=== PATIENT | male | born 1955 | race Caucasian/White ===

== ENCOUNTER 2020-03-11 13:14 | Emergency (ER) | payer MEDICARE, SELFPAY ==
[2020-03-11 13:28] VITALS: BP 114/82; BP 117/84; PULSE 80; PULSE 84; RESP 16; TEMP 37.3; O2SAT 96; O2SAT 98; BMI 27.6
--- NOTE | 2020-03-11 15:32 | XR_ITS ---
EXAMINATION: XR CHEST CLINICAL INFORMATION: Cough COMPARISON: Chest radiographs 05/18/2015, 01/13/2014 TECHNIQUE: Portable upright AP view of the chest was obtained. FINDINGS: The lungs are clear. There is no airspace consolidation or definite groundglass opacity. The costophrenic sulci are well-defined. The heart is normal in size. The vascularity is normal. The hilar and mediastinal contours are normal. There are degenerative changes thoracic spine and bilateral acromioclavicular joints. XR/XR chest 1V IMPRESSION: Unremarkable examination.
--- NOTE | 2020-03-11 15:33 | ED_ITS ---
HPI - General Adult General Chief complaint: General Medical Stated complaint: FLu like Time Seen by Provider: 03/11/20 15:08 Source: patient Mode of arrival: ambulatory History of Present Illness HPI narrative: 64-year-old male with no significant past medical history presenting to ED complaining of fever, generalized malaise, fatigue, dry cough and headache x 3 days. Denies headache at present. Requesting COVID-19 testing. Denies CP/SOB, abdominal pain, nausea/vomiting, LE edema, recent travel, sick contacts Onset (ago): day(s) Related Data Allergies Allergy/AdvReac Type Severity Reaction Status Date / Time penicillin V Allergy Unknown Verified 12/18/19 00:00 Penicillins [PENICILLINS] Allergy Unknown RASH Unverified 12/31/19 15:49 Review of Systems Review of Systems: Constitutional: No Weight loss, + Fever, No Chills ENT/Mouth: No Ear Pain, No Nasal Congestion, No Sinus Pain, No Hoarseness, No sore throat, No Rhinorrhea, No Swallowing Difficulty Cardiovascular: No Chest Pain, No SOB Respiratory: + Cough, No Sputum, No Wheezing Gastrointestinal: No Nausea, No Vomiting, No Diarrhea, No Constipation, No Abdominal pain Musculoskeletal: No joint pain, +Myalgias Skin: No Skin Lesions, No rash Yes all other systems are reviewed and are negative PMFSH Past Medical History Attestation statement: The following information was validated with the patient. Social History Social History Smoked in Last 30 Days: No Use of substances other than those prescribed or required for medical reasons: No Advance Directives: No Advance Directives Information Provided: No Physical Exam Vital Signs: Vital Signs: Last Vital Signs Temp 98.8 F 03/11/20 15:44 Pulse 66 03/11/20 15:44 Resp 16 03/11/20 15:44 BP 113/78 03/11/20 15:44 Pulse Ox 96 03/11/20 15:44 Body Mass Index 27.6 Const: General: cooperative and healthy appearing Orientation/consciousness: patient oriented x3 Limitations: no limitations HENMT: Head: Yes normal to inspection Ears: hearing grossly normal bilaterally General nose exam: Normal external nose present Face and sin us: Yes normal facial exam Eyes: General: appearance normal, both eyes and all related structures EOM: EOMs intact bilaterally Neck: Neck: Yes normal visual inspection Resp: Effort & Inspection: normal respiratory effort Auscultation: clear to auscultation bilaterally, no crackles and no wheezes Cardio: Rate: regular rate Heart sounds: S1 normal heart sound present and S2 normal heart sound present GI: Inspection: Yes normal to inspection Palpation (GI): Soft to palpation, nontender, no guarding and not rigid Skin: Rashes: no rashes Wounds: no wounds Neuro: General: patient oriented x3 Gait exam (Neuro): Normal gait present Extrem: Other: No LE edema General: Yes normal to inspection Course Course Course Narrative: -CXR unremarkable Medical Decision Making [facility] Narrative Medical decision making narrative: 64-year-old male with no significant past me dical history presenting to ED complaining of fever, generalized malaise, fatigue, dry cough and headache x 3 days. On exam low-grade temp 99.2?, NAD/well-appearing, lungs CTA. Concern for COVID-19/viral syndrome. Rule out pneumonia. Plan: CXR, COVID-19, anticipated DC home Discharge Plan Discharge Clinical Impression: Upper respiratory infection Patient Disposition: Home, Self-Care Instructions: Viral Syndrome (ED) Additional Instructions: Your chest x-ray was unremarkable today in the ED. You were tested for COVID- 19, the results should be back in about 3 days, we will call you positive were negative. In the meantime you to self isolate. If you develop fevers unresolved medications at, chest pain, or shortness of breath return to the ED Herzog radiograf?a de t?rax no fue notable hoy en el servicio de urgencias. Le hicieron la prueba de COVID-19, los resultados deber?an estar disponibles en aproximadamente 3 d?as, lo llamaremos positivo y negativo. Mientras tanto, debes aislarte. Si presenta fiebre, medicamentos no resueltos, dolor en el pecho o dificultad para respirar, regrese al servicio de urgencias. Based on your symptoms and history we have sent a COVID-19. Although your RESULT IS PENDING at this time. RESULTS should return within 72 hours. At this time you will be contacted with either NEGATIVE OR POSITIVE results. -Please wait until we contact you for your results. At this time you will be okay for discharge. Please plan for self quarantine for up to 14 days. Do not expose yourself to others. You may not go to work. If testing does come back negative you may return to activities as long as you are no longer having any symptoms for at least 3 days. Please continue to follow cold instructions and wash your hands frequently. You may take Tylenol as directed on the bottle for pain or fever. Patient seen in the emergency department on 10/09/2019 and should be excused from work until negative test results AND until 72 hours without any symptoms AND at least 10 days have passed since symptoms first appeared or since last exposure to COVID-19 positive patient CDC Guidelines for home isolation: - Stay away from others - WEAR A MASK if you are sick AND STAY HOME - Cover your mouth and nose with a tissue when you cough or sneeze. Dispose of tissues in a lined trash can and wash your hands immediately with soap and water for at least 20 seconds. If soap and water are not available, clean hands with alcohol-based hand dietitian assistant that contains at least 60% alcohol. - Clean your hands often with soap and water for at least 20 seconds - Avoid touching your eyes, nose and mouth with unwashed hands - Do not share dishes, drinking glasses, cups, eating utensils, towels, or bedding with other people in your home. After using these items, wash them thoroughly with soap and water or put in the flight physician. - Clean high-touch surfaces in your isolation area ( sick room and bathroom) every day; let a caregiver clean and disinfect high-touch surfaces in other areas of the home. Clean the area or item with soap and water or another detergent if it is dirty. Then, use a household disinfectant. - Limit contact with pets and animals: If you must care for a pet, wash your hands before and after interacting with them) Referrals: Debbie Ardon NP [Primary Care Provider] - 2 days Print Language: Macedonian
[2020-03-11 15:44] VITALS: BP 113/78; PULSE 66; RESP 16; TEMP 37.1; O2SAT 96
== END 2020-03-11 17:38 | disposition home or self-care (01) ==
PROVIDERS: Physician Assistant; Emergency Provider Emergency Medicine Emergency Medical Services; PCP Emergency Medicine
DX: J06.9 Acute upper respiratory infection, unspecified (principal); R50.9 Fever, unspecified; R05 Cough; M79.10 Myalgia, unspecified site; Z20.828 Contact with and (suspected) exposure to other viral communicable diseases
CPT/HCPCS: 71045; 99283; 99284; U0003

== ENCOUNTER 2020-03-19 10:49 | Emergency (ER) | payer MEDICARE, SELFPAY ==
[2020-03-19 11:24] VITALS: BP 115/89; BP 122/82; PULSE 100; PULSE 84; RESP 18; TEMP 37.3; O2SAT 94; BMI 30.4
--- NOTE | 2020-03-19 12:27 | XR_ITS ---
EXAMINATION: XR CHEST CLINICAL INFORMATION: Cough, and fever. COMPARISON: Chest done on 03/11/2020. TECHNIQUE: Frontal view of the chest was obtained. FINDINGS: Subtle retrocardiac focal airspace disease is noted may represent atelectasis, infiltrate versus mass. This is new since prior study. The remainder of the lung rodriguez are clear. The heart size is within normal limit. There is no pleural effusion or pneumothorax present. The visualized upper abdomen is unremarkable. XR/XR chest 1V IMPRESSION: Subtle retrocardiac airspace disease, may represent infiltrate, atelectasis versus mass, new since 03/11/2020. Follow-up radiograph to document resolution is recommended.
--- NOTE | 2020-03-19 12:33 | ED.GENADULT ---
HPI - General Adult General Chief complaint: General Medical Stated complaint: INCREASED WEAKNESS, + COVID Time Seen by Provider: 03/19/20 12:01 Source: patient Mode of arrival: ambulatory Limitations: no limitations History of Present Illness HPI narrative: 64-year-old male with no significant past medical history here with fever and cough x 1.5 weeks. Patient tells me on 03/11 he was tested for COVID and was positive. Since then he has continued to have fevers and cough. He feels generally weak with a decreased appetite and little p.o. intake. He denies chest pain, shortness of breath. Denies vomiting, diarrhea or abdominal pain. He has not measured his temperature but tells me he has had subjective fevers. Onset (ago): week(s) Radiation: non-radiation Relieving factors: none Exacerbating factors: none Associated symptoms: cough and fever/chills Treatments prior to arrival: none Related Data Previous Rx's Medication Instructions Recorded azithromycin 250 mg PO DAILY 4 Days #4 tab 03/19/20 cefdinir 300 mg PO BID #14 cap 03/19/20 Allergies Allergy/AdvReac Type Severity Reaction Status Date / Time penicillin V Allergy Intermediate Rash Verified 03/19/20 11:31 Penicillins [PENICILLINS] Allergy Intermediate RASH Verified 03/19/20 11:31 Review of Systems Review of Systems: Yes all other systems are reviewed and are negative Constitutional: Constitutional: Reports no additional constitutional complaints, Denies body ache(s), Reports chills, Reports fatigue, Reports fever(s), Denies headache(s) and Reports weakness Eyes: Eyes: Reports no additional eye complaints and Denies change in vision ENT: Reports system reviewed and no additional complaints, except as documented, Denies dizziness, Denies headache(s), Denies nasal congestion, Denies nasal discharge and Denies neck pain Cardiovascular: Cardiovascular: Reports no additional cardiovascular complaints, Denies chest pain, Denies leg edema and Denies dyspnea Respiratory: Respiratory: Reports no additional respiratory complaints, Reports cough and Denies dyspnea Gastrointestinal: Gastrointestinal: Reports no additional gastrointestinal complaints, Denies abdominal pain, Denies diarrhea, Denies nausea and Denies vomiting Genitourinary: Genitourinary: Denies urinary incontinence Musculoskeletal: Musculoskeletal: Reports no additional musculoskeletal complaints, Denies back pain, Denies arthralgias, Denies joint swelling, Denies neck pain, Denies numbness and Denies tingling Integumentary/Breasts: Skin/Breast: Reports system reviewed and no additional complaints, except as docu and Denies rash Neurologic: Reports system reviewed and no additional complaints, except as documented, Denies Abnormal speech present, Denies dizziness, Denies headache(s), Denies numbness, Denies tingling and Reports weakness Endocrine: Endocrine: Reports fatigue PMF Past Medical History Attestation statement: The following information was validated with the patient. Source: old records reviewed and nursing notes reviewed Medical History HTN (hypertension) Sinusitis Social History Social History Alcohol intake: never Smoked in Last 30 Days: No Use of substances other than those prescribed or required for medical reasons: No Advance Directives: No Advance Directives Information Provided: No Physical Exam Vital Signs: Vital Signs: Last Vital Signs Temp 100.4 F 03/19/20 14:00 Pulse 96 03/19/20 15:22 Resp 18 03/19/20 15:22 BP 118/80 03/19/20 13:36 Pulse Ox 95 03/19/20 15:22 Body Mass Index 30.4 Const: General: cooperative, healthy appearing, comfortable and no acute distress Orientation/consciousness: patient oriented x3 Limitations: no limitations HENMT: Head: Yes normal to inspection Ears: hearing grossly normal bilaterally General nose exam: Normal external nose present Face and sinus: Yes normal facial exam Mouth: Normal oral and palatal mucosa present Throat: Yes posterior oropharynx normal Eyes: General: appearance normal, both eyes and all related structures Pupils: Equal, round and reactive pupils present Neck: Neck: Yes normal visual inspection Chest: Chest palpation & inspection: normal inspection of the chest Resp: Other: Fine crackles in the bases. Clear upper airway sounds. Effort & Inspection: normal respiratory effort Auscultation: clear to auscultation bilaterally Cardio: Rate: regular rate Rhythm: regular rhythm Peripheral pulses: Peripheral pulses 2+ throughout GI: Inspection: Yes normal to inspection Palpation (GI): Soft to palpation and nontender Auscultation: normal bowel sounds Back/Spine/Pelvis: Thoracic/Lumbar Spine: thoracic and lumbar spine normal to inspection Skin: General skin exam: no rashes or lesions noted Neuro: General: patient oriented x3, no focal motor deficits and normal sensation to monofilament Cranial nerves: Yes Equal, round and reactive pupils present Cognition (Neuro): normal cognition Speech: No Abnormal speech present Gait exam (Neuro): Normal gait present Motor exam (neuro): 5/5 motor strength present throughout Extrem: General: Yes normal to inspection Course Course Course Narrative: 64-year-old male with known COVID positive here with continued symptoms of cough, subjective fevers, weakness and fatigue. Patient also complains of decreased p.o. intake. On arrival he is well appearing with stable vital signs. He does have some fine crackles in the bases but has stable saturations on room air. Will plan to check chest x-ray, labs. 1330-chest x-ray concerning for underlying pneumonia. CT chest ordered. At this time infection is suspected. Antibiotics ordered. 1530-CT of the chest concerning for bilateral ground-glass opacities consistent with COVID-19 pneumonia. Labs consistent with the COVID-19 infection. Patient ambulated in the emergency department with oxygen saturation greater than 98%. He received antibiotics while he was here in the emergency department. He will be discharged home with antibiotics. He is tolerating p.o. and appears well. Discussed the findings with him. Reviewed worrisome signs and symptoms and when to return to the emergency department. Comfortable with discharge home. Medical Decision Making MDM Narrative Medical decision making narrative: COVID-19 infection, pneumonia Medical Records Medical records reviewed: Yes I reviewed the patient's medical records. Lab Data Lab results reviewed: Yes I reviewed the patient's lab results. Result diagrams: 03/19/20 13:32 03/19/20 13:28 Labs: Lab Results 03/19/20 03/19/20 03/19/20 Range/Units 13:28 13:28 13:28 WBC (4.8-10.8) X10*3/uL RBC (4.60-5.80) X10*6/uL Hgb (14.0-18.0) g/dl Hct (42-52) % MCV (80-98) fL MCH (27.0-33.0) pg MCHC (31.0-36.0) g/dl RDW (11.0-16.0) % Plt Count (160-400) X10*3/uL MPV (9.4-12.4) fL Immature Gran % (Auto) (0.0-0.4) % Neut % (Auto) (45-73) % Lymph % (Auto) (20-40) % [place] % (Auto) (2-11) % Eos % (Auto) (0-4) % Baso % (Auto) (0-2) % Lymph # (Auto) (1.2-4.9) X10*3/uL [place] # (Auto) (0.1-1.2) X10*3/uL Eos # (Auto) (0.0-0.4) X10*3/uL Baso # (Auto) (0.0-0.2) X10*3/uL Abs Immat Gran (auto) (0.00-0.03) X10*3/uL Absolute Neuts (auto) (2.0-8.3) X10*3/uL Absolute Nucleated RBC (0.0-0.012) X10*3/uL Nucleated RBC % (auto) (0.0-0.2) /100WBC Hold Blue Top SEE NOTE Sodium 138 (135-145) mmol/L Potassium 4.2 (3.3-5.1) mmol/l Chloride 104 (96-108) mmol/L Carbon Dioxide 23 (22-29) mmol/L Anion Gap 15 (12-20) BUN 12 (9-16) mg/dL Creatinine 0.86 (0.5-1.4) mg/dL Estim Creat Clear Calc 89.5 Estimated GFR > 60 Random Glucose 88 (60-115) mg/dL Lactic Acid 1.0 (0.5-2.0) mmol/L Calcium 8.5 (8.4-10.2) mg/dL Magnesium 2.0 (1.6-2.6) mg/dL Ferritin 1296 H (20-250) ng/mL Total Bilirubin 0.8 (0.0-1.0) mg/dL Direct Bilirubin 0.3 (0.0-0.5) mg/dL AST 95 H (5-37) U/L ALT 90 H (0-40) U/L Alkaline Phosphatase 83 (39-117) U/L Lactate Dehydrogenase 333 H (118-273) U/L Total Protein 7.2 (6.5-8.0) g/dL Albumin 4.1 (3.5-5.0) g/dL Procalcitonin ng/mL 03/19/20 03/19/20 Range/Units 13:28 13:32 WBC 8.4 (4.8-10.8) X10*3/uL RBC 4.17 L (4.60-5.80) X10*6/uL Hgb 12.8 L (14.0-18.0) g/dl Hct 38.4 L (42-52) % MCV 92.1 (80-98) fL MCH 30.7 (27.0-33.0) pg MCHC 33.3 (31.0-36.0) g/dl RDW 11.9 (11.0-16.0) % Plt Count 202 (160-400) X10*3/uL MPV 10.4 (9.4-12.4) fL Immature Gran % (Auto) 0.4 (0.0-0.4) % Neut % (Auto) 72.3 (45-73) % Lymph % (Auto) 20.4 (20-40) % [place] % (Auto) 6.7 (2-11) % Eos % (Auto) 0.1 (0-4) % Baso % (Auto) 0.1 (0-2) % Lymph # (Auto) 1.7 (1.2-4.9) X10*3/uL [place] # (Auto) 0.6 (0.1-1.2) X10*3/uL Eos # (Auto) 0.0 (0.0-0.4) X10*3/uL Baso # (Auto) 0.0 (0.0-0.2) X10*3/uL Abs Immat Gran (auto) 0.03 (0.00-0.03) X10*3/uL Absolute Neuts (auto) 6.1 (2.0-8.3) X10*3/uL Absolute Nucleated RBC 0.000 (0.0-0.012) X10*3/uL Nucleated RBC % (auto) 0.0 (0.0-0.2) /100WBC Hold Blue Top Sodium (135-145) mmol/L Potassium (3.3-5.1) mmol/l Chloride (96-108) mmol/L Carbon Dioxide (22-29) mmol/L Anion Gap (12-20) BUN (9-16) mg/dL Creatinine (0.5-1.4) mg/dL Estim Creat Clear Calc Estimated GFR Random Glucose (60-115) mg/dL Lactic Acid (0.5-2.0) mmol/L Calcium (8.4-10.2) mg/dL Magnesium (1.6-2.6) mg/dL Ferritin (20-250) ng/mL Total Bilirubin (0.0-1.0) mg/dL Direct Bilirubin (0.0-0.5) mg/dL AST (5-37) U/L ALT (0-40) U/L Alkaline Phosphatase (39-117) U/L Lactate Dehydrogenase (118-273) U/L Total Protein (6.5-8.0) g/dL Albumin (3.5-5.0) g/dL Procalcitonin 0.08 ng/mL Imaging Data Chest x-ray: Attestation: I personally reviewed and interpreted this imaging study as follows: Radiologist's impression: [address] [address] XRay Report Signed Patient: Chago De La Rosa#: [id number] : 3Acct:[id number] Age/Sex: 64 / MADM Date: 03/19/20 Loc: .ED Attending Dr: Ordering Physician: SIA JORDAN NP Date of Service: 03/19/20 Procedure(s): XR chest 1V Accession Number(s): [id number] cc: SIA JORDAN NP~ EXAMINATION: XR CHEST CLINICAL INFORMATION: Cough, and fever. COMPARISON: Chest done on 03/11/2020. TECHNIQUE: Frontal view of the chest was obtained. FINDINGS: Subtle retrocardiac focal airspace disease is noted may represent atelectasis, infiltrate versus mass. This is new since prior study. The remainder of the lung rodriguez are clear. The heart size is within normal limit. There is no pleural effusion or pneumothorax present. The visualized upper abdomen is unremarkable. XR/XR chest 1V IMPRESSION: Subtle retrocardiac airspace disease, may represent infiltrate, atelectasis versus mass, new since 03/11/2020. Follow-up radiograph to document resolution is recommended. CT scan - chest: Attestation: I personally reviewed and interpreted this imaging study as follows: Radiologist's impression: EXAMINATION: CT CHEST WITHOUT CONTRAST CLINICAL INFORMATION: Shortness of breath and chest pain with pneumonia COMPARISON: Chest radiograph earlier today TECHNIQUE: Multidetector volumetric CT imaging of the chest was done. Axial MIP volume rendering provided. Sagittal and coronal reformatted images were obtained. This CT examination was performed using dose optimization techniques as appropriate, variously including the following: *Automated exposure control *Adjustment of mA and/or kV according to patient size (this includes techniques or standardized protocols for targeted exams where dose is matched to indication/reason for exam; i.e. extremities or head) *Use of iterative reconstruction technique DLP: 267 mGy-cm FINDINGS: LUNGS: Multifocal groundglass predominantly peripheral infiltrates are present involving all lobes. Findings suggestive of Covid 19. No consolidations with air bronchograms are seen. No solid lung masses are seen. MEDIASTINUM: Heart size normal. No mediastinal or hilar lymphadenopathy. Coronary artery calcifications are present as is some calcification in aortic leaflets. PLEURA: There is no pleural effusion. No pleural mass or thickening. AXILLA: No lymphadenopathy. UPPER ABDOMEN: Unremarkable. OSSEOUS STRUCTURES: Unremarkable. Mild degenerative changes are present. CT/CT chest wo con IMPRESSION: Multiple areas of peripheral groundglass infiltrate throughout the lungs suggestive of COVID19 infection. ECG Data Attestation: I personally reviewed and interpreted this ECG as follows: Interpretation: Normal sinus rhythm with a rate of 75, normal NV, normal QRS, normal QTC, depressions in V4 V3 and V5 which is unchanged from previous in 2014 Discharge Plan Discharge Clinical Impression: COVID-19 Pneumonia Qualifiers: Pneumonia type: due to unspecified organism Laterality: bilateral Lung location: unspecified part of lung Qualified Code(s): J18.9 - Pneumonia, unspecified organism Patient Disposition: Home, Self-Care Instructions: Viral Pneumonia (ED), COVID-19 (Coronavirus Disease 2019) (ED) Additional Instructions: Start your antibiotics tomorrow Return for severe shortness of breath Prescriptions: New azithromycin 250 mg tablet 250 mg PO DAILY 4 Days Qty: 4 RF: 0 cefdinir 300 mg capsule 300 mg PO BID Qty: 14 RF: 0 Referrals: Debbie Ardon NP [Primary Care Provider] - 2 days Interventions: ED Discharge Assessment Last Done: 03/19/20 16:07 Discharge Date/Time: 03/19/20 16:08 Print Language: Romanian
--- NOTE | 2020-03-19 13:31 | CT_ITS ---
EXAMINATION: CT CHEST WITHOUT CONTRAST CLINICAL INFORMATION: Shortness of breath and chest pain with pneumonia COMPARISON: Chest radiograph earlier today TECHNIQUE: Multidetector volumetric CT imaging of the chest was done. Axial MIP volume rendering provided. Sagittal and coronal reformatted images were obtained. This CT examination was performed using dose optimization techniques as appropriate, variously including the following: *Automated exposure control *Adjustment of mA and/or kV according to patient size (this includes techniques or standardized protocols for targeted exams where dose is matched to indication/reason for exam; i.e. extremities or head) *Use of iterative reconstruction technique DLP: 267 mGy-cm FINDINGS: LUNGS: Multifocal groundglass predominantly peripheral infiltrates are present involving all lobes. Findings suggestive of Covid 19. No consolidations with air bronchograms are seen. No solid lung masses are seen. MEDIASTINUM: Heart size normal. No mediastinal or hilar lymphadenopathy. Coronary artery calcifications are present as is some calcification in aortic leaflets. PLEURA: There is no pleural effusion. No pleural mass or thickening. AXILLA: No lymphadenopathy. UPPER ABDOMEN: Unremarkable. OSSEOUS STRUCTURES: Unremarkable. Mild degenerative changes are present. CT/CT chest wo con IMPRESSION: Multiple areas of peripheral groundglass infiltrate throughout the lungs suggestive of COVID19 infection.
[2020-03-19] MEDS: 0.9 % Sodium Chloride 1,000 ML 999 ML IV (13:32)
--- NOTE | 2020-03-19 13:33 | PC.NURSE ---
labs drawn, pt medicated per order, will continue to monitor.
[2020-03-19 13:36] VITALS: BP 118/80; PULSE 74; RESP 18; TEMP 37.7; O2SAT 95
--- NOTE | 2020-03-19 13:46 | ECG_ITS ---
Test Reason : [id number] Blood Pressure : / mmHG Vent. Rate : 075 BPM Atrial Rate : 075 BPM P-R Int : 176 ms QRS Dur : 086 ms QT Int : 362 ms P-R-T Axes : 012 000 -24 degrees QTc Int : 404 ms Normal sinus rhythm T wave abnormality, consider inferior ischemia Abnormal ECG When compared with ECG of 13-JAN-2014 17:30, T wave inversion now evident in Inferior leads Referred By: Vicenta Stein Electronically Signed By:MICHAEL RAMIREZ MD
[2020-03-19 13:57] LABS: Basophils Percent Auto 0.1 % (0-2); Eosinophils Percent Auto 0.1 % (0-4); Hematocrit 38.4 % (42-52); Hemoglobin 12.8 g/dl (14.0-18.0); Imm Gran Abs Auto 0.03 X10*3/uL (0.00-0.03); Imm Gran Pct Auto 0.4 % (0.0-0.4); Lymphocytes Absolute Auto 1.7 X10*3/uL (1.2-4.9); Lymphocytes Percent Auto 20.4 % (20-40); MANUAL DIFF FLAG NO; Mean Corpuscular HGB Conc 33.3 g/dl (31.0-36.0); Mean Corpuscular Hemoglobin 30.7 pg (27.0-33.0); Mean Corpuscular Volume 92.1 fL (80-98); Mean Platelet Volume 10.4 fL (9.4-12.4); Monocytes Absolute Auto 0.6 X10*3/uL (0.1-1.2); Monocytes Percent Auto 6.7 % (2-11); Neutrophils Absolute Auto 6.1 X10*3/uL (2.0-8.3); Neutrophils Percent Auto 72.3 % (45-73); Platelet Count 202 X10*3/uL (160-400); Red Blood Count 4.17 X10*6/uL (4.60-5.80); Red Cell Distribution Width 11.9 % (11.0-16.0); White Blood Count 8.4 X10*3/uL (4.8-10.8)
[2020-03-19 14:00] VITALS: RESP 16; TEMP 38
[2020-03-19 14:16] LABS: Alanine Aminotransferase 90 U/L (0-40); Albumin Level 4.1 g/dL (3.5-5.0); Alkaline Phosphatase 83 U/L (39-117); Anion Gap 15 (12-20); Aspartate Amino Transferase 95 U/L (5-37); Bilirubin Direct 0.3 mg/dL (0.0-0.5); Bilirubin Total 0.8 mg/dL (0.0-1.0); Blood Urea Nitrogen 12 mg/dL (9-16); Calcium 8.5 mg/dL (8.4-10.2); Carbon Dioxide 23 mmol/L (22-29); Chloride 104 mmol/L (96-108); Creatinine Clr Calc Pharmacy 89.5; Estimated Glomerular Filt Rate > 60; Glucose Random 88 mg/dL (60-115); Lactate Dehydrogenase 333 U/L (118-273); Potassium 4.2 mmol/l (3.3-5.1); Sodium 138 mmol/L (135-145); Total Protein 7.2 g/dL (6.5-8.0)
[2020-03-19] MEDS: cefTRIAXone sodium 1 GM in 0.9 % Sodium Chloride 50 ML IV (14:27)
[2020-03-19 14:37] LABS: Procalcitonin 0.08 ng/mL
[2020-03-19] MEDS: Azithromycin 500 MG TABLET PO (14:52)
--- NOTE | 2020-03-19 14:52 | PC.NURSE ---
patient medicated per order
[2020-03-19 15:22] VITALS: PULSE 96; RESP 18; O2SAT 95
[2020-03-19] MEDS: Acetaminophen 325 MG TABLET 975 MG PO (15:23)
--- NOTE | 2020-03-19 15:24 | PC.NURSE ---
patient ambulated per provider request pt o2 sat remained at 95% on room air while ambulating/steady gait, pt states he feels better, pt medicated per order.
[2020-03-19 15:49] LABS: Ferritin 1296 ng/mL (20-250)
== END 2020-03-19 16:08 | disposition home or self-care (01) ==
PROVIDERS: Nurse Practitioner Family; Emergency Provider Emergency Medicine Emergency Medical Services; PCP Emergency Medicine
DX: U07.1 COVID-19 (principal); J12.89 Other viral pneumonia; I10 Essential (primary) hypertension
CPT/HCPCS: 36415; 71045; 71250; 80048; 80076; 82728; 83605; 83615; 83735; 84145; 85025; 87040; 93005; 96361; 96365; 99284; J0696

== ENCOUNTER 2020-03-23 10:55 | Inpatient (IN) | payer MEDICARE, SELFPAY ==
--- NOTE | 2020-03-23 11:03 | ED_ITS ---
HPI - URI/Sore Throat General Chief Complaint: General Medical Stated Complaint: COVID+,TAKING TOO LONG TO FEEL BETTER Time Seen by Provider: 03/23/20 11:00 Source: patient and EMS Mode of arrival: EMS History of Present Illness HPI Narrative: 64-year-old male with past medical history COVID-19 positive on 03/11 presenting to ED complaining of continued decreased p.o. intake, generalized fatigue, and dry cough. Patient was seen in the ED on 03/19 for similar symptoms, had labs, CXR/chest CT showing viral pneumonia, was sent home on Zithromax and Ceftin, reports compliance with medications. Reports symptoms consistent/the same as prior ED visit, not worse or better, but was instructed to return to ED by family member. Denies fever, chills, CP/SOB, abdominal pain, recent travel, LE edema MD elicited complaint: cough Related Data Home Medications Medication Instructions Recorded Confirmed aspirin 1 tab PO DAILY 03/23/20 docusate sodium [DOK] 1 cap PO BID 03/23/20 fluocinonide 1 applic TOPICAL DAILY 03/23/20 lisinopril 1 tab PO DAILY 03/23/20 loratadine 1 tab PO DAILY 03/23/20 metronidazole 1 applic TOPICAL BID 03/23/20 omeprazole 1 cap PO DAILY 03/23/20 tamsulosin 1 cap PO DAILY 03/23/20 Previous Rx's Medication Instructions Recorded azithromycin 250 mg PO DAILY 4 Days #4 tab 03/19/20 cefdinir 300 mg PO BID #14 cap 03/19/20 Allergies Allergy/AdvReac Type Severity Reaction Status Date / Time penicillin V Allergy Intermediate Rash Verified 03/19/20 11:31 Penicillins [PENICILLINS] Allergy Intermediate RASH Verified 03/19/20 11:31 Review of Systems Review of Systems: Constitutional: No Weight loss, No Fever, + Chills, +fatigue ENT/Mouth: No Ear Pain, No Nasal Congestion, No Sinus Pain, No sore throat, No Rhinorrhea Cardiovascular: No Chest Pain, No SOB Respiratory: + Cough, No Sputum, No Wheezing Gastrointestinal: No Nausea, No Vomiting, No Diarrhea, No Constipation, No Abdominal pain Musculoskeletal: No joint pain, + Myalgias, No Joint Swelling Skin: No Skin Lesions, No rash Neuro: +generalized weakness Yes all other systems are reviewed and are negative PMFSH Past Medical History Attestation statement: The following information was validated with the patient. Medical History HTN (hypertension) Sinusitis Social History Social History Alcohol intake: never Smoked in Last 30 Days: No Use of substances other than those prescribed or required for medical reasons: No Advance Directives: No Advance Directives Information Provided: No Physical Exam Vital Signs: Vital Signs: Last Vital Signs Temp 100.4 F 03/23/20 11:09 Pulse 69 03/23/20 11:09 Resp 20 03/23/20 11:09 BP 132/86 03/23/20 11:09 Pulse Ox 88 L 03/23/20 11:40 Body Mass Index 29.3 Const: General: cooperative and healthy appearing Orientation/consciou sness: patient oriented x3 Limitations: no limitations HENMT: Head: Yes normal to inspection Ears: hearing grossly normal bilaterally General nose exam: Normal external nose present Face and sinus: Yes normal facial exam Eyes: General: appearance normal, both eyes and all related structures EOM: EOMs intact bilaterally Neck: Neck: Yes normal visual inspection Resp: Effort & Inspection: normal respiratory effort, no grunting, not labored, no respiratory distress and no use of accessory muscles Auscultation: no crackles, no wheezes and diminished lung sounds (Bibasilar) Cardio: Rate: regular rate Heart sounds: S1 normal heart sound present and S2 normal heart sound present GI: Inspection: Yes normal to inspection Palpation (GI): Soft to palpation, nontender, no guarding and not rigid Skin: Rashes: no rashes Wounds: no wounds Neuro: General: patient oriented x3 Gait exam (Neuro): Normal gait present Extrem: Other: no LE edema or calf ttp General: Yes normal to inspection Course Course Course Narrative: -1200--upon ambulation with pulse ox patient dropped to 88% on RA > repeat labs, CXR ordered > plan for admission for COVID- 1--CXR with ill-defined patchy opacities seen in the mid and lower lobes, which were distinctly visualized on previous CT on 03/19 > patient already appropriately treated with Ceftin and azithromycin, consistent with viral pneu monia, low concern for sepsis as viral etiology MDM - URI/Sore Throat MDM Narrative Medical decision making narrative: 64-year-old male with past medical history COVID-19 positive on 03/11 presenting to ED complaining of continued decreased p.o. intake, generalized fatigue, and dry cough. On exam low-grade temp a 100.4?, satting 94% on RA, in no respiratory distress, diminished breath sounds bibasilar, no accessory muscle use, nontoxic appearing. Likely continued COVID- 19 symptoms. Low concern for PE/ACS or bacterial infection. Plan: P.o. prednisone, Tylenol, ambulate with pulse ox in the ED, anticipate DC home with strict return precautions Differential Diagnosis Differential diagnosis: Likely viral infection Lab Data Result diagrams: 03/23/20 12:38 03/23/20 12:38 Labs: Lab Results 03/23/20 Range/Units 12:38 Hold Blue Top SEE NOTE Discharge Plan Discharge Clinical Impression: COVID-19 Patient Disposition: Admitted As Inpatient Print Language: Polish
[2020-03-23 11:09] VITALS: BP 132/86; PULSE 69; RESP 20; TEMP 38; O2SAT 94; BMI 29.3
[2020-03-23] MEDS: Acetaminophen 325 MG TABLET 650 MG PO (11:37)
[2020-03-23] MEDS: predniSONE 20 MG TABLET 40 MG PO (11:37)
[2020-03-23 11:40] VITALS: O2SAT 88
--- NOTE | 2020-03-23 11:52 | XR_ITS ---
EXAMINATION: XR CHEST CLINICAL INFORMATION: Covid 19. SOB. COMPARISON: Chest x-ray and CT chest 03/19/2020 TECHNIQUE: Frontal view of the chest was obtained. FINDINGS: There is a scattered patchy density seen throughout the mid and lower lobes suggestive of infiltrates. These were present on the previous CT chest and chest x-ray 03/19/2020 heart size and pulmonary vascularity is normal. No gross bony abnormality seen. XR/XR chest 1V IMPRESSION: Ill-defined patchy opacities seen in the mid and lower lobes. These are distinctly visualized on previous CT chest 03/19/2020.
[2020-03-23 12:52] LABS: Basophils Percent Auto 0.1 % (0-2); MANUAL DIFF FLAG SCAN; Monocytes Percent Auto 7.7 % (2-11); PLT CLUMP 1; SCAN SMEAR FLAG 1
[2020-03-23] MEDS: Magnesium Sulfate/H2O 2 GM/50 ML PIGGYBACK IV (12:53)
[2020-03-23 12:54] LABS: Eosinophils Absolute Auto 0.1 X10*3/uL (0.0-0.4); Eosinophils Percent Auto 0.7 % (0-4); Hematocrit 33.6 % (42-52); Hemoglobin 11.1 g/dl (14.0-18.0); Imm Gran Abs Auto 0.04 X10*3/uL (0.00-0.03); Imm Gran Pct Auto 0.5 % (0.0-0.4); Lymphocytes Absolute Auto 1.2 X10*3/uL (1.2-4.9); Lymphocytes Percent Auto 13.8 % (20-40); Mean Corpuscular Hemoglobin 30.1 pg (27.0-33.0); Mean Corpuscular Volume 91.1 fL (80-98); Mean Platelet Volume 9.2 fL (9.4-12.4); Monocytes Absolute Auto 0.7 X10*3/uL (0.1-1.2); Neutrophils Absolute Auto 6.6 X10*3/uL (2.0-8.3); Neutrophils Percent Auto 77.2 % (45-73); Red Blood Count 3.69 X10*6/uL (4.60-5.80); Red Cell Distribution Width 11.7 % (11.0-16.0); White Blood Count 8.6 X10*3/uL (4.8-10.8)
[2020-03-23] MEDS: Albuterol Sulfate 90 MCG 8 GM INHALER 4 PUFF INHALE (12:54)
[2020-03-23 13:09] LABS: D Dimer 1978 NG/ML
[2020-03-23 13:12] LABS: SLIDE REVIEW VERIFIED
[2020-03-23 13:20] LABS: C Reactive Protein 12.29 mg/dL (< or = 0.50); Lactate Dehydrogenase 262 U/L (118-273)
[2020-03-23 13:21] LABS: Anion Gap 15 (12-20); Blood Urea Nitrogen 11 mg/dL (9-16); Calcium 8.3 mg/dL (8.4-10.2); Carbon Dioxide 24 mmol/L (22-29); Chloride 106 mmol/L (96-108); Creatinine Clr Calc Pharmacy 92.7; Estimated Glomerular Filt Rate > 60; Glucose Random 101 mg/dL (60-115); Sodium 141 mmol/L (135-145)
[2020-03-23 13:23] LABS: Alanine Aminotransferase 40 U/L (0-40); Albumin Level 3.7 g/dL (3.5-5.0); Alkaline Phosphatase 63 U/L (39-117); Aspartate Amino Transferase 32 U/L (5-37); Bilirubin Direct 0.4 mg/dL (0.0-0.5); Bilirubin Total 0.8 mg/dL (0.0-1.0); Total Protein 6.8 g/dL (6.5-8.0)
[2020-03-23 13:29] LABS: B Type Natriuretic Peptide 76 pg/mL (<100)
[2020-03-23 13:40] LABS: Procalcitonin 0.03 ng/mL
[2020-03-23 13:44] LABS: Ferritin 463 ng/mL (20-250)
[2020-03-23 14:34] VITALS: BP 126/83; PULSE 63; RESP 18; TEMP 37; O2SAT 93
--- NOTE | 2020-03-23 15:08 | PM.IMHP ---
History of Present Illness Date of Service: 03/23/20 Chief Complaint: dyspnea, fatigue, cough 64yo male with risk factor of hypertension and age who developed tactile fever, frontal headache, dyspnea, cough, and fatigue on 03/09/20. He presented to the [facility] ED 03/11/20 and ended up testing positive for COVID-19. He returned to the ED 03/19/20 with persistent cough and dyspnea. CT of the chest then showed bilateral ground-glass opacities consistent with COVID-19 infection. He was not hypoxic, and was discharged home on antibiotics [azithromycin and cefuroxime], but not steroids. He has no history of lung disease. He returned to the ED today feeling no better. Resting SaO2 was 93% and dropped to 88% with minimal ambulation, so the hospitalist team was called to admit the patient. He currently denies headache or fever. He denies chest pain. He denies any GI symptoms. No sick contacts. Review of Systems Review of Systems: Yes all other systems are reviewed and are negative FOR[facility] Medical History Benign neoplasm of cerebellum GERD (gastroesophageal reflux disease) HTN (hypertension) Rosacea Sinusitis Functional capacity: independent ambulation Pertinent family history: no cardiovascular disease Surgical History (Updated 03/23/20 @ 15:14 by Carmela Roach MD) History of brain surgery Social History (Updated 03/23/20 @ 15:14 by Carmela Roach MD) Alcohol intake: never Smoked in Last 30 Days: No Use of substances other than those prescribed or required for medical reasons: No Advance Directives: No Advance Directives Information Provided: No Current occupational status: retired Current occupation: worked in [employer] factory in [place] Current occupational exposures/hazards: No Meds Allergies Allergy/AdvReac Type Severity Reaction Status Date / Time penicillin V Allergy Intermediate Rash Verified 03/19/20 11:31 Penicillins [PENICILLINS] Allergy Intermediate RASH Verified 03/19/20 11:31 Home Medications Medication Instructions Recorded Confirmed Type aspirin 81 mg PO DAILY 03/23/20 03/23/20 History docusate sodium [DOK] 100 mg PO BID 03/23/20 03/23/20 History fluocinonide 1 applic TOPICAL DAILY 03/23/20 03/23/20 History lisinopril 20 mg PO DAILY 03/23/20 03/23/20 History loratadine 10 mg PO DAILY 03/23/20 03/23/20 History metronidazole 1 applic TOPICAL BID 03/23/20 03/23/20 History omeprazole 20 mg PO DAILY 03/23/20 03/23/20 History tamsulosin 0.4 mg PO DAILY 03/23/20 03/23/20 History Physical Exam Vital Signs and Narrative: Vital Signs: Last Vital Signs Temp 98.6 F 03/23/20 14:34 Pulse 63 03/23/20 14:34 Resp 18 03/23/20 14:34 BP 126/83 03/23/20 14:34 Pulse Ox 93 03/23/20 14:34 Body Mass Index 29.3 Gen: in no acute distress HEENT: sclera anicteric, moist mucus membranes Neck: supple Lungs: no respiratory distress, auscultation deferred due to COVID-19 Heart: normal peripheral pulses Abd: soft, non-tender, non-distended Ext: no cyanosis, clubbing, or edema Skin: warm/well-perfused Neuro: alert and oriented x3, no focal findings Psych: appropriate affect Results Labs CBC and Chem 7: 03/23/20 12:38 03/23/20 12:38 Labs: Laboratory Results - last 24 hr 03/23/20 03/23/20 03/23/20 12:38 12:38 12:38 MCV 91.1 MCH 30.1 MCHC 33.0 RDW 11.7 Plt Count TNP MPV 9.2 L Immature Gran % (Auto) 0.5 H Neut % (Auto) 77.2 H Lymph % (Auto) 13.8 L [place] % (Auto) 7.7 Eos % (Auto) 0.7 Baso % (Auto) 0.1 Lymph # (Auto) 1.2 [place] # (Auto) 0.7 Eos # (Auto) 0.1 Baso # (Auto) 0.0 Abs Immat Gran (auto) 0.04 H Absolute Neuts (auto) 6.6 Absolute Nucleated RBC 0.000 Nucleated RBC % (auto) 0.0 Smear Tech's Comments VERIFIED D-Dimer Hold Blue Top SEE NOTE Anion Gap 15 Estim Creat Clear Calc 92.7 Estimated GFR > 60 Random Glucose 101 Calcium 8.3 L Ferritin Total Bilirubin Direct Bilirubin AST ALT Alkaline Phosphatase Lactate Dehydrogenase C-Reactive Protein B-Natriuretic Peptide Total Protein Albumin Procalcitonin 03/23/20 03/23/20 03/23/20 12:38 12:38 12:38 MCV MCH MCHC RDW Plt Count MPV Immature Gran % (Auto) Neut % (Auto) Lymph % (Auto) [place] % (Auto) Eos % (Auto) Baso % (Auto) Lymph # (Auto) [place] # (Auto) Eos # (Auto) Baso # (Auto) Abs Immat Gran (auto) Absolute Neuts (auto) Absolute Nucleated RBC Nucleated RBC % (auto) Smear Tech's Comments D-Dimer Hold Blue Top Anion Gap Estim Creat Clear Calc Estimated GFR Random Glucose Calcium Ferritin 463 H Total Bilirubin 0.8 Direct Bilirubin 0.4 AST 32 D ALT 40 Alkaline Phosphatase 63 D Lactate Dehydrogenase 262 C-Reactive Protein 12.29 H B-Natriuretic Peptide Total Protein 6.8 Albumin 3.7 Procalcitonin 0.03 03/23/20 03/23/20 12:39 12:39 MCV MCH MCHC RDW Plt Count MPV Immature Gran % (Auto) Neut % (Auto) Lymph % (Auto) [place] % (Auto) Eos % (Auto) Baso % (Auto) Lymph # (Auto) [place] # (Auto) Eos # (Auto) Baso # (Auto) Abs Immat Gran (auto) Absolute Neuts (auto) Absolute Nucleated RBC Nucleated RBC % (auto) Smear Tech's Comments D-Dimer 1978 Hold Blue Top Anion Gap Estim Creat Clear Calc Estimated GFR Random Glucose Calcium Ferritin Total Bilirubin Direct Bilirubin AST ALT Alkaline Phosphatase Lactate Dehydrogenase C-Reactive Protein B-Natriuretic Peptide 76 Total Protein Albumin Procalcitonin Imaging Radiologist's Impressions: Impressions Chest X-Ray 03/23/20 11:52 IMPRESSION: Ill-defined patchy opacities seen in the mid and lower lobes. These are distinctly visualized on previous CT chest 03/19/2020. CT chest 03/19/20: Multiple areas of peripheral groundglass infiltrate throughout the lungs suggestive of COVID19 infection. Assessment and Plan (1) COVID-19: Status: Acute 64 year-old man with hypertension presenting on day #15 of COVID-19 pneumonia with ambulatory hypoxia. # COVID-19 pneumonia - in the autoimmune/vasculitis phase. start dexamethasone 6 mg/d x10d. trend inflammatory markers and if D-dimer worsens t/c VTE workup but for now will leave on prophylactic rather than therapeutic dose of LMWH. # acute hypoxic respiratory failure - suppl O2 to maintain SaO2 of 94% at rest # HTN - continue lisinopril # GERD - continue PPI # code - FULL CODE # VTE ppx - LMWH
[2020-03-23 16:34] VITALS: BP 131/86; PULSE 66; RESP 15; TEMP 37.2; O2SAT 93
[2020-03-23 19:21] VITALS: BP 135/83; PULSE 62; RESP 18; TEMP 37.3; O2SAT 95
[2020-03-23 20:00] VITALS: BP 139/93; PULSE 71; RESP 18; TEMP 36.9; O2SAT 95
[2020-03-23] MEDS: 0.9 % Sodium Chloride Flush 3 ML SYRINGE IVFLUSH (20:13)
[2020-03-23] MEDS: Enoxaparin Sodium 40 MG/0.4 ML SYRINGE SUBCUT (20:14)
[2020-03-24] VITALS (7 sets, daily range): BP systolic 111–135; BP diastolic 78–88; PULSE 61–98; RESP 16–19; TEMP 36.4–37.2; O2SAT 92–95
[2020-03-24 07:05] LABS: MANUAL DIFF FLAG NO
[2020-03-24 07:17] LABS: Basophils Percent Auto 0.1 % (0-2); Eosinophils Percent Auto 0.5 % (0-4); Hemoglobin 10.9 g/dl (14.0-18.0); Imm Gran Abs Auto 0.03 X10*3/uL (0.00-0.03); Imm Gran Pct Auto 0.4 % (0.0-0.4); Lymphocytes Absolute Auto 1.8 X10*3/uL (1.2-4.9); Lymphocytes Percent Auto 22.8 % (20-40); Mean Corpuscular Hemoglobin 30.3 pg (27.0-33.0); Mean Corpuscular Volume 91.7 fL (80-98); Mean Platelet Volume 9.4 fL (9.4-12.4); Monocytes Absolute Auto 0.9 X10*3/uL (0.1-1.2); Neutrophils Percent Auto 65.2 % (45-73); Red Cell Distribution Width 11.6 % (11.0-16.0); White Blood Count 7.7 X10*3/uL (4.8-10.8)
[2020-03-24] MEDS: Tamsulosin HCL 0.4 MG CAPSULE PO (07:32)
[2020-03-24] MEDS: Omeprazole 20 MG CAPSULE.DR PO (07:32)
[2020-03-24] MEDS: Aspirin Enteric Coated 81 MG TABLET.DR PO (07:32)
[2020-03-24] MEDS: Loratadine 10 MG TABLET PO (07:32)
[2020-03-24] MEDS: 0.9 % Sodium Chloride Flush 3 ML SYRINGE IVFLUSH ×3 (07:32→21:12)
[2020-03-24] MEDS: lisinopriL 20 MG TABLET PO (07:38)
[2020-03-24 07:44] LABS: Anion Gap 13 (12-20); Blood Urea Nitrogen 15 mg/dL (9-16); Calcium 8.3 mg/dL (8.4-10.2); Carbon Dioxide 25 mmol/L (22-29); Chloride 107 mmol/L (96-108); Creatinine Clr Calc Pharmacy 90.4; Estimated Glomerular Filt Rate > 60; Glucose Random 109 mg/dL (60-115); Potassium 4.2 mmol/l (3.3-5.1); Sodium 141 mmol/L (135-145)
--- NOTE | 2020-03-24 09:37 | MHC.CM.PN ---
IMM 03/24/20 MALE 64 DX COVID+. He lives w and family. He is independent all functional mobility. HCP completed and placed on chart. PCP confirmed @ [facility]. DP home w services family transport.
--- NOTE | 2020-03-24 14:32 | P.PNIM_ITS ---
Subjective Subjective Date of Service: 03/24/20 Interval History: still c/o fatigue/dyspnea/cough no chest pain no fever Physical Exam Vital Signs: Vital Signs: Last Vital Signs Temp 98.9 F 03/24/20 11:51 Pulse 78 03/24/20 11:51 Resp 18 03/24/20 11:51 BP 128/85 03/24/20 11:51 Pulse Ox 94 03/24/20 11:51 Body Mass Index 29.3 Gen: in no acute distress HEENT: sclera anicteric, moist mucus membranes Neck: supple Lungs: no respiratory distress, auscultation deferred due to COVID-19 Heart: normal peripheral pulses Abd: soft, non-tender, non-distended Ext: no cyanosis, clubbing, or edema Skin: warm/well-perfused Neuro: alert and oriented x3, no focal findings Psych: appropriate affect Objective Data Current Medications Generic Name Dose Route Start Last Admin Trade Name Freq PRN Reason Stop Dose Admin Acetaminophen 650 mg 03/23/20 14:45 Acetaminophen 325 Mg Tablet PO Q6H PRN fever/pain Aspirin 81 mg 03/24/20 09:00 03/24/20 07:32 Aspirin Enteric Coated 81 Mg Tablet. PO 81 mg DAILY SUSIE Administration Dexamethasone Sodium Phosphate 6 mg 03/24/20 11:15 03/24/20 11:22 Dexamethasone Sod Phosphate/Pf 10 Mg/Ml Vial IVPUSH 04/02/20 09:01 6 mg DAILY SUSIE Administration Docusate Sodium 100 mg 03/23/20 21:00 03/24/20 11:22 Docusate Sodium 100 Mg Capsule PO Not Given BID SUSIE Enoxaparin Sodium 40 mg 03/23/20 18:00 03/23/20 20:14 Enoxaparin Sodium 40 Mg/0.4 Ml Syringe SUBCUT 40 mg Q24H SUSIE Administration Lisinopril 20 mg 03/24/20 09:00 03/24/20 07:38 Lisinopril 20 Mg Tablet PO 20 mg DAILY SUSIE Administration Protocol Loratadine 10 mg 03/24/20 09:00 03/24/20 07:32 Loratadine 10 Mg Tablet PO 10 mg DAILY SUSIE Administration Omeprazole 20 mg 03/24/20 09:00 03/24/20 07:32 Omeprazole 20 Mg Capsule. PO 20 mg DAILY SUSIE Administration Ondansetron HCl 4 mg 03/23/20 14:45 Ondansetron Hcl 4 Mg/2 Ml Vial IVPUSH Q8H PRN Nausea and Vomiting Pharmacy Consult 1 each 03/23/20 11:56 Consult Rx Perform Med Rec MISCELLANE ONCE PRN Consult order Sodium Chloride 3 ml 03/23/20 16:00 03/24/20 07:32 0.9 % Sodium Chloride Flush 3 Ml Syringe IVFLUSH 3 ml QSHIFT SUSIE Administration Tamsulosin HCl 0.4 mg 03/24/20 09:00 03/24/20 07:32 Tamsulosin Hcl 0.4 Mg Capsule PO 0.4 mg DAILY SUSIE Administration Labs CBC & Chem 7: 03/24/20 06:49 03/24/20 06:50 Labs: Laboratory Results - last 24 hr 03/24/20 03/24/20 06:49 06:50 WBC 7.7 RBC 3.60 L Hgb 10.9 L Hct 33.0 L MCV 91.7 MCH 30.3 MCHC 33.0 RDW 11.6 Plt Count TNP MPV 9.4 Immature Gran % (Auto) 0.4 Neut % (Auto) 65.2 Lymph % (Auto) 22.8 [place] % (Auto) 11.0 Eos % (Auto) 0.5 Baso % (Auto) 0.1 Lymph # (Auto) 1.8 [place] # (Auto) 0.9 Eos # (Auto) 0.0 Baso # (Auto) 0.0 Abs Immat Gran (auto) 0.03 Absolute Neuts (auto) 5.0 Absolute Nucleated RBC 0.000 Nucleated RBC % (auto) 0.0 Sodium 141 Potassium 4.2 Chloride 107 Carbon Dioxide 25 Anion Gap 13 BUN 15 Creatinine 0.81 Estim Creat Clear Calc 90.4 Estimated GFR > 60 Random Glucose 109 Calcium 8.3 L Assessment and Plan (1) COVID-19: Status: Acute Assessment and Plan: hospital d#2 89 year-old man with hypertension presenting on day #15 of COVID-19 pneumonia with ambulatory hypoxia. # COVID-19 pneumonia - dexamethasone d#05/25. if not hypoxic and inflammatory markers improve tomorrow will consider discharge home with VNA and pulse oximeter # acute hypoxic respiratory failure - at this point does not require O2 at rest or with ambulation # HTN - continue lisinopril # GERD - continue PPI
[2020-03-24] MEDS: Enoxaparin Sodium 40 MG/0.4 ML SYRINGE SUBCUT (17:48)
[2020-03-24] MEDS: Docusate Sodium 100 MG CAPSULE PO (21:12)
[2020-03-25] VITALS: BP 119/90; PULSE 73; RESP 18; TEMP 37.1; O2SAT 92
[2020-03-25 04:00] VITALS: BP 125/82; PULSE 72; RESP 18; TEMP 36.8; O2SAT 92
[2020-03-25 07:04] LABS: Basophils Percent Auto 0.1 % (0-2); Eosinophils Percent Auto 0.1 % (0-4); Hematocrit 33.4 % (42-52); Hemoglobin 11.1 g/dl (14.0-18.0); Imm Gran Abs Auto 0.04 X10*3/uL (0.00-0.03); Imm Gran Pct Auto 0.4 % (0.0-0.4); Lymphocytes Absolute Auto 1.7 X10*3/uL (1.2-4.9); Lymphocytes Percent Auto 16.6 % (20-40); MANUAL DIFF FLAG NO; Mean Corpuscular HGB Conc 33.2 g/dl (31.0-36.0); Mean Corpuscular Hemoglobin 30.4 pg (27.0-33.0); Mean Corpuscular Volume 91.5 fL (80-98); Mean Platelet Volume 10.2 fL (9.4-12.4); Monocytes Absolute Auto 0.8 X10*3/uL (0.1-1.2); Monocytes Percent Auto 7.3 % (2-11); Neutrophils Absolute Auto 7.9 X10*3/uL (2.0-8.3); Neutrophils Percent Auto 75.5 % (45-73); Platelet Count 209 X10*3/uL (160-400); Red Blood Count 3.65 X10*6/uL (4.60-5.80); Red Cell Distribution Width 11.7 % (11.0-16.0); White Blood Count 10.4 X10*3/uL (4.8-10.8)
[2020-03-25 07:13] LABS: D Dimer 627 NG/ML
[2020-03-25 07:35] LABS: Alanine Aminotransferase 107 U/L (0-40); Albumin Level 3.8 g/dL (3.5-5.0); Alkaline Phosphatase 65 U/L (39-117); Anion Gap 16 (12-20); Aspartate Amino Transferase 115 U/L (5-37); Bilirubin Total 0.7 mg/dL (0.0-1.0); Blood Urea Nitrogen 16 mg/dL (9-16); C Reactive Protein 4.94 mg/dL (< or = 0.50); Calcium 8.4 mg/dL (8.4-10.2); Carbon Dioxide 23 mmol/L (22-29); Chloride 108 mmol/L (96-108); Creatinine Clr Calc Pharmacy 88.2; Estimated Glomerular Filt Rate > 60; Glucose Random 97 mg/dL (60-115); Lactate Dehydrogenase 393 U/L (118-273); Potassium 4.5 mmol/l (3.3-5.1); Sodium 142 mmol/L (135-145); Total Protein 7.1 g/dL (6.5-8.0)
[2020-03-25 07:53] LABS: Ferritin 541 ng/mL (20-250)
[2020-03-25 08:00] VITALS: BP 152/98; PULSE 66; RESP 20; TEMP 36.8; O2SAT 95
[2020-03-25 09:10] LABS: Procalcitonin 0.02 ng/mL
[2020-03-25 10:40] VITALS: BP 113/73; PULSE 88
[2020-03-25] MEDS: lisinopriL 20 MG TABLET PO (10:40)
[2020-03-25] MEDS: Omeprazole 20 MG CAPSULE.DR PO (10:40)
[2020-03-25] MEDS: Aspirin Enteric Coated 81 MG TABLET.DR PO (10:40)
[2020-03-25] MEDS: Tamsulosin HCL 0.4 MG CAPSULE PO (10:40)
[2020-03-25] MEDS: Loratadine 10 MG TABLET PO (10:40)
[2020-03-25] MEDS: 0.9 % Sodium Chloride Flush 3 ML SYRINGE IVFLUSH (10:41)
[2020-03-25] MEDS: Docusate Sodium 100 MG CAPSULE PO (10:41)
[2020-03-25 11:19] VITALS: BP 121/78; PULSE 77; RESP 20; TEMP 36.8; O2SAT 94
--- NOTE | 2020-03-25 12:08 | W.MHC.F2F ---
Service Date Service Date: 03/25/20 Encounter Date of encounter: 03/25/20 Reasons for Services Signs and symptoms assessed: dyspnea, fatigue Reason for nursing home: medication management, medication treatment and teach disease management Reason for physical therapy: home safety and mobility, therapeutic exercises, gait/transfer training, assess need for DME, ADL training and energy conservation MD Overseeing Care: Debbie Ardon Homebound: Leaving the home is medically contraindicated at this time without the asist of a device and/or another person due th the listed conditions above and below. Reason homebound: shortness of breath with minimal effort and weakness related to hospital stay Homebound supporting statement: Mr De La Rosa was admitted to [facility] 03/23-03/25/20 for ambulatory hypoxia related to COVID-19 pneumonia. He does not require home O2. He has passed the 10-day isolation window since onset of symptoms, which was 03/09/20. Please assess respiratory status, check SaO2, and provide home PT. Certification: Based on the above findings, I certify that this patient is confined to the home and needs intermittent nursing home care, physical therapy and/or speech therapy, or continues to need occupational therapy. The patient is under my care, and I have initiated the establishment of the plan of care. The patient will be followed by a physician who will periodically review the plan of care.
--- NOTE | 2020-03-25 12:24 | P.DS_ITS ---
DS: Providers Provider Date of admission: 03/23/20 14:45 Primary care physician: LIZZ Haddad, [facility] DS: Diagnosis Discharge Diagnosis (1) COVID-19: Status: Acute (2) Acute respiratory failure with hypoxia: Status: Acute (3) Transaminasemia: Status: Acute DS: Medications Discharge Medications Home Medications: Home Medications Medication Instructions Recorded Confirmed aspirin 81 mg PO DAILY 03/23/20 03/23/20 docusate sodium [DOK] 100 mg PO BID 03/23/20 03/23/20 fluocinonide 1 applic TOPICAL DAILY 03/23/20 03/23/20 lisinopril 20 mg PO DAILY 03/23/20 03/23/20 loratadine 10 mg PO DAILY 03/23/20 03/23/20 metronidazole 1 applic TOPICAL BID 03/23/20 03/23/20 omeprazole 20 mg PO DAILY 03/23/20 03/23/20 tamsulosin 0.4 mg PO DAILY 03/23/20 03/23/20 Previous Rx's Medication Instructions Recorded dexamethasone 6 mg PO DAILY #8 tab 03/25/20 miscellaneous medical supply 1 ea MISCELLANEOUS DAILY #1 ea 03/25/20 DS: Summary Hospital Course Hospital Course: from my admission history and physical, 03/23/20: 64yo male with risk factor of hypertension and age who developed tactile fever, frontal headache, dyspnea, cough, and fatigue on 03/09/20. He presented to the [facility] ED 03/11/20 and ended up testing positive for COVID-19. He returned to the ED 03/19/20 with persistent cough and dyspnea. CT of the chest then showed bilateral ground-glass opacities consistent with COVID-19 infection. He was not hypoxic, and was discharged home on antibiotics [azithromycin and cefuroxime], but not steroids. He has no history of lung disease. He returned to the ED today feeling no better. Resting SaO2 was 93% and dropped to 88% with minimal ambulation, so the hospitalist team was called to admit the patient. He currently denies headache or fever. He denies chest pain. He denies any GI symptoms. No sick contacts. The patient was admitted to the [facility] under isolation precautions and started on dexamethasone treatment. He actually did not require oxygen at rest and by hospital day #2, did not have ambulatory desaturation and thus did not require home oxygen upon discharge. Inflammatory marker trend improved, except for increased transaminasemia; repeat LFTs in 1 week were ordered. He was discharged home with VNA services/PT through [facility]. He was prescribed 8 more days of dexametahsone as well as a pulse oximeter. He should follow-up with his primary care clinic in 1 week. Time Spent with Patient Time attestation: Total time spent providing and/or coordinating discharge services: 35 Physical Exam Vital Signs: Vital Signs: Last Vital Signs Temp 98.2 F 03/25/20 11:19 Pulse 77 03/25/20 11:19 Resp 20 03/25/20 11:19 BP 121/78 03/25/20 11:19 Pulse Ox 94 03/25/20 11:19 Body Mass Index 29.3 Gen: in no acute distress HEENT: sclera anicteric, moist mucus membranes Neck: supple Lungs: no respiratory distress, auscultation deferred due to COVID-19 Heart: normal peripheral pulses Abd: soft, non-tender, non-distended Ext: no cyanosis, clubbing, or edema Skin: warm/well-perfused Neuro: alert and oriented x3, no focal findings Psych: appropriate affect DS: Data Data Completed and Pending Labs on day of discharge: Laboratory Tests 03/23/20 03/23/20 03/23/20 12:38 12:38 12:38 WBC 8.6 RBC 3.69 L Hgb 11.1 L Hct 33.6 L MCV 91.1 MCH 30.1 MCHC 33.0 RDW 11.7 Plt Count TNP MPV 9.2 L Immature Gran % (Auto) 0.5 H Neut % (Auto) 77.2 H Lymph % (Auto) 13.8 L [place] % (Auto) 7.7 Eos % (Auto) 0.7 Baso % (Auto) 0.1 Lymph # (Auto) 1.2 [place] # (Auto) 0.7 Eos # (Auto) 0.1 Baso # (Auto) 0.0 Abs Immat Gran (auto) 0.04 H Absolute Neuts (auto) 6.6 Absolute Nucleated RBC 0.000 Nucleated RBC % (auto) 0.0 Smear Tech's Comments VERIFIED D-Dimer Hold Blue Top SEE NOTE Sodium 141 Potassium 4.0 Chloride 106 Carbon Dioxide 24 Anion Gap 15 BUN 11 Creatinine 0.79 Estim Creat Clear Calc 92.7 Estimated GFR > 60 Random Glucose 101 Calcium 8.3 L Ferritin Total Bilirubin Direct Bilirubin AST ALT Alkaline Phosphatase Lactate Dehydrogenase C-Reactive Protein B-Natriuretic Peptide Total Protein Albumin Procalcitonin 03/23/20 03/23/20 03/23/20 12:38 12:38 12:38 WBC RBC Hgb Hct MCV MCH MCHC RDW Plt Count MPV Immature Gran % (Auto) Neut % (Auto) Lymph % (Auto) [place] % (Auto) Eos % (Auto) Baso % (Auto) Lymph # (Auto) [place] # (Auto) Eos # (Auto) Baso # (Auto) Abs Immat Gran (auto) Absolute Neuts (auto) Absolute Nucleated RBC Nucleated RBC % (auto) Smear Tech's Comments D-Dimer Hold Blue Top Sodium Potassium Chloride Carbon Dioxide Anion Gap BUN Creatinine Estim Creat Clear Calc Estimated GFR Random Glucose Calcium Ferritin 463 H Total Bilirubin 0.8 Direct Bilirubin 0.4 AST 32 D ALT 40 Alkaline Phosphatase 63 D Lactate Dehydrogenase 262 C-Reactive Protein 12.29 H B-Natriuretic Peptide Total Protein 6.8 Albumin 3.7 Procalcitonin 0.03 03/23/20 03/23/20 03/24/20 12:39 12:39 06:49 WBC 7.7 RBC 3.60 L Hgb 10.9 L Hct 33.0 L MCV 91.7 MCH 30.3 MCHC 33.0 RDW 11.6 Plt Count TNP MPV 9.4 Immature Gran % (Auto) 0.4 Neut % (Auto) 65.2 Lymph % (Auto) 22.8 [place] % (Auto) 11.0 Eos % (Auto) 0.5 Baso % (Auto) 0.1 Lymph # (Auto) 1.8 [place] # (Auto) 0.9 Eos # (Auto) 0.0 Baso # (Auto) 0.0 Abs Immat Gran (auto) 0.03 Absolute Neuts (auto) 5.0 Absolute Nucleated RBC 0.000 Nucleated RBC % (auto) 0.0 Smear Tech's Comments D-Dimer 1978 Hold Blue Top Sodium Potassium Chloride Carbon Dioxide Anion Gap BUN Creatinine Estim Creat Clear Calc Estimated GFR Random Glucose Calcium Ferritin Total Bilirubin Direct Bilirubin AST ALT Alkaline Phosphatase Lactate Dehydrogenase C-Reactive Protein B-Natriuretic Peptide 76 Total Protein Albumin Procalcitonin 03/24/20 03/25/20 03/25/20 06:50 06:29 06:29 WBC 10.4 RBC 3.65 L Hgb 11.1 L Hct 33.4 L MCV 91.5 MCH 30.4 MCHC 33.2 RDW 11.7 Plt Count 209 MPV 10.2 Immature Gran % (Auto) 0.4 Neut % (Auto) 75.5 H Lymph % (Auto) 16.6 L [place] % (Auto) 7.3 Eos % (Auto) 0.1 Baso % (Auto) 0.1 Lymph # (Auto) 1.7 [place] # (Auto) 0.8 Eos # (Auto) 0.0 Baso # (Auto) 0.0 Abs Immat Gran (auto) 0.04 H Absolute Neuts (auto) 7.9 Absolute Nucleated RBC 0.000 Nucleated RBC % (auto) 0.0 Smear Tech's Comments D-Dimer 627 Hold Blue Top Sodium 141 Potassium 4.2 Chloride 107 Carbon Dioxide 25 Anion Gap 13 BUN 15 Creatinine 0.81 Estim Creat Clear Calc 90.4 Estimated GFR > 60 Random Glucose 109 Calcium 8.3 L Ferritin Total Bilirubin Direct Bilirubin AST ALT Alkaline Phosphatase Lactate Dehydrogenase C-Reactive Protein B-Natriuretic Peptide Total Protein Albumin Procalcitonin 03/25/20 03/25/20 06:29 06:29 WBC RBC Hgb Hct MCV MCH MCHC RDW Plt Count MPV Immature Gran % (Auto) Neut % (Auto) Lymph % (Auto) [place] % (Auto) Eos % (Auto) Baso % (Auto) Lymph # (Auto) [place] # (Auto) Eos # (Auto) Baso # (Auto) Abs Immat Gran (auto) Absolute Neuts (auto) Absolute Nucleated RBC Nucleated RBC % (auto) Smear Tech's Comments D-Dimer Hold Blue Top Sodium 142 Potassium 4.5 Chloride 108 Carbon Dioxide 23 Anion Gap 16 BUN 16 Creatinine 0.83 Estim Creat Clear Calc 88.2 Estimated GFR > 60 Random Glucose 97 Calcium 8.4 Ferritin 541 H Total Bilirubin 0.7 Direct Bilirubin AST 115 H ALT 107 H Alkaline Phosphatase 65 Lactate Dehydrogenase 393 H C-Reactive Protein 4.94 H B-Natriuretic Peptide Total Protein 7.1 Albumin 3.8 Procalcitonin 0.02 ITS Impressions Chest X-Ray 03/23/20 11:52 IMPRESSION: Ill-defined patchy opacities seen in the mid and lower lobes. These are distinctly visualized on previous CT chest 03/19/2020. Discharge Plan Discharge Anticipated Discharge Date/Time: 03/25/20 12:16 Patient Disposition: Home Health Service Referrals: Debbie Ardon, LIDA [Nurse Practitioner] - (within 1 week please, televisit oK ) Physician,Unknown [Primary Care Provider] - 2 days (call) Discharge Medications: New dexamethasone 6 mg tablet 6 mg PO DAILY Qty: 8 RF: 0 miscellaneous medical supply Misc 1 ea miscellaneous DAILY Qty: 1 RF: 0 Continued lisinopril 20 mg tablet 20 mg PO DAILY RF: 0 aspirin 81 mg tablet,delayed release (DR/EC) 81 mg PO DAILY RF: 0 tamsulosin 0.4 mg capsule 0.4 mg PO DAILY RF: 0 metronidazole 0.75 % cream 1 applic topical BID RF: 0 docusate sodium [DOK] 100 mg capsule 100 mg PO BID RF: 0 omeprazole 20 mg capsule,delayed release(DR/EC) 20 mg PO DAILY RF: 0 fluocinonide 0.05 % solution 1 applic topical DAILY RF: 0 loratadine 10 mg tablet 10 mg PO DAILY RF: 0 Discharge Orders: Discharge Order (Routine); Ordered 03/25/20 Ordered By: Carmela Roach Diet: low salt diet Activity on Discharge: As tolerated Patient Instructions: COVID-19 (Coronavirus Disease 2019) (ED) Print Language: Albanian Other Ambulatory Orders: Liver Panel (Routine) Timeframe: 1 Week Facility: [facility] - Location: Laboratory Ordered By: Carmela Roach Visit Report Forms: Patient Portal Discharge page Care Plan Goals: relief of shortness of breath, resolution of COVID-19 Health Concerns: COVID-19 pneumonia with hypoxia, elevated liver enzymes Plan of Treatment: no home oxygen needed, but check oxygen saturation daily and as needed for any shortness of breath; return to ED if it is less than 92% take dexamethasone 6 mg daily for 8 more days try awake proning follow up with your primary care provider in 1 week you are released from isolation, but anyone who was in close contact with you should quarantine for 14 days after the last contact lab draw in 1 week: liver function profile
--- NOTE | 2020-03-25 12:42 | MHC.CM.PN ---
Patient will be discharging home today no services. Family will provide transport.
--- NOTE | 2020-03-25 13:38 | PC.NURSE ---
pt awake, oriented and states he feels better. He is ready for discharge per MD order. Pt states understanding of instructions and is ambulatory to wheelchair for exit with steady gait. Pt states he will return if SX worsen.
== END 2020-03-25 13:57 | disposition home health service (06) | DRG 177 ==
LOC: HO.ED 12:03 → HO.IMC 17:46
PROVIDERS: Physician Assistant; Admitting Provider Family Medicine; Emergency Provider Emergency Medicine; Visit Provider Family Medicine
DX: U07.1 COVID-19 (principal); J12.89 Other viral pneumonia; J96.01 Acute respiratory failure with hypoxia; K21.9 Gastro-esophageal reflux disease without esophagitis; I10 Essential (primary) hypertension; R74.01 Elevation of levels of liver transaminase levels; Z88.0 Allergy status to penicillin; Z79.82 Long term (current) use of aspirin; Z79.899 Other long term (current) drug therapy
CPT/HCPCS: 36415; 71045; 80048; 80053; 80076; 82728; 83615; 83880; 84145; 85025; 85379; 86140; 96365; 96366; 99285; J1100; J1650; J3475

== ENCOUNTER → 2020-07-21 09:56 | Outpatient (BNVA) | payer MEDICARE, SELFPAY | PROVIDERS: Visit Provider Urology | DX: Z13.89 Encounter for screening for other disorder (principal) | CPT/HCPCS: Q3014 ==

== ENCOUNTER → 2020-09-01 12:58 | Outpatient (BNVA) | payer MEDICARE, SELFPAY | PROVIDERS: PCP Family Medicine; Visit Provider Urology | DX: N40.1 Benign prostatic hyperplasia with lower urinary tract symptoms (principal); N13.8 Other obstructive and reflux uropathy; R35.1 Nocturia | CPT/HCPCS: 52000; 99212 ==

== ENCOUNTER 2020-09-09 08:43 | Emergency (ER) | payer MEDICARE, SELFPAY ==
--- NOTE | ~2020-09-09 | XR_ITS ---
EXAMINATION: XR CHEST CLINICAL INFORMATION: Chest pain COMPARISON: Previous chest x-ray most recent March 2020 TECHNIQUE: Frontal view of the chest was obtained. FINDINGS: The cardiac and mediastinal contours are stable. The right lung is clear. There are increased markings seen in the left mid lung probably representing resolving infiltrate seen March 2020. The lungs are otherwise clear. There is no pleural effusion or pneumothorax. There are degenerative changes of the spine. XR/XR chest 1V IMPRESSION: Increased markings in the left midlung probably related to clearing infiltrate seen March 2020. Otherwise unremarkable exam.
[2020-09-09 08:47] VITALS: BP 125/88; PULSE 78; RESP 16; TEMP 37.1; O2SAT 96; BMI 31.0
--- NOTE | 2020-09-09 08:51 | ECG_ITS ---
Test Reason : CHEST PAIN Blood Pressure : / mmHG Vent. Rate : 077 BPM Atrial Rate : 077 BPM P-R Int : 158 ms QRS Dur : 090 ms QT Int : 364 ms P-R-T Axes : 030 003 024 degrees QTc Int : 411 ms Normal sinus rhythm Normal ECG When compared with ECG of 19-MAR-2020 14:27, T wave inversion no longer evident in Inferior leads Referred By: Heike Smith Electronically Signed By:KASHMIR PLUMMER
--- NOTE | 2020-09-09 09:21 | ED.CHESTPAIN ---
HPI - Chest Pain General Chief Complaint: Chest Pain Stated Complaint: CHEST PAIN Time Seen by Provider: 09/09/20 08:50 Source: patient Mode of arrival: ambulatory Limitations: language barrier History of Present Illness HPI narrative: 65 y/o male with history of BPH, hx COVID-19 in Feb 2020 requiring admission to the hospital who presents to the ER with non-radiating right sided chest pain for the last 3 days. He states it 1st started last and woke him out of sleep. It self resolved. It recurred again 3 days ago and has been happening daily since. He states it is worse with deep breaths and palpation. He is intermittently SOB. No nausea, vomiting, abdominal pain, diaphoresis. He had some pain similar to this in May however it was milder. MD complaint: chest pain Onset (ago): week(s) (1) Timing of current episode: episodic Prior episodes: Yes Onset: during rest Pain location: right chest Pain radiation: none Severity: moderate Quality: sharp Relieving factors: nothing Exacerbating factors: inspiration, palpation and movement Associated symptoms: dyspnea Treatment prior to arrival: none Related Data Home Medications Medication Instructions Recorded Confirmed aspirin 81 mg PO DAILY 03/23/20 07/21/20 docusate sodium [DOK] 100 mg PO BID 03/23/20 07/21/20 fluocinonide 1 applic TOPICAL DAILY 03/23/20 07/21/20 lisinopril 20 mg PO DAILY 03/23/20 07/21/20 loratadine 10 mg PO DAILY 03/23/20 07/21/20 metronidazole 1 applic TOPICAL BID 03/23/20 07/21/20 omeprazole 20 mg PO DAILY 03/23/20 07/21/20 fluocinonide 0.05 % topical TOPICAL 09/01/20 ointment triamcinolone acetonide 0.1 % TOPICAL 09/01/20 topical ointment Previous Rx's Medication Instructions Recorded miscellaneous medical supply 1 ea MISCELLANEOUS DAILY #1 ea 03/25/20 tamsulosin 0.4 mg capsule 0.8 mg PO BEDTIME 90 Days #180 cap 07/21/20 naproxen 500 mg PO BID PRN #20 tab 09/09/20 Allergies Allergy/AdvReac Type Severity Reaction Status Date / Time penicillin V Allergy Intermediate Rash Verified 09/01/20 12:39 Penicillins [PENICILLINS] Allergy Intermediate RASH Verified 09/01/20 12:39 Review of Systems Review of Systems: Constitutional: No Fever, No Chills ENT/Mouth: No sore throat, No Rhinorrhea, No Swallowing Difficulty Eyes: No Eye Pain, No Swelling, No Redness Cardiovascular: + Chest Pain, + SOB, No Orthopnea, No Edema Respiratory: No Cough, No Sputum, No Wheezing, No dyspnea Gastrointestinal: No Nausea, No Vomiting, No Diarrhea, No abdominal Pain Genitourinary: No Dysuria, No Urinary Frequency, No Hematuria Musculoskeletal: No joint pain, No Myalgias Skin: No Skin Lesions, No rash Neuro: No Weakness, No Numbness, No Dizziness, No Headache Psych: No Anxiety/Panic, No Depression Heme/Lymph: No Bruising, No Lymphadenopathy Endocrine: No Polyuria, No Polydipsia [facility] Past Medical History Medical History Benign neoplasm of cerebellum Benign prostatic hyperplasia with lower urinary tract symptoms GERD (gastroesophageal reflux disease) HTN (hypertension) Other obstructive and reflux uropathy Rosacea Sinusitis Surgical History History of brain surgery History of surgery Social History Social History Household Members: Spouse and Children Housing: House Alcohol intake: never Second Hand Smoke Exposure: No Advance Directives: Yes Advance Directives Information Provided: Yes Advance Directives on File: No service: Yes (not in [facility]) Current occupational status: retired 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[place] Current occupational exposures/hazards: No Physical Exam Vital Signs: Vital Signs: Last Vital Signs Temp 98.6 F 09/09/20 09:55 Pulse 65 09/09/20 09:55 Resp 18 09/09/20 09:55 BP 125/88 09/09/20 09:55 Pulse Ox 95 09/09/20 09:55 Body Mass Index 31.0 Appearance: Alert. Oriented X3. No acute distress. Eyes: Pupils equal, round and reactive to light. ENT: Pharynx normal. Neck: Normal inspection. Neck supple. CVS: Normal heart rate and rhythm. Pulses normal. Right sided chest wall tenderness superiorly. Respiratory: No respiratory distress. Breath sounds normal. Abdomen: Soft and nontender. +BS x4 Skin: Skin warm and dry. Normal skin color. Normal skin turgor. No rashes. Extremities: No lower extremity edema. Negative Lizzy's sign. Neuro: Oriented X 3. No motor deficit. No sensory deficit. Course Course Course Narrative: 65 y/o male presenting with intermittent non-radiating right sided chest pain x1 week. Worse with palpation and deep inspiration. Hx COVID. EKG is normal. Will get CXR and lab workup including troponin and DDIMER to r/o ACS and PE. Patient appers well, no distress. Reassuring given it is somewhat reproducible. Reevaluation(s) Reevaluation #1: EKG, CXR, troponin, DDIMER are all unremarkable. Patient's chest pain is most likely muscular. Will start trial of NSAID and have him follow up with his PCP. Results and and plan were discussed with the patient with staff sonographer. Stable for discharge home. MDM - Chest Pain Medical Records Data Attestation: I reviewed the patient's medical records. Lab Data Attestation: I reviewed the patient's lab results. Result diagrams: 09/09/20 09:34 09/09/20 09:34 Labs: Lab Results 09/09/20 09/09/20 09/09/20 Range/Units 09:34 09:34 09:34 WBC 8.2 (4.8-10.8) X10*3/uL RBC 4.17 L (4.60-5.80) X10*6/uL Hgb 12.7 L (14.0-18.0) g/dl Hct 38.2 L (42-52) % MCV 91.6 (80-98) fL MCH 30.5 (27.0-33.0) pg MCHC 33.2 (31.0-36.0) g/dl RDW 12.1 (11.0-16.0) % Plt Count 206 (160-400) X10*3/uL MPV 9.8 (9.4-12.4) fL Immature Gran % (Auto) 0.4 (0.0-0.4) % Neut % (Auto) 73.0 (45-73) % Lymph % (Auto) 19.2 L (20-40) % [place] % (Auto) 6.6 (2-11) % Eos % (Auto) 0.7 (0-4) % Baso % (Auto) 0.1 (0-2) % Lymph # (Auto) 1.6 (1.2-4.9) X10*3/uL [place] # (Auto) 0.5 (0.1-1.2) X10*3/uL Eos # (Auto) 0.1 (0.0-0.4) X10*3/uL Baso # (Auto) 0.0 (0.0-0.2) X10*3/uL Abs Immat Gran (auto) 0.03 (0.00-0.03) X10*3/uL Absolute Neuts (auto) 6.0 (2.0-8.3) X10*3/uL Absolute Nucleated RBC 0.000 (0.0-0.012) X10*3/uL Nucleated RBC % (auto) 0.0 (0.0-0.2) /100WBC D-Dimer NG/ML Hold Blue Top Sodium 139 (135-145) mmol/L Potassium 4.3 (3.3-5.1) mmol/L Chloride 106 (96-108) mmol/L Carbon Dioxide 25 (22-29) mmol/L Anion Gap 12 (12-20) BUN 14 (9-16) mg/dL Creatinine 0.87 (0.5-1.4) mg/dL Estim Creat Clear Calc 88.1 Estimated GFR > 60 Random Glucose 101 (60-115) mg/dL Calcium 9.2 D (8.4-10.2) mg/dL Magnesium (1.6-2.6) mg/dL Total Bilirubin (0.0-1.0) mg/dL Direct Bilirubin (0.0-0.5) mg/dL AST (5-37) U/L ALT (0-40) U/L Alkaline Phosphatase (39-117) U/L Troponin I High Sens (<3.5-35.0) ng/L B-Natriuretic Peptide 14 (<100) pg/mL Total Protein (6.5-8.0) g/dL Albumin (3.5-5.0) g/dL Lipase (8-78) U/L 0509/09/20 09/09/20 Range/Units 09:34 09:34 09:34 WBC (4.8-10.8) X10*3/uL RBC (4.60-5.80) X10*6/uL Hgb (14.0-18.0) g/dl Hct (42-52) % MCV (80-98) fL MCH (27.0-33.0) pg MCHC (31.0-36.0) g/dl RDW (11.0-16.0) % Plt Count (160-400) X10*3/uL MPV (9.4-12.4) fL Immature Gran % (Auto) (0.0-0.4) % Neut % (Auto) (45-73) % Lymph % (Auto) (20-40) % [place] % (Auto) (2-11) % Eos % (Auto) (0-4) % Baso % (Auto) (0-2) % Lymph # (Auto) (1.2-4.9) X10*3/uL [place] # (Auto) (0.1-1.2) X10*3/uL Eos # (Auto) (0.0-0.4) X10*3/uL Baso # (Auto) (0.0-0.2) X10*3/uL Abs Immat Gran (auto) (0.00-0.03) X10*3/uL Absolute Neuts (auto) (2.0-8.3) X10*3/uL Absolute Nucleated RBC (0.0-0.012) X10*3/uL Nucleated RBC % (auto) (0.0-0.2) /100WBC D-Dimer < 200 NG/ML Hold Blue Top SEE NOTE Sodium (135-145) mmol/L Potassium (3.3-5.1) mmol/L Chloride (96-108) mmol/L Carbon Dioxide (22-29) mmol/L Anion Gap (12-20) BUN (9-16) mg/dL Creatinine (0.5-1.4) mg/dL Estim Creat Clear Calc Estimated GFR Random Glucose (60-115) mg/dL Calcium (8.4-10.2) mg/dL Magnesium 1.9 (1.6-2.6) mg/dL Total Bilirubin 0.6 (0.0-1.0) mg/dL Direct Bilirubin 0.2 (0.0-0.5) mg/dL AST 18 D (5-37) U/L ALT 17 (0-40) U/L Alkaline Phosphatase 59 (39-117) U/L Troponin I High Sens < 3.5 (<3.5-35.0) ng/L B-Natriuretic Peptide (<100) pg/mL Total Protein 7.0 (6.5-8.0) g/dL Albumin 4.4 (3.5-5.0) g/dL Lipase 25 (8-78) U/L ECG Data ECG #1: Attestation: I personally reviewed and interpreted this ECG as follows: ECG interpretation date: 09/09/20 ECG interpretation time: 09:00 Interpretation: normal sinus rhythm, HR 77 bpm, normal OH interval, no ST segment elevations or depressions. Discharge Plan Discharge Clinical Impression: Atypical chest pain Patient Disposition: Home, Self-Care Instructions: Chest Wall Pain (ED) Additional Instructions: Your EKG was normal. Your chest x-ray as normal. You blood work was normal. It is most likely that you chest pain is due to irritation and/or inflammation of the chest wall muscles. Recommend trial of anti-inflammatory medication that was sent to your pharmacy. Follow up with your doctor next week. If you have worsening pain or if your pain changes or if you develop shortness of breath, come back to the ER for further evaluation. Dominique electrocardiograma fue normal. Dominique radiograf?a de t?rax normalmente. Tu an?lisis de vanessa fue normal. Lo m?s probable es que dominique dolor de pecho se deba a irritaci?n y / o inflamaci?n de los m?sculos de la pared tor?cica. Recomendar prueba de medicaci?n antiinflamatoria que se envi? a dominique farmacia. Joey un seguimiento con dominique m?dico la pr?xima semana. Si tiene un dolor que empeora o si dominique dolor cambia o si presenta dificultad para respirar, regrese a la ana de emergencias para jenny evaluaci?n adicional. Prescriptions: New naproxen 500 mg tablet 500 mg PO BID PRN (Reason: pain) Qty: 20 RF: 0 No Action lisinopril 20 mg tablet 20 mg PO DAILY RF: 0 aspirin 81 mg tablet,delayed release (DR/EC) 81 mg PO DAILY RF: 0 metronidazole 0.75 % cream 1 applic topical BID RF: 0 docusate sodium [DOK] 100 mg capsule 100 mg PO BID RF: 0 omeprazole 20 mg capsule,delayed release(DR/EC) 20 mg PO DAILY RF: 0 fluocinonide 0.05 % solution 1 applic topical DAILY RF: 0 loratadine 10 mg tablet 10 mg PO DAILY RF: 0 miscellaneous medical supply Misc 1 ea miscellaneous DAILY Qty: 1 RF: 0 tamsulosin 0.4 mg capsule 0.8 mg PO BEDTIME 90 Days Qty: 180 RF: 1 Print Language: Danish
[2020-09-09 09:45] LABS: MANUAL DIFF FLAG NO
[2020-09-09 09:46] LABS: Basophils Percent Auto 0.1 % (0-2); Eosinophils Absolute Auto 0.1 X10*3/uL (0.0-0.4); Eosinophils Percent Auto 0.7 % (0-4); Hematocrit 38.2 % (42-52); Hemoglobin 12.7 g/dl (14.0-18.0); Imm Gran Abs Auto 0.03 X10*3/uL (0.00-0.03); Imm Gran Pct Auto 0.4 % (0.0-0.4); Lymphocytes Absolute Auto 1.6 X10*3/uL (1.2-4.9); Lymphocytes Percent Auto 19.2 % (20-40); Mean Corpuscular HGB Conc 33.2 g/dl (31.0-36.0); Mean Corpuscular Hemoglobin 30.5 pg (27.0-33.0); Mean Corpuscular Volume 91.6 fL (80-98); Mean Platelet Volume 9.8 fL (9.4-12.4); Monocytes Absolute Auto 0.5 X10*3/uL (0.1-1.2); Monocytes Percent Auto 6.6 % (2-11); Platelet Count 206 X10*3/uL (160-400); Red Blood Count 4.17 X10*6/uL (4.60-5.80); Red Cell Distribution Width 12.1 % (11.0-16.0); White Blood Count 8.2 X10*3/uL (4.8-10.8)
[2020-09-09 09:55] VITALS: BP 125/88; PULSE 65; RESP 18; TEMP 37; O2SAT 95
[2020-09-09 10:05] LABS: Anion Gap 12 (12-20); Blood Urea Nitrogen 14 mg/dL (9-16); Calcium 9.2 mg/dL (8.4-10.2); Carbon Dioxide 25 mmol/L (22-29); Chloride 106 mmol/L (96-108); Creatinine Clr Calc Pharmacy 88.1; Estimated Glomerular Filt Rate > 60; Glucose Random 101 mg/dL (60-115); Potassium 4.3 mmol/L (3.3-5.1); Sodium 139 mmol/L (135-145)
[2020-09-09 10:07] LABS: Alanine Aminotransferase 17 U/L (0-40); Albumin Level 4.4 g/dL (3.5-5.0); Alkaline Phosphatase 59 U/L (39-117); Aspartate Amino Transferase 18 U/L (5-37); Bilirubin Direct 0.2 mg/dL (0.0-0.5); Bilirubin Total 0.6 mg/dL (0.0-1.0); Lipase 25 U/L (8-78); Magnesium 1.9 mg/dL (1.6-2.6)
[2020-09-09 10:13] LABS: B Type Natriuretic Peptide 14 pg/mL (<100); Troponin-I High Sensitivity < 3.5 ng/L (<3.5-35.0)
[2020-09-09 10:20] LABS: D Dimer < 200 NG/ML
== END 2020-09-09 11:28 | disposition home or self-care (01) ==
PROVIDERS: Physician Assistant; Emergency Provider Emergency Medicine; PCP Family Medicine
DX: R07.89 Other chest pain (principal); I10 Essential (primary) hypertension; K21.9 Gastro-esophageal reflux disease without esophagitis; Z86.16 Personal history of COVID-19; Z79.82 Long term (current) use of aspirin; Z79.899 Other long term (current) drug therapy
CPT/HCPCS: 36415; 71045; 80048; 80076; 83690; 83735; 83880; 84484; 85025; 85379; 93005; 99283; 99284

== ENCOUNTER 2020-09-19 08:11 | Day surgery (SDC) | payer MEDICARE, SELFPAY ==
[2020-09-13 15:20] VITALS: BMI 27.6
--- NOTE | 2020-09-16 12:44 | P.CONAN_ITS ---
Documented by User: Sylvia Lissette 09/16/20 12:49 HPI - Anesthesia Eval Consult details Narrative: 65yo M for Laser Ablation Prostate w/Green Light Pt in [facility] ED 09/09/20 with atypical CP. Cardiac etiology r/o. Treated for musculoskeletal/chostochondritis. [facility] Active Problems Active Problems: All Active Problems (Updated 09/13/20 @ 15:27 by Britni Vega) COVID-19 (Acute) Viral pneumonia (Acute) Acute respiratory failure with hypoxia (Acute) Transaminasemia (Acute) BPH w urinary obs/LUTS (Acute) Nocturia (Acute) Benign neoplasm of cerebellum (Acute) Past Medical History Medical History Benign neoplasm of cerebellum Benign prostatic hyperplasia with lower urinary tract symptoms GERD (gastroesophageal reflux disease) Gout HTN (hypertension) Other obstructive and reflux uropathy Rosacea Sinusitis Surgical History Surgical History History of brain surgery History of surgery Hx of colonoscopy Social History Social History Household Members: Spouse and Children Housing: House Alcohol intake: never Patient Tobacco Use Status: Never used Tobacco Second Hand Smoke Exposure: No Are you DNR?: No Advance Directives: No Advance Directives Information Provided: No Advance Directives on File: No service: Yes (not in [facility]) Current occupational status: retired 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[place] Current occupational exposures/hazards: No Meds Allergies Allergy/AdvReac Type Severity Reaction Status Date / Time Penicillins [PENICILLINS] Allergy Intermediate RASH Verified 09/13/20 15:28 Home Medications Medication Instructions Recorded Confirmed Last Taken Type aspirin 81 mg PO DAILY 03/23/20 09/19/20 09/12/20 History docusate sodium [DOK] 100 mg PO BID 03/23/20 09/19/20 09/19/20 History fluocinonide 1 applic TOPICAL DAILY 03/23/20 07/21/20 Unknown History lisinopril 20 mg PO DAILY 03/23/20 09/19/20 09/19/20 History loratadine 10 mg PO DAILY 03/23/20 09/13/20 Unknown History metronidazole 1 applic TOPICAL BID 03/23/20 07/21/20 Unknown History omeprazole 20 mg PO DAILY 03/23/20 09/19/20 09/19/20 History fluocinonide 0.05 % topical TOPICAL 09/01/20 Unknown History ointment triamcinolone acetonide 0.1 % TOPICAL 09/01/20 Unknown History topical ointment Exam Exam Date and Time: September 16, 2020 1244 Height,Weight and Vital Signs: Height 5 ft 8 in Weight 82.554 kg Pertinent Lab Results Pertinent Lab Results: Laboratory Tests 09/09/20 09/09/20 09:34 09:34 WBC 8.2 Hgb 12.7 L Hct 38.2 L Plt Count 206 Sodium 139 Potassium 4.3 Chloride 106 Carbon Dioxide 25 BUN 14 Creatinine 0.87 Narrative Narrative: EKG 08/2020 Vent. Rate : 077 BPM Atrial Rate : 077 BPM P-R Int : 158 ms QRS Dur : 090 ms QT Int : 364 ms P-R-T Axes : 030 003 024 degrees QTc Int : 411 ms Normal sinus rhythm Normal ECG When compared with ECG of 19-MAR-2020 14:27, T wave inversion no longer evident in Inferior leads Assessment and Plan Assessment Anesthesia Assessment: Chart Reviewed Documented by User: Raegan Santana 09/19/20 14:16 [facility] Past Medical History Medical History Benign neoplasm of cerebellum Benign prostatic hyperplasia with lower urinary tract symptoms GERD (gastroesophageal reflux disease) Gout HTN (hypertension) Other obstructive and reflux uropathy Rosacea Sinusitis Surgical History Surgical History History of brain surgery History of surgery Hx of colonoscopy Social History Social History Household Members: Spouse and Children Housing: House Alcohol intake: never Patient Tobacco Use Status: Never used Tobacco Second Hand Smoke Exposure: No Are you DNR?: No Advance Directives: No Advance Directives Information Provided: No Advance Directives on File: No service: Yes (not in [facility]) Current occupational status: retired 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[place] Current occupational exposures/hazards: No Meds Allergies Allergy/AdvReac Type Severity Reaction Status Date / Time Penicillins [PENICILLINS] Allergy Intermediate RASH Verified 09/13/20 15:28 Home Medications Medication Instructions Recorded Confirmed Last Taken Type aspirin 81 mg PO DAILY 03/23/20 09/19/20 09/12/20 History docusate sodium [DOK] 100 mg PO BID 03/23/20 09/19/20 09/19/20 History fluocinonide 1 applic TOPICAL DAILY 03/23/20 07/21/20 Unknown History lisinopril 20 mg PO DAILY 03/23/20 09/19/20 09/19/20 History loratadine 10 mg PO DAILY 03/23/20 09/13/20 Unknown History metronidazole 1 applic TOPICAL BID 03/23/20 07/21/20 Unknown History omeprazole 20 mg PO DAILY 03/23/20 09/19/20 09/19/20 History fluocinonide 0.05 % topical TOPICAL 09/01/20 Unknown History ointment triamcinolone acetonide 0.1 % TOPICAL 09/01/20 Unknown History topical ointment Exam Airway Mallampati Class: II TM Dist: >3cm Neck ROM: Full Loose/Missing/Broken Teeth: No Heart: RRR Lungs: CTA Assessment and Plan Assessment Anesthesia Assessment: Anesthesia Plan Discussed and Chart Reviewed Final Anesthetic Review NPO: Yes ASA Class: II Final Preanesthetic Review: Meds/Allgs Chart Reviewed, Consent Obtained/Reviewed and Anes Risks/Benef Reviewed Patient Risk: Low Procedure Risk: Low Anesthetic Plan Anesthetic Plan: MAC: Disposition: Standard PACU
[2020-09-19] VITALS (7 sets, daily range): BP systolic 103–124; BP diastolic 54–81; PULSE 57–69; RESP 16; TEMP 36.1–36.3; O2SAT 95–98
[2020-09-19] MEDS: levoFLOXacin 500 MG TABLET PO (10:18)
[2020-09-19] MEDS: Lactated Ringers 1,000 ML 100 ML IVCONT (10:24)
--- NOTE | 2020-09-19 13:30 | MHC.SHP ---
Pre-Procedural Eval Section A The patient is an INPATIENT: No Changes since office visit: No Cold of Flu in the past 2 weeks, No New Medical Problems, No Changes in Medication and No Patient answered all questions The History & Physical has been completed within 30 days and I have reviewed it.: Yes Section B Chief Complaint: BPH Allergies: Allergies Allergy/AdvReac Type Severity Reaction Status Date / Time Penicillins [PENICILLINS] Allergy Intermediate RASH Verified 09/13/20 15:28 Plan Diagnosis/Plan: Unchanged (Green light laser prostate) I have reviewed the history and physical and performed a pertinent physical examination on my patient. No changes have occurred unless specified.
--- NOTE | 2020-09-19 14:35 | W.PM.OPN ---
Operative Note Operative Note Date of Service: 09/19/20 Narrative: PreOperative Diagnosis: Bladder outlet obstruction Post Operative Diagnosis: Bladder outlet obstruction Procedure: GreenLight laser enucleation of the prostate Surgeon: Dr Tylor Pegeuro Anesthesia: General Indications for procedure: History of bladder outlet obstruction. Treated with alpha-anastasiia and other medications. Still with symptoms. On cystoscopy in office has tight bladder neck. Recommendation for prostate procedure with laser enucleation of prostate. It has been discussed. Focus was placed on development of retrograde ejaculation which is a normal part of this procedure. Procedure: After informed consent was verified the patient was brought to the operating room and placed in a supine position. Anesthesia was administered per protocol. Patient was placed in modified dorsal lithotomy position and prepped and draped in a sterile fashion. Safety pause time-out was confirmed. Antibiotics have been given. Twenty-four Croatian laser cystoscope was inserted per urethra. No abnormalities found the anterior posterior urethra. The bladder was filled on both ureteric orifices were seen in normal position away from our area of interest. significant trabeculation within the bladder. Primarily at tight bladder neck with minimal lateral lobes. Using a GreenLight laser settings of 80 w incisions were made at the 5 and 7 o'clock position. They were taken down and then laterally on each side. They were brought from the bladder neck down to the level of the veru. These defined the lateral aspects of the median lobe area. The median lobe was ablated and enucleated tissue removed. Once the median lobe area had been cleaned attention was directed to the lateral lobes. We started with the patient's left lateral lobe. Firstly the 05:00 o'clock groove was further developed. This was moved in the lateral position to undermine the tissue on the lateral side. This was repeated on the right side to deepen the lateral groove. Decision was made at this point to complete the procedure 50 kilojoules of energy with 8;03 lasering time. When this was completed debris and pieces of prostate removed from the bladder. Both ureteric orifices were reviewed again in shown to be patent in away from any areas of energy damage. The apical area was reviewed in any stray ooze was controlled. A 22 Croatian 30 cc balloon Peng catheter was placed over stylet into the bladder. Clear efflux was obtained. 30 cc was placed in the balloon and gentle traction was placed. A snap was used to hold tension once the patient will be moved and transported. Once transportation its finish this novel be removed. A belladonna and opiate suppository was placed for postprocedure pain management. He tolerated procedure well was extubated in the operating and transferred in a stable condition to the recovery area. Pathology: Prostate tissue Drains: Peng catheter
[2020-09-19] MEDS: traMADoL HCL 50 MG TABLET PO (15:12)
== END 2020-09-19 16:36 | disposition home or self-care (01) ==
PROVIDERS: PCP Family Medicine; Visit Provider Urology
PROC: 0V507ZZ Destruction of Prostate, Via Natural or Artificial Opening (ICD-10-PCS; CPT 52648; principal; 2020-09-19 10:10)
DX: N40.1 Benign prostatic hyperplasia with lower urinary tract symptoms (principal); N13.8 Other obstructive and reflux uropathy; I10 Essential (primary) hypertension; Z86.011 Personal history of benign neoplasm of the brain; Z79.82 Long term (current) use of aspirin; Z79.899 Other long term (current) drug therapy; Z88.0 Allergy status to penicillin
CPT/HCPCS: 52648; 88305; J1100; J2405; J3010

== ENCOUNTER → 2020-09-22 13:09 | Outpatient (BNVA) | payer MEDICARE, SELFPAY | PROVIDERS: PCP Family Medicine; Visit Provider Urology | DX: N40.1 Benign prostatic hyperplasia with lower urinary tract symptoms (principal); N13.8 Other obstructive and reflux uropathy; R35.1 Nocturia | CPT/HCPCS: 51700; 51798; 99212 ==

== ENCOUNTER → 2020-10-21 15:16 | Outpatient (BNVA) | payer MEDICARE, SELFPAY | PROVIDERS: PCP Family Medicine; Visit Provider Urology | DX: N40.1 Benign prostatic hyperplasia with lower urinary tract symptoms (principal); N13.8 Other obstructive and reflux uropathy | CPT/HCPCS: 51798; 99212 ==

== ENCOUNTER → 2021-01-06 13:07 | Outpatient (BNVA) | payer MEDICARE, SELFPAY | PROVIDERS: Visit Provider Urology | DX: N40.1 Benign prostatic hyperplasia with lower urinary tract symptoms (principal); N13.8 Other obstructive and reflux uropathy | CPT/HCPCS: 51798; 81002; 99212 ==

== ENCOUNTER 2021-04-24 12:40 | Emergency (ER) | payer MEDICARE, SELFPAY ==
--- NOTE | ~2021-04-24 | XR_ITS ---
EXAMINATION: XR CHEST CLINICAL INFORMATION: Chest/abdominal pain COMPARISON: None TECHNIQUE: 2 views of the chest were obtained. FINDINGS: The lungs are well-expanded and clear of acute pneumonic process. The heart size and pulmonary vascularity is normal. There is mild spondylosis of dorsal spine. No lytic process. XR/XR chest 2V IMPRESSION: Unremarkable chest exam.
[2021-04-24 13:59] VITALS: BP 123/96; PULSE 91; RESP 19; O2SAT 99; BMI 29.8
[2021-04-24 14:42] LABS: MANUAL DIFF FLAG NO
[2021-04-24 14:44] LABS: Basophils Percent Auto 0.4 % (0-2); Eosinophils Absolute Auto 0.1 X10*3/uL (0.0-0.4); Eosinophils Percent Auto 0.9 % (0-4); Hematocrit 38.9 % (42.0-52.0); Hemoglobin 13.1 g/dl (14.0-18.0); Imm Gran Abs Auto 0.04 X10*3/uL (0.00-0.03); Imm Gran Pct Auto 0.4 % (0.0-0.4); Lymphocytes Absolute Auto 3.1 X10*3/uL (1.2-4.9); Lymphocytes Percent Auto 29.4 % (20-40); Mean Corpuscular HGB Conc 33.7 g/dl (31.0-36.0); Mean Corpuscular Hemoglobin 31.2 pg (27.0-33.0); Mean Corpuscular Volume 92.6 fL (80.0-98.0); Mean Platelet Volume 9.3 fL (9.4-12.4); Monocytes Absolute Auto 0.6 X10*3/uL (0.1-1.2); Monocytes Percent Auto 5.7 % (2-11); Neutrophils Absolute Auto 6.7 x10*3/uL (2.0-8.3); Neutrophils Percent Auto 63.2 % (45-73); Platelet Count 268 X10*3/uL (160-400); Red Cell Distribution Width 11.5 % (11.0-16.0); White Blood Count 10.6 X10*3/uL (4.8-10.8)
[2021-04-24 14:58] LABS: Anion Gap 12 (12-20); Blood Urea Nitrogen 22 mg/dL (9-16); Calcium 9.9 mg/dL (8.4-10.2); Carbon Dioxide 25 mmol/L (22-29); Chloride 102 mmol/L (96-108); Creatinine Clr Calc Pharmacy 72.5; Estimated Glomerular Filt Rate > 60; Glucose Random 99 mg/dL (60-115); Sodium 134 mmol/L (135-145)
[2021-04-24 15:04] LABS: COVID-19 Test Negative (Negative); IDNOW Serial# 9DD0AD1C
[2021-04-24 20:02] VITALS: BP 117/74; PULSE 93; RESP 20; TEMP 36.7; O2SAT 94
--- NOTE | 2021-04-25 03:05 | ED.GIBLEED ---
HPI - GI Bleed General Chief complaint: GI Bleed Stated complaint: Abd pain/chest pain Time Seen by Provider: 04/24/21 13:31 Source: patient and deaf interpreter Mode of arrival: ambulatory History of Present Illness HPI Narrative: 66-year-old male with history of hemorrhoids as well as hemorrhoidal bleeding presents with 1 and half weeks of intermittent bleeding noted when he has a bowel movement and states that it has been on the toilet paper as well as his underwear. He denies any associated headaches and states that he suffers from dizziness at baseline and otherwise denies shortness of breath or unsteadiness. He does report that he experiences some abdominal discomfort when having a bowel movement but denies any nausea or vomiting. In addition, he reports bilateral anterior chest wall pain that is not associated with deep breathing or movement and he states that this is very transient and intermittent in nature and is described as being sharp. Patient reports colonoscopy within the past 3 years and denies any abnormalities noted at that time. Related Data Home Medications Medication Instructions Recorded Confirmed aspirin 81 mg tablet,delayed 81 mg PO DAILY 03/23/20 09/19/20 release docusate sodium 100 mg capsule 100 mg PO BID 03/23/20 09/19/20 (DOK) fluocinonide 0.05 % topical 1 applic TOPICAL DAILY 03/23/20 07/21/20 solution lisinopril 20 mg tablet 20 mg PO DAILY 03/23/20 09/19/20 loratadine 10 mg tablet 10 mg PO DAILY 03/23/20 09/13/20 metronidazole 0.75 % topical cream 1 applic TOPICAL BID 03/23/20 07/21/20 omeprazole 20 mg capsule,delayed 20 mg PO DAILY 03/23/20 09/19/20 release fluocinonide 0.05 % topical TOPICAL 09/01/20 ointment triamcinolone acetonide 0.1 % TOPICAL 09/01/20 topical ointment betamethasone valerate 0.1 % 1 appl TOPICAL BID 09/22/20 topical ointment cholecalciferol (vitamin D3) 50 50 mcg PO DAILY 09/22/20 mcg (2,000 unit) capsule rosuvastatin 20 mg tablet 20 mg PO BEDTIME 09/22/20 terbinafine HCl 250 mg tablet 250 mg PO DAILY 09/22/20 trazodone 50 mg tablet 50 mg PO BEDTIME 09/22/20 Previous Rx's Medication Instructions Recorded miscellaneous medical supply 1 ea MISCELLANEOUS DAILY #1 ea 03/25/20 tamsulosin 0.4 mg capsule 0.8 mg PO BEDTIME 90 Days #180 cap 07/21/20 naproxen 500 mg tablet 500 mg PO BID PRN #20 tab 09/09/20 tramadol 50 mg tablet 50 mg PO Q6H PRN #14 tab 09/19/20 trimethoprim 100 mg tablet 100 mg PO Q12H 10 Days #20 tab 09/19/20 Allergies Allergy/AdvReac Type Severity Reaction Status Date / Time Penicillins [PENICILLINS] Allergy Intermediate RASH Verified 10/21/20 15:44 Review of Systems Review of Systems: Pertinent positives and negatives as stated in HPI 10 point review of systems is otherwise negative. [facility] Past Medical History Source: nursing notes reviewed Medical History Benign neoplasm of cerebellum Benign prostatic hyperplasia with lower urinary tract symptoms GERD (gastroesophageal reflux disease) Gout HTN (hypertension) Other obstructive and reflux uropathy Rosacea Sinusitis Surgical History History of brain surgery History of surgery Hx of colonoscopy Social History Social History Household Members: Spouse and Children Housing: House Alcohol intake: never Patient Tobacco Use Status: Never used Tobacco Second Hand Smoke Exposure: No Advance Directives: No Advance Directives Information Provided: Yes service: Yes (not in [facility]) Current occupational status: retired 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 GENERAL: Well developed, well nourished, in no acute distress. HEAD: Normocephalic/atraumatic EYES: PERRLA, EOMI without pallor OROPHARYNX: no oral lesions noted, posterior pharynx clear, moist mucosa NECK: Supple, no adenopathy LUNGS: Normal breath sounds. No adventitious sounds or accessory muscle use. SpO2<94> CARDIOVASCULAR: Regular rate and rhythm without noted murmurs, no JVD or lower extremity edema. ABDOMEN: Soft, non-tender, non-distended with bowel sounds. SARI: No noted external hemorrhoids, rectal vault with minimal brown stool no gross blood, good rectal tone MUSCULOSKELETAL: No tenderness, deformities, or effusions noted on gross inspection. EXTREMITIES: No cyanosis, clubbing or edema. SKIN: Inspection of the skin reveals no rashes, pallor NEUROLOGIC: Alert and oriented x 4. Strength and sensation to light touch were grossly intact x 4. Course Course Course Narrative: 66-year-old male with history and clinical presentation suggestive of likely internal hemorrhoids with hard stools (patient is noted to be on stool softeners) and on review of Hematology there is no evidence of acute anemia when compared to prior. Patient does have a history of GERD and is currently on omeprazole. Benign abdominal exam will obtain occult stool sample. On review of all investigations there are no acute findings and will obtain a troponin and EKG given patient's age and otherwise he is hemodynamically stable. Review of all lab work demonstrates that patient has positive guaiac but negative troponin. ELOPED MDM - GI Bleed Lab Data Result diagrams: 04/24/21 14:38 04/24/21 14:38 Labs: Lab Results 04/24/21 04/24/21 04/24/21 Range/Units 14:38 14:38 14:38 WBC 10.6 (4.8-10.8) X10*3/uL RBC 4.20 L (4.60-5.80) X10*6/uL Hgb 13.1 L (14.0-18.0) g/dl Hct 38.9 L (42.0-52.0) % MCV 92.6 (80.0-98.0) fL MCH 31.2 (27.0-33.0) pg MCHC 33.7 (31.0-36.0) g/dl RDW 11.5 (11.0-16.0) % Plt Count 268 (160-400) X10*3/uL MPV 9.3 L (9.4-12.4) fL Immature Gran % (Auto) 0.4 (0.0-0.4) % Neut % (Auto) 63.2 (45-73) % Lymph % (Auto) 29.4 (20-40) % Chester % (Auto) 5.7 (2-11) % Eos % (Auto) 0.9 (0-4) % Baso % (Auto) 0.4 (0-2) % Lymph # (Auto) 3.1 (1.2-4.9) X10*3/uL Chester # (Auto) 0.6 (0.1-1.2) X10*3/uL Eos # (Auto) 0.1 (0.0-0.4) X10*3/uL Baso # (Auto) 0.0 (0.0-0.2) X10*3/uL Abs Immat Gran (auto) 0.04 H (0.00-0.03) X10*3/uL Absolute Neuts (auto) 6.7 (2.0-8.3) x10*3/uL Absolute Nucleated RBC 0.000 (0.0-0.012) X10*3/uL Nucleated RBC % (auto) 0.0 (0.0-0.2) /100WBC Sodium 134 L (135-145) mmol/L Potassium 5.0 (3.3-5.1) mmol/L Chloride 102 (96-108) mmol/L Carbon Dioxide 25 (22-29) mmol/L Anion Gap 12 (12-20) BUN 22 H (9-16) mg/dL Creatinine 0.99 (0.5-1.4) mg/dL Estim Creat Clear Calc 72.5 Estimated GFR > 60 Random Glucose 99 (60-115) mg/dL Calcium 9.9 D (8.4-10.2) mg/dL Total Bilirubin 0.5 (0.0-1.0) mg/dL Direct Bilirubin 0.2 (0.0-0.5) mg/dL AST 29 D (5-37) U/L ALT 41 H (0-40) U/L Alkaline Phosphatase 59 (39-117) U/L Troponin I High Sens (<3.5-35.0) ng/L Total Protein 7.8 (6.5-8.0) g/dL Albumin 4.8 (3.5-5.0) g/dL Lipase 51 (8-78) U/L Stool Occult Blood (NEGATIVE) COVID-19 (MEG) Negative (Negative) COVID-19 Clin Com See Note 04/25/21 04/25/21 Range/Units 03:09 03:09 WBC (4.8-10.8) X10*3/uL RBC (4.60-5.80) X10*6/uL Hgb (14.0-18.0) g/dl Hct (42.0-52.0) % MCV (80.0-98.0) fL MCH (27.0-33.0) pg MCHC (31.0-36.0) g/dl RDW (11.0-16.0) % Plt Count (160-400) X10*3/uL MPV (9.4-12.4) fL Immature Gran % (Auto) (0.0-0.4) % Neut % (Auto) (45-73) % Lymph % (Auto) (20-40) % Chester % (Auto) (2-11) % Eos % (Auto) (0-4) % Baso % (Auto) (0-2) % Lymph # (Auto) (1.2-4.9) X10*3/uL Chester # (Auto) (0.1-1.2) X10*3/uL Eos # (Auto) (0.0-0.4) X10*3/uL Baso # (Auto) (0.0-0.2) X10*3/uL Abs Immat Gran (auto) (0.00-0.03) X10*3/uL Absolute Neuts (auto) (2.0-8.3) x10*3/uL Absolute Nucleated RBC (0.0-0.012) X10*3/uL Nucleated RBC % (auto) (0.0-0.2) /100WBC Sodium (135-145) mmol/L Potassium (3.3-5.1) mmol/L Chloride (96-108) mmol/L Carbon Dioxide (22-29) mmol/L Anion Gap (12-20) BUN (9-16) mg/dL Creatinine (0.5-1.4) mg/dL Estim Creat Clear Calc Estimated GFR Random Glucose (60-115) mg/dL Calcium (8.4-10.2) mg/dL Total Bilirubin (0.0-1.0) mg/dL Direct Bilirubin (0.0-0.5) mg/dL AST (5-37) U/L ALT (0-40) U/L Alkaline Phosphatase (39-117) U/L Troponin I High Sens < 3.5 (<3.5-35.0) ng/L Total Protein (6.5-8.0) g/dL Albumin (3.5-5.0) g/dL Lipase (8-78) U/L Stool Occult Blood POSITIVE (NEGATIVE) COVID-19 (MEG) (Negative) COVID-19 Clin Com Discharge Plan Discharge Clinical Impression: Rectal bleed, Atypical chest pain Patient Disposition: Home, Self-Care Instructions: Rectal Bleeding (ED), Chest Wall Pain (ED) Additional Instructions: 1. Reanudar todos los medicamentos caseros seg?n lo prescrito. 2. Recomiende usar la preparaci?n H de venta karo para las hemorroides. 3. Debe llamar al consultorio de dominique m?dico de atenci?n primaria por la ma?balta para programar jenny daily para jenny reevaluaci?n y un manejo ambulatorio adicional. Tambi?n debe discutir la posibilidad de jenny derivaci?n a Gastroenterolog?a si est? indicado. Regrese a la ana de emergencias si los s?ntomas empeoran. Prescriptions: No Action trimethoprim 100 mg tablet 100 mg PO Q12H 10 Days Qty: 20 RF: 0 tramadol 50 mg tablet 50 mg PO Q6H PRN (Reason: pain (scale score 4-6)) Qty: 14 RF: 0 naproxen 500 mg tablet 500 mg PO BID PRN (Reason: pain) Qty: 20 RF: 0 lisinopril 20 mg tablet 20 mg PO DAILY RF: 0 aspirin 81 mg tablet,delayed release (DR/EC) 81 mg PO DAILY RF: 0 metronidazole 0.75 % cream 1 applic topical BID RF: 0 docusate sodium [DOK] 100 mg capsule 100 mg PO BID RF: 0 omeprazole 20 mg capsule,delayed release(DR/EC) 20 mg PO DAILY RF: 0 fluocinonide 0.05 % solution 1 applic topical DAILY RF: 0 loratadine 10 mg tablet 10 mg PO DAILY RF: 0 miscellaneous medical supply Misc 1 ea miscellaneous DAILY Qty: 1 RF: 0 tamsulosin 0.4 mg capsule 0.8 mg PO BEDTIME 90 Days Qty: 180 RF: 1 rosuvastatin 20 mg tablet 20 mg PO BEDTIME RF: 0 terbinafine HCl 250 mg tablet 250 mg PO DAILY RF: 0 cholecalciferol (vitamin D3) 50 mcg (2,000 unit) capsule 50 mcg PO DAILY RF: 0 trazodone 50 mg tablet 50 mg PO BEDTIME RF: 0 betamethasone valerate 0.1 % ointment 1 appl topical BID RF: 0 fluocinonide 0.05 % ointment topical RF: 0 triamcinolone acetonide 0.1 % ointment topical RF: 0 Referrals: [facility] [Primary Care Provider] - 2 days Kyler Zambrano [Physician] - 2 days (Rectal bleed, suspect hemorrhoidal) Interventions: ED Discharge Assessment Last Done: 04/25/21 03:48 Discharge Date/Time: 04/25/21 03:49 Print Language: Kinyarwanda
[2021-04-25 03:12] LABS: OBS Int Ctl Valid YES; OBS1 POSITIVE (NEGATIVE)
--- NOTE | 2021-04-25 03:29 | PC.NURSE ---
Went into room to do EKG, pt not in room. Checked bathrooms, pt not found.
[2021-04-25 03:31] LABS: Alanine Aminotransferase 41 U/L (0-40); Albumin Level 4.8 g/dL (3.5-5.0); Alkaline Phosphatase 59 U/L (39-117); Aspartate Amino Transferase 29 U/L (5-37); Bilirubin Direct 0.2 mg/dL (0.0-0.5); Bilirubin Total 0.5 mg/dL (0.0-1.0); Lipase 51 U/L (8-78); Total Protein 7.8 g/dL (6.5-8.0)
[2021-04-25 03:36] LABS: Troponin-I High Sensitivity < 3.5 ng/L (<3.5-35.0)
== END 2021-04-25 03:49 | disposition home or self-care (01) ==
PROVIDERS: Emergency Provider Student in an Organized Health Care Education/Training Program
DX: K62.5 Hemorrhage of anus and rectum (principal); R07.9 Chest pain, unspecified; Z20.822 Contact with and (suspected) exposure to COVID-19; Z79.899 Other long term (current) drug therapy
CPT/HCPCS: 36415; 71046; 80048; 80076; 82272; 83690; 84484; 85025; 87635; 99284

== ENCOUNTER 2021-06-30 14:20 | Outpatient (REF) | payer MEDICARE, SELFPAY ==
[2021-06-30 16:20] LABS: Prostate Specific Antigen 1.89 ng/mL (<0.05-4.0)
== END 2021-06-30 14:21 | disposition home or self-care (01) ==
LOC: HO.LAB 14:20
PROVIDERS: Absent Provider Nurse Practitioner; PCP Nurse Practitioner; Visit Provider Urology
DX: N40.1 Benign prostatic hyperplasia with lower urinary tract symptoms (principal); N13.8 Other obstructive and reflux uropathy; Z12.5 Encounter for screening for malignant neoplasm of prostate
CPT/HCPCS: 36415; 84153

== ENCOUNTER → 2021-07-07 14:51 | Outpatient (BNVA) | payer MEDICARE, SELFPAY | PROVIDERS: PCP Nurse Practitioner; Visit Provider Urology | DX: N40.1 Benign prostatic hyperplasia with lower urinary tract symptoms (principal); N13.8 Other obstructive and reflux uropathy; R35.1 Nocturia | CPT/HCPCS: Q3014 ==

== ENCOUNTER → 2021-07-13 12:33 | Outpatient (BNVA) | payer OTHER, SELFPAY | PROVIDERS: PCP Nurse Practitioner; Referring Provider Nurse Practitioner; Visit Provider Nurse Practitioner Family | DX: Z12.11 Encounter for screening for malignant neoplasm of colon (principal); K62.5 Hemorrhage of anus and rectum; K64.9 Unspecified hemorrhoids; K59.04 Chronic idiopathic constipation | CPT/HCPCS: 99202 ==

== ENCOUNTER 2021-10-23 10:00 | Day surgery (SDC) | payer OTHER, SELFPAY ==
--- NOTE | 2021-10-20 10:36 | P.CONAN_ITS ---
Documented by User: Sylvia Mclaughlin NP 10/20/21 10:37 HPI - Anesthesia Eval Consult details Narrative: 66yo M for Colonoscopy [facility] Active Problems Active Problems: All Active Problems (Updated 07/13/21 @ 13:13 by MARIELENA Ross) COVID-19 (Acute) Viral pneumonia (Acute) Acute respiratory failure with hypoxia (Acute) Transaminasemia (Acute) BPH w urinary obs/LUTS (Acute) Nocturia (Acute) Benign neoplasm of cerebellum (Acute) Past Medical History Medical History Benign neoplasm of cerebellum Benign prostatic hyperplasia with lower urinary tract symptoms GERD (gastroesophageal reflux disease) Gout HTN (hypertension) Other obstructive and reflux uropathy Rosacea Sinusitis Tubular adenoma Surgical History Surgical History History of brain surgery History of esophagogastroduodenoscopy (EGD) History of surgery Social History Social History Household Members: Spouse and Children Housing: House Alcohol intake: never Patient Tobacco Use Status: Never used Tobacco Second Hand Smoke Exposure: No Use of substances other than those prescribed or required for medical reasons: No Are you DNR?: No Advance Directives: No Advance Directives Information Provided: Yes service: Yes ([facility]) Current occupational status: retired Current occupation: worked in [id number] in [place] Current occupational exposures/hazards: No Meds Allergies Allergy/AdvReac Type Severity Reaction Status Date / Time Penicillins [PENICILLINS] Allergy Intermediate RASH Verified 07/13/21 12:51 Home Medications Medication Instructions Recorded Confirmed Last Taken Type aspirin 81 mg tablet,delayed 81 mg PO DAILY 03/23/20 07/13/21 09/12/20 History release fluocinonide 0.05 % topical 1 applic topical DAILY 03/23/20 07/13/21 Unknown History solution lisinopril 20 mg tablet 20 mg PO DAILY 03/23/20 07/13/21 09/19/20 History loratadine 10 mg tablet 10 mg PO DAILY 03/23/20 07/13/21 Unknown History metronidazole 0.75 % topical cream 1 applic topical BID 03/23/20 07/13/21 Unknown History omeprazole 20 mg capsule,delayed 20 mg PO DAILY 03/23/20 07/13/21 09/19/20 History release fluocinonide 0.05 % topical topical 09/01/20 07/13/21 Unknown History ointment triamcinolone acetonide 0.1 % topical 09/01/20 07/13/21 Unknown History topical ointment betamethasone valerate 0.1 % 1 appl topical BID 09/22/20 07/13/21 Unknown History topical ointment cholecalciferol (vitamin D3) 50 50 mcg PO DAILY 09/22/20 07/13/21 Unknown History mcg (2,000 unit) capsule rosuvastatin 20 mg tablet 20 mg PO BEDTIME 09/22/20 07/13/21 Unknown History terbinafine HCl 250 mg tablet 250 mg PO DAILY 09/22/20 07/13/21 Unknown History trazodone 50 mg tablet 50 mg PO BEDTIME 09/22/20 07/13/21 Unknown History betamethasone dipropionate 0.05 % topical 07/07/21 07/13/21 Unknown History lotion betamethasone valerate 0.1 % appl topical BID 07/07/21 07/13/21 Unknown History topical cream doxepin 10 mg capsule 10 mg PO BEDTIME 07/07/21 07/13/21 Unknown History doxycycline hyclate 100 mg tablet 100 mg PO BID 07/07/21 07/13/21 Unknown History melatonin 5 mg disintegrating 5 mg PO QPM 07/07/21 07/13/21 Unknown History tablet carbamide peroxide 6.5 % ear drops 0 drp otic (ears) 07/13/21 07/13/21 Unknown History (Ear Drops (carbamide peroxide)) Exam Exam Date and Time: October 20, 2021 1036 Pertinent Lab Results Pertinent Lab Results: Laboratory Tests 04/24/21 04/24/21 14:38 14:38 WBC 10.6 Hgb 13.1 L Hct 38.9 L Plt Count 268 Sodium 134 L Potassium 5.0 Chloride 102 Carbon Dioxide 25 BUN 22 H Creatinine 0.99 Assessment and Plan Assessment Anesthesia Assessment: Chart Reviewed Documented by User: Tammy Fry MD 10/23/21 11:22 [facility] Past Medical History Medical History Benign neoplasm of cerebellum Benign prostatic hyperplasia with lower urinary tract symptoms GERD (gastroesophageal reflux disease) Gout HTN (hypertension) Other obstructive and reflux uropathy Rosacea Sinusitis Tubular adenoma Family History Family history of problems with anesthesia: No Surgical History Surgical History History of brain surgery History of esophagogastroduodenoscopy (EGD) History of surgery History of Problems with Anesthesia: No Social History Social History Household Members: Spouse and Children Housing: House Alcohol intake: never Patient Tobacco Use Status: Never used Tobacco Second Hand Smoke Exposure: No Use of substances other than those prescribed or required for medical reasons: No Are you DNR?: No Advance Directives: No Advance Directives Information Provided: Yes service: Yes (not [facility]) Current occupational status: retired Current occupation: worked in [id number] in [place] Current occupational exposures/hazards: No Meds Allergies Allergy/AdvReac Type Severity Reaction Status Date / Time Penicillins [PENICILLINS] Allergy Intermediate RASH Verified 07/13/21 12:51 Home Medications Medication Instructions Recorded Confirmed Last Taken Type aspirin 81 mg tablet,delayed 81 mg PO DAILY 03/23/20 07/13/21 09/12/20 History release fluocinonide 0.05 % topical 1 applic topical DAILY 03/23/20 07/13/21 Unknown History solution lisinopril 20 mg tablet 20 mg PO DAILY 03/23/20 07/13/21 09/19/20 History loratadine 10 mg tablet 10 mg PO DAILY 03/23/20 07/13/21 Unknown History metronidazole 0.75 % topical cream 1 applic topical BID 03/23/20 07/13/21 Unknown History omeprazole 20 mg capsule,delayed 20 mg PO DAILY 03/23/20 07/13/21 09/19/20 History release fluocinonide 0.05 % topical topical 09/01/20 07/13/21 Unknown History ointment triamcinolone acetonide 0.1 % topical 09/01/20 07/13/21 Unknown History topical ointment betamethasone valerate 0.1 % 1 appl topical BID 09/22/20 07/13/21 Unknown Hi story topical ointment cholecalciferol (vitamin D3) 50 50 mcg PO DAILY 09/22/20 07/13/21 Unknown History mcg (2,000 unit) capsule rosuvastatin 20 mg tablet 20 mg PO BEDTIME 09/22/20 07/13/21 Unknown History terbinafine HCl 250 mg tablet 250 mg PO DAILY 09/22/20 07/13/21 Unknown History trazodone 50 mg tablet 50 mg PO BEDTIME 09/22/20 07/13/21 Unknown History betamethasone dipropionate 0.05 % topical 07/07/21 07/13/21 Unknown History lotion betamethasone valerate 0.1 % appl topical BID 07/07/21 07/13/21 Unknown History topical cream doxepin 10 mg capsule 10 mg PO BEDTIME 07/07/21 07/13/21 Unknown History doxycycline hyclate 100 mg tablet 100 mg PO BID 07/07/21 07/13/21 Unknown History melatonin 5 mg disintegrating 5 mg PO QPM 07/07/21 07/13/21 Unknown History tablet carbamide peroxide 6.5 % ear drops 0 drp otic (ears) 07/13/21 07/13/21 Unknown History (Ear Drops (carbamide peroxide)) Exam Airway Mallampati Class: II TM Dist: >3cm Neck ROM: Full Partial: Upper Heart: rrr Lungs: cta Assessment and Plan Assessment Anesthesia Assessment: Anesthesia Plan Discussed and Chart Reviewed Final Anesthetic Review Family History of Problems with Anesthesia: No History of Problems with Anesthesia: No NPO: Yes ASA Class: III Final Preanesthetic Review: No Changes in Pt Med Stat, Meds/Allgs Chart Reviewed and Consent Obtained/Reviewed Patient Risk: Intermediate Procedure Risk: Intermediate Anesthetic Plan Anesthetic Plan: MAC: Disposition: Standard PACU
[2021-10-23 10:45] VITALS: BP 121/77; PULSE 71; RESP 18; TEMP 36.7; O2SAT 95
[2021-10-23] MEDS: Lactated Ringers 1,000 ML 100 ML IVCONT (10:57)
--- NOTE | 2021-10-23 11:04 | MHC.SHP ---
Pre-Procedural Eval Section A Date of Service: 10/23/21 The patient is an INPATIENT: No The History & Physical has been completed within 30 days and I have reviewed it.: No Section B Chief Complaint: screening Details of Present Illness: Colon cancer screen, rectal bleeding, constipation Relevant Family History (Specify if Yes): No Relevant Social History: None Present Medications: see Short Stay Collaborative assessment Medical History: Significant History (Benign neoplasm of cerebellum Benign prostatic hyperplasia with lower urinary tract symptoms GERD (gastroesophageal reflux disease) Gout HTN (hypertension) Other obstructive and reflux uropathy Rosacea Sinusitis Tubular adenoma) History of Previous Operations: Relevant previous surgery/procedure and date(s) (History of brain surgery History of esophagogastroduodenoscopy (EGD) History of surgery) Allergies: Allergies Allergy/AdvReac Type Severity Reaction Status Date / Time Penicillins [PENICILLINS] Allergy Intermediate RASH Verified 07/13/21 12:51 Review of Systems Sugical H&P ROS: Negative: Constitution, Cardiovascular and Respiratory and Yes, Specify: Gastrointestinal (constipation, rectal bleeding) Exam Surgical H&P Exam: Normal: Heart, Normal: Lungs, Normal: Extremities and Normal: Abdomen Plan Diagnosis/Plan: Unchanged I have reviewed the history and physical and performed a pertinent physical examination on my patient. No changes have occurred unless specified.
--- NOTE | 2021-10-23 11:17 | PM.OP ---
Brief Operative Note Date of Service: 10/23/21 Pre-op diagnosis: Colon cancer screen, history of colon polyps, rectal bleeding, constipation Post-op diagnosis: other (Colon polyps, diverticulosis, hemorrhoids) Procedure: COLONOSCOPY TILL CECUM WITH BIOPSIES Consent: Indications for the procedure and potential complications of bleeding, perforation, reaction to medications and missed diagnosis were discussed with the patient and informed consent was obtained. Instrument: Olympus PCF H 190 L variable stiffness pediatric colonoscope Monitoring: Vital signs and clinical assessment, intermittent blood pressure monitoring, continuous EKG monitoring, Pulse oximetry and Carbon Dioxide monitoring were done throughout the procedure. Colon withdrawl time was 23 minutes. Procedure: The patient was placed in the left lateral decubitis position and pre-procedure medications were administered. After a digital rectal examination of the ano-rectum, the video colonoscope was inserted into the rectum and advanced through the colon to the cecum. The colonoscope was slowly withdrawn in a retrograde panoramic fashion and the colon mucosa was carefully examined including a retroflexed view of the rectum. Findings and interventions are described below. Procedure Difficulty: Colon was long and there was recurrent loop formation. Patient was placed in the supine position and LLQ pressure was applied to intubate the cecum Findings: Terminal Ileum: Not evaluated Cecum: Normal Ascending Colon: A 3-4 mm sessile polyp in the distal AC removed with a cold bx. Transverse Colon: Normal Descending Colon: Moderate diverticulosis Sigmoid Colon: A 2-3 mm polyp removed with a cold bx. Moderate diverticulosis Rectum: Normal Ano-rectum: Large non-bleeding internal hemorrhoids Colon preparation: Good after some irrigation Impression and Post Procedure Diagnosis: Colonoscopy Findings: Two small polyps removed Moderate diverticulosis seen in the left colon Large hemorrhoids on retroflexed exam - likely source of rectal bleeding. Plan: Await pathology results Patient has an appointment on 11/06/21 in the [facility] with Dayanara Rocha FNP-BC . Repeat Colonoscopy interval based on path results - in 5 years if polyps are adenomatous and 10 years if polyps are hyperplastic. Above findings were reviewed with the patient and colon polyps and Hemorrhoids handouts were given in the discharge area Surgeon: Eunice Hanson MD Anesthesia: MAC (Dr Flaherty) Was an Braille Duplicating Machine Operator used for this Procedure?: Yes Braille Duplicating Machine Operator: Jenny Jin Estimated blood loss (mL): 0 Pathology: other (A. ascending colon polyp B. sigmoid polyp) Condition: stable Disposition: PACU
[2021-10-23 12:14] VITALS: BP 108/77; PULSE 73; RESP 16; TEMP 36.1; O2SAT 94
[2021-10-23 12:30] VITALS: BP 98/65; PULSE 74; RESP 16; O2SAT 98
[2021-10-23 12:45] VITALS: BP 115/77; PULSE 66; RESP 16; TEMP 36.1; O2SAT 98
--- NOTE | 2021-10-23 17:21 | W.PM.OPN ---
Operative Note Operative Note Date of Service: 10/23/21 Narrative: Pre-op diagnosis: Colon cancer screen, history of colon polyps, rectal bleeding, constipation Post-op diagnosis:?other (Colon polyps, diverticulosis, hemorrhoids) Procedure: COLONOSCOPY TILL CECUM WITH BIOPSIES Consent: Indications for the procedure and potential complications of bleeding, perforation, reaction to medications and missed diagnosis were discussed with the patient and informed consent was obtained. Instrument: Olympus PCF H 190 L variable stiffness pediatric colonoscope Monitoring: Vital signs and clinical assessment, intermittent blood pressure monitoring, continuous EKG monitoring, Pulse oximetry and Carbon Dioxide monitoring were done throughout the procedure. Colon withdrawl time was 23 minutes. Procedure: The patient was placed in the left lateral decubitis position and pre-procedure medications were administered. After a digital rectal examination of the ano-rectum, the video colonoscope was inserted into the rectum and advanced through the colon to the cecum. The colonoscope was slowly withdrawn in a retrograde panoramic fashion and the colon mucosa was carefully examined including a retroflexed view of the rectum. Findings and interventions are described below. Procedure Difficulty:? Colon was long and there was recurrent loop formation.? Patient was placed in the supine position and LLQ pressure was applied to intubate the cecum Findings: Terminal Ileum: Not evaluated Cecum:? Normal Ascending Colon:? A 3-4 mm sessile polyp in the distal AC removed with a cold bx. Transverse Colon:? Normal Descending Colon:? Moderate diverticulosis Sigmoid Colon:? A 2-3 mm polyp removed with a cold bx. Moderate diverticulosis Rectum:? Normal Ano-rectum:? Large non-bleeding internal hemorrhoids Colon preparation:? Good after some irrigation Impression and Post Procedure Diagnosis: Colonoscopy Findings: Two small polyps removed Moderate diverticulosis seen in the left colon Large hemorrhoids on retroflexed exam - likely source of rectal bleeding. Plan: Await pathology results Patient has an appointment on 11/06/21 in the GI Clinic with Dayanara Rocha FNP-FARZANA . Repeat Colonoscopy interval based on path results - in 5 years if polyps are adenomatous and 10 years if polyps are hyperplastic. Above findings were reviewed with the patient and colon polyps and Hemorrhoids handouts were given in the discharge area Surgeon: Eunice Hanson MD Anesthesia:?MAC (Dr Flaherty) Was an It Business Process Architect used for this Procedure?:?Yes It Business Process Architect:?Jenny Jin Estimated blood loss (mL):?0 Pathology:?other (A. ascending colon polyp? B. sigmoid polyp) Condition:?stable Disposition:?PACU
== END 2021-10-23 13:12 | disposition home or self-care (01) ==
PROVIDERS: PCP Nurse Practitioner; Visit Provider Internal Medicine Gastroenterology
PROC: 0DJD8ZZ Inspection of Lower Intestinal Tract, Via Natural or Artificial Opening Endoscopic (ICD-10-PCS; CPT 45378; principal; 2021-10-23 11:50)
DX: Z12.11 Encounter for screening for malignant neoplasm of colon (principal); Z86.010 Personal history of colon polyps; D12.2 Benign neoplasm of ascending colon; D12.5 Benign neoplasm of sigmoid colon; K57.30 Diverticulosis of large intestine without perforation or abscess without bleeding; K64.8 Other hemorrhoids; K59.00 Constipation, unspecified; K21.9 Gastro-esophageal reflux disease without esophagitis; M10.9 Gout, unspecified; I10 Essential (primary) hypertension; Z86.011 Personal history of benign neoplasm of the brain; Z79.82 Long term (current) use of aspirin; Z79.899 Other long term (current) drug therapy; Z88.0 Allergy status to penicillin
CPT/HCPCS: 45380; 88305

== ENCOUNTER 2022-06-25 11:31 | Outpatient (REF) | payer OTHER, SELFPAY ==
--- NOTE | ~2022-06-25 | XR_ITS ---
EXAMINATION: XR CHEST CLINICAL INFORMATION: Positive PPD T-spot COMPARISON: Chest radiographs 04/24/2021, 09/09/2020 TECHNIQUE: 2 views of the chest were obtained. FINDINGS: The lungs are clear. No airspace consolidation or groundglass opacity. No cavitary lesion. No effusion. The costophrenic sulci are well-defined. The heart is within normal size. Vascularity is normal. The hilar and mediastinal contours are unremarkable. No acute bony abnormality. XR/XR chest 2V IMPRESSION: Unremarkable examination.
== END 2022-06-25 11:32 | disposition home or self-care (01) ==
LOC: HO.XRAY 11:31
PROVIDERS: PCP Nurse Practitioner Primary Care; Visit Provider Nurse Practitioner Primary Care
DX: R76.11 Nonspecific reaction to tuberculin skin test without active tuberculosis (principal)
CPT/HCPCS: 71046

== ENCOUNTER 2022-07-05 11:32 | Outpatient (REF) | payer OTHER, SELFPAY ==
--- NOTE | ~2022-07-05 | XR_ITS ---
EXAMINATION: XR LUMBOSACRAL SPINE CLINICAL INFORMATION: Right low back pain. COMPARISON: None available. TECHNIQUE: Three views of the lumbosacral spine. XR/XR lumbar spine 2-3V FINDINGS/IMPRESSION: Small to moderate disc space narrowing is seen at L1-L2, L2-L3, and L4-L5. Mild to moderate facet degenerative changes seen at L4-S1. The study is otherwise essentially unremarkable. No spondylolysis or spondylolisthesis is seen. Vertebral body heights and alignment appear maintained. No lytic or sclerotic bony lesion is seen. The paraspinal soft tissues appear unremarkable.
[2022-07-05 13:19] LABS: Prostate Specific Antigen 0.88 ng/mL (<0.05-4.0)
== END 2022-07-05 11:33 | disposition home or self-care (01) ==
LOC: HO.LAB 11:32
PROVIDERS: Absent Provider Family Medicine; PCP Urology; Visit Provider Urology
DX: N40.1 Benign prostatic hyperplasia with lower urinary tract symptoms (principal); N13.8 Other obstructive and reflux uropathy; M54.50 Low back pain, unspecified; Z12.5 Encounter for screening for malignant neoplasm of prostate
CPT/HCPCS: 36415; 72100; 84153

== ENCOUNTER → 2022-07-06 10:55 | Outpatient (BNVA) | payer OTHER, SELFPAY | PROVIDERS: PCP Nurse Practitioner Primary Care; Visit Provider Urology | DX: N40.1 Benign prostatic hyperplasia with lower urinary tract symptoms (principal); N13.8 Other obstructive and reflux uropathy; N39.3 Stress incontinence (female) (male) | CPT/HCPCS: 99212 ==

== ENCOUNTER → 2022-08-15 12:47 | Outpatient (BNVA) | payer OTHER, SELFPAY | PROVIDERS: PCP Nurse Practitioner Primary Care; Visit Provider Urology | DX: N40.1 Benign prostatic hyperplasia with lower urinary tract symptoms (principal); N13.8 Other obstructive and reflux uropathy; N39.3 Stress incontinence (female) (male) | CPT/HCPCS: 52000; 99212 ==

== ENCOUNTER 2023-03-06 09:55 | Outpatient (AMB) | payer OTHER, SELFPAY ==
--- NOTE | 2023-03-06 09:58 | MHC.OFFVIS ---
Intake Intake Visit Reasons: 6m follow up Intake Note: Patient presents for 6 month follow up stress incontinence Urology Medications: none Blood Thinner: aspirin PVR: 21ml's Assembler Hydraulic Backhoe Required: Yes Assembler Hydraulic Backhoe Name: [id number] Accompanied by: Self / Same As Patient Allergies Penicillins [PENICILLINS] Allergy (Intermediate, Verified 03/06/23 10:22) RASH Medication List - Last Reconciled 03/06/23 by LIZZ Borjas- aspirin 81 mg PO DAILY betamethasone dipropionate 0.05% topical betamethasone valerate 0.1% 1 appl topical BID betamethasone valerate 0.1% appl topical BID bisacodyl 10 mg (2 x 5 mg) PO DAILY carbamide peroxide 6.5% (Ear Drops (carbamide peroxide)) 0 drps otic (ears) cholecalciferol (vitamin D3) 50 mcg PO DAILY docusate sodium 100 mg PO BEDTIME doxepin 10 mg PO BEDTIME fluocinonide 0.05% 1 applic topical DAILY fluocinonide 0.05% topical lisinopril 20 mg PO DAILY loratadine 10 mg PO DAILY melatonin 5 mg PO QPM melatonin 5 mg PO BEDTIME metronidazole 0.75% 1 applic topical BID miscellaneous medical supply 1 ea miscellaneous DAILY omeprazole 20 mg PO DAILY polyethylene glycol 3350 (Miralax) 17 grams PO DAILY 1 day rosuvastatin 20 mg PO BEDTIME sennosides (Natural Senna Laxative) 8.6 mg PO BEDTIME terbinafine HCl 250 mg PO DAILY trazodone 50 mg PO BEDTIME triamcinolone acetonide 0.1% topical HPI HPI Comments History of Present Illness Details Mateo is a pleasant 67 year old Monegasque speaking male patient of Dr. Lester. He has a past medical history of gout, rosacea, GERD, benign neoplasm of the cerebellum, sinusitis, and hypertension.He is being followed up on today for his lower urinary tract symptoms. In discussion with the patient today he reports to be doing and feeling well. He discusses having had an episode of incontinence last Saturday. He discusses incontinent episode happened with a sense of urinary urgency and describes this as a solitary event. He otherwise denies urinary urgency, urinary frequency, nocturia, hematuria, dysuria, foul smelling urine, changes to urinary stream, flank pain, fever, and or chills. He is happy with her current voiding parameters. In office urinalysis results reviewed with the patient today. PVR 21mls. He otherwise offers no issues or concerns at this time. Previous history includes: Lower urinary tract symptoms Effective stream No nocturia Prostate procedures - September 2020 [facility] laser prostate Prior family history prostate cancer PSA - 12/02 1.0, 07/04 1.9, 07/05 0.9 Cystoscopy - 2019 - bilobar hypertrophy with obstruction lateral lobe PFSH Medical History Tubular adenoma Gout Other obstructive and reflux uropathy Benign prostatic hyperplasia with lower urinary tract symptoms Rosacea GERD (gastroesophageal reflux disease) Benign neoplasm of cerebellum Sinusitis HTN (hypertension) Surgical History Hx of colonoscopy History of esophagogastroduodenoscopy (EGD) History of surgery History of brain surgery Household Members: Spouse and Children Housing: House Alcohol intake: never Patient Tobacco Use Status: Never used Tobacco Second Hand Smoke Exposure: No service: Yes (not in [facility]) Current occupational status: retired 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[place] Current occupational exposures/hazards: No Review of Systems Const Reports as per HPI Eyes Reports no additional complaints ENT Reports no additional complaints Card Reports as per HPI Resp Reports no additional complaints GI Reports as per HPI Reports as per HPI Musc Reports no additional complaints Skin/Breast Reports as per HPI Neuro Reports as per HPI Psych Reports no additional complaints Endo Reports no additional complaints Saeed/Lymph Reports no additional complaints Aller/Immun Reports no additional complaints Physical Exam Const General: cooperative, healthy appearing, comfortable, no acute distress, well developed, alert and awake Orientation/consciousness: patient oriented x3 HEENT Head: Yes normal to inspection, Yes normocephalic and Yes atraumatic Ears: hearing grossly normal bilaterally Eyes General: appearance normal, both eyes and all related structures Neck Neck: Yes normal visual inspection and Yes trachea midline Chest Chest palpation & inspection: normal inspection of the chest Resp Effort & Inspection: normal respiratory effort and able to speak in complete sentences Cardio Rate: regular rate GI Inspection: Yes normal to inspection General: Yes no CVA tenderness Back/Spine/Pelvis Back: no CVA tenderness Skin General skin exam: no rashes or lesions noted Neuro General: patient oriented x3 Extrem General: Yes normal to inspection Psych Appearance: grossly normal and well kempt Mental Status: mental status grossly normal Speech and movement: Normal speech and movement present and Clear speech present Affect: normal affect Attitude: cooperative Thought process: Normal thought process present Thought content: Normal thought content present Insight: Fair insight present (Psych) Judgement: Fair judgement present (Psych) Office Procedures Post Void Residual Post Residual Void Post Void Residual (PVR): 95783-[place] Void Residual by ultrasound Results AMB Urinalysis, Automated UA Leukoctes 0 Amaya/uL Last Edit by [employer] on 03/06/23 10:17 UA Nitrite Negative Last Edit by [employer] on 03/06/23 10:17 UA Urobilinogen 0.2 mg/dL Last Edit by [employer] on 03/06/23 10:17 UA Protein 0 mg/dL Last Edit by [employer] on 03/06/23 10:17 UA pH 6.0 Last Edit by [employer] on 03/06/23 10:17 UA Blood 0 Alexy/uL Last Edit by [employer] on 03/06/23 10:17 UA Specific [place] 1.020 Last Edit by [employer] on 03/06/23 10:17 UA Ketone Negative Last Edit by [employer] on 03/06/23 10:17 UA Bilirubin 0 mg/dL Last Edit by [employer] on 03/06/23 10:17 UA Glucose 0 mg/dL Last Edit by [employer] on 03/06/23 10:17 Results Reviewed Results Reviewed: Laboratory Last Values Urine pH (Auto) 6.0 03/06/23 10:15 Specific [place] (Auto) 1.020 03/06/23 10:15 Urine Protein (Auto) 0 mg/dL 03/06/23 10:15 Glucose (UA)(Auto) 0 mg/dL 03/06/23 10:15 Urine Ketones (Auto) Negative 03/06/23 10:15 Urine Blood (Auto) 0 Alexy/uL 03/06/23 10:15 Urine Nitrite (Auto) Negative 03/06/23 10:15 Urine Bilirubin (Auto) 0 mg/dL 03/06/23 10:15 Urine Urobilinogen (Auto) 0.2 mg/dL 03/06/23 10:15 Leukocyte Esterase (Auto) 0 Amaya/uL 03/06/23 10:15 Assessment & Plan Assessment & Plan (1) Male stress incontinence: Code(s): N39.3 - Stress incontinence (female) (male) (2) BPH w urinary obs/LUTS: Comment: August 2020 [facility] laser prostatectomy Code(s): N40.1 - Benign prostatic hyperplasia with lower urinary tract symptoms; N13.8 - Other obstructive and reflux uropathy Plan In office urinalysis results reviewed with the patient today; as noted above. PVR 21 mL. Discussed and stressed at length the importance of timed/scheduled voiding to decreased episodes of stress incontinence. Discussed bladder triggers/irritants. Patient otherwise denies any bothersome urinary issues or concerns at this time. Patient reports be happy with current voiding parameters. Will obtain PSA in 6 months. Follow-up in 6 months with lab to be completed prior; or sooner with any issues, concerns, and or questions. Orders: Orders AMB Urinalysis Automated 03/06/23 Z13.9 - Encounter for screening, unspecified AMB Post Void Residual by ultrasound 03/06/23 N39.3 - Stress incontinence (female) (male) Prostate Specific Antigen 6 Months N13.8 - Other obstructive and reflux uropathy, N40.1 - Benign prostatic hyperplasia with lower urinary tract symptoms Patient Instructions: The patient had an opportunity to ask questions regarding the treatment plan. All questions were answered. Physical exam, labs, and imaging were discussed and reviewed in detail. As well as risks, benefits, and discussion of treatment choices. No major barriers to understanding were identified. The patient expressed understanding and agreement with the above treatment plan. The patient was made aware they should contact our office by phone for worsening of their current condition, the appearance of new symptoms, or with any questions or concerns. Compliance is encouraged with any medications and follow up testing that is ordered. It is a privilege to be allowed the opportunity to participate in? your urological care.? Again, if you have any questions or concerns If you have any questions or concerns please do not hesitate to contact me. The office is [phone]. This note is constructed using voice recognition software. While every effort has been made to ensure accuracy finished yarn examiner errors may have been included. Yours sincerely, LIZZ Borjas-BC Coding Level of Care Code Est Pt Level 4 (37082) Diagnoses Male stress incontinence N39.3 BPH w urinary obs/LUTS N40.1; N13.8 CPT Codes Post Residual Void - PVR CPT Code: 21953-Vngp Void Residual by ultrasound ([id number]) Time Spent (min) 35
== END 2023-03-06 10:47 | disposition home or self-care (01) ==
LOC: HO.HUSH 09:55
PROVIDERS: PCP Nurse Practitioner Primary Care; Visit Provider Nurse Practitioner Family
DX: N39.3 Stress incontinence (female) (male) (principal); N40.1 Benign prostatic hyperplasia with lower urinary tract symptoms; N13.8 Other obstructive and reflux uropathy
CPT/HCPCS: 99214

== ENCOUNTER → 2023-03-06 09:55 | Outpatient (BNVA) | payer OTHER, SELFPAY | PROVIDERS: PCP Nurse Practitioner Primary Care; Visit Provider Nurse Practitioner Family | DX: N40.1 Benign prostatic hyperplasia with lower urinary tract symptoms (principal); N13.8 Other obstructive and reflux uropathy; N39.3 Stress incontinence (female) (male) | CPT/HCPCS: 51798; 81003; 99212 ==

== ENCOUNTER 2023-08-23 10:42 | Outpatient (REF) | payer OTHER, SELFPAY ==
--- NOTE | ~2023-08-23 | XR_ITS ---
EXAMINATION: XR CHEST CLINICAL INFORMATION: Productive cough. COMPARISON: Chest radiograph 06/25/2022. TECHNIQUE: 2 views of the chest were obtained. FINDINGS: Increased bronchovascular markings compared to most recent prior. No dense consolidation, pleural effusion or pneumothorax. Normal appearance of the cardiomediastinal silhouette. Thoracic spondylosis. No acute osseous findings. XR/XR chest 2V IMPRESSION: Increased bronchovascular markings which are nonspecific and could be associated with asthma, bronchitis, reactive airways disease or atypical infections.
== END 2023-08-23 10:43 | disposition home or self-care (01) ==
LOC: HO.HHCX 10:42
PROVIDERS: Visit Provider Emergency Medicine
DX: R05.1 Acute cough (principal)
CPT/HCPCS: 71046

== ENCOUNTER 2023-09-03 15:02 | Outpatient (REF) | payer OTHER, SELFPAY ==
[2023-09-03 16:21] LABS: Prostate Specific Antigen 1.43 ng/mL (<0.05-4.0)
== END 2023-09-03 15:03 | disposition home or self-care (01) ==
LOC: HO.LAB 15:02
PROVIDERS: PCP Nurse Practitioner Primary Care; Visit Provider Nurse Practitioner Family
DX: N40.1 Benign prostatic hyperplasia with lower urinary tract symptoms (principal); N13.8 Other obstructive and reflux uropathy; Z12.5 Encounter for screening for malignant neoplasm of prostate
CPT/HCPCS: 36415; 84153

== ENCOUNTER 2023-10-04 08:22 | Outpatient (REF) | payer OTHER, SELFPAY ==
[2023-10-04 11:25] LABS: MANUAL DIFF FLAG NO
[2023-10-04 11:33] LABS: Basophils Absolute Auto 0.1 X10*3/uL (0.0-0.2); Basophils Percent Auto 0.5 % (0-2); Eosinophils Absolute Auto 0.2 X10*3/uL (0.0-0.4); Eosinophils Percent Auto 1.6 % (0-4); Hematocrit 39.5 % (42.0-52.0); Hemoglobin 13.1 g/dl (14.0-18.0); Imm Gran Abs Auto 0.03 X10*3/uL (0.00-0.03); Imm Gran Pct Auto 0.3 % (0.0-0.4); Lymphocytes Absolute Auto 1.6 X10*3/uL (1.2-4.9); Lymphocytes Percent Auto 15.6 % (20-40); Mean Corpuscular HGB Conc 33.2 g/dl (31.0-36.0); Mean Corpuscular Hemoglobin 31.3 pg (27.0-33.0); Mean Corpuscular Volume 94.5 fL (80.0-98.0); Mean Platelet Volume 10.3 fL (9.4-12.4); Monocytes Absolute Auto 0.7 X10*3/uL (0.1-1.2); Monocytes Percent Auto 7.2 % (2-11); Neutrophils Absolute Auto 7.5 x10*3/uL (2.0-8.3); Neutrophils Percent Auto 74.8 % (45-73); Platelet Count 203 X10*3/uL (160-400); Red Blood Count 4.18 X10*6/uL (4.60-5.80); Red Cell Distribution Width 12.1 % (11.0-16.0)
[2023-10-04 12:17] LABS: Alanine Aminotransferase 22 U/L (0-40); Albumin Level 4.4 g/dL (3.5-5.0); Alkaline Phosphatase 60 U/L (39-117); Anion Gap 12 (12-20); Aspartate Amino Transferase 24 U/L (5-37); Bilirubin Total 0.8 mg/dL (0.0-1.0); Blood Urea Nitrogen 17 mg/dL (9-16); Calcium 9.4 mg/dL (8.4-10.2); Carbon Dioxide 28 mmol/L (22-29); Chloride 108 mmol/L (96-108); Cholesterol 93 mg/dL (<200); Estimated Glomerular Filt Rate > 60; Glucose Random 100 mg/dL (60-115); HDL Cholesterol 30 mg/dL (>40); LDL Cholesterol Calculated 42 mg/dL (<100); Potassium 4.5 mmol/L (3.3-5.1); Sodium 143 mmol/L (135-145); TSH reflex Free T4 7.47 uIU/mL (0.32-4.0); Total Protein 7.4 g/dL (6.5-8.0); Triglycerides 107 mg/dL (<150)
[2023-10-04 12:29] LABS: Creatinine Urine 253.47 mg/dL; Microalbum/Creatinine Ratio Ur 8.2 ug/mg cr (<30)
== END 2023-10-04 08:23 | disposition home or self-care (01) ==
LOC: HO.HHCL 08:22
PROVIDERS: Visit Provider Nurse Practitioner Primary Care
DX: I10 Essential (primary) hypertension (principal); L29.9 Pruritus, unspecified; E78.5 Hyperlipidemia, unspecified
CPT/HCPCS: 36415; 80053; 80061; 82043; 82570; 84439; 84443; 85025

== ENCOUNTER 2023-11-05 12:33 | Outpatient (AMB) | payer OTHER, SELFPAY ==
--- NOTE | 2023-11-05 12:59 | MHC.OFFVIS ---
Intake Visit Reasons: 6m/PSA/PVR(set) Intake Note: Patient presents for follow up visit on: BPH, Incontinence, and PSA lab results PSA: 1.43 Urology Medications: none Blood Thinner: aspirin PVR: 0ml's Chief Commercial Officer Required: Yes Chief Commercial Officer Name: Wandy [id number] Accompanied by: Self / Same As Patient Allergies Penicillins [PENICILLINS] Allergy (Intermediate, Verified 11/05/23 16:35) RASH Medication List - Last Reconciled 11/05/23 by LIZZ Borjas- aspirin 81 mg PO DAILY betamethasone dipropionate 0.05% topical betamethasone valerate 0.1% 1 appl topical BID betamethasone valerate 0.1% appl topical BID bisacodyl 10 mg (2 x 5 mg) PO DAILY carbamide peroxide 6.5% (Ear Drops (carbamide peroxide)) 0 drps otic (ears) cholecalciferol (vitamin D3) 50 mcg PO DAILY docusate sodium 100 mg PO BEDTIME doxepin 10 mg PO BEDTIME fluocinonide 0.05% 1 applic topical DAILY fluocinonide 0.05% topical levothyroxine 50 mcg PO DAILY lisinopril 20 mg PO DAILY loratadine 10 mg PO DAILY melatonin 5 mg PO QPM melatonin 5 mg PO BEDTIME metronidazole 0.75% 1 applic topical BID miscellaneous medical supply 1 ea miscellaneous DAILY omeprazole 20 mg PO DAILY polyethylene glycol 3350 (Miralax) 17 grams PO DAILY 1 day rosuvastatin 20 mg PO BEDTIME sennosides (Natural Senna Laxative) 8.6 mg PO BEDTIME terbinafine HCl 250 mg PO DAILY trazodone 50 mg PO BEDTIME triamcinolone acetonide 0.1% topical HPI Comments Details: Mateo is a pleasant 68 year old Indian speaking male patient of Dr. Lester. He has a past medical history of gout, rosacea, GERD, benign neoplasm of the cerebellum, sinusitis, and hypertension. He is being followed up on today for his lower urinary tract symptoms. In discussion with the patient today he reports to be doing and feeling well. He reports since his last office visit here approximately 7 months ago he has had no bothersome urinary issues or concerns. He reports previously had been experiencing episodes of incontinence however this has since subsided. He denies urinary urgency, urinary frequency, incontinence, nocturia, hematuria, dysuria, foul smelling urine, changes to urinary stream, flank pain, fever, and or chills. Recent PSA results reviewed with the patient today as noted and trended below. He is happy with her current voiding parameters. In office urinalysis results reviewed with the patient today. PVR 0mls. He discusses his current divorce as well as his who has had a stroke in the past. He otherwise offers no issues or concerns at this time. Previous history includes: Lower urinary tract symptoms Effective stream No nocturia Prostate procedures - September 2020 [facility] laser prostate Prior family history prostate cancer PSA - 12/02 1.0, 07/04 1.9, 07/05 0.9, 09/05 1.4 Cystoscopy - 2019 - bilobar hypertrophy with obstruction lateral lobe PFSH Medical History Tubular adenoma Gout Other obstructive and reflux uropathy Benign prostatic hyperplasia with lower urinary tract symptoms Rosacea GERD (gastroesophageal reflux disease) Benign neoplasm of cerebellum Sinusitis HTN (hypertension) Surgical History Hx of colonoscopy History of esophagogastroduodenoscopy (EGD) History of surgery History of brain surgery Social History Household Members: Spouse and Children Housing: House Alcohol intake: never Patient Tobacco Use Status: Never used Tobacco Second Hand Smoke Exposure: No service: Yes (not in [facility]) Current occupational status: retired 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[place] Current occupational exposures/hazards: No Review of Systems Const Reports as per HPI Eyes Reports no additional complaints ENT Reports no additional complaints Card Reports as per HPI Resp Reports no additional complaints GI Reports as per HPI Reports as per HPI Musc Reports no additional complaints Skin/Breast Reports as per HPI Neuro Reports as per HPI Psych Reports no additional complaints Endo Reports no additional complaints Saeed/Lymph Reports no additional complaints Aller/Immun Reports no additional complaints Physical Exam Const General: cooperative, healthy appearing, comfortable, no acute distress, well developed, alert and awake Orientation/consciousness: patient oriented x3 HEENT Head: Yes normal to inspection, Yes normocephalic and Yes atraumatic Ears: hearing grossly normal bilaterally Eyes General: appearance normal, both eyes and all related structures Neck Neck: Yes normal visual inspection and Yes trachea midline Chest Chest palpation & inspection: normal inspection of the chest Resp Effort & Inspection: normal respiratory effort and able to speak in complete sentences Cardio Rate: regular rate GI Inspection: Yes normal to inspection General: Yes no CVA tenderness Back/Spine/Pelvis Back: no CVA tenderness Skin General skin exam: no rashes or lesions noted Neuro General: patient oriented x3 Extrem General: Yes normal to inspection Psych Appearance: grossly normal and well kempt Mental Status: mental status grossly normal Speech and movement: Normal speech and movement present and Clear speech present Affect: normal affect Attitude: cooperative Thought process: Normal thought process present Thought content: Normal thought content present Insight: Fair insight present (Psych) Judgement: Fair judgement present (Psych) Office Procedures Post Void Residual Post Residual Void Post Void Residual (PVR): 0 24050-[place] Void Residual by ultrasound Results AMB Urinalysis, Automated UA Leukoctes 0 Amaya/uL Last Edit by [employer] on 11/05/23 13:34 UA Nitrite Negative Last Edit by [employer] on 11/05/23 13:34 UA Urobilinogen 0.2 mg/dL Last Edit by [employer] on 11/05/23 13:34 UA Protein 15 mg/dL Last Edit by [employer] on 11/05/23 13:34 UA pH 5.5 Last Edit by [employer] on 11/05/23 13:34 UA Blood 0 Alexy/uL Last Edit by [employer] on 11/05/23 13:34 UA Specific [place] 1.020 Last Edit by [employer] on 11/05/23 13:34 UA Ketone Negative Last Edit by [employer] on 11/05/23 13:34 UA Bilirubin 0 mg/dL Last Edit by [employer] on 11/05/23 13:34 UA Glucose 0 mg/dL Last Edit by [employer] on 11/05/23 13:34 Results Reviewed Results Reviewed: Laboratory Last Values Urine pH (Auto) 5.5 11/05/23 13:22 Specific [place] (Auto) 1.020 11/05/23 13:22 Urine Protein (Auto) 15 mg/dL 11/05/23 13:22 Glucose (UA)(Auto) 0 mg/dL 11/05/23 13:22 Urine Ketones (Auto) Negative 11/05/23 13:22 Urine Blood (Auto) 0 Alexy/uL 11/05/23 13:22 Urine Nitrite (Auto) Negative 11/05/23 13:22 Urine Bilirubin (Auto) 0 mg/dL 11/05/23 13:22 Urine Urobilinogen (Auto) 0.2 mg/dL 11/05/23 13:22 Leukocyte Esterase (Auto) 0 Amaya/uL 11/05/23 13:22 Assessment & Plan Assessment & Plan (1) BPH w urinary obs/LUTS: Comment: August 2020 [facility] laser prostatectomy Code(s): N40.1 - Benign prostatic hyperplasia with lower urinary tract symptoms; N13.8 - Other obstructive and reflux uropathy Category: Medical (2) Male stress incontinence: Code(s): N39.3 - Stress incontinence (female) (male) Category: Medical Plan In office urinalysis results reviewed with the patient today; as noted above. Recent PSA results reviewed with the patient today; as noted above. PVR 0 mL. Patient currently denies any bothersome urinary issues or concerns. He reports be happy with current voiding parameters. Will obtain PSA in 1 year. Follow-up in 1 year with PSA to be completed prior; or sooner with any issues, concerns, and or questions. Orders: Orders AMB Urinalysis Automated Today Z13.9 - Encounter for screening, unspecified AMB Post Void Residual by ultrasound Today N39.3 - Stress incontinence (female) (male) Patient Instructions: The patient had an opportunity to ask questions regarding the treatment plan. All questions were answered. Physical exam, labs, and imaging were discussed and reviewed in detail. As well as risks, benefits, and discussion of treatment choices. No major barriers to understanding were identified. The patient expressed understanding and agreement with the above treatment plan. The patient was made aware they should contact our office by phone for worsening of their current condition, the appearance of new symptoms, or with any questions or concerns. Compliance is encouraged with any medications and follow up testing that is ordered. It is a privilege to be allowed the opportunity to participate in? your urological care.? Again, if you have any questions or concerns If you have any questions or concerns please do not hesitate to contact me. The office is [phone]. This note is constructed using voice recognition software. While every effort has been made to ensure accuracy cryogenics repairer errors may have been included. Yours sincerely, LIZZ Borjas-FARZANA Coding Level of Care Code Est Pt Level 3 (09241) Diagnoses BPH w urinary obs/LUTS N40.1; N13.8 Male stress incontinence N39.3 CPT Codes Post Residual Void - PVR CPT Code: 01976-Eofh Void Residual by ultrasound ([id number])
== END 2023-11-05 13:24 | disposition home or self-care (01) ==
PROVIDERS: PCP Nurse Practitioner Primary Care; Visit Provider Nurse Practitioner Family
DX: N40.1 Benign prostatic hyperplasia with lower urinary tract symptoms (principal); N13.8 Other obstructive and reflux uropathy; N39.3 Stress incontinence (female) (male); Z13.9 Encounter for screening, unspecified
CPT/HCPCS: 99213

== ENCOUNTER → 2023-11-05 12:33 | Outpatient (BNVA) | payer OTHER, SELFPAY | PROVIDERS: PCP Nurse Practitioner Primary Care; Visit Provider Nurse Practitioner Family | DX: N40.1 Benign prostatic hyperplasia with lower urinary tract symptoms (principal); N13.8 Other obstructive and reflux uropathy; N39.3 Stress incontinence (female) (male) | CPT/HCPCS: 51798; 81003; 99212 ==

== ENCOUNTER 2023-12-13 11:07 | Outpatient (REF) | payer OTHER, SELFPAY ==
[2023-12-13 14:47] LABS: TSH reflex Free T4 3.97 uIU/mL (0.32-4.0)
== END 2023-12-13 11:08 | disposition home or self-care (01) ==
LOC: HO.HHCL 11:07
PROVIDERS: Visit Provider Nurse Practitioner Primary Care
DX: E03.9 Hypothyroidism, unspecified (principal)
CPT/HCPCS: 36415; 84443

== ENCOUNTER 2023-12-30 15:23 | Emergency (ER) | payer OTHER, SELFPAY ==
--- NOTE | ~2023-12-30 | XR_ITS ---
EXAMINATION: XR CHEST CLINICAL INFORMATION: Posterior chest wall pain COMPARISON: Chest x-ray August 23, 2023 TECHNIQUE: 2 views of the chest were obtained. FINDINGS: Cardiac silhouette is normal in size. The lungs are well aerated. There is no lobar consolidation. No pleural effusion or pneumothorax. Mild diffuse degenerative changes of the spine. XR/XR chest 2V IMPRESSION: No acute pulmonary pathology. Electronically signed by: James Hay MD 12/30/2023 05:37 PM EDT
[2023-12-30 15:33] VITALS: BP 142/82; PULSE 55; O2SAT 97
[2023-12-30 15:47] VITALS: BP 160/82; PULSE 51; RESP 20; TEMP 37; O2SAT 99; BMI 29.9
--- NOTE | 2023-12-30 16:01 | ED.GENADULT ---
HPI - General Adult General Stated complaint: BACK PAIN PER EMS Related Data Home Medications ?Medication ?Instructions ?Recorded ?Confirmed aspirin 81 mg tablet,delayed 81 mg PO DAILY 03/23/20 03/06/23 release fluocinonide 0.05 % topical 1 applic topical DAILY 03/23/20 03/06/23 solution lisinopril 20 mg tablet 20 mg PO DAILY 03/23/20 03/06/23 loratadine 10 mg tablet 10 mg PO DAILY 03/23/20 03/06/23 metronidazole 0.75 % topical cream 1 applic topical BID 03/23/20 03/06/23 omeprazole 20 mg capsule,delayed 20 mg PO DAILY 03/23/20 03/06/23 release fluocinonide 0.05 % topical topical 09/01/20 03/06/23 ointment triamcinolone acetonide 0.1 % topical 09/01/20 03/06/23 topical ointment betamethasone valerate 0.1 % 1 appl topical BID 09/22/20 03/06/23 topical ointment cholecalciferol (vitamin D3) 50 50 mcg PO DAILY 09/22/20 03/06/23 mcg (2,000 unit) capsule rosuvastatin 20 mg tablet 20 mg PO BEDTIME 09/22/20 03/06/23 terbinafine HCl 250 mg tablet 250 mg PO DAILY 09/22/20 03/06/23 trazodone 50 mg tablet 50 mg PO BEDTIME 09/22/20 03/06/23 betamethasone dipropionate 0.05 % topical 07/07/21 03/06/23 lotion betamethasone valerate 0.1 % appl topical BID 07/07/21 03/06/23 topical cream doxepin 10 mg capsule 10 mg PO BEDTIME 07/07/21 03/06/23 melatonin 5 mg disintegrating 5 mg PO QPM 07/07/21 03/06/23 tablet carbamide peroxide 6.5 % ear drops 0 drp otic (ears) 07/13/21 03/06/23 (Ear Drops (carbamide peroxide)) melatonin 5 mg tablet 5 mg PO BEDTIME 07/06/22 03/06/23 levothyroxine 50 mcg tablet 50 mcg PO DAILY 11/05/23 Previous Rx's ?Medication ?Instructions ?Recorded miscellaneous medical supply 1 ea miscellaneous DAILY #1 ea 03/25/20 sennosides 8.6 mg tablet (Natural 8.6 mg PO BEDTIME constipation #30 07/13/21 Senna Laxative) tabs bisacodyl 5 mg tablet,delayed 10 mg (2 x 5 mg) PO DAILY #2 tabs 09/18/21 release polyethylene glycol 3350 17 17 g PO DAILY Colon prep 1 day 10/20/21 gram/dose oral powder (Miralax) #238 grams docusate sodium 100 mg capsule 100 mg PO BEDTIME #30 caps 12/13/21 Allergies Allergy/AdvReac Type Severity Reaction Status Date / Time Penicillins [PENICILLINS] Allergy Intermediate RASH Verified 12/30/23 16:07 [facility] Past Medical History Medical History Tubular adenoma Gout Other obstructive and reflux uropathy Benign prostatic hyperplasia with lower urinary tract symptoms Rosacea GERD (gastroesophageal reflux disease) Benign neoplasm of cerebellum Sinusitis HTN (hypertension) Surgical History Hx of colonoscopy History of esophagogastroduodenoscopy (EGD) History of surgery History of brain surgery Social History Social History Household Members: Spouse and Children Housing: House Alcohol intake: never Patient Tobacco Use Status: Never used Tobacco Second Hand Smoke Exposure: No service: Yes (not in [facility]) Current occupational status: retired 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 Full HPI, ROS, assessment and treatment plan per primary provider in the Main ED. 68 yo male hx of HTN, GERD, BPH, gout, BIBA for eval of right upper back pain x 1 hour which began while in bed. admits to stabbing pain. denies injury/trauma. reports increased life stressors with his housing situation and 's health. took tylenol [employer] without relief. reports feeling like his blood pressure dropped because he suddenly had chills and sweats . + ttp of right posterior chest wall/ upper back without noted deformity. lungs clear. Plan: labs, ekg cxr Discharge Plan Discharge Prescriptions: No Action bisacodyl 5 mg tablet,delayed release (DR/EC) 10 mg PO DAILY Qty: 2 0RF polyethylene glycol 3350 [Miralax] 17 gram/dose powder 17 g PO DAILY 1 Days Qty: 238 0RF Rx Instructions: Mix Miralax with 64 oz(8 cups) of Crystal light. Take 2 tablets of Dulcolax qt 12 pm. Wait to have your 1st bowel movement, then begin drinking Miralax. Drink a glass of Miralax every 10-15 minutes until you are finished. You will drink at least another 4 cups of clear liquid of your choice over the next 2 hours. Please drink as many clear liquids as possible You may have clear liquids up to four hours before your procedure docusate sodium 100 mg capsule 100 mg PO BEDTIME Qty: 30 2RF lisinopril 20 mg tablet 20 mg PO DAILY aspirin 81 mg tablet,delayed release (DR/EC) 81 mg PO DAILY metronidazole 0.75 % cream 1 applic topical BID omeprazole 20 mg capsule,delayed release(DR/EC) 20 mg PO DAILY Rx Instructions: before a meal fluocinonide 0.05 % solution 1 applic topical DAILY loratadine 10 mg tablet 10 mg PO DAILY miscellaneous medical supply Misc 1 ea miscellaneous DAILY Qty: 1 0RF Rx Instructions: Pulse oximeter. Check SaO2 daily and prn dyspnea. Call MD or go to ED if <92% rosuvastatin 20 mg tablet 20 mg PO BEDTIME terbinafine HCl 250 mg tablet 250 mg PO DAILY cholecalciferol (vitamin D3) 50 mcg (2,000 unit) capsule 50 mcg PO DAILY trazodone 50 mg tablet 50 mg PO BEDTIME betamethasone valerate 0.1 % ointment 1 appl topical BID fluocinonide 0.05 % ointment topical triamcinolone acetonide 0.1 % ointment topical melatonin 5 mg tablet 5 mg PO BEDTIME betamethasone dipropionate 0.05 % lotion topical doxepin 10 mg capsule 10 mg PO BEDTIME melatonin 5 mg tablet,disintegrating 5 mg PO QPM betamethasone valerate 0.1 % cream topical BID Ear Drops (carbamide peroxide) 6.5 % drops 0 drp otic (ears) sennosides [Natural Senna Laxative] 8.6 mg tablet 8.6 mg PO BEDTIME Qty: 30 3RF levothyroxine 50 mcg tablet 50 mcg PO DAILY Print Language: Monegasque
--- NOTE | 2023-12-30 16:08 | ECG_ITS ---
Test Reason : BACK PAIN Blood Pressure : / mmHG Vent. Rate : 048 BPM Atrial Rate : 048 BPM P-R Int : 176 ms QRS Dur : 102 ms QT Int : 440 ms P-R-T Axes : 037 001 001 degrees QTc Int : 393 ms Sinus bradycardia Minimal voltage criteria for LVH, may be normal variant ( R in aVL ) Borderline ECG When compared with ECG of 09-SEP-2020 08:51, Vent. rate has decreased BY 29 BPM Referred By: Ritu Frank Electronically Signed By:GOLDIE HOUGH
[2023-12-30 16:35] LABS: MANUAL DIFF FLAG NO
[2023-12-30 16:39] LABS: Basophils Percent Auto 0.3 % (0-2); Eosinophils Percent Auto 0.3 % (0-4); Hematocrit 41.2 % (42.0-52.0); Hemoglobin 13.9 g/dl (14.0-18.0); Imm Gran Abs Auto 0.06 X10*3/uL (0.00-0.03); Imm Gran Pct Auto 0.4 % (0.0-0.4); Lymphocytes Absolute Auto 2.5 X10*3/uL (1.2-4.9); Lymphocytes Percent Auto 17.6 % (20-40); Mean Corpuscular HGB Conc 33.7 g/dl (31.0-36.0); Mean Corpuscular Hemoglobin 30.5 pg (27.0-33.0); Mean Corpuscular Volume 90.5 fL (80.0-98.0); Mean Platelet Volume 9.3 fL (9.4-12.4); Monocytes Absolute Auto 0.7 X10*3/uL (0.1-1.2); Monocytes Percent Auto 4.7 % (2-11); Neutrophils Absolute Auto 10.9 x10*3/uL (2.0-8.3); Neutrophils Percent Auto 76.7 % (45-73); Platelet Count 264 X10*3/uL (160-400); Red Blood Count 4.55 X10*6/uL (4.60-5.80); Red Cell Distribution Width 11.9 % (11.0-16.0); White Blood Count 14.2 X10*3/uL (4.8-10.8)
--- NOTE | 2023-12-30 16:50 | PC.NURSE ---
Changed PHILIPP to 3 d.t ekg/ lab work
[2023-12-30 16:51] LABS: Alanine Aminotransferase 22 U/L (0-40); Albumin Level 4.9 g/dL (3.5-5.0); Alkaline Phosphatase 67 U/L (39-117); Anion Gap 15 (12-20); Aspartate Amino Transferase 33 U/L (5-37); Bilirubin Total 0.7 mg/dL (0.0-1.0); Blood Urea Nitrogen 17 mg/dL (9-16); Carbon Dioxide 26 mmol/L (22-29); Chloride 108 mmol/L (96-108); Creatinine Clr Calc Pharmacy 58.6; Estimated Glomerular Filt Rate > 60; Glucose Random 138 mg/dL (60-115); Lipase 35 U/L (8-78); Magnesium 2.1 mg/dL (1.6-2.6); Potassium 3.9 mmol/L (3.3-5.1); Sodium 145 mmol/L (135-145); Total Protein 8.2 g/dL (6.5-8.0)
[2023-12-30 17:04] LABS: Troponin-I High Sensitivity < 2.7 ng/L (<3.5-35.0)
--- NOTE | 2023-12-30 17:42 | ED.GENADULT ---
HPI - General Adult General Chief complaint: Back Pain/Injury Stated complaint: BACK PAIN PER EMS Time Seen by Provider: 12/30/23 17:00 Source: patient Mode of arrival: ambulatory Limitations: no limitations History of Present Illness ED Provider: Kan Trevino PA-C HPI narrative: 68 yold male with past medical history of trend insomnia, nocturia, viral pneumonia, COVID, benign neoplasm of cerebellar, presents to the ED for thoracic back pain that began this morning while in bed. Patient states pain on movement. Patient then states episode of nausea, vomiting, and chills. Related Data Home Medications ?Medication ?Instructions ?Recorded ?Confirmed aspirin 81 mg tablet,delayed 81 mg PO DAILY 03/23/20 03/06/23 release fluocinonide 0.05 % topical 1 applic topical DAILY 03/23/20 03/06/23 solution lisinopril 20 mg tablet 20 mg PO DAILY 03/23/20 03/06/23 loratadine 10 mg tablet 10 mg PO DAILY 03/23/20 03/06/23 metronidazole 0.75 % topical cream 1 applic topical BID 03/23/20 03/06/23 omeprazole 20 mg capsule,delayed 20 mg PO DAILY 03/23/20 03/06/23 release fluocinonide 0.05 % topical topical 09/01/20 03/06/23 ointment triamcinolone acetonide 0.1 % topical 09/01/20 03/06/23 topical ointment betamethasone valerate 0.1 % 1 appl topical BID 09/22/20 03/06/23 topical ointment cholecalciferol (vitamin D3) 50 50 mcg PO DAILY 09/22/20 03/06/23 mcg (2,000 unit) capsule rosuvastatin 20 mg tablet 20 mg PO BEDTIME 09/22/20 03/06/23 terbinafine HCl 250 mg tablet 250 mg PO DAILY 09/22/20 03/06/23 trazodone 50 mg tablet 50 mg PO BEDTIME 09/22/20 03/06/23 betamethasone dipropionate 0.05 % topical 07/07/21 03/06/23 lotion betamethasone valerate 0.1 % appl topical BID 07/07/21 03/06/23 topical cream doxepin 10 mg capsule 10 mg PO BEDTIME 03/25/22 11/22/23 melatonin 5 mg disintegrating 5 mg PO QPM 07/07/21 03/06/23 tablet carbamide peroxide 6.5 % ear drops 0 drp otic (ears) 07/13/21 03/06/23 (Ear Drops (carbamide peroxide)) melatonin 5 mg tablet 5 mg PO BEDTIME 07/06/22 03/06/23 levothyroxine 50 mcg tablet 50 mcg PO DAILY 11/05/23 Previous Rx's ?Medication ?Instructions ?Recorded miscellaneous medical supply 1 ea miscellaneous DAILY #1 ea 03/25/20 sennosides 8.6 mg tablet (Natural 8.6 mg PO BEDTIME constipation #30 07/13/21 Senna Laxative) tabs bisacodyl 5 mg tablet,delayed 10 mg (2 x 5 mg) PO DAILY #2 tabs 09/18/21 release polyethylene glycol 3350 17 17 g PO DAILY Colon prep 1 day 10/20/21 gram/dose oral powder (Miralax) #238 grams docusate sodium 100 mg capsule 100 mg PO BEDTIME #30 caps 12/13/21 acetaminophen 325 mg capsule 650 mg (2 x 325 mg) PO Q6H PRN 12/30/23 pain 7 days #28 caps lidocaine 4 % topical patch 1 patch topical DAILY PRN pain #15 12/30/23 ea Allergies Allergy/AdvReac Type Severity Reaction Status Date / Time Penicillins [PENICILLINS] Allergy Intermediate RASH Verified 12/30/23 16:07 Review of Systems Review of Systems: Throracic Back pain Yes all other systems are reviewed and are negative [facility] Past Medical History Medical History Tubular adenoma Gout Other obstructive and reflux uropathy Benign prostatic hyperplasia with lower urinary tract symptoms Rosacea GERD (gastroesophageal reflux disease) Benign neoplasm of cerebellum Sinusitis HTN (hypertension) Surgical History Hx of colonoscopy History of esophagogastroduodenoscopy (EGD) History of surgery History of brain surgery Social History Social History Household Members: Spouse and Children Housing: House Alcohol intake: never Patient Tobacco Use Status: Never used Tobacco Smoked in Last 30 Days: No Second Hand Smoke Exposure: No Use of substances other than those prescribed or required for medical reasons: No Advance Directives: No Advance Directives Information Provided: No Do you have a plan to hurt others: No Plan service: Yes (not in [facility]) Current occupational status: retired 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 [place] Current occupational exposures/hazards: No Physical Exam ED Vital Signs: Vital Signs - 24 hr 12/30/23 15:47 12/30/23 18:00 12/30/23 19:49 Temperature 98.6 F 97.7 F 98.5 F Pulse Rate 51 56 61 Respiratory Rate 20 14 19 Blood Pressure 160/82 H 165/89 H 158/81 H Pulse Oximetry 99 99 97 Oxygen Delivery Method Room Air Room Air Room Air 12/30/23 22:00 12/31/23 00:26 Temperature 98.3 F 98.3 F Pulse Rate 71 71 Respiratory Rate 19 19 Blood Pressure 144/84 H 144/84 H Pulse Oximetry 97 97 Oxygen Delivery Method Room Air Room Air BMI result Body Mass Index 29.9 Const General: cooperative, healthy appearing, comfortable, no acute distress, well developed, alert, awake and Physically active Orientation/consciousness: patient oriented x3 HENMT Head: Yes normal to inspection, Yes No palpable skull fracture present, Yes normocephalic, Yes atraumatic and No abrasion Eyes General: appearance normal, both eyes and all related structures Neck Neck: Yes normal visual inspection, Yes full ROM, Yes no lymphadenopathy, Yes no meningeal signs, Yes trachea midline, Yes supple, No anterior neck swelling and No tender Chest Chest palpation & inspection: normal inspection of the chest and normal palpation of entire chest wall Resp Effort & Inspection: normal respiratory effort and able to speak in complete sentences Auscultation: clear to auscultation bilaterally Cardio Jugular venous distension: no JVD Heart sounds: S1 normal heart sound present and S2 normal heart sound present GI Inspection: Yes normal to inspection and No abdominal wall ecchymosis Palpation (GI): Soft to palpation, not firm, nontender, no guarding and not rigid General: Yes no CVA tenderness Back/Spine/Pelvis Back: no CVA tenderness and back tenderness (Thoracic) Skin General skin exam: no rashes or lesions noted, elasticity normal and turgor normal Neuro General: patient oriented x3, gait normal, tone normal, moves all extremities, Normal light touch and pain sensation, no meningeal signs, no focal motor deficits, CN's II-XI intact bilaterally and normal sensation to monofilament Extrem General: Yes normal to inspection, Yes full ROM and Yes capillary refill normal Psych Appearance: grossly normal, well kempt and not disheveled Medications Administered Discontinued Medications Generic Name Dose Route Start Last Admin Trade Name Irais PRN Reason Stop Dose Admin Ketorolac Tromethamine 30 mg 12/30/23 17:43 12/30/23 17:57 Ketorolac Tromethamine 30 Mg/Ml Vial IVPUSH 12/30/23 17:44 30 mg ONCE ONE Administration Medical Decision Making Medical Decision Making [facility] Narrative: 68-year-old male presents to ED sudden back pain with nausea vomiting and chills. Patient admits to social stressors. Patient states pain on range of motion. Patient denies any pleurisy, coughing, radiating chest pain to the back, fever, or chills. Patient denies any trauma. Patient denies any urinary/bowel incontinence, pain in lower extremities weakness in lower extremities or IV drug use. [place] [id number]. Chest x-ray normal shows diffuse arthritis. First troponin negative. Unlikely cauda equinus or epidural abscess but will add ESR CRP due to white blood cell count 11: 08pm: ESR CRP negative. Patient's 2nd troponin negative. Patient feels well. Patient would like to be discharged. Patient denied any distress. Patient does not want any pain medication. Not suspecting aortic dissection. Not suspecting epidural abscess or cauda equinus. Not suspecting pneumonia. Not suspecting PE. Not suspect a myocardial infarction. Differential Diagnosis Differential Diagnoses: The differential diagnosis associated with the presentation includes (Thoracic radiculopathy, [place],) Admission/Observation Consideration of admission/observation: Escalation of care including admission/observation considered Lab Data [facility] Lab Attestation statement: I reviewed the patient's lab results. 12/30/23 16:29 12/30/23 16:28 Labs: Lab Results 12/30/23 12/30/23 12/30/23 Range/Units 16:28 16:29 17:57 WBC 14.2 H (4.8-10.8) X10*3/uL RBC 4.55 L (4.60-5.80) X10*6/uL Hgb 13.9 L (14.0-18.0) g/dl Hct 41.2 L (42.0-52.0) % MCV 90.5 (80.0-98.0) fL MCH 30.5 (27.0-33.0) pg MCHC 33.7 (31.0-36.0) g/dl RDW 11.9 (11.0-16.0) % Plt Count 264 D (160-400) X10*3/uL MPV 9.3 L (9.4-12.4) fL Immature Gran % (Auto) 0.4 (0.0-0.4) % Neut % (Auto) 76.7 H (45-73) % Lymph % (Auto) 17.6 L (20-40) % Canadian % (Auto) 4.7 (2-11) % Eos % (Auto) 0.3 (0-4) % Baso % (Auto) 0.3 (0-2) % Lymph # (Auto) 2.5 (1.2-4.9) X10*3/uL Canadian # (Auto) 0.7 (0.1-1.2) X10*3/uL Eos # (Auto) 0.0 (0.0-0.4) X10*3/uL Baso # (Auto) 0.0 (0.0-0.2) X10*3/uL Abs Immat Gran (auto) 0.06 H (0.00-0.03) X10*3/uL Absolute Neuts (auto) 10.9 H (2.0-8.3) x10*3/uL Absolute Nucleated RBC 0.000 (0.0-0.012) X10*3/uL Nucleated RBC % (auto) 0.0 (0.0-0.2) /100WBC ESR 8 (0-15) MM/HR Sodium 145 (135-145) mmol/L Potassium 3.9 (3.3-5.1) mmol/L Chloride 108 (96-108) mmol/L Carbon Dioxide 26 (22-29) mmol/L Anion Gap 15 (12-20) BUN 17 H (9-16) mg/dL Creatinine 1.19 (0.5-1.4) mg/dL Estim Creat Clear Calc 58.6 Estimated GFR > 60 Random Glucose 138 H (60-115) mg/dL Calcium 10.0 D (8.4-10.2) mg/dL Magnesium 2.1 (1.6-2.6) mg/dL Total Bilirubin 0.7 (0.0-1.0) mg/dL AST 33 (5-37) U/L ALT 22 (0-40) U/L Alkaline Phosphatase 67 (39-117) U/L Troponin I High Sens < 2.7 (<3.5-35.0) ng/L C-Reactive Protein 0.31 (< or = 0.50) mg/dL Total Protein 8.2 H (6.5-8.0) g/dL Albumin 4.9 (3.5-5.0) g/dL Lipase 35 (8-78) U/L Influenza Type A (PCR) NEGATIVE (Negative) Influenza Type B (PCR) NEGATIVE (Negative) RSV RNA Qual (PCR) NEGATIVE (Negative) SARS-CoV-2 RNA (RT-PCR) NEGATIVE (Negative) 12/30/23 Range/Units 20:12 WBC (4.8-10.8) X10*3/uL RBC (4.60-5.80) X10*6/uL Hgb (14.0-18.0) g/dl Hct (42.0-52.0) % MCV (80.0-98.0) fL MCH (27.0-33.0) pg MCHC (31.0-36.0) g/dl RDW (11.0-16.0) % Plt Count (160-400) X10*3/uL MPV (9.4-12.4) fL Immature Gran % (Auto) (0.0-0.4) % Neut % (Auto) (45-73) % Lymph % (Auto) (20-40) % Canadian % (Auto) (2-11) % Eos % (Auto) (0-4) % Baso % (Auto) (0-2) % Lymph # (Auto) (1.2-4.9) X10*3/uL Canadian # (Auto) (0.1-1.2) X10*3/uL Eos # (Auto) (0.0-0.4) X10*3/uL Baso # (Auto) (0.0-0.2) X10*3/uL Abs Immat Gran (auto) (0.00-0.03) X10*3/uL Absolute Neuts (auto) (2.0-8.3) x10*3/uL Absolute Nucleated RBC (0.0-0.012) X10*3/uL Nucleated RBC % (auto) (0.0-0.2) /100WBC ESR (0-15) MM/HR Sodium (135-145) mmol/L Potassium (3.3-5.1) mmol/L Chloride (96-108) mmol/L Carbon Dioxide (22-29) mmol/L Anion Gap (12-20) BUN (9-16) mg/dL Creatinine (0.5-1.4) mg/dL Estim Creat Clear Calc Estimated GFR Random Glucose (60-115) mg/dL Calcium (8.4-10.2) mg/dL Magnesium (1.6-2.6) mg/dL Total Bilirubin (0.0-1.0) mg/dL AST (5-37) U/L ALT (0-40) U/L Alkaline Phosphatase (39-117) U/L Troponin I High Sens < 2.7 (<3.5-35.0) ng/L C-Reactive Protein (< or = 0.50) mg/dL Total Protein (6.5-8.0) g/dL Albumin (3.5-5.0) g/dL Lipase (8-78) U/L Influenza Type A (PCR) (Negative) Influenza Type B (PCR) (Negative) RSV RNA Qual (PCR) (Negative) SARS-CoV-2 RNA (RT-PCR) (Negative) Independent Interpretation I performed an independent interpretation of an: EKG (Sinus bradycardia), Plain X-Ray and CT Scan Radiology Impression Discussion of test interpretation with radiology: I have reviewed the radiologist's reading. Independent Historian Clinical information obtained from an independent historian. History obtained from or confirmed by: Other (Patient) External Record Review External record reviewed: Other (Prior visits) Discharge Plan Discharge Clinical Impression: Radiculopathy, thoracic region Patient Disposition: Home, Self-Care Instructions: Back Pain (ED) Additional Instructions: Your blood work EKG came back negative for heart attack. Chest x-ray negative for pneumonia. 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 This could be the cause of your back pain. Recommend follow-up with your primary care provider. Return to ED immediately for any chest pain, shortness of breath, severe back pain, fever, chills, urinary/bowel incontinence, lower extremity weakness, or any other concerning symptoms. You can take [id number] Tylenol for pain. You will not be discharged with any NSAIDs due to your aspirin daily intake Prescriptions: New acetaminophen 325 mg capsule 650 mg PO Q6H PRN (Reason: pain) 7 Days Qty: 28 0RF lidocaine 4 % adhesive patch,medicated 1 patch topical DAILY PRN (Reason: pain) Qty: 15 0RF No Action bisacodyl 5 mg tablet,delayed release (DR/EC) 10 mg PO DAILY Qty: 2 0RF polyethylene glycol 3350 [Miralax] 17 gram/dose powder 17 g PO DAILY 1 Days Qty: 238 0RF Rx Instructions: Mix Miralax with 64 oz(8 cups) of Crystal light. Take 2 tablets of Dulcolax qt 12 pm. Wait to have your 1st bowel movement, then begin drinking Miralax. Drink a glass of Miralax every 10-15 minutes until you are finished. You will drink at least another 4 cups of clear liquid of your choice over the next 2 hours. Please drink as many clear liquids as possible You may have clear liquids up to four hours before your procedure docusate sodium 100 mg capsule 100 mg PO BEDTIME Qty: 30 2RF lisinopril 20 mg tablet 20 mg PO DAILY aspirin 81 mg tablet,delayed release (DR/EC) 81 mg PO DAILY metronidazole 0.75 % cream 1 applic topical BID omeprazole 20 mg capsule,delayed release(DR/EC) 20 mg PO DAILY Rx Instructions: before a meal fluocinonide 0.05 % solution 1 applic topical DAILY loratadine 10 mg tablet 10 mg PO DAILY miscellaneous medical supply Misc 1 ea miscellaneous DAILY Qty: 1 0RF Rx Instructions: Pulse oximeter. Check SaO2 daily and prn dyspnea. Call MD or go to ED if <92% rosuvastatin 20 mg tablet 20 mg PO BEDTIME terbinafine HCl 250 mg tablet 250 mg PO DAILY cholecalciferol (vitamin D3) 50 mcg (2,000 unit) capsule 50 mcg PO DAILY trazodone 50 mg tablet 50 mg PO BEDTIME betamethasone valerate 0.1 % ointment 1 appl topical BID fluocinonide 0.05 % ointment topical triamcinolone acetonide 0.1 % ointment topical melatonin 5 mg tablet 5 mg PO BEDTIME betamethasone dipropionate 0.05 % lotion topical doxepin 10 mg capsule 10 mg PO BEDTIME melatonin 5 mg tablet,disintegrating 5 mg PO QPM betamethasone valerate 0.1 % cream topical BID Ear Drops (carbamide peroxide) 6.5 % drops 0 drp otic (ears) sennosides [Natural Senna Laxative] 8.6 mg tablet 8.6 mg PO BEDTIME Qty: 30 3RF levothyroxine 50 mcg tablet 50 mcg PO DAILY Stand Alone Forms: Work/School Release Interventions: ED Discharge Assessment Last Done: 12/31/23 00:26 Discharge Date/Time: 12/30/23 23:50 Print Language: Polish
[2023-12-30] MEDS: Ketorolac Tromethamine 30 MG/ML VIAL IVPUSH (17:57)
[2023-12-30 18:00] VITALS: BP 165/89; PULSE 56; RESP 14; TEMP 36.5; O2SAT 99
[2023-12-30 18:20] LABS: C Reactive Protein 0.31 mg/dL (< or = 0.50)
--- NOTE | 2023-12-30 18:25 | MHC.EDTECH ---
Vitals was done and PT rest comfortably in his bed and the call miranda within PT reach
[2023-12-30 18:41] LABS: Influenza A PCR NEGATIVE (Negative); Influenza B PCR NEGATIVE (Negative); Resp Syncy Virus RNA Qual PCR NEGATIVE (Negative); SARS COV2 PCR INHOUSE NEGATIVE (Negative)
[2023-12-30 19:23] LABS: Erythrocyte Sedimentation Rate 8 MM/HR (0-15)
[2023-12-30 19:49] VITALS: BP 158/81; PULSE 61; RESP 19; TEMP 36.9; O2SAT 97
--- NOTE | 2023-12-30 19:50 | MHC.EDTECH ---
This tech took over are of patient at 1900,hourly rounds and vitals completed,patient is resting quietly watching TV, call miranda in reach
--- NOTE | 2023-12-30 20:27 | MHC.EDTECH ---
Repeat lab drawn and sent to lab
[2023-12-30 20:46] LABS: Troponin-I High Sensitivity < 2.7 ng/L (<3.5-35.0)
[2023-12-30 22:00] VITALS: BP 144/84; PULSE 71; RESP 19; TEMP 36.8; O2SAT 97
--- NOTE | 2023-12-30 22:12 | MHC.EDTECH ---
Hourly rounds and vitals completed,patient is resting quietly,call miranda in reach
[2023-12-31 00:26] VITALS: BP 144/84; PULSE 71; RESP 19; TEMP 36.8; O2SAT 97
== END 2023-12-30 23:50 | disposition home or self-care (01) ==
PROVIDERS: Physician Assistant; Physician Assistant Medical; Emergency Provider Internal Medicine; PCP Nurse Practitioner Primary Care
DX: M54.14 Radiculopathy, thoracic region (principal); M54.50 Low back pain, unspecified; R00.1 Bradycardia, unspecified; Z03.818 Encounter for observation for suspected exposure to other biological agents ruled out; Z79.899 Other long term (current) drug therapy
CPT/HCPCS: 0241U; 36415; 71046; 80053; 83690; 83735; 84484; 85025; 85652; 86140; 93005; 96374; 99284; 99285; J1885

== ENCOUNTER 2024-01-10 17:03 | Outpatient (REF) | payer OTHER, SELFPAY ==
[2024-01-10 17:11] LABS: Appearance Urine Turbid; Color Urine Dark Yellow; Glucose Urine UA Negative (Negative); Leukocyte Esterase Urine Negative (Negative); Nitrite Urine Negative (Negative); PH 5.5 (5.0-9.0); Specific Gravity - Urine 1.025 (1.005-1.025); UMIC TRIGGER UACC YES; Urine Blood Negative (Negative); Urine Ketones Negative (Negative); Urine Protein 30 (1+) mg/dL (Neg-Trace)
[2024-01-10 17:39] LABS: Bacteria Urine None Seen (None Seen); Calcium Oxalate Crystals Urine Present; Hyaline Casts Urine 0-2 /LPF (0-2); RBC Urine 0-2 /HPF (0-2); Squamous Epithelial Cell Urine 0-2 /HPF (0-2); WBC Urine 0-5 /HPF (0-5)
== END 2024-01-10 17:04 | disposition home or self-care (01) ==
LOC: HO.HHCLNP 17:03
PROVIDERS: Visit Provider Nurse Practitioner Primary Care
DX: R31.0 Gross hematuria (principal)
CPT/HCPCS: 81001

== ENCOUNTER 2024-09-25 09:41 | Outpatient (REF) | payer OTHER, SELFPAY ==
--- OUTSIDE RECORDS SUMMARY | 2024-09-25 10:09 | XMS_ITS | Encounter Summary ---
Author Organization [employer] Address [address] [facility] 7t [place] [address] Care Team Providers Care Coach Cleaner Name Role Phone Keiry Sloan Primary Care Provider [phone] Reason for Visit * Reason Comments Med Refill Encounter Details Date Type Department Care Team (Late st Contact Info) Description 06/02/2024 Refill [facility] [address] [place] [address] Keiry Sloan ANP [address] [place] [address] Gastroesophageal reflux disease without esophagitis Social History Tobacco Use Types Packs/Day Years Used Date Smoking Tobacco: Never Passive Smoke Exposure: Past Smokeless Tobacco: Never Alcohol Use Standard Drinks/Week Comments Not Currently 0 (1 standard drink = 0.6 oz pur e alcohol) Depression Answer Date Recorded Patient Health Questionnaire-9 Score 0 12/13/2023 Patient Health Questionnaire-9 Score 0 12/13/2023 Last PHQ-9: Questionnaire Data Not on file 0 12/13/2023 Housing Stability Answer Date Recorded What is your housing situation today? I am not s ure 01/10/[address] you li ve. Do you have problems with any of the following? I am not sure;None of the above 01/10/2024 Food Insecurity Answer Date Recorded Within the past 12 months, y ou worried that your food would run out before you got money to buy more: Never True 01/10/2024 Within the past 12 months,th e food you bought just didn't last and you didn't have enough money to get more: Often true Transportation Answer Date Recorded In the past 12 months, has l ack of transportation kept you from medical appts, meetings, work or from getting things needed for daily living? No 01/10/2024 Utilities Answer Date Recorded In the past 12 months, has t he electric, gas, oil or water company threatened to shut off services in your home? No 01/29/2023 Depression Answer Date Recorded Patient Health Questionnaire-2 Score 0 12/13/2023 Internet Access Answer Date Recorded Internet Access Q1 No 01/10/2024 Internet Access Q2 Not on file 01/10/2024 Sex and Gender Information Value Date Recorded Sex Assigned at Male 02/12/2022 10:17 AM EDT Legal Sex Male 10:17 AM EDT Gender Identity Male 02/12/2022 10:17 AM EDT Sexual Orientation Straight 02/12/2022 10 :17 AM EDT documented as of this encounter Plan of Treatment Not on file documented as of this encounter Visit Diagnoses Diagnosis Gastroesophageal reflux disease without esophagitis Esophageal reflux documented in this encounter Additional Health Concerns Assessment Noted Time PHQ-9 Depression Total Score: 0 12/13/19 24 9:56 AM EDT documented as of this encounter Care Teams Coach Cleaner Relationship Specialty Start Date End Date Keiry Sloan ANP [address] [place] [phone] PCP - General Family Medicine 12/05/21 documented as of this encounter
[2024-09-25 11:52] LABS: Alanine Aminotransferase 31 U/L (0-40); Albumin Level 5.1 g/dL (3.5-5.0); Alkaline Phosphatase 62 U/L (39-117); Anion Gap 13 (12-20); Aspartate Amino Transferase 41 U/L (5-37); Bilirubin Total 0.5 mg/dL (0.0-1.0); Blood Urea Nitrogen 14 mg/dL (9-16); Calcium 9.8 mg/dL (8.4-10.2); Carbon Dioxide 29 mmol/L (22-29); Chloride 102 mmol/L (96-108); Cholesterol 138 mg/dL (<200); Estimated Glomerular Filt Rate > 60; Glucose Random 88 mg/dL (60-115); HDL Cholesterol 32 mg/dL (>40); LDL Cholesterol Calculated 62 mg/dL (<100); Potassium 4.2 mmol/L (3.3-5.1); Sodium 140 mmol/L (135-145); Triglycerides 224 mg/dL (<150)
[2024-09-25 11:58] LABS: Prostate Specific Antigen 1.16 ng/mL (<0.05-4.0)
[2024-09-25 12:00] LABS: TSH reflex Free T4 9.51 uIU/mL (0.32-4.0); Vitamin D 25-OH Total 48.8 ng/mL (>30)
[2024-09-25 12:33] LABS: Free T4 (Free Thyroxine) 0.78 ng/dL (0.71-1.85)
[2024-09-25 12:47] LABS: Creatinine Urine 98.47 mg/dL; Microalbum/Creatinine Ratio Ur 9.1 ug/mg cr (<30)
== END 2024-09-25 09:42 | disposition home or self-care (01) ==
LOC: HO.HHCL 09:41
PROVIDERS: Nurse Practitioner Family; Visit Provider Nurse Practitioner Primary Care
DX: I10 Essential (primary) hypertension (principal); E03.9 Hypothyroidism, unspecified; E78.1 Pure hyperglyceridemia; E55.9 Vitamin D deficiency, unspecified; Z12.5 Encounter for screening for malignant neoplasm of prostate
CPT/HCPCS: 36415; 80053; 80061; 82043; 82306; 82570; 84153; 84439; 84443

== ENCOUNTER 2024-11-04 10:23 | Outpatient (AMB) | payer OTHER, SELFPAY ==
--- NOTE | 2024-11-04 10:23 | MHC.OFFVIS ---
Intake Visit Reasons: 1y/PSA(set) Intake Note: Patient presents for follow up visit on: BPH, Incontinence, and PSA lab results PSA: 1.16 Urology Medications: none Blood Thinner: aspirin PVR: 61 mls Automotive Light Mechanic Required: Yes Automotive Light Mechanic Name: Valentino Gallo Accompanied by: Self / Same As Patient Allergies Penicillins (PENICILLINS) Allergy (Intermediate, Verified 11/04/24 10:38) RASH Medication List - Last Reconciled 11/04/24 by MARIELENA Borjas acetaminophen 650 mg (2 x 325 mg) PO Q6H PRN 7 days aspirin 81 mg PO DAILY betamethasone dipropionate 0.05% topical betamethasone valerate 0.1% 1 appl topical BID betamethasone valerate 0.1% appl topical BID bisacodyl 10 mg (2 x 5 mg) PO DAILY carbamide peroxide 6.5% (Ear Drops (carbamide peroxide)) 0 drps otic (ears) cholecalciferol (vitamin D3) 50 mcg PO DAILY docusate sodium 100 mg PO BEDTIME doxepin 10 mg PO BEDTIME fluocinonide 0.05% 1 applic topical DAILY fluocinonide 0.05% topical levothyroxine 50 mcg PO DAILY lidocaine 4% 1 patch topical DAILY PRN lisinopril 20 mg PO DAILY loratadine 10 mg PO DAILY melatonin 5 mg PO QPM melatonin 5 mg PO BEDTIME metronidazole 0.75% 1 applic topical BID miscellaneous medical supply 1 ea miscellaneous DAILY omeprazole 20 mg PO DAILY polyethylene glycol 3350 (Miralax) 17 grams PO DAILY 1 day rosuvastatin 20 mg PO BEDTIME sennosides (Natural Senna Laxative) 8.6 mg PO BEDTIME terbinafine HCl 250 mg PO DAILY trazodone 50 mg PO BEDTIME triamcinolone acetonide 0.1% topical HPI Comments Details: Mateo is a pleasant 69 year old Vietnamese speaking male patient of Dr. Lester. He has a past medical history of gout, rosacea, GERD, benign neoplasm of the cerebellum, sinusitis, and hypertension. He is being followed up on today for his lower urinary tract symptoms. In discussion with the patient today he reports to be doing and feeling well. He discusses feeling episodes of urge incontinence over the last 4-6 months. He does describe 1 episode of incontinence. He reports he previously had been experiencing incontinence a few years ago and felt symptoms subsided however feels they have returned. He denies nocturia, hematuria, dysuria, foul smelling urine, changes to urinary stream, flank pain, fever, and or chills. Recent PSA results reviewed with the patient today as noted and trended below. In office urinalysis results reviewed with the patient today. In office urinalysis results reviewed with the patient today. PVR 61mls. We did discussed potential causes of urge incontinence as well as further treatment options and risks and benefits of these treatment options. All questions were answered. He otherwise offers no issues or concerns at this time. Previous history includes: Lower urinary tract symptoms Effective stream No nocturia Prostate procedures - September 2020 GreenLight laser prostate Prior family history prostate cancer PSA - 12/02 1.0, 07/04 1.9, 07/05 0.9, 09/05 1.4, 10/07 1.2 Cystoscopy - 2019 - bilobar hypertrophy with obstruction lateral lobe PFS Medical History Tubular adenoma Gout Other obstructive and reflux uropathy Benign prostatic hyperplasia with lower urinary tract symptoms Rosacea GERD (gastroesophageal reflux disease) Benign neoplasm of cerebellum Sinusitis HTN (hypertension) Surgical History Hx of colonoscopy History of esophagogastroduodenoscopy (EGD) History of surgery History of brain surgery Social History Household Members: Spouse and Children Housing: House Alcohol intake: never Patient Tobacco Use Status: Never used Tobacco Second Hand Smoke Exposure: No service: Yes (not in [facility]) Current occupational status: retired 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[place] Current occupational exposures/hazards: No Review of Systems Const Reports as per HPI Eyes Reports no additional complaints ENT Reports no additional complaints Card Reports as per HPI Resp Reports no additional complaints GI Reports as per HPI Reports as per HPI Musc Reports no additional complaints Skin/Breast Reports as per HPI Neuro Reports as per HPI Psych Reports no additional complaints Endo Reports no additional complaints Saeed/Lymph Reports no additional complaints Aller/Immun Reports no additional complaints Physical Exam Const General: cooperative, healthy appearing, comfortable, no acute distress, well developed, alert and awake Orientation/consciousness: patient oriented x3 Limitations: language barrier HEENT Head: Yes normal to inspection, Yes normocephalic and Yes atraumatic Ears: hearing grossly normal bilaterally Eyes General: appearance normal, both eyes and all related structures Neck Neck: Yes normal visual inspection and Yes trachea midline Chest Chest palpation & inspection: normal inspection of the chest Resp Effort & Inspection: normal respiratory effort and able to speak in complete sentences Cardio Rate: regular rate GI Inspection: Yes normal to inspection General: Yes no CVA tenderness Back/Spine/Pelvis Back: no CVA tenderness Skin General skin exam: no rashes or lesions noted Neuro General: patient oriented x3 Extrem General: Yes normal to inspection Psych Appearance: grossly normal and well kempt Mental Status: mental status grossly normal Speech and movement: Normal speech and movement present and Clear speech present Affect: normal affect Attitude: cooperative Thought process: Normal thought process present Thought content: Normal thought content present Insight: Fair insight present (Psych) Judgement: Fair judgement present (Psych) Assessment & Plan Assessment & Plan (1) BPH w urinary obs/LUTS: Comment: August 2020 GreenLight laser prostatectomy Code(s): N40.1 - Benign prostatic hyperplasia with lower urinary tract symptoms; N13.8 - Other obstructive and reflux uropathy Category: Medical (2) Urinary incontinence, urge: Code(s): N39.41 - Urge incontinence Category: Medical Plan In office urinalysis results with the patient today; as noted above. PVR 61 mL. We discussed potential causes of urge incontinence as well as further treatment options and risks and benefits of these treatment options. We discussed the importance of timed/scheduled voiding. Recent PSA results reviewed with the patient today; as noted above. Start tolterodine as discussed and prescribed. We did discussed potential near future in office cystoscopy and or urodynamics for further assessment evaluation. We discussed pelvic floor exercises for men Will obtain retroperitoneal ultrasound for further assessment evaluation. Follow-up in 1-3 months with imaging and PVR; or sooner with any issues, concerns, and or questions. Orders: Orders US retroperitoneal comp Today N13.8 - Other obstructive and reflux uropathy, N39.3 - Stress incontinence (female) (male), N40.1 - Benign prostatic hyperplasia with lower urinary tract symptoms Medications: New tolterodine ER 2 mg PO DAILY 30 caps 3RF 30 days R39.15 - Urgency of urination Patient Instructions: The patient had an opportunity to ask questions regarding the treatment plan. All questions were answered. Physical exam, labs, and imaging were discussed and reviewed in detail. As well as risks, benefits, and discussion of treatment choices. No major barriers to understanding were identified. The patient expressed understanding and agreement with the above treatment plan. The patient was made aware they should contact our office by phone for worsening of their current condition, the appearance of new symptoms, or with any questions or concerns. Compliance is encouraged with any medications and follow up testing that is ordered. It is a privilege to be allowed the opportunity to participate in? your urological care.? Again, if you have any questions or concerns If you have any questions or concerns please do not hesitate to contact me. The office is [phone]. This note is constructed using voice recognition software. While every effort has been made to ensure accuracy transcription manager errors may have been included. Yours sincerely, MARIELENA Borjas Coding Level of Care Code Est Pt Level 4 (40586) Complex EM visit Add On G2211 Diagnoses BPH w urinary obs/LUTS N40.1; N13.8 Urinary incontinence, urge N39.41
--- OUTSIDE RECORDS SUMMARY | 2024-11-04 11:30 | XMS_ITS | Encounter Summary ---
Author Organization [employer] Address [address] [facility] 7t [place] [address] Care Team Providers Care Generator Switchboard Operator Name Role Phone Keiry Sloan Primary Care Provider [phone] Reason for Visit * Reason Comments Med Refill Encounter Details Date Type Department Care Team (Late st Contact Info) Description 06/02/2024 Refill [facility] [address] [place] [address] Keiry Sloan ANP [address] [place] [address] Gastroesophageal reflux disease without esophagitis Social History [...] as of this encounter Plan of Treatment Upcoming Encounters Date Type Department Care Team (Late st Contact Info) Description 11/27/2024 8:00 AM EDT Office Visit [facility] [address] [place], [place] [phone] Tremaine Prater [address] [place], [place] [phone] documented as of this encounter Visit Diagnoses Diagnosis Gastroesophageal reflux disease without esophagitis Esophageal reflux documented in this encounter Additional Health Concerns Assessment Noted Time PHQ-9 Depression Total Score: 0 12/13/19 24 9:56 AM EDT documented as of this encounter Care Teams Generator Switchboard Operator Relationship Specialty Start Date End Date Keiry Sloan ANP [address] [place] [address] PCP - General Family Medicine 12/05/21 documented as of this encounter
== END 2024-11-04 10:53 | disposition home or self-care (01) ==
LOC: HO.HUSH 10:24
PROVIDERS: PCP Nurse Practitioner Primary Care; Visit Provider Nurse Practitioner Family
DX: N40.1 Benign prostatic hyperplasia with lower urinary tract symptoms (principal); N13.8 Other obstructive and reflux uropathy; N39.41 Urge incontinence; Z13.9 Encounter for screening, unspecified
CPT/HCPCS: 99214; G2211

== ENCOUNTER → 2024-11-04 10:23 | Outpatient (BNVA) | payer OTHER, SELFPAY | PROVIDERS: PCP Nurse Practitioner Primary Care; Visit Provider Nurse Practitioner Family | DX: N40.1 Benign prostatic hyperplasia with lower urinary tract symptoms (principal); N13.8 Other obstructive and reflux uropathy; N39.3 Stress incontinence (female) (male); N39.41 Urge incontinence | CPT/HCPCS: 51798; 81003; 99212 ==

== ENCOUNTER → 2024-12-10 04:58 | Outpatient (BNV) | payer OTHER, SELFPAY | PROVIDERS: PCP Nurse Practitioner Primary Care; Visit Provider Radiology Diagnostic Radiology | DX: K80.50 Calculus of bile duct without cholangitis or cholecystitis without obstruction (principal); N28.1 Cyst of kidney, acquired; K80.00 Calculus of gallbladder with acute cholecystitis without obstruction; K59.00 Constipation, unspecified | CPT/HCPCS: 74018; 74181; 76705 ==

== ENCOUNTER 2024-12-10 05:00 | Inpatient (IN) | payer OTHER, SELFPAY ==
--- OUTSIDE RECORDS SUMMARY | 2024-12-07 09:20 | XMS_ITS | Encounter Summary ---
Author Organization [email or web address] Address [address] [facility] [address] [place] [address] Care Team Providers Care Tube Operator Name Role Phone Keiry Sloan Primary Care Provider [phone] Reason for Referral * Medications - Closed Specialty Diagnoses / Procedures Referred By Contac t Referred To Contact Diagnoses Acute bilateral low back pain without sciatica Maria Luisa Polk MD [address] [place] [address] Phone: tel: fax: Referral ID Status Reason Start Date Expiration Date Visits Re quested Visits Authorized [id number] Closed 1 1 Reason for Visit * Reason Comments Walk-In Back pain on/off, vo miting yellow fluid, and fever. Encounter Details Date Type Department Care Team (Latest Contact Info) Description 12/07/2024 9:20 AM EDT Office Visit [facility] [address] [place] [address] Maria Luisa Polk MD [address] [place], [place] [phone] Viral gastroenteritis (Primary Dx); Acute bilateral low back pain without sciatica Social History Tobacco Use Types Packs/Day Years Used Date Smoking Tobacco: Former Cigarettes Passive Smoke Exposure: Past Smokeless Tobacco: Never Tobacco Cessation:Counseling Given: Not Answered Alcohol Use Standard Drinks/Week Comments Not Currently 0 (1 standard drink = 0.6 oz pur e alcohol) Depression Answer Date Recorded Patient Health Questionnaire-9 Score 3 07/08/2024 Patient Health Questionnaire-9 Score 3 07/08/2024 Last PHQ-9: Questionnaire Data Not on file 0 07/08/2024 Housing Stability Answer Date Recorded What is your housing situation today? I have scott schneider 09/25/[address] you li ve. Do you have problems with any of the following? None of the above 09/25/2024 Food Insecurity Answer Date Recorded Within the past 12 months, y ou worried that your food would run out before you got money to buy more: Never True 09/25/2024 Within the past 12 months,th e food you bought just didn't last and you didn't have enough money to get more: Never True Transportation Answer Date Recorded In the past 12 months, has l ack of transportation kept you from medical appts, meetings, work or from getting things needed for daily living? No 01/10/2024 Utilities Answer Date Recorded In the past 12 months, has t he electric, gas, oil or water company threatened to shut off services in your home? No 09/25/2024 Depression Answer Date Recorded Patient Health Questionnaire-2 Score 3 07/08/2024 Internet Access Answer Date Recorded Internet Access Q1 Yes 09/25/2024 Internet Access Q2 Not on file 09/25/2024 Sex and Gender Information Value Date Recorded Sex Assigned at Male 02/12/2022 10:17 AM EDT Legal Sex Male 10:17 AM EDT Gender Identity Male 02/12/2022 10:17 AM EDT Sexual Orientation Straight 02/12/2022 10 :17 AM EDT documented as of this encounter Last Filed Vital Signs Vital Sign Reading Time Taken Comments Blood Pressure 116/85 12/07/2024 9:18 AM EDT Pulse 85 12/07/2024 9:18 AM EDT Temperature 36.6 C (97.8 F) 12/07/2024 9:18 AM EDT Respiratory Rate 20 12/07/2024 9:18 AM EDT Oxygen Saturation 95% 12/07/2024 9:18 AM EDT Inhaled Oxygen Concentration - - Weight 93.4 kg (206 lb) 12/07/2024 9:18 AM EDT Height 172.5 cm (5' 7.9 ) 12/07/2024 9:18 AM EDT Body Mass Index 31.41 12/07/2024 9:18 AM EDT documented in this encounter Progress Notes * Maria Luisa Polk MD - 12/07/2024 9:20 AM EDT Subjective Patient ID: Mateo De La Rosa is a 69 y.o. male who presents for Walk-In (Back pain on/off, vomiting yellow fluid, and fever.). Vomiting This is a new problem. The current episode started yesterday. The problem occurs less than 2 times per day. The problem has been resolved. The emesis has an appearance of stomach contents. Pertinent negatives include no abdominal pain, arthralgias, chest pain, chills, coughing, dizziness, fever, headaches, myalgias, sweats, URI or weight loss. Risk factors include suspect food intake. He has tried nothing for the symptoms. Back Pain This is a new problem. The current episode started yesterday. The problem occurs constantly. The problem is unchanged. The pain is present in the lumbar spine and thoracic spine. The quality of the pain is described as aching. The pain does not radiate. The pain is at a severity of 5/10. The pain is moderate. The pain is The same all the time. Pertinent negatives include no abdominal pain, chest pain, fever, headaches or weight loss. Review of Systems Constitutional: Negative for chills, fever and weight loss. Respiratory: Negative for cough. Cardiovascular: Negative for chest pain. Gastrointestinal: Positive for vomiting. Negative for abdominal pain. Musculoskeletal: Positive for back pain. Negative for arthralgias and myalgias. Neurological: Negative for dizziness and headaches. Objective Physical Exam Constitutional: Appearance: Normal appearance. Cardiovascular: Rate and Rhythm: Normal rate and regular rhythm. Pulmonary: Effort: Pulmonary effort is normal. Breath sounds: Normal breath sounds. Musculoskeletal: Thoracic back: Spasms present. Lumbar back: Spasms present. Neurological: General: No focal deficit present. Mental Status: He is alert. Psychiatric: Mood and Affect: Mood normal. Behavior: Behavior normal. Assessment/Plan Diagnoses and all orders for this visit: Viral gastroenteritis Comments: Advised [place] diet Started on Zofran as needed Advised daily Omeprazole Advised to avoid soda and Caffiene Orders: - POCT Rapid Covid-19 BinaxNOW - POCT Rapid Influenza A CARSON ID NOW - POCT Rapid Influenza B CARSON ID NOW Acute bilateral low back pain without sciatica Comments: Started On Flexeril and Ibuprofen Advised Warm compress and Stretching Orders: - cyclobenzaprine (Flexeril) 5 MG tablet; Take 1 tablet (5 mg) by mouth at bedtime for 10 days. Other orders - omeprazole OTC (PriLOSEC OTC) 20 MG EC tablet; Take 1 tablet (20 mg) by mouth before breakfast. Do not crush, chew, or split. - ibuprofen 600 MG tablet; Take 1 tablet (600 mg) by mouth 3 times daily. documented in this encounter Plan of Treatment Upcoming Encounters Date Type Department Care Team (Late st Contact Info) Description 12/29/2024 2:15 PM EDT Office Visit [facility] [address] [place], [place] [phone] Keiry Sloan ANP [address] [place], [place] [phone] documented as of this encounter Procedures Procedure Name Priority Date/Time Associated Diagnosis Comments POCT INFLUENZA B (ID NOW RAPID MOLECULAR) Routine 12/07/2024 11:29 AM EDT Viral gastroenteritis POCT INFLUENZA A (ID NOW RAPID MOLECULAR) Routine 12/07/2024 11:29 AM EDT Viral gastroenteritis POCT RAPID COVID ANTIGEN Routine 12/07/2024 11:29 AM EDT Viral gastroenteritis documented in this encounter Results * POCT Rapid Influenza B CARSON ID NOW (12/07/2024 11:29 AM EDT) Influenza B Negative Negative, Indeterminate [facility] QC Media Lot # [id number] [facility] Lot# Expiration Date , [facility] Swab 12/07/2024 11:2 9 AM EDT us Maria Luisa Polk MD POINT OF CARE TEST ENTER/EDIT OR DERABLES Final Result [facility] [address] [place] [address] [phone] * POCT Rapid Influenza A CARSON ID NOW (12/07/2024 11:29 AM EDT) Influenza A Negative Negative, Indeterminate [facility] QC Media Lot # [id number] [facility] Lot# Expiration Date [facility] Swab 12/07/2024 11:2 9 AM EDT Maria Luisa Polk MD POINT OF CARE TEST ENTER/EDIT OR DERABLES Final Result [facility] [address] [place] [address] [phone] * POCT Rapid Covid-19 BinaxNOW (12/07/2024 11:29 AM EDT) Rapid COVID Ag Negative QC Media Lot # [id number] Lot# Expiration Date Swab 12/07/2024 11:2 9 AM EDT Maria Luisa Polk MD POINT OF CARE TEST ENTER/EDIT OR DERABLES Final Result documented in this encounter Visit Diagnoses Diagnosis Viral gastroenteritis- Primary Intestinal infection due to other organism, NEC Acute bilateral low back pain without sciatica documented in this encounter Additional Health Concerns Assessment Noted Time PHQ-9 Depression Total Score: 3 07/09/19 25 9:30 AM EDT documented as of this encounter Care Teams Tube Operator Relationship Specialty Start Date End Date Keriy Sloan ANP [address] [place] [id number] PCP - General Family Medicine 12/05/21 documented as of this encounter
--- NOTE | ~2024-12-10 | US_ITS ---
EXAMINATION: US ABDOMEN LIMITED CLINICAL INFORMATION: Transaminitis with elevated lipase.. COMPARISON: None available. TECHNIQUE: Real-time imaging of the right upper quadrant abdominal viscera. FINDINGS: PANCREAS: Visualized portions are unremarkable. LIVER: The liver is mildly enlarged. The right hepatic lobe measures 17.1 cm in length. The liver contour is normal. Diffusely increased parenchymal echogenicity suggestive of steatosis. No suspicious focal hepatic lesion. There is no intrahepatic biliary duct dilatation seen. GALLBLADDER: Gallbladder is filled with gallstones. There is mild wall thickening up to 4 mm. No gross pericholecystic fluid collection present. There was a positive sonographic Garcia sign. COMMON BILE DUCT: Normal in caliber measuring 0.7 cm in diameter. RIGHT KIDNEY: No hydronephrosis. No renal calculi. The kidney measures 11.6 cm in maximum dimension. There is a mildly complex cyst lower pole cyst measuring 1.9 x 1.5 x 2.4 cm, with layering internal specular debris suggestive of proteinaceous or hemorrhagic fluid. No definite solid component or vascular flow on color Doppler imaging. Findings consistent with a Bosniak 2 type cyst. FREE FLUID: None. US/US abdomen limited IMPRESSION: 1. Gallbladder filled with gallstones, with mild gallbladder wall thickening and positive sonographic Garcia's sign. Findings are suspicious for acute cholecystitis. 2. Mild hepatomegaly with diffusely increased echogenicity suggestive of steatosis. No suspicious focal hepatic lesion. 3. No definite sonographic abnormality of the visualized pancreas. 4. Mildly complex lower pole right renal cyst as detailed, consistent with a proteinaceous or hemorrhagic cyst. Electronically signed by: Elijah Nicole MD 12/10/2024 09:04 AM EDT
--- NOTE | ~2024-12-10 | XR_ITS ---
CLINICAL HISTORY: constipation Exam: Supine abdominal radiograph. Comparison: None provided. Findings: Moderate stool throughout the colon. Air-filled loops of nondilated large and small bowel are seen throughout the abdomen and pelvis. No indirect evidence for free air on this supine exam. No concerning bony abnormalities. Impression: Moderate colonic stool without findings of obstruction. This document has been electronically signed by: Destin Atkins MD on 12/10/2024 06:35:13
--- NOTE | ~2024-12-10 | FL_ITS ---
EXAMINATION: FL GUIDANCE ONLY HISTORY: ERCP COMPARISON: Correlation is made with an MRCP dated 12/02/2024. TECHNIQUE: Fluoroscopy time: 4.2 minutes. Cumulative Dose: 100 mGy. DAP: 27.2 mGym2 Images: 6. FINDINGS: Multiple fluoroscopic spot films were obtained during ERCP. The common bile duct is not dilated. The initial images demonstrate suboptimal opacification of the common bile duct. No definite calculi are seen. Remaining images show a balloon sweep of the common bile duct with the final image demonstrating free flow of contrast into the duodenum. FL/FL guidance in OR IMPRESSION: Fluoroscopy during procedure. Please see procedure report for additional information. Electronically signed by: Kyler Tang MD 12/11/2024 01:10 PM EDT
--- NOTE | ~2024-12-10 | MR_ITS ---
EXAMINATION: MRCP HISTORY: Cholecystitis versus choledocholithiasis COMPARISON: Correlation is made with an abdominal ultrasound performed earlier in the day. TECHNIQUE: Axial gradient echo in and out of phase T1, axial T2 and fat suppressed T2, and coronal haste T2 with fat saturation images were obtained through the abdomen. 3D MRCP Reconstructed images and thick slab imaging of the biliary tree were obtained. FINDINGS: The examination is limited by patient motion. There is no significant loss of signal intensity within the liver on opposed phase imaging to suggest steatosis. There is no significant intrahepatic biliary ductal dilatation. Numerous calculi are noted in the gallbladder. Common bile duct is slightly prominent measuring up to 7 mm in diameter. Multiple filling defects are seen in the distal common bile duct consistent with calculi. There are likely at least 4 calculi present. The pancreas is normal in contour. The pancreatic duct is normal in caliber. The adrenals and left kidney are unremarkable. There is a 1.8 cm complex cystic structure at the lower pole of the right kidney which is both T1 and T2 hyperintense. No retroperitoneal lymphadenopathy or ascites is identified in the upper abdomen. The visualized bowel loops are unremarkable. MR/MR MRCP IMPRESSION: 1. Cholelithiasis. Prior ultrasound demonstrated a positive sonographic Garcia sign, compatible with acute cholecystitis. 2. Choledocholithiasis. 3. 1.8 cm complex cystic structure at the lower pole of the right kidney which is incompletely evaluated on this unenhanced examination. Renal protocol CT or MRI is recommended, which could be performed as an outpatient. Electronically signed by: Kyler Tang MD 12/10/2024 03:34 PM EDT
[2024-12-10 05:07] VITALS: BP 107/72; PULSE 88; RESP 16; TEMP 37; O2SAT 96; BMI 26.1
[2024-12-10 05:16] LABS: MANUAL DIFF FLAG NO
[2024-12-10 05:17] LABS: Hematocrit 37.3 % (42.0-52.0); Hemoglobin 12.7 g/dl (14.0-18.0); Imm Gran Abs Auto 0.02 X10*3/uL (0.00-0.03); Imm Gran Pct Auto 0.2 % (0.0-0.4); Lymphocytes Absolute Auto 2.6 X10*3/uL (1.2-4.9); Mean Corpuscular HGB Conc 34.0 g/dl (31.0-36.0); Mean Corpuscular Hemoglobin 31.0 pg (27.0-33.0); Mean Corpuscular Volume 91.0 fL (80.0-98.0); NRBC Abs Auto 0.000 X10*3/uL (0.0-0.012); NRBC Pct Auto 0.0 /100WBC (0.0-0.2); Platelet Count 307 X10*3/uL (160-400); Red Blood Count 4.10 X10*6/uL (4.60-5.80); White Blood Count 10.4 X10*3/uL (4.8-10.8)
--- OUTSIDE RECORDS SUMMARY | 2024-12-10 05:27 | XMS_ITS | Encounter Summary ---
Author Organization [employer] Address [address] [facility] 7t [place] [address] Care Team Providers Care Outreach Specialist Name Role Phone Keiry Sloan Primary Care Provider [phone] Encounter Details Date Type Department Care Team (Late st Contact Info) Description 11/08/2023 Orders Only [facility] [address] [place] [address] Keiry Sloan ANP [address] [place] [address] Social History Tobacco Use Types Packs/Day Years Used Date Smoking Tobacco: Never Passive Smoke Exposure: Past Smokeless Tobacco: Never Alcohol Use Standard Drinks/Week Comments Not Currently 0 (1 standard drink = 0.6 oz pur e alcohol) Depression Answer Date Recorded Patient Health Questionnaire-9 Score 6 05/17/2022 Housing Stability Answer Date Recorded What is your housing situation today? I have scott schneider 01/29/[address] you li ve. Do you have problems with any of the following? None of the above 01/29/2023 Food Insecurity Answer Date Recorded Within the past 12 months, y ou worried that your food would run out before you got money to buy more: Never True 01/29/2023 Within the past 12 months,th e food you bought just didn't last and you didn't have enough money to get more: Never True Transportation Answer Date Recorded In the past 12 months, has l ack of transportation kept you from medical appts, meetings, work or from getting things needed for daily living? No 01/29/2023 Utilities Answer Date Recorded In the past 12 months, has t he electric, gas, oil or water company threatened to shut off services in your home? No 01/29/2023 Depression Answer Date Recorded Patient Health Questionnaire-2 Score 6 05/17/2022 Sex and Gender Information Value Date Recorded Sex Assigned at Male 02/12/2022 10:17 AM EDT Legal Sex Male 10:17 AM EDT Gender Identity Male 02/12/2022 10:17 AM EDT Sexual Orientation Straight 02/12/2022 10 :17 AM EDT documented as of this encounter Plan of Treatment Upcoming Encounters Date Type Department Care Team (Late st Contact Info) Description 12/29/2024 2:15 PM EDT Office Visit [facility] [address] [place] [address] Keiry Sloan ANP [address] [place] [address] documented as of this encounter Visit Diagnoses Not on filedocumented in this encounter Additional Health Concerns Assessment Noted Time PHQ-9 Depression Total Score: 6 05/17/19 23 9:47 AM EST documented as of this encounter Care Teams Outreach Specialist Relationship Specialty Start Date End Date Keiry Sloan ANP [address] [place] [id number] PCP - General Family Medicine 12/05/21 documented as of this encounter
--- OUTSIDE RECORDS SUMMARY | 2024-12-10 05:27 | XMS_ITS | Encounter Summary ---
Author Organization [email or web address] [facility] Address [address] [facility] 7t h Floor [place] [id number] Care Team Providers Care Power System Engineer Name Role Phone Keiry Sloan Primary Care Provider [phone] Encounter Details Date Type Department Care Team (Latest Contact Info) Description 05/20/2018 Abstract [facility] CONVERSIONS Dental, Provider, DDS Social History Tobacco Use Types Packs/Day Years Used Date Smoking Tobacco: Never Assessed Sex and Gender Information Value Date Recorded [...] 2:15 PM EDT Office Visit [facility] MEDICINE [address] [place] [address] Keiry Sloan ANP [address] [place] [address] documented as of this encounter Visit Diagnoses Not on filedocumented in this encounter Care Teams Power System Engineer Relationship Specialty Start Date End Date Keiry Sloan ANP [address] [place] [address] PCP - General Family Medicine 12/05/21 documented as of this encounter
--- OUTSIDE RECORDS SUMMARY | 2024-12-10 05:27 | XMS_ITS | Encounter Summary ---
Author Organization [employer] [facility] Address [address] [facility] 7t h [address] [place] [id number] Care Team Providers Care Manager Multicultural Name Role Phone Keiry Sloan Primary Care Provider [phone] Encounter Details Date Type Department Care Team (Latest Contact Info) Description 11/24/2021 Abstract [facility] CONVERSIONS Dental, Provider, DDS Social History [...] Description 12/29/2024 2:15 PM EDT Office Visit [facility] MEDICINE [address] [place] [address] Keiry Sloan ANP [address] [place] [address] documented as of this encounter Visit Diagnoses Not on filedocumented in this encounter Care Teams Manager Multicultural Relationship Specialty Start Date End Date Keiry Sloan ANP [address] [place] [address] PCP - General Family Medicine 12/05/21 documented as of this encounter
--- OUTSIDE RECORDS SUMMARY | 2024-12-10 05:27 | XMS_ITS | Encounter Summary ---
Author Organization [employer] Address [address] [facility] 7t [place] [address] Care Team Providers Care Production Repairer Name Role Phone Keiry Sloan HUBER Primary Care Provider [phone] Reason for Visit * Reason Onset Date Comments rs no show appt 07/20/2024 Encounter Details Date Type Department Care Team ([facility] st Contact Info) Description 07/20/2024 Telephone [facility] [address] [place], [place] [phone] JosiSilvestre danielsio [address] [place] [address] rs no show appt Social History Tobacco Use Types Packs/Day Years [...] AM EDT documented as of this encounter Miscellaneous Notes * Telephone Encounter - Sonal Jin - 07/20/2024 10:11 AM EDT Patient called in looking to rs no show appt. Due to transportation not showing up. Informed patient that there is a waiting period prior to rescheduling a no show and patient will hear from office to reschedule. Patient understood DR documented in this encounter Plan of Treatment Upcoming Encounters Date Type Department Care Team (Late st Contact Info) Description 12/29/2024 2:15 PM EDT Office Visit [facility] MEDICINE [address] [place] [address] Keiry Sloan ANP [address] [place] [address] documented as of this encounter Visit Diagnoses Not on filedocumented in this encounter Additional Health Concerns Assessment Noted Time PHQ-9 Depression Total Score: 3 07/09/19 25 9:30 AM EDT documented as of this encounter Care Teams Production Repairer Relationship Specialty Start Date End Date Keiry Sloan ANP [address] [place] [phone] PCP - General Family Medicine 12/05/21 documented as of this encounter
--- OUTSIDE RECORDS SUMMARY | 2024-12-10 05:27 | XMS_ITS | Encounter Summary ---
Author Organization [employer] Address [address] [facility] 7t [place] [address] Care Team Providers Care Machine Group Leader Name Role Phone Keiry Sloan Primary Care Provider [phone] Reason for Visit * Reason Comments Med Refill Encounter Details Date Type Department Care Team (Late st Contact Info) Description 06/02/2024 Refill [facility] MEDICINE [address] [place] [address] Keiry Sloan ANP [address] [place] [address] Gastroesophageal reflux disease without esophagitis Social History [...] Description 12/29/2024 2:15 PM EDT Office Visit [facility] MEDICINE [address] [place] [address] Keiry Sloan ANP [address] [place] [address] documented as of this encounter Visit Diagnoses Diagnosis Gastroesophageal reflux disease without esophagitis Esophageal reflux documented in this encounter Additional Health Concerns Assessment Noted Time PHQ-9 Depression Total Score: 0 12/13/19 24 9:56 AM EDT documented as of this encounter Care Teams Machine Group Leader Relationship Specialty Start Date End Date Keiry Sloan ANP [address] [place] [phone] PCP - General Family Medicine 12/05/21 documented as of this encounter
--- OUTSIDE RECORDS SUMMARY | 2024-12-10 05:28 | XMS_ITS | Encounter Summary ---
Author Organization [employer] Address [address] [facility] 7t [place] [address] Care Team Providers Care Form Layer Name Role Phone Keiry Sloan HUBER Primary Care Provider [phone] Encounter Details Date Type Department Care Team (Late st Contact Info) Description 12/10/2024 Orders Only GENERIC EXTERNAL DATA DEPARTMENT Provider, Generic External Data Social History Tobacco Use Types Packs/Day Years [...] Description 12/29/2024 2:15 PM EDT Office Visit [facility] MEDICINE [address] [place] [address] Keiry Sloan, ANP [address] [place] [address] documented as of this encounter Procedures Procedure Name Priority Date/Time Associated Diagnosis Comments CBC WITH AUTO DIFFERENTIAL Routine 12/10/2024 5:11 AM EDT documented in this encounter Results * (ABNORMAL) CBC auto differential (12/10/2024 5:11 AM EDT) White Blood Count 10.4 4.8 - 10.8 X10*3/uL [facility] Red Blood Count 4.10(L) 4.60 - 5.80 X10*6/uL [facility] Hemoglobin 12.7(L) 14.0 - 18.0 g/dl [facility] Hematocrit 37.3(L) 42.0 - 52.0 % [facility] Mean Corpuscular Volume 91.0 80.0 - 98.0 fL [facility] Mean Corpuscular Hemoglobin 31.0 27.0 - 33.0 pg [facility] Mean Corpuscular HGB Conc 34.0 31.0 - 36.0 g/dl [facility] Red Cell Distribution Width 12.0 11.0 - 16.0 % [facility] Platelet Count 307 160 - 400 X10*3/uL [facility] Mean Platelet Volume 9.4 9.4 - 12.4 fL [facility] Neutrophils Percent Auto 65.5 45 - 73 % [facility] Imm Gran Pct Auto 0.2 0.0 - 0.4 % [facility] Lymphocytes Percent Auto 24.8 20 - 40 % [facility] Monocytes Percent Auto 8.1 2 - 11 % [facility] Eosinophils Percent Auto 1.0 0 - 4 % [facility] Basophils Percent Auto 0.4 0 - 2 % [facility] NRBC Pct Auto 0.0 0.0 - 0.2 /100WBC [facility] Neutrophils Absolute Auto 6.8 2.0 - 8.3 x10*3/uL [facility] Imm Gran Abs Auto 0.02 0.00 - 0.03 X10*3/uL [facility] Lymphocytes Absolute Auto 2.6 1.2 - 4.9 X10*3/uL [facility] Monocytes Absolute Auto 0.8 0.1 - 1.2 X10*3/uL [facility] Eosinophils Absolute Auto 0.1 0.0 - 0.4 X10*3/uL [facility] Basophils Absolute Auto 0.0 0.0 - 0.2 X10*3/uL [facility] NRBC Abs Auto 0.000 0.0 - 0.012 X10*3/uL [facility] 12/10/2024 5:11 AM EDT 12/10/2024 5:15 AM EDT us Generic External Data Provider LAB BLOOD ORDERAB LES Final Result Performing Organization Address City/State/[facility] Co de Phone Number [facility] [address] [place] [phone] documented in this encounter Visit Diagnoses Not on filedocumented in this encounter Additional Health Concerns Assessment Noted Time PHQ-9 Depression Total Score: 3 07/09/19 25 9:30 AM EDT documented as of this encounter Care Teams Form Layer Relationship Specialty Start Date End Date Keiry Sloan ANP [address] [place] [phone] PCP - General Family Medicine 12/05/21 documented as of this encounter
--- OUTSIDE RECORDS SUMMARY | 2024-12-10 05:28 | XMS_ITS | Encounter Summary ---
Author Organization [employer] Address [address] [facility] 7t [place] [address] Care Team Providers Care Correspondence Analyst Name Role Phone Keiry Sloan Primary Care Provider [phone] Reason for Visit * Reason Comments Med Refill Encounter Details Date Type Department Care Team (Late st Contact Info) Description 10/14/2024 Refill [facility] MEDICINE [address] [place] [address] Keiry Sloan ANP [address] [place] [address] Insomnia, unspecified type Social History Tobacco Use Types Packs/Day Years [...] Description 12/29/2024 2:15 PM EDT Office Visit [facility] MEDICINE [address] [place] [address] Keiry Sloan ANP [address] [place] [address] documented as of this encounter Visit Diagnoses Diagnosis Insomnia, unspecified type documented in this encounter Additional Health Concerns Assessment Noted Time PHQ-9 Depression Total Score: 3 07/09/19 25 9:30 AM EDT documented as of this encounter Care Teams Correspondence Analyst Relationship Specialty Start Date End Date Keiry Sloan ANP [address] [place] [phone] PCP - General Family Medicine 12/05/21 documented as of this encounter
--- OUTSIDE RECORDS SUMMARY | 2024-12-10 05:28 | XMS_ITS | Encounter Summary ---
Author Organization [employer] Address [address] [facility] 7t [place] [address] Care Team Providers Care Optical Instrument Repairer Name Role Phone Keiry Sloan Primary Care Provider [phone] Encounter Details Date Type Department Care Team (Latest Contact Info) Description 12/07/2024 Travel Social History Tobacco Use Types Packs/Day Years [...] Description 12/29/2024 2:15 PM EDT Office Visit [facility] MEDICINE [address] [place] [address] Keiry Sloan ANP [address] [place] [address] documented as of this encounter Visit Diagnoses Not on filedocumented in this encounter Additional Health Concerns Assessment Noted Time PHQ-9 Depression Total Score: 3 07/09/19 25 9:30 AM EDT documented as of this encounter Care Teams Optical Instrument Repairer Relationship Specialty Start Date End Date Keiry Sloan ANP [address] [place] [address] PCP - General Family Medicine 12/05/21 documented as of this encounter
--- OUTSIDE RECORDS SUMMARY | 2024-12-10 05:28 | XMS_ITS | Encounter Summary ---
Author Organization [employer] Address [address] [facility] 7t [place] [address] Care Team Providers Care Lining Cementer Name Role Phone Keiry Sloan Primary Care Provider [phone] Reason for Visit * Reason Comments Med Refill Encounter Details Date Type Department Care Team (Late st Contact Info) Description 09/03/[address] [facility] MEDICINE [address] [place], [place] [phone] Keiry Sloan ANP [address] [place] [address] Psychophysiological insomnia; Generalized pruritus Social History Tobacco Use Types Packs/Day Years [...] Description 12/29/2024 2:15 PM EDT Office Visit [facility] MEDICINE [address] [place] [address] Keiry Sloan ANP [address] [place] [address] documented as of this encounter Visit Diagnoses Diagnosis Psychophysiological insomnia Persistent disorder of initiating or maintaining sleep Generalized pruritus Unspecified pruritic disorder documented in this encounter Additional Health Concerns Assessment Noted Time PHQ-9 Depression Total Score: 3 07/09/19 25 9:30 AM EDT documented as of this encounter Care Teams Lining Cementer Relationship Specialty Start Date End Date Keiry Sloan ANP [address] [place] [phone] PCP - General Family Medicine 12/05/21 documented as of this encounter
--- OUTSIDE RECORDS SUMMARY | 2024-12-10 05:28 | XMS_ITS | Clinical Summary ---
Author Organization [employer] Address [address] [facility] [address] [place] [address] Care Team Providers Care Academic Assistant Name Role Phone Keiry Sloan HUBER Primary Care Provider [phone] Allergies Active Allergy Reactions Criticality Noted Date Comments Atorvastatin Angioedema 11/06/2017 Penicillins 10/09/2011 Other reaction(s): Itching Trazodone 09/26/2020 Medications * This document contains information received from the source organization and may not represent a complete record from that organization. [employer] (Pulse Oximeter For Finger) [facility] 03/25/20 20 Active Bisacodyl EC 5 MG EC tablet 07/14/19 22 Active tacrolimus (Protopic) 0.1 % ointment 07/05/19 23 Active sennosides (Senokot) 8.6 MG tablet Take 1 tablet by mouth at bedtime. Active psyllium (Metamucil Smooth Texture) 58.6 % powderIndications :Constipation, unspecified constipation type 1 tsp 3 times daily in full glass of liquid, increase as tolerated to 1 tsp 3x/d 660 g 11 08/29/19 23 Active acetaminophen (Tylenol) 500 MG tabletIndications :Acute pain of left knee Take 2 tablets (1,000 mg) by mouth every 6 (six) hours if needed for moderate pain or fever for up to 45 doses. 90 tablet 10/03/19 24 Active loratadine (Claritin) 10 MG tablet TAKE 1 TABLET BY MOUTH EVERY DAY IN THE MORNING 90 tablet 1 01/22/20 24 Active docusate sodium (Colace) 100 MG capsule TAKE 1 CAPSULE BY MOUTH EVERY TWELVE HOURS 180 capsule 1 03/16/20 24 Active Aspirin Low Dose 81 MG EC tabletIndications :Dyslipidemia TAKE 1 TABLET BY MOUTH EVERY DAY IN THE MORNING 90 tablet 1 04/13/20 24 Active omeprazole (PriLOSEC) [address] capsuleIndication s:Gastroesophagea l reflux disease without esophagitis TAKE 1 CAPSULE BY MOUTH EVERY DAY BEFORE MEALS 90 capsule 2 06/02/19 25 Active lisinopril 10 MG tabletIndications :Essential hypertension TAKE 1 TABLET BY MOUTH EVERY MORNING 90 tablet 1 09/09/19 25 Active rosuvastatin (Crestor) 40 MG tabletIndications :Dyslipidemia TAKE 1 TABLET BY MOUTH DAILY IN THE MORNING 90 tablet 1 09/23/19 25 Active betamethasone valerate (Valisone) 0.1 % creamIndications: Rash Apply topically if needed in the morning and at bedtime for rash. 45 g 1 09/26/19 25 Active levothyroxine (Synthroid) 50 MCG tabletIndications :Hypothyroidism, unspecified type Take 1 tablet (50 mcg) by mouth before breakfast. 90 tablet 3 09/26/19 25 026 Active omega-3 acid ethyl esters (Lovaza) 1 g capsuleIndication s:Hypertriglyceri demia,Elevated triglycerides with high cholesterol Take 1 capsule (1 g) by mouth 2 times daily. 180 capsule 3 10/01/19 25 026 Active mirtazapine (Remeron) 7.5 MG tablet Take 1 tablet (7.5 mg) by mouth at bedtime. 30 tablet 1 10/31/19 25 Active D3 Super Strength 50 MCG (2000 UT) capsule TAKE 1 CAPSULE BY MOUTH EVERY DAY IN THE MORNING 90 capsule 1 11/26/19 25 Active omeprazole OTC (PriLOSEC OTC) 20 MG EC tablet Take 1 tablet (20 mg) by mouth before breakfast. Do not crush, chew, or split. 30 tablet 11 12/08/19 25 026 Active cyclobenzaprine (Flexeril) 5 MG tabletIndications :Acute bilateral low back pain without sciatica Take 1 tablet (5 mg) by mouth at bedtime for 10 days. 10 tablet 12/08/19 25 025 Active ibuprofen 600 MG tablet Take 1 tablet (600 mg) by mouth 3 times daily. 90 tablet 12/08/19 25 025 Active D3 Super Strength 50 MCG (2000 UT) capsule TAKE 1 CAPSULE BY MOUTH EVERY DAY IN THE MORNING 90 capsule 1 04/13/20 24 025 Discontinued Active Problems Problem Noted Date Diagnosed Date Elevated triglycerides with high cholesterol Dental calculus 12/20/2023 Dental plaque 12/20/2023 Acute URI 08/26/2023 Assessment & Plan (08/26/2023 10:26 AM EDT): -No evidence of respiratory distress. Symptoms mild. -No evidence of dehydration. -Supportive care advised with OTC analgesics and cough drops. -Isolation recommendations discussed. -ER precautions discussed. -Seek medical attention for worsening symptoms. Adjustment disorder with mixed anxiety and depre ssed mood 08/30/2022 Assessment & Plan (08/30/2022 2:56 PM EDT): Assessment: Patient reports sadness and frustration in the context of family stressors. Patient will benefit from a follow up with [facility] in one month. Option of OP therapy will be brought up again. At this time Mateo De La Rosa meets criteria for Visit Diagnoses: Problem List Items Addressed This Visit Other Adjustment disorder with mixed anxiety and depressed mood Patient ready to address current needs Yes Strengths include advocating for self and obtaining services needed to address current situations PLAN: 1. Follow up with [facility]: Recommended for follow up 2. Patient goal is continue using resources in the community to aid in current matters 3. Behavioral Recommendations a. Patient will attend follow-up with [facility] in one month. b. Patient will contact [facility] sooner, if needed Low back pain without sciatica 07/05/2022 Overview (07/05/2022): Likely musculoskeletal. Non-focal, normal motor exam without neurological deficits. No back pain red-flags: bowel/bladder incontinence, IVDU, urinary retention, saddle anesthesia, and significant motor deficits. -Referral for PT and X-ray done 07/05/22. -Recommend ibuprofen. -Lifting precaution sand stretching reviewed. -ER precaution discussed. Assessment & Plan (07/05/2022 10:45 AM EDT): Likely musculoskeletal. Non-focal, normal motor exam without neurological deficits. No back pain red-flags: bowel/bladder incontinence, IVDU, urinary retention, saddle anesthesia, and significant motor deficits. -Referral for PT and X-ray done 07/05/22. -Recommend ibuprofen. -Lifting precaution sand stretching reviewed. -ER precaution discussed. 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 spot for programe positive 06/21/2022. Chest X-ray negative 06/21/2022. Assessment & Plan (07/05/2022 10:48 AM EDT): T. spot for programe positive 06/21/2022. Chest X-ray negative 06/21/2022. Rosacea 03/25/2012 Allergic rhinitis 09/03/2011 Constipation 09/03/2011 Resolved Problems Problem Noted Date Diagnosed Date Resolved Date Hypothyroidism 12/27/2023 07/01/2024 Overview (12/27/2023): cont levothyroxine 50mcg daily and update TSH Encounters Date Type Department Care Team Description 12/10/2024 Orders Only GENERIC EXTERNAL DATA DEPARTMENT Provider, Generic External Data 12/07/2024 9:20 AM EDT Office Visit [facility] [address] [place] [address] Maria Luisa Polk MD Viral gastroenteritis (Primary Dx); Acute bilateral low back pain without sciatica 12/07/2024 Travel 11/25/2024 Refill [facility] [address] [place] [address] Keiry Sloan ANP 10/30/2024 Telephone [facility] [address] [place] [address] Tremaine Prater rs no show appt 10/30/2024 Refill [facility] [place] [address] Keiry Sloan ANP 10/21/2024 Telephone [facility] [place] [address] Keiry Sloan ANP December10/14/2024 Refill [facility] [place] [address] Keiry Sloan ANP Insomnia, unspecified type 09/30/2024 Orders Only [facility] [place] [address] Keiry Sloan ANP Hypertriglyceridemia; Elevated triglycerides with high cholesterol 09/29/2024 Telephone [facility] [place] [address] Keiry Sloan ANP 09/28/2024 Telephone [facility] [place] [address] Keiry Sloan ANP 09/25/2024 9:15 AM EDT Office Visit [facility] [place] [address] Keiry Sloan ANP Psychophysiological insomnia (Primary Dx); Hypertriglyceridemia; Elevated triglycerides with high cholesterol; Essential hypertension; Vitamin D deficiency; Rash; Hypothyroidism, unspecified type 09/25/2024 Results Follow-Up [facility] [place] [place] [address] Keiry Sloan ANP Lipid Panel, Standard, Comprehensive Metabolic Panel, Albumin, Random Urine W/Creatinine, Additional followed-up results: 2 09/25/2024 Orders Only GENERIC EXTERNAL DATA DEPARTMENT Provider, Generic External Data 09/25/2024 Telephone [facility] [place] [address] Keiry Sloan ANP Appointment Request 09/25/2024 Travel 09/24/2024 Telephone [facility] [place] [address] Keiry Sloan ANP Chart Prep 09/22/2024 Travel 09/21/2024 Telephone [facility] [place] [address] Keiry Sloan ANP Prior Authorization 09/21/2024 Telephone [facility] [place] [address] Keiry Sloan ANP Medication Question 09/21/2024 Refill [facility] [address] [place] [address] Keiry Sloan ANP Psychophysiological insomnia; Dyslipidemia from Last 3 Months Immunizations Immunization Administration Dates Next Due Influenza injectable quadriv alent IIV4 with preservative 03/10/2018,12/31/2016 Influenza injectable quadriv alent preservative free 05/27/2023,05/17/2022,01/27/2019,2015 Influenza, High Dose Seasona l, Preservative Free 01/10/2024 Influenza, IIV3, injectable 01/02/2010 Influenza, Split (incl. caroline fied surface antigen) 05/20/2012 Influenza, seasonal, injecta ble, preservative free 01/14/2014 Moderna Covid-19 Vaccine 12+ 06/30/2020,06/02/19 21 Moderna Covid-19 Vaccine 6+ Bivalent 04/11/2022 Pneumococcal Conjugate PCV 13 10/07/2018 Pneumococcal Conjugate PCV 20 10/03/2023 RSV Adjuvant 12/23/2023 TD (adult), 2 Lf tetanus tox oid, preservative free, adsorbed 01/02/2010 Tdap 10/03/2023,09/03/2013 Zoster, Recombinant 12/15/2019,06/11/2019 Zoster, live 11/10/2016 Social History Tobacco Use Types Packs/Day Years [...] Orientation Straight 02/12/2022 10 :17 AM EDT Last Filed Vital Signs Vital Sign Reading [...] Mass Index 31.41 12/07/2024 9:18 AM EDT Plan of Treatment Upcoming Encounters Date Type Department Care Team (Late st Contact Info) Description 12/29/2024 2:15 PM EDT Office Visit [facility] [address] [place] [address] Keiry Sloan ANP [address] [place] [address] Health Maintenance Due Date Last Done Comments CT Colonography 1953 FIT DNA/Cologuard 1953 FIT 1955 FOBT 1955 Sigmoidoscopy 1955 COVID-19 Vaccine ( season) 2023 04/11/2022, 06/30/2020, 06/02/2020 Influenza Vaccine (#1) 2024 , 05/27/2023, 05/17/2022, Additional history exists Dental Oral Exam 01/02/2025 07/01/2024, 04/19/2023 Dental Prophylaxis 01/02/2025 07/01/2024, 0 12/20/2023, 04/19/2023, Additional history exists Dental X-Ray: Bitewings 07/02/2025 07/01/2024, 04/19 Depression Screening 07/08/2025 07/08/2024, 07/09/19 Alcohol/Substance Use Screening 09/25/2025 09/25/2024 SDOH Screening 09/25/2025 09/25/2024 Tobacco Screening 12/07/2025 12/07/2024 Colonoscopy 10/23/2026 10/23/2021 Colorectal Cancer Screening 10/23/2026 Dental X-Ray: Full Mouth 07/03/2027 07/01/2024 Lipid Panel 09/25/2029 09/25/2024, 09/14, 03/07/2022, Additional history exists DTaP/Tdap/Td Vaccines (3 - Td or Tdap) 10/02/2033 10/03/2023, 09/03/2013, 01/02/2010 Zoster Vaccines Completed 12/15/2019, 05/17, 11/10/2016 Hepatitis C Screening Completed 09/13/2021 Pneumococcal Vaccine: 50+ Years Completed 10/03/2023, 10/07/2018 RSV Patients and Patients Aged 60 years or older Completed 12/23/2023 HIB Vaccines Aged Out No longer eligi ble based on patient's age to complete this topic HPV Vaccines Aged Out No longer eligi ble based on patient's age to complete this topic Hepatitis A Vaccines Aged Out No long er eligible based on patient's age to complete this topic Hepatitis B Vaccines Aged Out No long er eligible based on patient's age to complete this topic IPV Vaccines Aged Out No longer eligi ble based on patient's age to complete this topic Meningococcal B Vaccine Aged Out No l onger eligible based on patient's age to complete this topic Meningococcal Vaccine Aged Out No alonso trevon eligible based on patient's age to complete this topic RSV under 20 months Aged Out No longe r eligible based on patient's age to complete this topic Rotavirus Vaccines Aged Out No longer eligible based on patient's age to complete this topic Procedures Procedure Name Priority Date/Time Associated Diagnosis Comments CBC WITH AUTO DIFFERENTIAL Routine 12/10/2024 5:11 AM EDT POCT INFLUENZA B (ID NOW RAPID MOLECULAR) Routine 12/07/2024 11:29 AM EDT Viral gastroenteritis POCT INFLUENZA A (ID NOW RAPID MOLECULAR) Routine 12/07/2024 11:29 AM EDT Viral gastroenteritis POCT RAPID COVID ANTIGEN Routine 12/07/2024 11:29 AM EDT Viral gastroenteritis T4, FREE Routine 09/25/2024 9:43 AM EDT PSA, TOTAL Routine 09/25/2024 9:43 AM EDT TSH W/REFLEX TO FT4 Routine 09/25/2024 9 :43 AM EDT Hypothyroidism, unspecified type VITAMIN D,25-OH,TOTAL,IA Routine 09/25/2024 9:43 AM EDT Vitamin D deficiency COMPREHENSIVE METABOLIC PANEL Routine 09/25/2024 9:43 AM EDT Essential hypertension LIPID PANEL, STANDARD Routine 09/25/2024 9:43 AM EDT Hypertriglyceridemia ALBUMIN, RANDOM URINE W/CREATININE Routine 09/25/2024 9:04 AM EDT Essential hypertension PROPHYLAXIS - ADULT Routine 07/01/2024 8 :00 AM EDT INTRAORAL - COMPLETE SERIES OF RADIOGRAPHIC IMAGES Routine 07/01/2024 8:00 AM EDT PERIODIC ORAL EVALUATION - ESTABLISHED PATIENT Routine 07/01/2024 8:00 AM EDT HM COLONOSCOPY Routine 10/23/2021 ZHANNA HISTORICAL HEPATITIS C AB W/REFL TO HCV RNA, QN, PCR Routine 09/13/2021 8:48 AM EDT from Last 3 Months or Most Recently Relevant to Health Maintenance Results * (ABNORMAL) CBC auto differential (12/10/2024 5:11 AM EDT) White Blood Count 10.4 4.8 - 10.8 X10*3/uL [facility] Red Blood Count 4.10(L) 4.60 - 5.80 X10*6/uL [facility] Hemoglobin 12.7(L) 14.0 - 18.0 g/dl [facility] Hematocrit 37.3(L) 42.0 - 52.0 % [facility] Mean Corpuscular Volume 91.0 80.0 - 98.0 fL [facility] Mean Corpuscular Hemoglobin 31.0 27.0 - 33.0 pg [facility] Mean Corpuscular HGB Conc 34.0 31.0 - 36.0 g/dl [facility] Red Cell Distribution Width 12.0 11.0 - 16.0 % [facility] Platelet Count 307 160 - 400 X10*3/uL [facility] Mean Platelet Volume 9.4 9.4 - 12.4 fL [facility] Neutrophils Percent Auto 65.5 45 - 73 % [facility] Imm Gran Pct Auto 0.2 0.0 - 0.4 % [facility] Lymphocytes Percent Auto 24.8 20 - 40 % [facility] Monocytes Percent Auto 8.1 2 - 11 % [facility] Eosinophils Percent Auto 1.0 0 - 4 % [facility] Basophils Percent Auto 0.4 0 - 2 % [facility] NRBC Pct Auto 0.0 0.0 - 0.2 /100WBC [facility] Neutrophils Absolute Auto 6.8 2.0 - 8.3 x10*3/uL [facility] Imm Gran Abs Auto 0.02 0.00 - 0.03 X10*3/uL [facility] Lymphocytes Absolute Auto 2.6 1.2 - 4.9 X10*3/uL [facility] Monocytes Absolute Auto 0.8 0.1 - 1.2 X10*3/uL [facility] Eosinophils Absolute Auto 0.1 0.0 - 0.4 X10*3/uL [facility] Basophils Absolute Auto 0.0 0.0 - 0.2 X10*3/uL [facility] NRBC Abs Auto 0.000 0.0 - 0.012 X10*3/uL [facility] 12/10/2024 5:11 AM EDT 12/10/2024 5:15 AM EDT us Generic External Data Provider LAB BLOOD ORDERAB LES Final Result Performing Organization Address [facility]/ZIP Co de Phone Number [facility] [address] [place] [phone] * POCT Rapid Influenza B CARSON ID NOW (12/07/2024 11:29 AM EDT) Influenza B Negative Negative, Indeterminate [facility] QC Media Lot # [id number] [facility] Lot# Expiration Date [facility] Swab 12/07/2024 11:2 9 AM EDT us Maria Luisa oPlk MD POINT OF CARE TEST ENTER/EDIT OR DERABLES Final Result Performing Organization Address [facility]/ZIP Co de Phone Number [facility] [address] [place] [phone] * POCT Rapid Influenza A CARSON ID NOW (12/07/2024 11:29 AM EDT) Influenza A Negative Negative, Indeterminate [facility] QC Media Lot # [id number] [facility] Lot# Expiration Date [facility] Swab 12/07/2024 11:2 9 AM EDT us Maria Luisa Polk MD POINT OF CARE TEST ENTER/EDIT OR DERABLES Final Result [facility] [address] [place] [address] [phone] * POCT Rapid Covid-19 BinaxNOW (12/07/2024 11:29 AM EDT) Rapid COVID Ag Negative QC Media Lot # [id number] Lot# Expiration Date Swab 12/07/2024 11:2 9 AM EDT us Maria Luisa Polk MD POINT OF CARE TEST ENTER/EDIT OR DERABLES Final Result * Vitamin D, 25-Hydroxy, Total, Immunoassay (09/25/2024 9:43 AM EDT) Vitamin D 25-OH Total 48.8 >30 ng/mL [facility] Comment: Health Based Reference Values*< 20 ng/mL [id number] ng/mL Insufficient> 30 ng/mL Sufficient*Cam HOBBS. N Engl J Med. 2007;357:266-280There is no well-established upper level of normal vitamin Dlevels. Some laboratories use 50 ng/mL as an upper limit ofnormal. However, toxicity is patient-dependent and may occurat any level. Careful correlation with the patient'spresentation is necessary and, if there is concern forvitamin D toxicity, treatment should be consideredirrespective of the serum level.Care must be taken in interpreting Vitamin D results fromdifferent laboratories and methodologies. Published datademonstrated that results from patients undergoinghemodialysis may show a negative bias when tested withvarious automated 25-OH vitamin D assays when compared toLC-MS/MS.When testing samples from patients whose predominant form ofVitamin D is Vitamin D2, such as patients receiving VitaminD2 supplementation, results that are subtherapeutic shouldbe confirmed with another method such as LC-MS/MS. Blood Venous blood specimen / Unknown 09/25/2024 9:43 AM EDT 09/25/2024 11:01 AM EDT Keiry Sloan ANP LAB BLOOD ORDERABLES Final Resul t Performing Organization Address [facility] de Phone Number [facility] [address] [place] [phone] * (ABNORMAL) TSH W/Reflex to FT4 (09/25/2024 9:43 AM EDT) TSH reflex Free T4 9.51(H) 0.32 - 4.0 uIU/mL [facility] Blood Venous blood specimen / Unknown 09/25/2024 9:43 AM EDT 09/25/2024 11:01 AM EDT Keiry Sloan ANP LAB BLOOD ORDERABLES Final Resul t Performing Organization Address [facility] de Phone Number [facility] [address] [place] [phone] * T4, Free (09/25/2024 9:43 AM EDT) Free T4 (Free Thyroxine) 0.78 0.71 - 1.85 ng/dL [facility] 09/25/2024 9:43 AM EDT 09/25/2024 11:01 AM EDT Keiry Sloan ANP LAB BLOOD ORDERABLES Final Resul t Performing Organization Address [facility] de Phone Number [facility] [address] [place] [phone] * PSA,Total (09/25/2024 9:43 AM EDT) Prostate Specific Antigen 1.16 <0.05 - 4.0 ng/mL [facility] Comment:PSA methodology: Abb aiyana Alinity i ChemiluminescentMicroparticle Immunoassay (CMIA) 09/25/2024 9:43 AM EDT 09/25/2024 10:59 AM EDT us Generic External Data Provider LAB BLOOD ORDERAB LES Final Result Performing Organization Address City/[facility]/ZIP Co de Phone Number [facility] [address] [place] [phone] * (ABNORMAL) Lipid Panel, Standard (09/25/2024 9:43 AM EDT) Triglycerides 224(H) <150 mg/dL [facility] Comment:Desirable Triglyceri de: less than 150 mg/dLBorderline High Triglyceride 150-199 mg/dLHigh Triglyceride: 200-499 mg/dLVery High Triglyceride: greater than or equal to 5OO mg/dL Cholesterol 138 <200 mg/dL [facility] Comment:Desirable Cholestero l: less than 200 mg/dLBorderline High Cholesterol: 200-239 mg/dLHigh Cholesterol: greater than 239 mg/dL LDL Cholesterol Calculated 62 <100 mg/dL [facility] Comment:Desirable LDL: less than 100 mg/dLNear Optimal/Above Optimal LDL: 110- 129 mg/dLBorderline High LDL: 130-159 mg/dLHigh LDL: 160-189 mg/dLVery High LDL: greater than or equal to 190 mg/dL HDL Cholesterol 32(L) >40 mg/dL [facility] Comment:Desirable HDL: great er than 40 mg/dL Note: This HDL assay may give artificially low results in patients with liver disease. Blood Venous blood specimen / Unknown 09/25/2024 9:43 AM EDT 09/25/2024 11:01 AM EDT us Keiry Sloan [facility] LAB BLOOD ORDERABLES Final Resul t Performing Organization Address City/[facility]/ZIP Co de Phone Number [facility] [address] [place] [phone] * (ABNORMAL) Comprehensive Metabolic Panel (09/25/2024 9:43 AM EDT) Sodium 140 135 - 145 mmol/L [facility] Potassium 4.2 3.3 - 5.1 mmol/L [facility] Chloride 102 96 - 108 mmol/L [facility] Carbon Dioxide 29 22 - 29 mmol/L [facility] Anion Gap 13 12 - 20 [facility] Urea Nitrogen (BUN) 14 9 - 16 mg/dL [facility] Creatinine, Serum 1.05 0.5 - 1.4 mg/dL [facility] Estimated Glomerular Filt Rate >60 [facility] Comment:Chronic Kidney Disea se: Estimated GFR < 60 mL/min/[id number] Kidney Disease: Estimated GFR < 15 mL/min/1.73m2 Glucose 88 60 - 115 mg/dL [facility] Calcium 9.8 8.4 - 10.2 mg/dL [facility] Bilirubin, Total 0.5 0.0 - 1.0 mg/dL [facility] Aspartate Amino Transferase 41(H) 5 - 37 U/L [facility] Alanine Aminotransferase 31 0 - 40 U/L [facility] Total Protein 8.0 6.5 - 8.0 g/dL [facility] Albumin Level 5.1(H) 3.5 - 5.0 g/dL [facility] Alkaline Phosphatase 62 39 - 117 U/L [facility] Blood Venous blood specimen / Unknown 09/25/2024 9:43 AM EDT 09/25/2024 11:01 AM EDT [facility] LAB BLOOD ORDERABLES Final Resul t [facility] [address] [place] [phone] * Albumin, Random Urine W/Creatinine (09/25/2024 9:04 AM EDT) Creatinine, Urine 98.47 mg/dL [facility] Microalbumin Urine 9.0 mg/L [facility] Microalbum Creatinine Ratio Ur 9.1 <30 ug/mg cr [facility] Comment:Albumin/Creatinine R atio Reference Ranges: Normal: < 30 ug/mg creatinine Microalbuminuria: 30 - 300 ug/mg creatinineClinical Albuminuria: > 300 ug/mg creatinine Urine (Urine, Random) 09/25/2024 9:04 AM EDT 09/25/2024 11:08 AM EDT [employer]iry [employer] LAB URINE ORDERABLES Final Resul t Performing Organization Address City/[facility]/ZIP Co de Phone Number [facility] [address] [place] [phone] * Colonoscopy (10/23/2021) Pathologist [facility] Colonoscopy Normal Normal Historical Provider MD HEALTH MAINTENANCE Final Result * HEPATITIS C AB W/REFL TO HCV RNA, QN, PCR (09/13/2021 8:48 AM EDT) Pathologist [facility] HEPATITIS C ANTIBODY NON-REACT OPAL NON-REACT [facility] INDEX 0.13 <1.00 [facility] Comment: HCV antibody was non-reactive. There is no laboratory evidence of HCV infection. In most cases, no further action is required. However, if recent HCV exposure is suspected, a test for HCV RNA (test code 91932) is suggested. For additional information please refer to [email or web address] (This link is being provided for informational/ educational purposes only.) 09/13/2021 8:48 AM EDT Janine Guajardo NP HISTORICAL/NON ORDERABLE LABS F inal Result Performing Organization Address City/[facility]/ZIP Co de Phone Number [facility] [address] from Last 3 Months or Most Recently Relevant to Health Maintenance Insurance [facility] RETIREMENT OPTIONS (HMO D-SNP) DENTAL [facility] Care Teams Academic Assistant Relationship Specialty Start Date End Date Keiry Sloan ANP [address] [place] [address] PCP - General Family Medicine 12/05/21
--- OUTSIDE RECORDS SUMMARY | 2024-12-10 05:28 | XMS_ITS | Encounter Summary ---
Author Organization [employer] Address [address] [facility] [address] [place] [address] Care Team Providers Care Supervisor Laboratory Animal Facility Name Role Phone Keiry Sloan HUBER Primary Care Provider [phone] Reason for Visit * Reason Onset Date Comments rs no show appt 10/30/2024 Encounter Details Date Type Department Care Team ([facility] st Contact Info) Description 10/30/2024 Telephone C [facility]ULT [facility]AL [address], [place] [phone] JosiSilvestre danielsio [address] [place] [address] rs no show appt Social History Tobacco [...] * Telephone Encounter - Sonal Jin - 10/30/2024 9:00 AM EDT Patient had appt in July and no show due to transportation not picking him up. He is looking to reschedule appt. Patient has been informed that resident provider schedule is currently not available and he will get a call from the office to giovanni KEARNS documented in this encounter Plan of Treatment Upcoming Encounters Date Type Department Care Team (Late st Contact Info) Description 12/29/2024 2:15 PM EDT Office Visit [facility] [address] [place] [address] Keiry Sloan ANP [address] [place] [address] documented as of this encounter Visit Diagnoses Not on filedocumented in this encounter Additional Health Concerns Assessment Noted Time PHQ-9 Depression Total Score: 3 07/09/19 25 9:30 AM EDT documented as of this encounter Care Teams Supervisor Laboratory Animal Facility Relationship Specialty Start Date End Date Keiry Sloan ANP [address] [place] [id number] PCP - General Family Medicine 12/05/21 documented as of this encounter
[2024-12-10 05:33] LABS: Alanine Aminotransferase 343 U/L (0-40); Albumin Level 4.5 g/dL (3.5-5.0); Alkaline Phosphatase 257 U/L (39-117); Anion Gap 16 (12-20); Aspartate Amino Transferase 309 U/L (5-37); Blood Urea Nitrogen 21 mg/dL (9-16); Calcium 9.5 mg/dL (8.4-10.2); Carbon Dioxide 24 mmol/L (22-29); Chloride 106 mmol/L (96-108); Creatinine Clr Calc Pharmacy 49.6; Estimated Glomerular Filt Rate 53; Lipase 264 U/L (8-78); Potassium 3.7 mmol/L (3.3-5.1); Sodium 142 mmol/L (135-145); Total Protein 7.7 g/dL (6.5-8.0)
--- NOTE | 2024-12-10 06:32 | PC.NURSE ---
PT comes in for pain in RUQ for multiple days. States he has been nauseous and having to move bowels more frequently but output is small. Denies issues, or blood is stool. denies ETOH/DRUG use On exam pt skin and sclera are yellow. pt denies any liver issues. IV placed in LAC
--- NOTE | 2024-12-10 07:06 | ED.GENADULT ---
HPI - General Adult General Chief complaint: General Medical Stated complaint: Abdominal Pain + Vomiting from meds Time Seen by Provider: 12/10/24 07:05 History of Present Illness ED Provider: Dr. Payan HPI narrative: 69 y/o M patient; PMH BPH, HTN; presents from home with report of generalized weakness, constipation, anorexia, and nausea/vomiting. Associated with an intermittent RUQ abd pain. The patient otherwise denies: fever or chills, cough/congestion, SOB, chest pain. Patient denies surgical abdominal history. Related Data Home Medications ?Medication ?Instructions ?Recorded ?Confirmed aspirin 81 mg tablet,delayed 81 mg PO DAILY 03/23/20 11/04/24 release fluocinonide 0.05 % topical 1 applic topical DAILY 03/23/20 11/04/24 solution lisinopril 20 mg tablet 20 mg PO DAILY 03/23/20 11/04/24 loratadine 10 mg tablet 10 mg PO DAILY 03/23/20 11/04/24 metronidazole 0.75 % topical cream 1 applic topical BID 03/23/20 11/04/24 omeprazole 20 mg capsule,delayed 20 mg PO DAILY 03/23/20 11/04/24 release fluocinonide 0.05 % topical topical 09/01/20 11/04/24 ointment triamcinolone acetonide 0.1 % topical 09/01/20 11/04/24 topical ointment betamethasone valerate 0.1 % 1 appl topical BID 09/22/20 11/04/24 topical ointment cholecalciferol (vitamin D3) 50 50 mcg PO DAILY 09/22/20 11/04/24 mcg (2,000 unit) capsule rosuvastatin 20 mg tablet 20 mg PO BEDTIME 09/22/20 11/04/24 terbinafine HCl 250 mg tablet 250 mg PO DAILY 09/22/20 11/04/24 trazodone 50 mg tablet 50 mg PO BEDTIME 09/22/20 11/04/24 betamethasone dipropionate 0.05 % topical 07/07/21 11/04/24 lotion betamethasone valerate 0.1 % appl topical BID 07/07/21 11/04/24 topical cream doxepin 10 mg capsule 10 mg PO BEDTIME 07/07/21 11/04/24 melatonin 5 mg disintegrating 5 mg PO QPM 07/07/21 11/04/24 tablet carbamide peroxide 6.5 % ear drops 0 drp otic (ears) 07/13/21 11/04/24 (Ear Drops (carbamide peroxide)) melatonin 5 mg tablet 5 mg PO BEDTIME 07/06/22 11/04/24 levothyroxine 50 mcg tablet 50 mcg PO DAILY 11/05/23 11/04/24 Previous Rx's ?Medication ?Instructions ?Recorded miscellaneous medical supply 1 ea miscellaneous DAILY #1 ea 03/25/20 sennosides 8.6 mg tablet (Natural 8.6 mg PO BEDTIME constipation #30 07/13/21 Senna Laxative) tabs bisacodyl 5 mg tablet,delayed 10 mg (2 x 5 mg) PO DAILY #2 tabs 09/18/21 release polyethylene glycol 3350 17 17 g PO DAILY Colon prep 1 day 10/20/21 gram/dose oral powder (Miralax) #238 grams docusate sodium 100 mg capsule 100 mg PO BEDTIME #30 caps 12/13/21 acetaminophen 325 mg capsule 650 mg (2 x 325 mg) PO Q6H PRN 12/30/23 pain 7 days #28 caps lidocaine 4 % topical patch 1 patch topical DAILY PRN pain #15 12/30/23 ea tolterodine 2 mg capsule,extended 2 mg PO DAILY 30 days #30 caps 11/04/24 release 24 hr Allergies Allergy/AdvReac Type Severity Reaction Status Date / Time Penicillins (PENICILLINS) Allergy Intermediate RASH Verified 12/10/24 05:08 Review of Systems Review of Systems: Yes all other systems are reviewed and are negative PMFSH Past Medical History Attestation statement: The following information was validated with the patient. Source: old records reviewed Medical History Tubular adenoma Gout Other obstructive and reflux uropathy Benign prostatic hyperplasia with lower urinary tract symptoms Rosacea GERD (gastroesophageal reflux disease) Benign neoplasm of cerebellum Sinusitis HTN (hypertension) Surgical History Hx of colonoscopy History of esophagogastroduodenoscopy (EGD) History of surgery History of brain surgery Social History Social History Household Members: Spouse and Children Housing: House Alcohol intake: never Patient Tobacco Use Status: Never used Tobacco Smoked in Last 30 Days: No Second Hand Smoke Exposure: No Use of substances other than those prescribed or required for medical reasons: No Advance Directives: No Advance Directives Information Provided: Yes Do you have a plan to hurt others: No Plan service: Yes (not in [facility]) Current occupational status: retired 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 [place] Current occupational exposures/hazards: No Physical Exam ED Vital Signs: Vital Signs - 24 hr 12/10/24 05:07 Temperature 98.6 F Pulse Rate 88 Respiratory Rate 16 Blood Pressure 107/72 Pulse Oximetry 96 Oxygen Delivery Method Room Air BMI result Body Mass Index 26.1 Patient is afebrile and hemodynamically stable Const General: cooperative and no acute distress HENMT Head: Yes normal to inspection and Yes atraumatic Eyes General: appearance normal, both eyes and all related structures Sclerae: scleral abnormal (+ scleral icterus ) Pupils: Equal, round and reactive pupils present EOM: EOMs intact bilaterally Neck Neck: Yes normal visual inspection, Yes full ROM, Yes supple and No tender Chest Chest palpation & inspection: normal inspection of the chest and normal palpation of entire chest wall Resp Effort & Inspection: normal respiratory effort, able to speak in complete sentences and no cough Auscultation: clear to auscultation bilaterally Cardio Rate: regular rate Rhythm: regular rhythm Peripheral pulses: Peripheral pulses 2+ throughout GI Inspection: Yes normal to inspection, No Abdominal wall edema and No distended Palpation (GI): Soft to palpation, not firm, nontender, no guarding and not rigid Auscultation: normal bowel sounds Back/Spine/Pelvis Back: No back tenderness Skin Other: jaundice to skin Neuro Cranial nerves: Yes Equal, round and reactive pupils present Course Course Course Narrative: Patient is afebrile and hemodynamically stable. Patient has jaundice with scleral icterus. Reviewed triage work up with labs and KUB. KUB notable for moderate colonic stool without obstruction. Labs reviewed. No significant leukocytosis. Hgb 12.7, baseline. LFTs significantly elevated with AST 309, AST 343, Alk phos 257. Total bilirubin elevated at 3.5. Lipase 264. Ethanol negative. Tylenol negative. Ordered for US RUQ. Ordered for magnesium level, ethanol level, acetaminophen level, hepatitis panel. Providing symptom control with 1L IVF and Zofran 4mg IV. US notable for possible acute cholecytitis with wall thickening 4mm. I consulted GI and surgery as I am concerned for cholecystitis versus choledocholithiasis. Ordered for MCRP. Started on flagyl and ceftriaxone due to rash reported with PCN. Plan: Admit to medicine with surgery consulting Condition: Stable Medications Administered Discontinued Medications Generic Name Dose Route Start Last Admin Trade Name Freq PRN Reason Stop Dose Admin Sodium Chloride 1,000 mls @ 999 mls/hr 12/10/24 07:15 12/10/24 07:27 Ns IV 12/10/24 08:15 999 mls/hr .Q1H1M SUSIE Administration Ondansetron HCl 4 mg 12/10/24 07:14 12/10/24 07:28 Ondansetron Hcl 4 Mg/2 Ml Vial IVPUSH 12/10/24 07:15 4 mg ONCE ONE Administration Medical Decision Making Lab Data 12/10/24 05:11 12/10/24 05:11 Labs: Lab Results 12/10/24 12/10/24 Range/Units 05:11 08:26 WBC 10.4 (4.8-10.8) X10*3/uL RBC 4.10 L (4.60-5.80) X10*6/uL Hgb 12.7 L (14.0-18.0) g/dl Hct 37.3 L (42.0-52.0) % MCV 91.0 (80.0-98.0) fL MCH 31.0 (27.0-33.0) pg MCHC 34.0 (31.0-36.0) g/dl RDW 12.0 (11.0-16.0) % Plt Count 307 (160-400) X10*3/uL MPV 9.4 (9.4-12.4) fL Immature Gran % (Auto) 0.2 (0.0-0.4) % Neut % (Auto) 65.5 (45-73) % Lymph % (Auto) 24.8 (20-40) % Josephine % (Auto) 8.1 (2-11) % Eos % (Auto) 1.0 (0-4) % Baso % (Auto) 0.4 (0-2) % Lymph # (Auto) 2.6 (1.2-4.9) X10*3/uL Josephine # (Auto) 0.8 (0.1-1.2) X10*3/uL Eos # (Auto) 0.1 (0.0-0.4) X10*3/uL Baso # (Auto) 0.0 (0.0-0.2) X10*3/uL Abs Immat Gran (auto) 0.02 (0.00-0.03) X10*3/uL Absolute Neuts (auto) 6.8 (2.0-8.3) x10*3/uL Absolute Nucleated RBC 0.000 (0.0-0.012) X10*3/uL Nucleated RBC % (auto) 0.0 (0.0-0.2) /100WBC Sodium 142 (135-145) mmol/L Potassium 3.7 (3.3-5.1) mmol/L Chloride 106 (96-108) mmol/L Carbon Dioxide 24 (22-29) mmol/L Anion Gap 16 (12-20) BUN 21 H (9-16) mg/dL Creatinine 1.32 (0.5-1.4) mg/dL Estim Creat Clear Calc 49.6 Estimated GFR 53 Random Glucose 102 (60-115) mg/dL Calcium 9.5 (8.4-10.2) mg/dL Magnesium 2.1 (1.6-2.6) mg/dL Total Bilirubin 3.5 H (0.0-1.0) mg/dL Direct Bilirubin 2.2 H (0.0-0.5) mg/dL AST 309 H (5-37) U/L ALT 343 H (0-40) U/L Alkaline Phosphatase 257 H (39-117) U/L Total Protein 7.7 (6.5-8.0) g/dL Albumin 4.5 (3.5-5.0) g/dL Lipase 264 H (8-78) U/L Acetaminophen < 3 (<30) mcg/mL Ethyl Alcohol < 10 mg/dL Hepatitis A IgM Ab Nonreactive (Nonreactive) Hep Bs Antigen Negative (Negative) Hep Bs Antibody NONREACTIVE (Nonreactive) Hep B Core Total Ab Nonreactive (Nonreactive) Hepatitis C Ab (EIA) Nonreactive (Nonreactive) Radiology Impression Discussion of test interpretation with radiology: I have reviewed the radiologist's reading. Radiologist Impression: EXAMINATION: US ABDOMEN LIMITED CLINICAL INFORMATION: Transaminitis with elevated lipase.. COMPARISON: None available. TECHNIQUE: Real-time imaging of the right upper quadrant abdominal viscera. FINDINGS: PANCREAS: Visualized portions are unremarkable. LIVER: The liver is mildly enlarged. The right hepatic lobe measures 17.1 cm in length. The liver contour is normal. Diffusely increased parenchymal echogenicity suggestive of steatosis. No suspicious focal hepatic lesion. There is no intrahepatic biliary duct dilatation seen. GALLBLADDER: Gallbladder is filled with gallstones. There is mild wall thickening up to 4 mm. No gross pericholecystic fluid collection present. There was a positive sonographic Garcia sign. COMMON BILE DUCT: Normal in caliber measuring 0.7 cm in diameter. RIGHT KIDNEY: No hydronephrosis. No renal calculi. The kidney measures 11.6 cm in maximum dimension. There is a mildly complex cyst lower pole cyst measuring 1.9 x 1.5 x 2.4 cm, with layering internal specular debris suggestive of proteinaceous or hemorrhagic fluid. No definite solid component or vascular flow on color Doppler imaging. Findings consistent with a Bosniak 2 type cyst. FREE FLUID: None. US/US abdomen limited IMPRESSION: 1. Gallbladder filled with gallstones, with mild gallbladder wall thickening and positive sonographic Garcia's sign. Findings are suspicious for acute cholecystitis. 2. Mild hepatomegaly with diffusely increased echogenicity suggestive of steatosis. No suspicious focal hepatic lesion. 3. No definite sonographic abnormality of the visualized pancreas. 4. Mildly complex lower pole right renal cyst as detailed, consistent with a proteinaceous or hemorrhagic cyst. Electronically signed by: Elijah Nicole MD 12/10/2024 09:04 AM EDT Discharge Plan Discharge Clinical Impression: Choledocholithiasis with acute cholecystitis Patient Disposition: Admitted As Inpatient Print Language: Welsh
--- NOTE | 2024-12-10 07:12 | PC.NURSE ---
Addendum entered by Emilia Owens RN 12/10/24 07:13: Patient is a 69 year old Georgian speaking male patient of Dr. Lester. He has a past medical history of gout, rosacea, GERD, benign neoplasm of the cerebellum, sinusitis, and hypertension who presents with abdominal pain which has since resolved. Patient was feeling abominal fullnes - ? constipation. Lungs clear bilat. Respirations even and non-labored. Abdomen soft, sl distended, non-tender with positive bowel sounds. Positive pedal pulses with no edema noted. Original Note: Medical History Tubular adenoma Gout Other obstructive and reflux uropathy Benign prostatic hyperplasia with lower urinary tract symptoms Rosacea GERD (gastroesophageal reflux disease) Benign neoplasm of cerebellum Sinusitis HTN (hypertension)
[2024-12-10 07:49] LABS: Magnesium 2.1 mg/dL (1.6-2.6)
--- NOTE | 2024-12-10 08:17 | MHC.EDTECH ---
Labs delayed due to US Tech doing bedside ultrasound RN aware
[2024-12-10 08:50] LABS: Acetaminophen LAB < 3 mcg/mL (<30)
[2024-12-10 09:11] LABS: HBS Num1 0.00 mIU/mL (0-7.99); HBc Num1 0.06 S/CO (0.00-0.79); HBsAGNum1 0.38 S/CO (0.00-0.99); Hepatitis A Antibody IgM 0.23 Index (0-0.79); Hepatitis B Surface Antigen Negative (Negative); ~HepC Num1 0.13 S/CO (0.00-0.79); ~Hepatitis A Antibody IgM Nonreactive (Nonreactive); ~Hepatitis B Surface Antibody NONREACTIVE (Nonreactive); ~Hepatitis C Antibody Nonreactive (Nonreactive)
[2024-12-10] MEDS: metroNIDAZOLE/NS 500 MG/100 ML PIGGYBACK 100 MG IV ×2 (09:59→18:24)
--- NOTE | 2024-12-10 10:23 | PM.CNGS ---
History of Present Illness Consult details Consult date: 12/10/24 <JUSTIN Eng Last Filed: 12/10/24 11:42> Requesting physician: Pranav You <JUSTIN Eng Last Filed: 12/10/24 11:42> Narrative: 69 year old male with PMH significant for BPH, HTN who presented to the ED from home with complaints of abdominal pain. He developed RUQ abd pain on Saturday. The pain was associated with generalized weakness, anorexia, and nausea/vomiting. He was found to be jaundiced in the ED. Work up in the ED included CBC, BMP, LFTs and he was found to have significant hyperbilirubinemia and transaminitis. ABD US showed gallstones, mild gallbladder wall thickening and dilated CBD duct. He denies prior similar episodes. He denies fevers, chills, diarrhea. He denies prior abd surgery. <Tiffanie Clancy PA-C Last Filed: 12/10/24 11:42> Review of Systems Constitutional: Constitutional: Denies chills and Denies fever(s) <JUSTIN Eng Last Filed: 12/10/24 11:42> ENT: Denies dizziness <JUSTIN Eng Last Filed: 12/10/24 11:42> Cardiovascular: Cardiovascular: Denies chest pain, Denies palpitations and Denies dyspnea <JUSTIN Eng Last Filed: 12/10/24 11:42> Respiratory: Respiratory: Denies dyspnea <JUSTIN Eng Last Filed: 12/10/24 11:42> Gastrointestinal: Gastrointestinal: Reports as per HPI <JUSTIN Eng Last Filed: 12/10/24 11:42> Integumentary/Breasts: Skin/Breast: Denies rash <JUSTIN Eng Last Filed: 12/10/24 11:42> Neurologic: Denies dizziness <JUSTIN Eng Last Filed: 12/10/24 11:42> Endocrine: Endocrine: Denies palpitations <JUSTIN Eng Last Filed: 12/10/24 11:42> [facility] Past Medical History Medical History: Medical History Tubular adenoma Gout Other obstructive and reflux uropathy Benign prostatic hyperplasia with lower urinary tract symptoms Rosacea GERD (gastroesophageal reflux disease) Benign neoplasm of cerebellum Sinusitis HTN (hypertension) <Tiffanie Clancy PA-C - Last Filed: 12/10/24 11:42> Surgical History Surgical History: Surgical History Hx of colonoscopy History of esophagogastroduodenoscopy (EGD) History of surgery History of brain surgery <JUSTIN Eng Last Filed: 12/10/24 11:42> Social History Social History: Social History Household Members: Spouse and Children Housing: House Alcohol intake: never Patient Tobacco Use Status: Never used Tobacco Smoked in Last 30 Days: No Second Hand Smoke Exposure: No Use of substances other than those prescribed or required for medical reasons: No Advance Directives: No Advance Directives Information Provided: Yes Do you have a plan to hurt others: No Plan service: Yes (not in [facility]) Current occupational status: 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[place] Current occupational exposures/hazards: No <Tiffanie Clancy PA-C - Last Filed: 12/10/24 11:42> Meds Allergies/Adverse reactions: Allergies Allergy/AdvReac Type Severity Reaction Status Date / Time Penicillins (PENICILLINS) Allergy Intermediate RASH Verified 12/10/24 05:08 <JUSTIN Eng Last Filed: 12/10/24 11:42> Active Medications: Current Medications Metronidazole (Flagyl) 500 mg in 100 mls @ 100 mls/hr IV ONCE ONE Stop: 12/10/24 10:41 Last Admin: 12/10/24 09:59 Dose: 100 mls/hr <JUSTIN Eng Last Filed: 12/10/24 11:42> Home medications: Home Medications ?Medication ?Instructions ?Recorded ?Confirmed ?Last Taken ?Type aspirin 81 mg tablet,delayed 81 mg PO DAILY 03/23/20 11/04/24 09/12/20 History release loratadine 10 mg tablet 10 mg PO DAILY 03/23/20 11/04/24 Unknown History omeprazole 20 mg capsule,delayed 20 mg PO DAILY 03/23/20 11/04/24 09/19/20 History release triamcinolone acetonide 0.1 % topical 09/01/20 11/04/24 Unknown History topical ointment cholecalciferol (vitamin D3) 50 50 mcg PO DAILY 09/22/20 11/04/24 Unknown History mcg (2,000 unit) capsule terbinafine HCl 250 mg tablet 250 mg PO DAILY 09/22/20 11/04/24 Unknown History trazodone 50 mg tablet 50 mg PO BEDTIME 09/22/20 11/04/24 Unknown History doxepin 10 mg capsule 10 mg PO BEDTIME 07/07/21 11/04/24 Unknown History carbamide peroxide 6.5 % ear drops 0 drp otic (ears) 07/13/21 11/04/24 Unknown History (Ear Drops (carbamide peroxide)) melatonin 5 mg tablet 5 mg PO BEDTIME 07/06/22 11/04/24 Unknown History levothyroxine 50 mcg tablet 50 mcg PO DAILY 11/05/23 11/04/24 Unknown History cyclobenzaprine 5 mg tablet 5 mg PO BEDTIME 12/10/24 Unknown History docusate sodium 100 mg capsule 100 mg PO Q12H 12/10/24 Unknown History ibuprofen 600 mg tablet 600 mg PO TID 12/10/24 Unknown History lisinopril 10 mg tablet 10 mg PO QAM 12/10/24 Unknown History mirtazapine 7.5 mg tablet 7.5 mg PO BEDTIME 12/10/24 Unknown History omega-3 acid ethyl esters 1 gram 1 cap PO BID 12/10/24 Unknown History capsule (Lovaza) rosuvastatin 40 mg tablet 40 mg PO QAM 12/10/24 Unknown History <Tiffanie Clancy PA-C - Last Filed: 12/10/24 11:42> Physical Exam Vital Signs: Vital Signs: Last Vital Signs Temp 98.6 F 12/10/24 05:07 Pulse 88 12/10/24 05:07 Resp 16 12/10/24 05:07 BP 107/72 12/10/24 05:07 Pulse Ox 96 12/10/24 05:07 O2 Del Method Room Air 12/10/24 05:07 BMI result Body Mass Index 26.1 <Tiffanie Marshalldeau DAVEMonicaLalo Last Filed: 12/10/24 11:42> Const: General: comfortable, no acute distress and alert; No ill appearing <Tiffanie KahnDAVE bainsMonica Monica Last Filed: 12/10/24 11:42> Orientation/consciousness: patient oriented x3 <Tiffanie Marshalldeau [facility] Last Filed: 12/10/24 11:42> Eyes: Sclerae: scleral abnormal (icteric) <Tiffanie Kahnbodeau [facility] Last Filed: 12/10/24 11:42> Resp: Effort & Inspection: normal respiratory effort <Tiffanie Kahnnara JUSTIN Anderson Last Filed: 12/10/24 11:42> GI: Inspection: Yes normal to inspection, No distended and No scar <Tiffanie Kahnbodeau PRISCILLA Monica Last Filed: 12/10/24 11:42> Palpation (GI): Soft to palpation, Tenderness to palpation present (GI) (mild RUQ tenderness) Garcia's sign negative and with no rebound tenderness, no guarding and not rigid <Tiffanie Kahnnara PRISCILLA Monica Last Filed: 12/10/24 11:42> Skin: General skin exam: jaundice <Tiffanie Kahnnara PRISCILLA Monica Last Filed: 12/10/24 11:42> Neuro: General: patient oriented x3 and moves all extremities <Tiffanie Kahnnara [facility] Last Filed: 12/10/24 11:42> Results Labs Result diagrams: 12/10/24 05:11 12/10/24 05:11 <Tiffanie Kahnnara PRISCILLA Monica Last Filed: 12/10/24 11:42> Labs: Abnormal lab results 12/10/24 Range/Units 05:11 RBC 4.10 L (4.60-5.80) X10*6/uL Hgb 12.7 L (14.0-18.0) g/dl Hct 37.3 L (42.0-52.0) % BUN 21 H (9-16) mg/dL Total Bilirubin 3.5 H (0.0-1.0) mg/dL Direct Bilirubin 2.2 H (0.0-0.5) mg/dL AST 309 H (5-37) U/L ALT 343 H (0-40) U/L Alkaline Phosphatase 257 H (39-117) U/L Lipase 264 H (8-78) U/L Short CBC 12/10/24 Range/Units 05:11 WBC 10.4 (4.8-10.8) X10*3/uL Hgb 12.7 L (14.0-18.0) g/dl Hct 37.3 L (42.0-52.0) % Plt Count 307 (160-400) X10*3/uL BMP 12/10/24 05:11 Sodium 142 Potassium 3.7 Chloride 106 Carbon Dioxide 24 BUN 21 H Creatinine 1.32 Calcium 9.5 Liver Function 12/10/24 Range/Units 05:11 Total Bilirubin 3.5 H (0.0-1.0) mg/dL Direct Bilirubin 2.2 H (0.0-0.5) mg/dL AST 309 H (5-37) U/L ALT 343 H (0-40) U/L Alkaline Phosphatase 257 H (39-117) U/L Albumin 4.5 (3.5-5.0) g/dL All other labs normal. <Tiffanie Clancy PA-C - Last Filed: 12/10/24 11:42> Imaging Abdominal ultrasound report/results: report reviewed and image reviewed <JUSTIN Eng Last Filed: 12/10/24 11:42> Additional studies: labs reviewed <JUSTIN Eng Last Filed: 12/10/24 11:42> Assessment and Plan (1) Choledocholithiasis with acute cholecystitis: Status: Acute <JUSTIN Eng Last Filed: 12/10/24 11:42> 69 year old male with PMH significant for BPH, HTN presenting with RUQ pain and nausea/vomiting found to be jaundiced with siginficantly elevated LFTs and gallstones/dilated CBD on ABD US this morning likely due to choledocolithaisis. Agree with MRCP to evaluate for CBD obstruction and GI consult if positive for CBD stone for ERCP. He is overall well appearing with a benign abd exam, mild RUQ tenderness. We did discuss eventual cholecystectomy once labs normalize to prevent recurrence and he is in agreement. Will continue to follow. Trend LFTs. <Tiffanie Clancy PA-C - Last Filed: 12/10/24 11:42> 69 year old male with PMH significant for BPH, HTN presenting with RUQ pain and nausea/vomiting found to be jaundiced with siginficantly elevated LFTs and gallstones/dilated CBD on ABD US this morning likely due to choledocolithaisis. Agree with MRCP to evaluate for CBD obstruction and GI consult if positive for CBD stone for ERCP. He is overall well appearing with a benign abd exam, mild RUQ tenderness. We did discuss eventual cholecystectomy once labs normalize to prevent recurrence and he is in agreement. Will continue to follow. Trend LFTs. Patient seen and examined and I agree with the above assessment and plan. Multiple gallstones noted within the gallbladder however common bile duct is quite dilated with marked elevation of LFTs suggestive of choledocholithiasis. Patient is awaiting MRCP. We will continue to monitor. <Pj Quevedo MD - Last Filed: 12/10/24 12:54> Procedures Date of Service Date of Service: 12/10/24 <Tiffanie Clancy PA-C - Last Filed: 12/10/24 11:42> 12/10/24 <Pj Quevedo MD - Last Filed: 12/10/24 12:54>
--- NOTE | 2024-12-10 10:30 | PC.NURSE ---
MRI screen tool completed utilizing a maltese interpretor.
--- NOTE | 2024-12-10 10:31 | PM.GICN ---
History of Present Illness Data of Consult Service Date: 12/10/24 Requesting physician: Ewelina Payan Primary Care Provider: Keiry Sloan NP [facility] Reason for consult: ? CBD stone This is a 69-year-old gentleman with past medical history of gout, GERD, hypertension, history of polyps, who presented to the hospital for 2 days of postprandial pain with nausea and vomiting. Patient reports the pain started suddenly 2 days prior to presentation after he had lunch. He was also seen by his primary care provider who advised him to go to the emergency room for further evaluation. In the ER he has been noted to have stable vitals. Labs with elevated LFTs with bilirubin of 3.5, AST 309, ALT 343, and alk-phos 257. He also has an elevated lipase of 264. Ultrasound abdomen shows cholelithiasis with possible cholecystitis. CBD is nondilated at 7 mm. Gastroenterology has been consulted for question of choledocholithiasis. Review of Systems Review of Systems: Yes all other systems are reviewed and are negative PMFSH Past Medical History Medical History Tubular adenoma Gout Other obstructive and reflux uropathy Benign prostatic hyperplasia with lower urinary tract symptoms Rosacea GERD (gastroesophageal reflux disease) Benign neoplasm of cerebellum Sinusitis HTN (hypertension) Surgical History Surgical History Hx of colonoscopy History of esophagogastroduodenoscopy (EGD) History of surgery History of brain surgery Social History Social History Household Members: Spouse and Children Housing: House Alcohol intake: never Patient Tobacco Use Status: Never used Tobacco Smoked in Last 30 Days: No Second Hand Smoke Exposure: No Use of substances other than those prescribed or required for medical reasons: No Advance Directives: No Advance Directives Information Provided: Yes Do you have a plan to hurt others: No Plan service: Yes (not in [place]) Current occupational status: retired Current occupation: worked in [employer] factory in [place] Current occupational exposures/hazards: No Meds Allergies Allergy/AdvReac Type Severity Reaction Status Date / Time Penicillins (PENICILLINS) Allergy Intermediate RASH Verified 12/10/24 05:08 Active Medications: Current Medications Metronidazole (Flagyl) 500 mg in 100 mls @ 100 mls/hr IV ONCE ONE Stop: 12/10/24 10:41 Last Admin: 12/10/24 09:59 Dose: 100 mls/hr Home Medications ?Medication ?Instructions ?Recorded ?Confirmed ?Last Taken ?Type aspirin 81 mg tablet,delayed 81 mg PO DAILY 03/23/20 12/10/24 12/09/24 History release loratadine 10 mg tablet 10 mg PO DAILY 03/23/20 12/10/24 12/09/24 History omeprazole 20 mg capsule,delayed 20 mg PO DAILY@0600 03/23/20 12/10/24 12/09/24 History release cholecalciferol (vitamin D3) 50 50 mcg PO DAILY 09/22/20 12/10/24 12/09/24 History mcg (2,000 unit) capsule levothyroxine 50 mcg tablet 50 mcg PO DAILY@0630 11/05/23 12/10/24 12/09/24 History betamethasone valerate 0.1 % 1 appl topical BID 12/10/24 12/10/24 12/09/24 History topical cream cyclobenzaprine 5 mg tablet 5 mg PO BEDTIME 12/10/24 12/10/24 12/09/24 History docusate sodium 100 mg capsule 100 mg PO Q12H 12/10/24 12/10/24 12/09/24 History ibuprofen 600 mg tablet 600 mg PO TID 12/10/24 12/10/24 12/09/24 History lisinopril 10 mg tablet 10 mg PO QAM 12/10/24 12/10/24 12/09/24 History mirtazapine 7.5 mg tablet 7.5 mg PO BEDTIME 12/10/24 12/10/24 12/09/24 History omega-3 acid ethyl esters 1 gram 1 cap PO BID 12/10/24 12/10/24 12/09/24 History capsule (Lovaza) rosuvastatin 40 mg tablet 40 mg PO QAM 12/10/24 12/10/24 12/09/24 History Physical Exam Exam: Exam: Elderly gentleman No acute distress Anicteric Abdomen soft, tender in epigastrium and right upper quadrant, nondistended No lower extremity edema Vital Signs: Vital Signs: Last Vital Signs Temp 98.6 F 12/10/24 05:07 Pulse 88 12/10/24 05:07 Resp 16 12/10/24 05:07 BP 107/72 12/10/24 05:07 Pulse Ox 96 12/10/24 05:07 O2 Del Method Room Air 12/10/24 05:07 BMI result Body Mass Index 26.1 Results Labs 12/10/24 05:11 12/10/24 05:11 Labs: Short CBC 12/10/24 Range/Units 05:11 WBC 10.4 (4.8-10.8) X10*3/uL Hgb 12.7 L (14.0-18.0) g/dl Hct 37.3 L (42.0-52.0) % Plt Count 307 (160-400) X10*3/uL BMP 12/10/24 05:11 Sodium 142 Potassium 3.7 Chloride 106 Carbon Dioxide 24 BUN 21 H Creatinine 1.32 Calcium 9.5 Liver Function 12/10/24 Range/Units 05:11 Total Bilirubin 3.5 H (0.0-1.0) mg/dL Direct Bilirubin 2.2 H (0.0-0.5) mg/dL AST 309 H (5-37) U/L ALT 343 H (0-40) U/L Alkaline Phosphatase 257 H (39-117) U/L Albumin 4.5 (3.5-5.0) g/dL Assessment and Plan (1) Elevated LFTs: Status: Acute (2) Symptomatic cholelithiasis: Status: Acute (3) Acute pancreatitis: Status: Acute Plan Based on age, elevated LFTs, lipase and ultrasound findings as at least strong probability of having CBD stone. However, surprisingly CBD is nondilated. Plan: -please keep NPO -MRCP -surgical consult for evaluation for cholecystitis -serial abdominal exams -indication for ERCP contingent on results of the MRI Thank you for allowing me to participate in his care. Please do not hesitate to reach out for any questions or concerns. Procedures Date of Service Date of Service: 12/10/24
--- NOTE | 2024-12-10 13:05 | PHA.MEDREC ---
Addendum entered by Jose Xavier, PharmD 12/10/24 14:34: MED REC CHECKED BY [facility] Original Note: Pharmacy Consult ? Medication Reconciliation Pharmacy has completed the medication reconciliation. Spoke to patient through special crimes investigator service to confirm med list. Patient was able to confirm most of his medications. Patient states he is no longer taking Bisacodyl 5 mg , Doxepin 10 mg, Lidocaine patch, Melatonin 5 mg, Mirilax powder, Terbinafine 250 mg, Trazodone 50 mg, and Triamcinolone 0.1 cream. Utilized list from [facility] to confirm med list. Patient states he last had his medications yesterday.
--- NOTE | 2024-12-10 14:38 | PC.NURSE ---
Pt to MRI w/ transport
--- NOTE | 2024-12-10 15:23 | PM.IMHP ---
History of Present Illness Date of Service: 12/10/24 <DAVE Wisdom Last Filed: 12/10/24 16:26> Attending physician on admission: Glendy Weaver <DAVE Wisdom Last Filed: 12/10/24 16:26> Chief Complaint: N/V/abdominal pain <DAVE Wisdom Last Filed: 12/10/24 16:26> This is a 69-year-old Maori-speaking male with a history of BPH, hypertension, hypothyroidism who presents to the emergency department with 2 day history of abdominal pain, nausea, vomiting. History was obtained with the assistance of a paraprofessional interpreter. Pain is in the right upper quadrant as well as left lower quadrant. Patient states he was initially seen at the outpatient clinic on Saturday due to his symptoms and was prescribed ibuprofen for the pain. His symptoms persisted which prompted him to come to the emergency room today. LFTs were elevated in obstructive pattern and lipase of 264, abdominal ultrasound showed gallbladder filled with stones with mild gallbladder wall thickening and findings suggestive for acute cholecystitis. MRCP was obtained which showed cholelithiasis, acute cholecystitis as well as choledocholithiasis. Patient also reports constipation over the past few days. He will be admitted for further management. <DAVE Wisdom Last Filed: 12/10/24 16:26> Review of Systems Review of Systems: Yes all other systems are reviewed and are negative <DAVE Wisdom Last Filed: 12/10/24 16:26> Constitutional: Constitutional: Denies chills and Denies fever(s) <DAVE Wisdom Last Filed: 12/10/24 16:26> Cardiovascular: Cardiovascular: Denies chest pain, Denies palpitations and Denies dyspnea <DAVE Wisdom Last Filed: 12/10/24 16:26> Respiratory: Respiratory: Denies cough and Denies dyspnea <DAVE Wisdom Last Filed: 12/10/24 16:26> Gastrointestinal: Gastrointestinal: Reports abdominal pain, Reports constipation, Denies diarrhea, Reports nausea and Reports vomiting <DAVE Wisdom Last Filed: 12/10/24 16:26> Endocrine: Endocrine: Denies palpitations <DAVE Wisdom - Last Filed: 12/10/24 16:26> [facility] Medical History: Medical History Tubular adenoma Gout Other obstructive and reflux uropathy Benign prostatic hyperplasia with lower urinary tract symptoms Rosacea GERD (gastroesophageal reflux disease) Benign neoplasm of cerebellum Sinusitis HTN (hypertension) <DAVE Wisdom - Last Filed: 12/10/24 16:26> Surgical History: Surgical History Hx of colonoscopy History of esophagogastroduodenoscopy (EGD) History of surgery History of brain surgery <DAVE Wisdom - Last Filed: 12/10/24 16:26> Social History: Social History Household Members: Spouse and Children Housing: House Alcohol intake: never Patient Tobacco Use Status: Never used Tobacco Smoked in Last 30 Days: No Second Hand Smoke Exposure: No Use of substances other than those prescribed or required for medical reasons: No Advance Directives: No Advance Directives Information Provided: Yes Do you have a plan to hurt others: No Plan service: Yes (not in [facility]) Current occupational status: retired 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[place] Current occupational exposures/hazards: No <DAVE Wisdom - Last Filed: 12/10/24 16:26> Meds Allergies/Adverse reactions: Allergies Allergy/AdvReac Type Severity Reaction Status Date / Time Penicillins (PENICILLINS) Allergy Intermediate RASH Verified 12/10/24 05:08 <DAVE Wisdom - Last Filed: 12/10/24 16:26> Home medications: Home Medications ?Medication ?Instructions ?Recorded ?Confirmed ?Last Taken ?Type aspirin 81 mg tablet,delayed 81 mg PO DAILY 03/23/20 12/10/24 12/09/24 History release loratadine 10 mg tablet 10 mg PO DAILY 03/23/20 12/10/24 12/09/24 History omeprazole 20 mg capsule,delayed 20 mg PO DAILY@0600 1212/10/24 12/09/24 History release cholecalciferol (vitamin D3) 50 50 mcg PO DAILY 09/22/20 12/10/24 12/09/24 History mcg (2,000 unit) capsule levothyroxine 50 mcg tablet 50 mcg PO DAILY@0630 11/05/23 12/10/24 12/09/24 History betamethasone valerate 0.1 % 1 appl topical BID 12/10/24 12/10/24 12/09/24 History topical cream cyclobenzaprine 5 mg tablet 5 mg PO BEDTIME 12/10/24 12/10/24 12/09/24 History docusate sodium 100 mg capsule 100 mg PO Q12H 12/10/24 12/10/24 12/09/24 History ibuprofen 600 mg tablet 600 mg PO TID PRN Pain 12/10/24 12/10/24 12/09/24 History lisinopril 10 mg tablet 10 mg PO QAM 12/10/24 12/10/24 12/09/24 History mirtazapine 7.5 mg tablet 7.5 mg PO BEDTIME 12/10/24 12/10/24 12/09/24 History omega-3 acid ethyl esters 1 gram 1 cap PO BID 12/10/24 12/10/24 12/09/24 History capsule (Lovaza) rosuvastatin 40 mg tablet 40 mg PO QAM 12/10/24 12/10/24 12/09/24 History <DAVE Wisdom - Last Filed: 12/10/24 16:26> Physical Exam Vital Signs and Narrative: Vital Signs: Last Vital Signs Temp 98.6 F 12/10/24 05:07 Pulse 88 12/10/24 05:07 Resp 16 12/10/24 05:07 BP 107/72 12/10/24 05:07 Pulse Ox 96 12/10/24 05:07 O2 Del Method Room Air 12/10/24 05:07 BMI result Body Mass Index 26.1 <DAVE Wisdom - Last Filed: 12/10/24 16:26> Const: General: cooperative, comfortable, alert and awake <DAVE Wisdom - Last Filed: 12/10/24 16:26> Nutritional Appearance: average body habitus <DAVE Wisdom - Last Filed: 12/10/24 16:26> Orientation/consciousness: patient oriented x3 <DAVE Wisdom - Last Filed: 12/10/24 16:26> Resp: Effort & Inspection: normal respiratory effort, able to speak in complete sentences, no respiratory distress and no use of accessory muscles <DAVE Wisdom - Last Filed: 12/10/24 16:26> Cardio: Rate: regular rate <DAVE Wisdom - Last Filed: 12/10/24 16:26> GI: Other: TTP RUQ, LLQ; no guarding or rebound <DAVE Wisdom - Last Filed: 12/10/24 16:26> Inspection: No distended <DAVE Wisdom - Last Filed: 12/10/24 16:26> Palpation (GI): Soft to palpation <DAVE Wisdom - Last Filed: 12/10/24 16:26> Neuro: General: patient oriented x3, moves all extremities and CN's II-XI intact bilaterally <DAVE Wisdom - Last Filed: 12/10/24 16:26> Results Labs CBC and Chem 7: 12/10/24 05:11 12/10/24 05:11 <DAVE Wisdom - Last Filed: 12/10/24 16:26> Labs: Laboratory Results - last 24 hr 12/10/24 12/10/24 05:11 08:26 MCV 91.0 MCH 31.0 MCHC 34.0 RDW 12.0 Plt Count 307 MPV 9.4 Immature Gran % (Auto) 0.2 Neut % (Auto) 65.5 Lymph % (Auto) 24.8 Dawes % (Auto) 8.1 Eos % (Auto) 1.0 Baso % (Auto) 0.4 Lymph # (Auto) 2.6 Dawes # (Auto) 0.8 Eos # (Auto) 0.1 Baso # (Auto) 0.0 Abs Immat Gran (auto) 0.02 Absolute Neuts (auto) 6.8 Absolute Nucleated RBC 0.000 Nucleated RBC % (auto) 0.0 Anion Gap 16 Estim Creat Clear Calc 49.6 Estimated GFR 53 Random Glucose 102 Calcium 9.5 Magnesium 2.1 Total Bilirubin 3.5 H Direct Bilirubin 2.2 H AST 309 H ALT 343 H Alkaline Phosphatase 257 H Total Protein 7.7 Albumin 4.5 Lipase 264 H Acetaminophen < 3 Ethyl Alcohol < 10 Hepatitis A IgM Ab Nonreactive Hep Bs Antigen Negative Hep Bs Antibody NONREACTIVE Hep B Core Total Ab Nonreactive Hepatitis C Ab (EIA) Nonreactive <DAVE Wisdom - Last Filed: 12/10/24 16:26> Imaging Radiologist's Impressions: Impressions Abdomen Ultrasound 12/10/24 08:15 IMPRESSION: 1. Gallbladder filled with gallstones, with mild gallbladder wall thickening and positive sonographic Garcia's sign. Findings are suspicious for acute cholecystitis. 2. Mild hepatomegaly with diffusely increased echogenicity suggestive of steatosis. No suspicious focal hepatic lesion. 3. No definite sonographic abnormality of the visualized pancreas. 4. Mildly complex lower pole right renal cyst as detailed, consistent with a proteinaceous or hemorrhagic cyst. Electronically signed by: Elijah Nicole MD 12/10/2024 09:04 AM EDT RP <DAVE Wisdom - Last Filed: 12/10/24 16:26> Assessment and Plan (1) Choledocholithiasis with acute cholecystitis: Status: Acute <DAVE Wisdom - Last Filed: 12/10/24 16:26> This is a 69 year old male with history of HTN, HLD, BPH, benign neoplasm of cerebellum who presents with weakness, n/v and constipation found to have elevated LFTS and concern for acute cholecystitis Acute gallstone pancreatitis /cholelithiasis LFTs elevated in obstructive pattern MRCP +for multiple CBD stones GI following, likely plan for ERCP in am general surgery following, tentative plan for lap hugo on Saturday IV antibiotics, ceftriaxone & flagyl clears now, then NPO at midnight Trend LFTs hold aspirin for planned procedure constipation moderate colonic stool burden on kub bowel regimen Hypothyroidism Continue Synthroid Hypertension Blood pressure low Hold lisinopril Hyperlipidemia Hold statin due to elevated LFTs gerd continue omeprazole Incidental finding of Right kidney cyst Outpatient renal protocol CT or MRI recommended dvt ppx - mechanical devices code status - full code <DAVE Wisdom - Last Filed: 12/10/24 16:26> Quality Stroke Does the patient have a stroke diagnosis?: No <Glendy Weaver MD - Last Filed: 12/10/24 16:17> VTE Prior VTE?: No <Glendy Weaver MD - Last Filed: 12/10/24 16:17> VTE Risk Level:: Medical - moderate - high <DAVE Wisdom - Last Filed: 12/10/24 16:26> VTE Device Contraindication: N/A - Device Ordered <DAVE Wisdom - Last Filed: 12/10/24 16:26> VTE Drug Contraindication: Treatment Not Indicated <DAVE Wisdom - Last Filed: 12/10/24 16:26>
[2024-12-10 15:48] VITALS: BP 136/90; PULSE 65; RESP 16; TEMP 37.2; O2SAT 96
[2024-12-10] MEDS: Lactated Ringers 1,000 ML 125 ML IVCONT (17:19)
[2024-12-10 18:08] VITALS: BMI 26.1
[2024-12-10 18:12] VITALS: BP 164/84; PULSE 61; RESP 18; TEMP 37.1; O2SAT 96
--- NOTE | 2024-12-10 18:39 | PC.NURSE ---
In person mattress finisherTerry, utilized for admission, orientation to room, fall risk precautions and diet order.
[2024-12-10 19:38] VITALS: BP 140/80; PULSE 63; RESP 18; TEMP 37.7; O2SAT 94
[2024-12-10] MEDS: 0.9 % Sodium Chloride Flush 3 ML SYRINGE IVFLUSH (21:16)
--- NOTE | 2024-12-10 22:45 | PC.NURSE ---
pt home medications sent to pharmacy @1716
--- NOTE | 2024-12-10 23:13 | MHC.SHP ---
Pre-Procedural Eval Section A - 24 Hr Update-Section A only Date of Service: 12/10/24 The patient is an INPATIENT: Yes Changes since office visit: No Cold of Flu in the past 2 weeks, No New Medical Problems, No Changes in Medication and No Patient answered all questions The patient has been examined within 24 hours of the surgical procedure. The History & Physical has been completed within 30 days and I have reviewed it.: Yes Section B - Complete if H&P > 30 days Chief Complaint: Abdominal pain Allergies: Allergies Allergy/AdvReac Type Severity Reaction Status Date / Time Penicillins (PENICILLINS) Allergy Intermediate RASH Verified 12/10/24 05:08 Plan I have reviewed the history and physical and performed a pertinent physical examination on my patient. No changes have occurred unless specified. Time Spent With Patient Time: Total time managing care of this patient today ____ minutes.
[2024-12-11] VITALS (13 sets, daily range): BP systolic 130–174; BP diastolic 69–96; PULSE 50–71; RESP 17–20; TEMP 36.3–37.3; O2SAT 94–96
[2024-12-11] MEDS: metroNIDAZOLE/NS 500 MG/100 ML PIGGYBACK 100 MG IV ×3 (01:33→17:40)
[2024-12-11] MEDS: Lactated Ringers 1,000 ML 125 ML IVCONT (01:33)
[2024-12-11 06:46] LABS: Alanine Aminotransferase 198 U/L (0-40); Albumin Level 3.8 g/dL (3.5-5.0); Alkaline Phosphatase 200 U/L (39-117); Anion Gap 12 (12-20); Aspartate Amino Transferase 110 U/L (5-37); Blood Urea Nitrogen 19 mg/dL (9-16); Calcium 8.7 mg/dL (8.4-10.2); Carbon Dioxide 25 mmol/L (22-29); Chloride 110 mmol/L (96-108); Creatinine Clr Calc Pharmacy 67.5; Estimated Glomerular Filt Rate > 60; Lipase 43 U/L (8-78); Potassium 3.7 mmol/L (3.3-5.1); Sodium 143 mmol/L (135-145); Total Protein 6.5 g/dL (6.5-8.0)
[2024-12-11 07:00] LABS: INTERNATIONAL NORM RATIO 1.2 (0.9-1.1); Prothrombin Time 13.5 SEC (10.9-12.4)
[2024-12-11 07:02] LABS: Hematocrit 32.6 % (42.0-52.0); Hemoglobin 11.3 g/dl (14.0-18.0); Mean Corpuscular HGB Conc 34.7 g/dl (31.0-36.0); Mean Corpuscular Hemoglobin 32.0 pg (27.0-33.0); Mean Corpuscular Volume 92.4 fL (80.0-98.0); NRBC Abs Auto 0.000 X10*3/uL (0.0-0.012); NRBC Pct Auto 0.0 /100WBC (0.0-0.2); Platelet Count 268 X10*3/uL (160-400); Red Blood Count 3.53 X10*6/uL (4.60-5.80); White Blood Count 8.6 X10*3/uL (4.8-10.8)
[2024-12-11] MEDS: Tolterodine Tartrate LA 2 MG CAP.ER.24H PO (08:08)
[2024-12-11] MEDS: 0.9 % Sodium Chloride Flush 3 ML SYRINGE IVFLUSH ×3 (08:09→21:21)
--- NOTE | 2024-12-11 08:13 | P.PNGS_ITS ---
Subjective Subjective Date of Service: 12/11/24 Interval history: Denies pain this am. Awaiting ERCP. Physical Exam 2 Vital Signs: Vital Signs: Last Vital Signs Temp 99.1 F 12/11/24 07:40 Pulse 65 12/11/24 07:40 Resp 18 12/11/24 07:40 BP 130/80 12/11/24 07:40 Pulse Ox 94 12/11/24 07:40 O2 Del Method Room Air 12/11/24 07:40 BMI result Body Mass Index 26.1 Const: General: comfortable, no acute distress and alert O rientation/consciousness: patient oriented x3 Resp: Effort & Inspection: normal respiratory effort GI: Inspection: Yes normal to inspection Palpation (GI): Soft to palpation, nontender and no guarding Skin: General skin exam: no rashes or lesions noted and jaundice Neuro: General: patient oriented x3 and moves all extremities Objective Data Active Medications Acetaminophen (Acetaminophen 325 Mg Tablet) 650 mg PO Q6H PRN PRN Reason: Pain, Mild 1-3,fever,headache Calcium Carbonate (Calcium Carbonate 750 Mg Tab.Chew) 750 mg PO Q4H PRN PRN Reason: Heartburn Ceftriaxone Sodium (Ceftriaxone Sodium 1 Gm Vial) 1 gm IVPUSH Q24H [facility] Cyclobenzaprine HCl (Cyclobenzaprine Hcl 5 Mg Tablet) 5 mg PO BEDTIME [facility] Last Admin: 12/10/24 21:15 Dose: 5 mg Documented By: KELLY Docusate Sodium (Docusate Sodium 100 Mg Capsule) 100 mg PO BID [facility] Last Admin: 12/10/24 21:15 Dose: 100 mg Documented By: KELLY Metronidazole (Flagyl) 500 mg in 100 mls @ 100 mls/hr IV Q8H [facility] Last Infusion: 12/11/24 02:35 Dose: Infused Documented By: KELLY Lactated Ringer's (Lr) 1,000 mls @ 125 mls/hr IVCONT .Q8H [facility] Last Infusion: 12/11/24 02:35 Dose: 125 mls/hr Documented By: KELLY Levothyroxine Sodium (Levothyroxine Sodium 50 Mcg Tablet) 50 mcg PO DAILY@0630 [facility] Last Admin: 12/11/24 06:01 Dose: 50 mcg Documented By: KELLY Loratadine (Loratadine 10 Mg Tablet) 10 mg PO DAILY [facility] Melatonin (Melatonin 3 Mg Tablet) 6 mg PO BEDTIME PRN PRN Reason: Insomnia Mirtazapine (Mirtazapine 7.5 Mg Tablet) 7.5 mg PO BEDTIME [facility] Last Admin: 12/10/24 21:16 Dose: 7.5 mg Documented By: KELLY Morphine Sulfate (Morphine Sulfate 2 Mg/Ml Cartridge) 2 mg IVPUSH Q4H PRN; Protocol PRN Reason: Pain, Severe (Pain Scale 7-10) Omeprazole (Omeprazole 20 Mg Capsule.Dr) 20 mg PO DAILY@0630 [facility] Last Admin: 12/11/24 06:01 Dose: 20 mg Documented By: KELLY Ondansetron HCl (Ondansetron Hcl 4 Mg/2 Ml Vial) 4 mg IVPUSH Q8H PRN PRN Reason: Nausea and Vomiting Polyethylene Glycol (Polyethylene Glycol 3350 17 Gm Powd.Pack) 17 gm PO DAILY [facility] Senna (Sennosides 8.6 Mg Tablet) 8.6 mg PO BEDTIME [facility] Last Admin: 12/10/24 21:15 Dose: 8.6 mg Documented By: KELLY Sodium Chloride (0.9 % Sodium Chloride Flush 3 Ml Syringe) 3 ml IVFLUSH QSHIFT [facility] Last Admin: 12/10/24 21:16 Dose: 3 ml Documented By: KELLY Tolterodine Tartrate (Tolterodine Tartrate La 2 Mg Cap.Er.24h) 2 mg PO DAILY [facility] Triamcinolone Acetonide (Triamcinolone Acet 0.1 % Cream 15 Gm Tube) 1 appl TOPICAL BID [facility] Last Admin: 12/10/24 21:37 Dose: Not Given Documented By: KELLY Non-Admin Reason: Med Not Available Vitamin D (Cholecalciferol (Vitamin D3) 25 Mcg Tablet) 50 mcg PO DAILY [facility] Labs 12/11/24 05:58 12/11/24 05:58 Labs: Laboratory Results - last 24 hr 12/10/24 12/11/24 08:26 05:58 MCV 92.4 MCH 32.0 MCHC 34.7 RDW 11.9 Plt Count 268 MPV 9.9 Absolute Nucleated RBC 0.000 Nucleated RBC % (auto) 0.0 PT 13.5 H INR 1.2 H Anion Gap 12 Estim Creat Clear Calc 67.5 Estimated GFR > 60 Random Glucose 94 Calcium 8.7 D Total Bilirubin 1.2 H Direct Bilirubin 0.7 H AST 110 H ALT 198 H Alkaline Phosphatase 200 H Total Protein 6.5 Albumin 3.8 Lipase 43 Acetaminophen < 3 Hepatitis A IgM Ab Nonreactive Hep Bs Antigen Negative Hep Bs Antibody NONREACTIVE Hep B Core Total Ab Nonreactive Hepatitis C Ab (EIA) Nonreactive Procedures Date of Service Date of Service: 12/11/24 Progress Note: A&P Assessment and plan (1) Choledocholithiasis: Status: Acute Plan MRCP yesterday shows multiple CBD filling defects. Scheduled to undergo ERCP today. Discussed proceeding with lap hugo, possible open during his stay to prevent recurrence when LFTs improved. Alternatively, if the ERCP shows filling of the GB and no evidence of acute cholecystitis and labs improve over the weekend and he is tolerating solid diet, he can be discharged and surgery can be scheduled electively. Time Spent With Patient Time: Total time managing care of this patient today ____ minutes. Quality Stroke Does the patient have a stroke diagnosis?: No VTE Prior VTE?: No VTE Risk Level:: Medical - moderate - high VTE Device Contraindication: N/A - Device Ordered VTE Drug Contraindication: Treatment Not Indicated
--- NOTE | 2024-12-11 09:54 | HO.ANESPROP2 ---
Documented by User: Larissa Ahumada NP 12/11/24 10:01 HPI - Anesthesia Eval Consult details Narrative: 69 yr old male for ERCP No recent illness No CP or SOB with walking PMFSH Active Problems Active Problems: All Active Problems (Updated 12/11/24 @ 08:15 by Tiffanie Clancy PA-C) Choledocholithiasis (Acute) Acute pancreatitis (Acute) Symptomatic cholelithiasis (Acute) Elevated LFTs (Acute) Choledocholithiasis with acute cholecystitis (Acute) Urinary incontinence, urge (Acute) Male stress incontinence (Acute) COVID-19 (Acute) Viral pneumonia (Acute) Acute respiratory failure with hypoxia (Acute) Transaminasemia (Acute) BPH w urinary obs/LUTS (Acute) Nocturia (Acute) Benign neoplasm of cerebellum (Acute) Past Medical History Medical History Tubular adenoma Gout Other obstructive and reflux uropathy Benign prostatic hyperplasia with lower urinary tract symptoms Rosacea GERD (gastroesophageal reflux disease) Benign neoplasm of cerebellum Sinusitis HTN (hypertension) Family History Family history of problems with anesthesia: No Surgical History Surgical History Hx of colonoscopy History of esophagogastroduodenoscopy (EGD) History of surgery History of brain surgery History of Problems with Anesthesia: No Social History Social History Household Members: None Housing: Other Housing Other:: rents room - possible recent loss of housing Do you presently have visiting nurse or other home services: No Alcohol intake: never Patient Tobacco Use Status: Never used Tobacco Second Hand Smoke Exposure: No service: Yes (not in [place]) Current occupational status: retired 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[place] Current occupational exposures/hazards: No Meds Allergies Allergy/AdvReac Type Severity Reaction Status Date / Time Penicillins (PENICILLINS) Allergy Intermediate RASH Verified 12/10/24 05:08 Active Medications: Current Medications Acetaminophen (Acetaminophen 325 Mg Tablet) 650 mg PO Q6H PRN PRN Reason: Pain, Mild 1-3,fever,headache Calcium Carbonate (Calcium Carbonate 750 Mg Tab.Chew) 750 mg PO Q4H PRN PRN Reason: Heartburn Ceftriaxone Sodium (Ceftriaxone Sodium 1 Gm Vial) 1 gm IVPUSH Q24H [facility] Cyclobenzaprine HCl (Cyclobenzaprine Hcl 5 Mg Tablet) 5 mg PO BEDTIME [facility] Last Admin: 12/10/24 21:15 Dose: 5 mg Docusate Sodium (Docusate Sodium 100 Mg Capsule) 100 mg PO BID [facility] Last Admin: 12/11/24 08:08 Dose: 100 mg Metronidazole (Flagyl) 500 mg in 100 mls @ 100 mls/hr IV Q8H [facility] Last Infusion: 12/11/24 02:35 Dose: Infused Lactated Ringer's (Lr) 1,000 mls @ 125 mls/hr IVCONT .Q8H [facility] Last Infusion: 12/11/24 02:35 Dose: 125 mls/hr Levothyroxine Sodium (Levothyroxine Sodium 50 Mcg Tablet) 50 mcg PO DAILY@629 [facility] Last Admin: 12/11/24 06:01 Dose: 50 mcg Loratadine (Loratadine 10 Mg Tablet) 10 mg PO DAILY [facility] Last Admin: 12/11/24 08:08 Dose: 10 mg Melatonin (Melatonin 3 Mg Tablet) 6 mg PO BEDTIME PRN PRN Reason: Insomnia Mirtazapine (Mirtazapine 7.5 Mg Tablet) 7.5 mg PO BEDTIME [facility] Last Admin: 12/10/24 21:16 Dose: 7.5 mg Morphine Sulfate (Morphine Sulfate 2 Mg/Ml Cartridge) 2 mg IVPUSH Q4H PRN; Protocol PRN Reason: Pain, Severe (Pain Scale 7-10) Omeprazole (Omeprazole 20 Mg Capsule.Dr) 20 mg PO DAILY@629 [facility] Last Admin: 12/11/24 06:01 Dose: 20 mg Ondansetron HCl (Ondansetron Hcl 4 Mg/2 Ml Vial) 4 mg IVPUSH Q8H PRN PRN Reason: Nausea and Vomiting Polyethylene Glycol (Polyethylene Glycol 3350 17 Gm Powd.Pack) 17 gm PO DAILY [facility] Senna (Sennosides 8.6 Mg Tablet) 8.6 mg PO BEDTIME [facility] Last Admin: 12/10/24 21:15 Dose: 8.6 mg Sodium Chloride (0.9 % Sodium Chloride Flush 3 Ml Syringe) 3 ml IVFLUSH QSHIFT [facility] Last Admin: 12/11/24 08:09 Dose: 3 ml Tolterodine Tartrate (Tolterodine Tartrate La 2 Mg Cap.Er.24h) 2 mg PO DAILY [facility] Last Admin: 12/11/24 08:08 Dose: 2 mg Triamcinolone Acetonide (Triamcinolone Acet 0.1 % Cream 15 Gm Tube) 1 appl TOPICAL BID [facility] Last Admin: 12/10/24 21:37 Dose: Not Given Vitamin D (Cholecalciferol (Vitamin D3) 25 Mcg Tablet) 50 mcg PO DAILY [facility] Last Admin: 12/11/24 08:08 Dose: 50 mcg Home Medications ?Medication ?Instructions ?Recorded ?Confirmed ?Last Taken ?Type aspirin 81 mg tablet,delayed 81 mg PO DAILY 03/23/20 12/10/24 12/09/24 History release loratadine 10 mg tablet 10 mg PO DAILY 03/23/20 12/10/24 12/09/24 History omeprazole 20 mg capsule,delayed 20 mg PO DAILY@0600 03/23/20 12/10/24 12/09/24 History release cholecalciferol (vitamin D3) 50 50 mcg PO DAILY 09/22/20 12/10/24 12/09/24 History mcg (2,000 unit) capsule levothyroxine 50 mcg tablet 50 mcg PO DAILY@0630 11/05/23 12/10/24 12/09/24 History betamethasone valerate 0.1 % 1 appl topical BID 12/10/24 12/10/24 12/09/24 History topical cream cyclobenzaprine 5 mg tablet 5 mg PO BEDTIME 12/10/24 12/10/24 12/09/24 History docusate sodium 100 mg capsule 100 mg PO Q12H 12/10/24 12/10/24 12/09/24 History ibuprofen 600 mg tablet 600 mg PO TID PRN Pain 12/10/24 12/10/24 12/09/24 History lisinopril 10 mg tablet 10 mg PO QAM 12/10/24 12/10/24 12/09/24 History mirtazapine 7.5 mg tablet 7.5 mg PO BEDTIME 12/10/24 12/10/24 12/09/24 History omega-3 acid ethyl esters 1 gram 1 cap PO BID 08/28/25 08/28/25 08/27/25 History capsule (Lovaza) rosuvastatin 40 mg tablet 40 mg PO QAM 12/10/24 12/10/24 12/09/24 History Exam Height,Weight and Vital Signs: Height 5 ft 8 in Weight 78 kg Last Vital Signs Temp 99.1 F 12/11/24 07:40 Pulse 65 12/11/24 07:40 Resp 18 12/11/24 07:40 BP 130/80 12/11/24 07:40 Pulse Ox 94 12/11/24 07:40 O2 Del Method Room Air 12/11/24 07:40 Pertinent Lab Results Pertinent Lab Results: Laboratory Tests 12/10/24 12/10/24 12/11/24 05:11 08: 05:58 WBC 10.4 8.6 RBC 4.10 L 3.53 L Hgb 12.7 L 11.3 L Hct 37.3 L 32.6 L MCV 91.0 92.4 MCH 31.0 32.0 MCHC 34.0 34.7 RDW 12.0 11.9 Plt Count 307 268 MPV 9.4 9.9 Immature Gran % (Auto) 0.2 Neut % (Auto) 65.5 Lymph % (Auto) 24.8 [place] % (Auto) 8.1 Eos % (Auto) 1.0 Baso % (Auto) 0.4 Lymph # (Auto) 2.6 [place] # (Auto) 0.8 Eos # (Auto) 0.1 Baso # (Auto) 0.0 Abs Immat Gran (auto) 0.02 Absolute Neuts (auto) 6.8 Absolute Nucleated RBC 0.000 0.000 Nucleated RBC % (auto) 0.0 0.0 PT 13.5 H INR 1.2 H Sodium 142 143 Potassium 3.7 3.7 Chloride 106 110 H Carbon Dioxide 24 25 Anion Gap 16 12 BUN 21 H 19 H Creatinine 1.32 0.97 Estim Creat Clear Calc 49.6 67.5 Estimated GFR 53 > 60 Random Glucose 102 94 Calcium 9.5 8.7 D Magnesium 2.1 Total Bilirubin 3.5 H 1.2 H Direct Bilirubin 2.2 H 0.7 H AST 309 H 110 H ALT 343 H 198 H Alkaline Phosphatase 257 H 200 H Total Protein 7.7 6.5 Albumin 4.5 3.8 Lipase 264 H 43 Acetaminophen < 3 Ethyl Alcohol < 10 Hepatitis A IgM Ab Nonreactive Hep Bs Antigen Negative Hep Bs Antibody NONREACTIVE Hep B Core Total Ab Nonreactive Hepatitis C Ab (EIA) Nonreactive Airway Mallampati Class: IV TM Dist: >3cm Neck ROM: Full Partial: Upper Heart: RRR Lungs: CTAB Assessment and Plan Final Anesthetic Review Family History of Problems with Anesthesia: No History of Problems with Anesthesia: No Documented by User: Gracie Mccormack MD 12/11/24 11:14 [facility] Past Medical History Medical History Tubular adenoma Gout Other obstructive and reflux uropathy Benign prostatic hyperplasia with lower urinary tract symptoms Rosacea GERD (gastroesophageal reflux disease) Benign neoplasm of cerebellum Sinusitis HTN (hypertension) Surgical History Surgical History Hx of colonoscopy History of esophagogastroduodenoscopy (EGD) History of surgery History of brain surgery Social History Social History Household Members: None Housing: Other Housing Other:: rents room - possible recent loss of housing Do you presently have visiting nurse or other home services: No Alcohol intake: never Patient Tobacco Use Status: Never used Tobacco Second Hand Smoke Exposure: No service: Yes (not [facility]) Current occupational status: retired 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[place] Current occupational exposures/hazards: No Meds Allergies Allergy/AdvReac Type Severity Reaction Status Date / Time Penicillins (PENICILLINS) Allergy Intermediate RASH Verified 12/10/24 05:08 Home Medications ?Medication ?Instructions ?Recorded ?Confirmed ?Last Taken ?Type aspirin 81 mg tablet,delayed 81 mg PO DAILY 03/23/20 12/10/24 12/09/24 History release loratadine 10 mg tablet 10 mg PO DAILY 03/23/20 12/10/24 12/09/24 History omeprazole 20 mg capsule,delayed 20 mg PO DAILY@0600 03/23/20 12/10/24 12/09/24 History release cholecalciferol (vitamin D3) 50 50 mcg PO DAILY 09/22/20 12/10/24 12/09/24 History mcg (2,000 unit) capsule levothyroxine 50 mcg tablet 50 mcg PO DAILY@0630 11/05/23 12/10/24 12/09/24 History betamethasone valerate 0.1 % 1 appl topical BID 12/10/24 12/10/24 12/09/24 History topical cream cyclobenzaprine 5 mg tablet 5 mg PO BEDTIME 12/10/24 12/10/24 12/09/24 History docusate sodium 100 mg capsule 100 mg PO Q12H 12/10/24 12/10/24 12/09/24 History ibuprofen 600 mg tablet 600 mg PO TID PRN Pain 12/10/24 12/10/24 12/09/24 History lisinopril 10 mg tablet 10 mg PO QAM 12/10/24 12/10/24 12/09/24 History mirtazapine 7.5 mg tablet 7.5 mg PO BEDTIME 12/10/24 12/10/24 12/09/24 History omega-3 acid ethyl esters 1 gram 1 cap PO BID 12/10/24 12/10/24 12/09/24 History capsule (Lovaza) rosuvastatin 40 mg tablet 40 mg PO QAM 12/10/24 12/10/24 12/09/24 History Exam Airway Mallampati Class: III Neck ROM: Limited Assessment and Plan Assessment Anesthesia Assessment: Anesthesia Plan Discussed and Chart Reviewed Final Anesthetic Review NPO: Yes ASA Class: III Final Preanesthetic Review: No Changes in Pt Med Stat, Meds/Allgs Chart Reviewed, Consent Obtained/Reviewed and Anes Risks/Benef Reviewed Patient Risk: Intermediate Procedure Risk: Intermediate Anesthetic Plan Anesthetic Plan: GA and Agree w/ Assess. and Plan Disposition: Standard PACU
--- NOTE | 2024-12-11 10:54 | PC.NURSE ---
Patient off unit for procedure.
[2024-12-11] MEDS: Lactated Ringers 1,000 ML 50 ML IVCONT (11:25)
--- NOTE | 2024-12-11 11:26 | P.PNIM_ITS ---
Subjective Subjective Date of Service: 12/11/24 Interval History: seen and examined this morning follow up for cholecystitis, choledocolithiasis history obtained with assistance of broadcast operations director no nausea or vomiting plan for ERCP today Review of Systems Review of Systems: Yes all other systems are reviewed and are negative Constitutional Constitutional: Denies chills and Denies fever(s) Cardiovascular Cardiovascular: Denies chest pain, Denies palpitations and Denies dyspnea Respiratory Respiratory: Denies cough and Denies dyspnea Endocrine Endocrine: Denies palpitations Physical Exam 2 Vital Signs: Vital Signs: Last Vital Signs Temp 97.5 F 12/11/24 10:57 Pulse 65 12/11/24 10:57 Resp 20 12/11/24 10:57 BP 174/86 H 12/11/24 10:57 Pulse Ox 95 12/11/24 10:57 O2 Del Method Room Air 12/11/24 10:57 BMI result Body Mass Index 26.1 Const: General: cooperative, comfortable, alert and awake Nutritional Appearance: average body habitus Orientation/consciousness: patient oriented x3 Resp: Effort & Inspection: normal respiratory effort, able to speak in complete sentences, no respiratory distress and no use of accessory muscles Cardio: Rate: regular rate GI: Other: TTP RUQ, LLQ; no guarding or rebound Inspection: No distended Palpation (GI): Soft to palpation Neuro: General: patient oriented x3, moves all extremities and CN's II-XI intact bilaterally Objective Data Active Medications Acetaminophen (Acetaminophen 325 Mg Tablet) 650 mg PO Q6H PRN PRN Reason: Pain, Mild 1-3,fever,headache Calcium Carbonate (Calcium Carbonate 750 Mg Tab.Chew) 750 mg PO Q4H PRN PRN Reason: Heartburn Ceftriaxone Sodium (Ceftriaxone Sodium 1 Gm Vial) 1 gm IVPUSH Q24H [facility] Last Admin: 12/11/24 10:30 Dose: 1 gm Documented By: SARIAH Cyclobenzaprine HCl (Cyclobenzaprine Hcl 5 Mg Tablet) 5 mg PO BEDTIME [facility] Last Admin: 12/10/24 21:15 Dose: 5 mg Documented By: KELLY Docusate Sodium (Docusate Sodium 100 Mg Capsule) 100 mg PO BID [facility] Last Admin: 12/11/24 08:08 Dose: 100 mg Documented By: SARIAH Fentanyl (Fentanyl Citrate/Pf 100 Mcg/2 Ml Vial) 25 mcg IVPUSH Q5M PRN PRN Reason: Pain, Moderate to Severe (Pain Scale 4-10) Stop: 12/11/24 17:14 Metronidazole (Flagyl) 500 mg in 100 mls @ 100 mls/hr IV Q8H [facility] Last Admin: 12/11/24 10:30 Dose: 100 mls/hr Documented By: SARIAH Lactated Ringer's (Lr) 1,000 mls @ 125 mls/hr IVCONT .Q8H [facility] Last Infusion: 12/11/24 02:35 Dose: 125 mls/hr Documented By: KELLY Lactated Ringer's (Lr) 1,000 mls @ 50 mls/hr IVCONT .Q20H [facility] Last Admin: 12/11/24 11:25 Dose: 50 mls/hr Documented By: KYRA Levothyroxine Sodium (Levothyroxine Sodium 50 Mcg Tablet) 50 mcg PO DAILY@629 [facility] Last Admin: 12/11/24 06:01 Dose: 50 mcg Documented By: KELLY Loratadine (Loratadine 10 Mg Tablet) 10 mg PO DAILY [facility] Last Admin: 12/11/24 08:08 Dose: 10 mg Documented By: SARIAH Comments: bar code label was damaged for scanning. Melatonin (Melatonin 3 Mg Tablet) 6 mg PO BEDTIME PRN PRN Reason: Insomnia Mirtazapine (Mirtazapine 7.5 Mg Tablet) 7.5 mg PO BEDTIME [facility] Last Admin: 12/10/24 21:16 Dose: 7.5 mg Documented By: KELLY Morphine Sulfate (Morphine Sulfate 2 Mg/Ml Cartridge) 2 mg IVPUSH Q4H PRN; Protocol PRN Reason: Pain, Severe (Pain Scale 7-10) Naloxone HCl (Naloxone Hcl 0.4 Mg/Ml Vial) 0.04 mg IVPUSH Q5M PRN PRN Reason: Excessive sedation or RR < 8 Omeprazole (Omeprazole 20 Mg Capsule.) 20 mg PO DAILY@629 [facility] Last Admin: 12/11/24 06:01 Dose: 20 mg Documented By: KELLY Ondansetron HCl (Ondansetron Hcl 4 Mg/2 Ml Vial) 4 mg IVPUSH Q8H PRN PRN Reason: Nausea and Vomiting Ondansetron HCl (Ondansetron Hcl 4 Mg/2 Ml Vial) 4 mg IVPUSH ONCE PRN PRN Reason: Nausea and Vomiting Stop: 12/11/24 17:14 Polyethylene Glycol (Polyethylene Glycol 3350 17 Gm Powd.Pack) 17 gm PO DAILY [facility] Senna (Sennosides 8.6 Mg Tablet) 8.6 mg PO BEDTIME [facility] Last Admin: 12/10/24 21:15 Dose: 8.6 mg Documented By: KELLY Sodium Chloride (0.9 % Sodium Chloride Flush 3 Ml Syringe) 3 ml IVFLUSH QSHIFT [facility] Last Admin: 12/11/24 08:09 Dose: 3 ml Documented By: SARIAH Tolterodine Tartrate (Tolterodine Tartrate La 2 Mg Cap.Er.24h) 2 mg PO DAILY [facility] Last Admin: 12/11/24 08:08 Dose: 2 mg Documented By: SARIAH Triamcinolone Acetonide (Triamcinolone Acet 0.1 % Cream 15 Gm Tube) 1 appl TOPICAL BID [facility] Last Admin: 12/10/24 21:37 Dose: Not Given Documented By: KELLY Non-Admin Reason: Med Not Available Vitamin D (Cholecalciferol (Vitamin D3) 25 Mcg Tablet) 50 mcg PO DAILY [facility] Last Admin: 12/11/24 08:08 Dose: 50 mcg Documented By: SARIAH Labs 12/11/24 05:58 12/11/24 05:58 Labs: Laboratory Results - last 24 hr 12/11/24 05:58 MCV 92.4 MCH 32.0 MCHC 34.7 RDW 11.9 Plt Count 268 MPV 9.9 Absolute Nucleated RBC 0.000 Nucleated RBC % (auto) 0.0 PT 13.5 H INR 1.2 H Anion Gap 12 Estim Creat Clear Calc 67.5 Estimated GFR > 60 Random Glucose 94 Calcium 8.7 D Total Bilirubin 1.2 H Direct Bilirubin 0.7 H AST 110 H ALT 198 H Alkaline Phosphatase 200 H Total Protein 6.5 Albumin 3.8 Lipase 43 Assessment and Plan (1) Choledocholithiasis with acute cholecystitis: Status: Acute (2) Acute pancreatitis: Status: Acute Plan This is a 69 year old male with history of HTN, HLD, BPH, benign neoplasm of cerebellum who presents with weakness, n/v and constipation found to have elevated LFTS and concern for acute cholecystitis Acute gallstone pancreatitis /cholelithiasis LFTs elevated in obstructive pattern MRCP +for multiple CBD stones GI following, plan for ERCP today general surgery following, tentative plan for lap hugo on Saturday vs outpatient elective if ERCP shows filling of the GB and no evidence of acute cholecystitis continue IV ceftriaxone & flagyl for now LFTs trending down, lipase down to 43 hold aspirin for planned procedure constipation moderate colonic stool burden on kub bowel regimen Hypothyroidism Continue Synthroid Hypertension Blood pressure initially low, and lisinopril was held bp now trending up, will resume lisinopril Hyperlipidemia Hold statin due to elevated LFTs gerd continue omeprazole Incidental finding of Right kidney cyst Outpatient renal protocol CT or MRI recommended dvt ppx - mechanical devices code status - full code Quality Stroke Does the patient have a stroke diagnosis?: No VTE Prior VTE?: No VTE Risk Level:: Medical - moderate - high VTE Device Contraindication: N/A - Device Ordered VTE Drug Contraindication: Treatment Not Indicated
--- NOTE | 2024-12-11 12:52 | P.BOP_ITS ---
Brief Operative Note Date of Service: 12/11/24 Pre-op diagnosis: cbd stones Post-op diagnosis: same Procedure: ERCP Surgeon: Michele Cotto MD Anesthesia: GETA Was an Wire Coiler Machine Operator used for this Procedure?: No Estimated blood loss (mL): 0 Pathology: none sent Condition: stable Disposition: PACU
--- NOTE | 2024-12-11 12:53 | PM.EVENT ---
Event Note Date of Service: 12/11/24 Event Note: ERCP cholangiogram showed no obvious filling defects. multiple duct sweeps with 12mm balloon, no stones seen. good drainage at termination of procedure. lap hugo per gen surg Time Spent With Patient Time: Total time managing care of this patient today ____ minutes.
--- NOTE | 2024-12-11 14:06 | PC.NURSE ---
Patient returned from procedure.
--- NOTE | 2024-12-11 16:42 | MHC.CM.PN ---
CM was not able to see patient for cm assessment today.
--- NOTE | 2024-12-11 22:53 | OP_ITS ---
DATE OF SERVICE: 12/11/2024 SURGEON: Michele Cotto MD INDICATIONS: Common bile duct stones seen on MR imaging. PREOPERATIVE DIAGNOSIS: POSTOPERATIVE DIAGNOSIS: PROCEDURE PERFORMED: ERCP with sphincterotomy. ESTIMATED BLOOD LOSS: COMPLICATIONS: ANESTHESIA: General anesthesia. ASSISTANTS: SPECIMENS: DESCRIPTION OF PROCEDURE: A history and physical was performed. The risks and benefits of the procedure were explained to the patient. Informed consent was obtained. The patient was placed in the prone position with a wedge under the right shoulder. The GlySure video duodenum scope was introduced into the esophagus, stomach, and duodenum. Examination was performed. The scope was removed. He tolerated the procedure well and was returned to the recovery area in stable condition. FINDINGS: Endoscopy: Limited examination of the esophagus, stomach, and duodenum. This was within normal limits. The major papilla appeared normal in position and was draining clear yellow bile. The common bile duct was cannulated using a sphincterotome and a guidewire. This was an easy cannulation. The cholangiogram showed no definite filling defects and a sphincterotomy was performed at approximately 8 to 10 mm with no immediate complications. Next, a 12 mm balloon was inflated and extracted multiple times with no stone material being identified. Occlusion cholangiography after multiple balloon sweeps showed a normal cholangiogram. There was excellent drainage of clear yellow bile at the termination of the procedure. No pancreatogram was attempted or obtained. IMPRESSION: 1. Normal ERCP. 2. Abnormal MRI with questionable common bile duct stones. RECOMMENDATION: 1. Advance diet. 2. Laparoscopic cholecystectomy per General Surgery. MD FARZANA Morales/ANGELAL / [phone]
[2024-12-12] MEDS: metroNIDAZOLE/NS 500 MG/100 ML PIGGYBACK 100 MG IV ×3 (03:10→17:04)
[2024-12-12 03:32] VITALS: BP 147/79; PULSE 62; RESP 17; TEMP 36.7; O2SAT 94
[2024-12-12 07:08] LABS: Hematocrit 31.8 % (42.0-52.0); Hemoglobin 10.9 g/dl (14.0-18.0); Mean Corpuscular HGB Conc 34.3 g/dl (31.0-36.0); Mean Corpuscular Hemoglobin 30.8 pg (27.0-33.0); Mean Corpuscular Volume 89.8 fL (80.0-98.0); NRBC Abs Auto 0.000 X10*3/uL (0.0-0.012); NRBC Pct Auto 0.0 /100WBC (0.0-0.2); Platelet Count 240 X10*3/uL (160-400); Red Blood Count 3.54 X10*6/uL (4.60-5.80); White Blood Count 10.9 X10*3/uL (4.8-10.8)
[2024-12-12 07:26] LABS: Alanine Aminotransferase 145 U/L (0-40); Albumin Level 3.7 g/dL (3.5-5.0); Alkaline Phosphatase 185 U/L (39-117); Aspartate Amino Transferase 65 U/L (5-37); Total Protein 6.4 g/dL (6.5-8.0)
[2024-12-12 07:49] VITALS: BP 147/75; PULSE 55; RESP 16; TEMP 36.4; O2SAT 93
--- NOTE | 2024-12-12 09:12 | P.PNIM_ITS ---
Subjective Subjective Date of Service: 12/12/24 Interval History: seen and examined this morning follow up for cholecystitis, choledocolithiasis no nausea or vomiting Review of Systems Review of Systems: Yes all other systems are reviewed and are negative Constitutional Constitutional: Denies chills and Denies fever(s) Cardiovascular Cardiovascular: Denies chest pain, Denies palpitations and Denies dyspnea Respiratory Respiratory: Denies cough and Denies dyspnea Endocrine Endocrine: Denies palpitations Physical Exam 2 Exam: Exam: Appearing in no acute distress lung sounds are clear to auscultation heart regular rate rhythm, clear S1, S2 positive bowel sounds, abdomen is soft, nontender neuro patient is alert x3, no focal deficits Vital Signs: Vital Signs: Last Vital Signs Temp 97.5 F 12/12/24 07:49 Pulse 55 12/12/24 07:49 Resp 16 12/12/24 07:49 BP 147/75 H 12/12/24 07:49 Pulse Ox 93 12/12/24 07:49 O2 Del Method Room Air 12/12/24 07:49 BMI result Body Mass Index 26.1 Objective Data Active Medications Acetaminophen (Acetaminophen 325 Mg Tablet) 650 mg PO Q6H PRN PRN Reason: Pain, Mild 1-3,fever,headache Bisacodyl (Bisacodyl 10 Mg Supp.Rect) 10 mg [place] BEDTIME PRN PRN Reason: Constipation Calcium Carbonate (Calcium Carbonate 750 Mg Tab.Chew) 750 mg PO Q4H PRN PRN Reason: Heartburn Ceftriaxone Sodium (Ceftriaxone Sodium 1 Gm Vial) 1 gm IVPUSH Q24H [facility] Last Admin: 12/11/24 10:30 Dose: 1 gm Documented By: SARIAH Cyclobenzaprine HCl (Cyclobenzaprine Hcl 5 Mg Tablet) 5 mg PO BEDTIME [facility] Last Admin: 12/11/24 21:18 Dose: 5 mg Documented By: CINDI Docusate Sodium (Docusate Sodium 100 Mg Capsule) 100 mg PO BID [facility] Last Admin: 12/11/24 21:18 Dose: 100 mg Documented By: CINDI Metronidazole (Flagyl) 500 mg in 100 mls @ 100 mls/hr IV Q8H [facility] Last Infusion: 12/12/24 05:04 Dose: Infused Documented By: CINDI Levothyroxine Sodium (Levothyroxine Sodium 50 Mcg Tablet) 50 mcg PO DAILY@0630 [facility] Last Admin: 12/12/24 05:50 Dose: 50 mcg Documented By: CINDI Lisinopril (Lisinopril 10 Mg Tablet) 10 mg PO DAILY [facility]; Protocol Last Admin: 12/11/24 14:36 Dose: 10 mg Documented By: SARIAH Comments: patient was down at procedure for during scheduled time. Loratadine (Loratadine 10 Mg Tablet) 10 mg PO DAILY [facility] Last Admin: 12/11/24 08:08 Dose: 10 mg Documented By: SARIAH Comments: bar code label was damaged for scanning. Melatonin (Melatonin 3 Mg Tablet) 6 mg PO BEDTIME PRN PRN Reason: Insomnia Mirtazapine (Mirtazapine 7.5 Mg Tablet) 7.5 mg PO BEDTIME [facility] Last Admin: 12/11/24 21:18 Dose: 7.5 mg Documented By: CINDI Morphine Sulfate (Morphine Sulfate 2 Mg/Ml Cartridge) 2 mg IVPUSH Q4H PRN; Protocol PRN Reason: Pain, Severe (Pain Scale 7-10) Omeprazole (Omeprazole 20 Mg Capsule.Dr) 20 mg PO DAILY@629 [facility] Last Admin: 12/12/24 05:50 Dose: 20 mg Documented By: CINDI Ondansetron HCl (Ondansetron Hcl 4 Mg/2 Ml Vial) 4 mg IVPUSH Q8H PRN PRN Reason: Nausea and Vomiting Polyethylene Glycol (Polyethylene Glycol 3350 17 Gm Powd.Pack) 17 gm PO DAILY [facility] Last Admin: 12/11/24 14:37 Dose: 17 gm Documented By: SARIAH Comments: delay in administration due to planned ERCP and NPO (concern for fluid intake). Senna (Sennosides 8.6 Mg Tablet) 8.6 mg PO BEDTIME [facility] Last Admin: 12/11/24 21:18 Dose: 8.6 mg Documented By: CINDI Sodium Chloride (0.9 % Sodium Chloride Flush 3 Ml Syringe) 3 ml IVFLUSH QSHIFT [facility] Last Admin: 12/11/24 21:21 Dose: 3 ml Documented By: CINDI Tolterodine Tartrate (Tolterodine Tartrate La 2 Mg Cap.Er.24h) 2 mg PO DAILY [facility] Last Admin: 12/11/24 08:08 Dose: 2 mg Documented By: SARIAH Triamcinolone Acetonide (Triamcinolone Acet 0.1 % Cream 15 Gm Tube) 1 appl TOPICAL BID [facility] Last Admin: 12/11/24 21:27 Dose: Not Given Documented By: CINDI Non-Admin Reason: Patient Refused Vitamin D (Cholecalciferol (Vitamin D3) 25 Mcg Tablet) 50 mcg PO DAILY [facility] Last Admin: 12/11/24 08:08 Dose: 50 mcg Documented By: SARIAH Labs 12/12/24 06:36 12/11/24 05:58 Labs: Laboratory Results - last 24 hr 12/12/24 06:36 MCV 89.8 MCH 30.8 MCHC 34.3 RDW 11.5 Plt Count 240 MPV 9.6 Absolute Nucleated RBC 0.000 Nucleated RBC % (auto) 0.0 Total Bilirubin 0.8 Direct Bilirubin 0.5 AST 65 H ALT 145 H Alkaline Phosphatase 185 H Total Protein 6.4 L Albumin 3.7 Assessment and Plan (1) Choledocholithiasis with acute cholecystitis: Status: Acute (2) Acute pancreatitis: Status: Acute Plan 69 year old male with history of HTN, HLD, BPH, benign neoplasm of cerebellum who presented with weakness, n/v and constipation found to have elevated LFTS and concern for acute cholecystitis Acute gallstone pancreatitis /cholelithiasis LFTs elevated in obstructive pattern MRCP +for multiple CBD stones GI following general surgery following> plan for CCY tomorrow continue IV ceftriaxone & flagyl for now LFTs trending down hold aspirin for planned procedure NPO constipation moderate colonic stool burden on kub bowel regimen Hypothyroidism Continue Synthroid Hypertension Blood pressure initially low, and lisinopril was held bp now trending up, will resume lisinopril Hyperlipidemia Hold statin due to elevated LFTs GERD continue omeprazole Incidental finding of Right kidney cyst Outpatient renal protocol CT or MRI recommended dvt ppx - mechanical devices code status - full code Quality Stroke Does the patient have a stroke diagnosis?: No VTE Prior VTE?: No VTE Risk Level:: Medical - moderate - high VTE Device Contraindication: N/A - Device Ordered VTE Drug Contraindication: Treatment Not Indicated
[2024-12-12] MEDS: 0.9 % Sodium Chloride Flush 3 ML SYRINGE IVFLUSH ×4 (09:34→20:21)
[2024-12-12 09:37] VITALS: BP 147/75
[2024-12-12] MEDS: Tolterodine Tartrate LA 2 MG CAP.ER.24H PO (09:37)
--- NOTE | 2024-12-12 12:15 | HO.POSTANES ---
Post Anesthesia Evaluation Post Anesthesia Evaluation Date of Service: 12/12/24 Vital Signs: Vital Signs Temp Pulse Resp BP Pulse Ox O2 Del Method 12/12/24 09:37 147/75 H 12/12/24 07:49 97.5 F 55 16 147/75 H 93 Room Air 12/12/24 03:32 98.1 F 62 17 147/79 H 94 Room Air Anesthesia: General Endotracheal-GETA Mental Status: Awake Pain Control: Satisfactory Nausea/Vomiting: None Hydration: Adequate Anesthesia-Related Issues: No Anes. Related Issues
--- NOTE | 2024-12-12 14:54 | P.PNGS_ITS ---
Subjective Subjective Date of Service: 12/12/24 Interval history: Patient is doing well no problems after ERCP his LFTs are coming down. He is ready for having his lap hugo tomorrow Physical Exam 2 Vital Signs: Vital Signs: Last Vital Signs Temp 97.5 F 12/12/24 07:49 Pulse 55 12/12/24 07:49 Resp 16 12/12/24 07:49 BP 147/75 H 12/12/24 09:37 Pulse Ox 93 12/12/24 07:49 O2 Del Method Room Air 12/12/24 07:49 BMI result Body Mass Index 26.1 Resp: Effort & Inspection: normal respiratory effort Auscultation: clear to auscultation bilaterally GI: Other: Abdomen is soft nondistended nontender Skin: Other: Nonicteric Objective Data Active Medications Acetaminophen (Acetaminophen 325 Mg Tablet) 650 mg PO Q6H PRN PRN Reason: Pain, Mild 1-3,fever,headache Bisacodyl (Bisacodyl 10 Mg Supp.Rect) 10 mg [place] BEDTIME PRN PRN Reason: Constipation Calcium Carbonate (Calcium Carbonate 750 Mg Tab.Chew) 750 mg PO Q4H PRN PRN Reason: Heartburn Ceftriaxone Sodium (Ceftriaxone Sodium 1 Gm Vial) 1 gm IVPUSH Q24H [facility] Last Admin: 12/12/24 09:37 Dose: 1 gm Documented By: MARY Cyclobenzaprine HCl (Cyclobenzaprine Hcl 5 Mg Tablet) 5 mg PO BEDTIME [facility] Last Admin: 12/11/24 21:18 Dose: 5 mg Documented By: CINDI Docusate Sodium (Docusate Sodium 100 Mg Capsule) 100 mg PO BID [facility] Last Admin: 12/12/24 09:37 Dose: 100 mg Documented By: MARY Metronidazole (Flagyl) 500 mg in 100 mls @ 100 mls/hr IV Q8H [facility] Last Infusion: 12/12/24 11:05 Dose: Infused Documented By: MARY Levothyroxine Sodium (Levothyroxine Sodium 50 Mcg Tablet) 50 mcg PO DAILY@0630 [facility] Last Admin: 12/12/24 05:50 Dose: 50 mcg Documented By: CINDI Lisinopril (Lisinopril 10 Mg Tablet) 10 mg PO DAILY [facility]; Protocol Last Admin: 12/12/24 09:37 Dose: 10 mg Documented By: MARY Loratadine (Loratadine 10 Mg Tablet) 10 mg PO DAILY [facility] Last Admin: 12/12/24 09:37 Dose: 10 mg Documented By: MARY Melatonin (Melatonin 3 Mg Tablet) 6 mg PO BEDTIME PRN PRN Reason: Insomnia Mirtazapine (Mirtazapine 7.5 Mg Tablet) 7.5 mg PO BEDTIME [facility] Last Admin: 12/11/24 21:18 Dose: 7.5 mg Documented By: CINDI Morphine Sulfate (Morphine Sulfate 2 Mg/Ml Cartridge) 2 mg IVPUSH Q4H PRN; Protocol PRN Reason: Pain, Severe (Pain Scale 7-10) Omeprazole (Omeprazole 20 Mg Capsule.Dr) 20 mg PO DAILY@0630 [facility] Last Admin: 12/12/24 05:50 Dose: 20 mg Documented By: CINDI Ondansetron HCl (Ondansetron Hcl 4 Mg/2 Ml Vial) 4 mg IVPUSH Q8H PRN PRN Reason: Nausea and Vomiting Polyethylene Glycol (Polyethylene Glycol 3350 17 Gm Powd.Pack) 17 gm PO DAILY [facility] Last Admin: 12/12/24 09:34 Dose: Not Given Documented By: MARY Non-Admin Reason: NPO Senna (Sennosides 8.6 Mg Tablet) 8.6 mg PO BEDTIME [facility] Last Admin: 12/11/24 21:18 Dose: 8.6 mg Documented By: CINDI Sodium Chloride (0.9 % Sodium Chloride Flush 3 Ml Syringe) 3 ml IVFLUSH QSHIFT [facility] Last Admin: 12/12/24 09:34 Dose: 3 ml Documented By: MARY Tolterodine Tartrate (Tolterodine Tartrate La 2 Mg Cap.Er.24h) 2 mg PO DAILY [facility] Last Admin: 12/12/24 09:37 Dose: 2 mg Documented By: MARY Triamcinolone Acetonide (Triamcinolone Acet 0.1 % Cream 15 Gm Tube) 1 appl TOPICAL BID [facility] Last Admin: 12/12/24 09:46 Dose: Not Given Documented By: MARY Non-Admin Reason: Patient Refused Vitamin D (Cholecalciferol (Vitamin D3) 25 Mcg Tablet) 50 mcg PO DAILY [facility] Last Admin: 12/12/24 09:37 Dose: 50 mcg Documented By: MARY Labs 12/12/24 06:36 12/11/24 05:58 Labs: Laboratory Results - last 24 hr 12/12/24 06:36 MCV 89.8 MCH 30.8 MCHC 34.3 RDW 11.5 Plt Count 240 MPV 9.6 Absolute Nucleated RBC 0.000 Nucleated RBC % (auto) 0.0 Total Bilirubin 0.8 Direct Bilirubin 0.5 AST 65 H ALT 145 H Alkaline Phosphatase 185 H Total Protein 6.4 L Albumin 3.7 Procedures Date of Service Date of Service: 12/12/24 Progress Note: A&P Assessment and plan (1) Choledocholithiasis with acute cholecystitis: Status: Acute Plan Patient is status post ERCP without any significant stone noted doing well with improving LFTs today. We will plan on carrying out laparoscopic cholecystectomy tomorrow. Risks and benefits were discussed with the patient with the interpreter deaf some of which were including to be bleeding infection bile duct injury leak or other organ injury and despite this he wishes to proceed. Time Spent With Patient Time: Total time managing care of this patient today ____ minutes. Quality Stroke Does the patient have a stroke diagnosis?: No VTE Prior VTE?: No VTE Risk Level:: Medical - moderate - high VTE Device Contraindication: N/A - Device Ordered VTE Drug Contraindication: Treatment Not Indicated
[2024-12-12 16:00] VITALS: BP 148/62; PULSE 60; RESP 12; TEMP 37.1; O2SAT 96
--- NOTE | 2024-12-12 16:22 | MHC.CM.PN ---
CM MET WITH PT WITH A [facility]ER PT REPORTS HE LIVES ALONE AND IS INDEPENDENT WITH CARE HE USES NO DME AND NO SERVICES PT HAS A HCP ON FILE, HOWEVER REPORTS IT IS HIS WHO HAS HAD A STROKE AND IS NOW UNABLE TO MAKE DECISIONS HE SAYS HE HAS NO ONE ELSE TO NAME A HEALTH CARE AGENT PCP: CHERYL DIEHL IMM DELIVERED DCP: HOME PT REPORTS HE WILL WALK HOME, HE IS AWARE OF SHUTTLE AND LYFT OPTIONS WELL
[2024-12-12 19:40] VITALS: BP 145/84; PULSE 65; RESP 17; TEMP 36.9; O2SAT 95
[2024-12-13] VITALS (10 sets, daily range): BP systolic 104–168; BP diastolic 78–94; PULSE 58–99; RESP 10–18; TEMP 36.2–36.6; O2SAT 95–99
[2024-12-13] MEDS: metroNIDAZOLE/NS 500 MG/100 ML PIGGYBACK 100 MG IV ×3 (01:08→17:21)
--- NOTE | 2024-12-13 08:21 | HO.PM.IMPN ---
Subjective Subjective Date of Service: 12/13/24 Interval History: seen and examined this morning follow up for cholecystitis, choledocolithiasis no nausea or vomiting Review of Systems Review of Systems: Yes all other systems are reviewed and are negative Constitutional Constitutional: Denies chills and Denies fever(s) Cardiovascular Cardiovascular: Denies chest pain, Denies palpitations and Denies dyspnea Respiratory Respiratory: Denies cough and Denies dyspnea Endocrine Endocrine: Denies palpitations Physical Exam Exam: Exam: Appearing in no acute distress lung sounds are clear to auscultation heart regular rate rhythm, clear S1, S2 positive bowel sounds, abdomen is soft, nontender neuro patient is alert x3, no focal deficits Vital Signs: Vital Signs: Last Vital Signs Temp 97.9 F 12/13/24 06:54 Pulse 58 12/13/24 06:54 Resp 17 12/13/24 06:54 BP 154/94 H 12/13/24 06:54 Pulse Ox 95 12/13/24 06:54 O2 Del Method Room Air 12/13/24 06:54 BMI result Body Mass Index 26.1 Objective Data Active Medications Acetaminophen (Acetaminophen 325 Mg Tablet) 650 mg PO Q6H PRN PRN Reason: Pain, Mild 1-3,fever,headache Bisacodyl (Bisacodyl 10 Mg Supp.Rect) 10 mg [place] BEDTIME PRN PRN Reason: Constipation Calcium Carbonate (Calcium Carbonate 750 Mg Tab.Chew) 750 mg PO Q4H PRN PRN Reason: Heartburn Ceftriaxone Sodium (Ceftriaxone Sodium 1 Gm Vial) 1 gm IVPUSH Q24H [facility] Last Admin: 12/12/24 09:37 Dose: 1 gm Documented By: MARY Cyclobenzaprine HCl (Cyclobenzaprine Hcl 5 Mg Tablet) 5 mg PO BEDTIME [facility] Last Admin: 12/12/24 20:17 Dose: 5 mg Documented By: CINDI Docusate Sodium (Docusate Sodium 100 Mg Capsule) 100 mg PO BID [facility] Last Admin: 12/12/24 20:17 Dose: 100 mg Documented By: CINDI Metronidazole (Flagyl) 500 mg in 100 mls @ 100 mls/hr IV Q8H [facility] Last Infusion: 12/13/24 02:26 Dose: Infused Documented By: CINDI Levothyroxine Sodium (Levothyroxine Sodium 50 Mcg Tablet) 50 mcg PO DAILY@0630 [facility] Last Admin: 12/13/24 05:46 Dose: 50 mcg Documented By: CINDI Lisinopril (Lisinopril 10 Mg Tablet) 10 mg PO DAILY [facility]; Protocol Last Admin: 12/12/24 09:37 Dose: 10 mg Documented By: MARY Loratadine (Loratadine 10 Mg Tablet) 10 mg PO DAILY [facility] Last Admin: 12/12/24 09:37 Dose: 10 mg Documented By: MARY Melatonin (Melatonin 3 Mg Tablet) 6 mg PO BEDTIME PRN PRN Reason: Insomnia Last Admin: 12/12/24 20:17 Dose: 6 mg Documented By: CINDI Mirtazapine (Mirtazapine 7.5 Mg Tablet) 7.5 mg PO BEDTIME [facility] Last Admin: 12/12/24 20:17 Dose: 7.5 mg Documented By: CINDI Morphine Sulfate (Morphine Sulfate 2 Mg/Ml Cartridge) 2 mg IVPUSH Q4H PRN; Protocol PRN Reason: Pain, Severe (Pain Scale 7-10) Omeprazole (Omeprazole 20 Mg Capsule.Dr) 20 mg PO DAILY@629 [facility] Last Admin: 12/13/24 05:46 Dose: 20 mg Documented By: CINDI Ondansetron HCl (Ondansetron Hcl 4 Mg/2 Ml Vial) 4 mg IVPUSH Q8H PRN PRN Reason: Nausea and Vomiting Polyethylene Glycol (Polyethylene Glycol 3350 17 Gm Powd.Pack) 17 gm PO DAILY [facility] Last Admin: 12/12/24 09:34 Dose: Not Given Documented By: MARY Non-Admin Reason: NPO Senna (Sennosides 8.6 Mg Tablet) 8.6 mg PO BEDTIME [facility] Last Admin: 12/12/24 20:17 Dose: 8.6 mg Documented By: CINDI Sodium Chloride (0.9 % Sodium Chloride Flush 3 Ml Syringe) 3 ml IVFLUSH QSHIFT [facility] Last Admin: 12/12/24 20:21 Dose: 3 ml Documented By: CINDI Tolterodine Tartrate (Tolterodine Tartrate La 2 Mg Cap.Er.24h) 2 mg PO DAILY [facility] Last Admin: 12/12/24 09:37 Dose: 2 mg Documented By: MARY Triamcinolone Acetonide (Triamcinolone Acet 0.1 % Cream 15 Gm Tube) 1 appl TOPICAL BID [facility] Last Admin: 12/12/24 20:22 Dose: Not Given Documented By: CINDI Non-Admin Reason: Med Not Available Vitamin D (Cholecalciferol (Vitamin D3) 25 Mcg Tablet) 50 mcg PO DAILY [facility] Last Admin: 12/12/24 09:37 Dose: 50 mcg Documented By: MARY Labs 12/12/24 06:36 12/11/24 05:58 Assessment and Plan (1) Choledocholithiasis with acute cholecystitis: Status: Acute (2) Acute pancreatitis: Status: Acute Plan 69 year old male with history of HTN, HLD, BPH, benign neoplasm of cerebellum who presented with weakness, n/v and constipation found to have elevated LFTS and concern for acute cholecystitis Acute gallstone pancreatitis /cholelithiasis LFTs elevated in obstructive pattern MRCP +for multiple CBD stones GI following continue IV ceftriaxone & flagyl for now LFTs trending down hold aspirin for planned procedure CCY today constipation moderate colonic stool burden on kub bowel regimen Hypothyroidism Continue Synthroid Hypertension Lisinopril Hyperlipidemia Hold statin due to elevated LFTs GERD continue omeprazole Incidental finding of Right kidney cyst Outpatient renal protocol CT or MRI recommended dvt ppx - mechanical devices code status - full code Quality Stroke Does the patient have a stroke diagnosis?: No VTE Prior VTE?: No VTE Risk Level:: Medical - moderate - high VTE Device Contraindication: N/A - Device Ordered VTE Drug Contraindication: Treatment Not Indicated
[2024-12-13] MEDS: Tolterodine Tartrate LA 2 MG CAP.ER.24H PO (09:25)
[2024-12-13] MEDS: 0.9 % Sodium Chloride Flush 3 ML SYRINGE IVFLUSH ×4 (09:25→20:01)
--- NOTE | 2024-12-13 11:22 | HO.ANESPROP2 ---
HPI - Anesthesia Eval Consult details Narrative: Cholelithiasis PMFSH Active Problems Active Problems: All Active Problems Choledocholithiasis (Acute) Acute pancreatitis (Acute) Symptomatic cholelithiasis (Acute) Elevated LFTs (Acute) Choledocholithiasis with acute cholecystitis (Acute) Urinary incontinence, urge (Acute) Male stress incontinence (Acute) COVID-19 (Acute) Viral pneumonia (Acute) Acute respiratory failure with hypoxia (Acute) Transaminasemia (Acute) BPH w urinary obs/LUTS (Acute) Nocturia (Acute) Benign neoplasm of cerebellum (Acute) Past Medical History Medical History Tubular adenoma Gout Other obstructive and reflux uropathy Benign prostatic hyperplasia with lower urinary tract symptoms Rosacea GERD (gastroesophageal reflux disease) Benign neoplasm of cerebellum Sinusitis HTN (hypertension) Family History Family history of problems with anesthesia: No Surgical History Surgical History Hx of colonoscopy History of esophagogastroduodenoscopy (EGD) History of surgery History of brain surgery History of Problems with Anesthesia: No Social History Social History Household Members: None Housing: Other Housing Other:: rents room - possible recent loss of housing Do you presently have visiting nurse or other home services: No Alcohol intake: never Patient Tobacco Use Status: Never used Tobacco Second Hand Smoke Exposure: No service: No Current occupational status: retired 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 [place] Current occupational exposures/hazards: No Meds Allergies Allergy/AdvReac Type Severity Reaction Status Date / Time Penicillins (PENICILLINS) Allergy Intermediate RASH Verified 12/10/24 05:08 Active Medications: Current Medications Acetaminophen (Acetaminophen 325 Mg Tablet) 650 mg PO Q6H PRN PRN Reason: Pain, Mild 1-3,fever,headache Bisacodyl (Bisacodyl 10 Mg Supp.Rect) 10 mg [place] BEDTIME PRN PRN Reason: Constipation Calcium Carbonate (Calcium Carbonate 750 Mg Tab.Chew) 750 mg PO Q4H PRN PRN Reason: Heartburn Ceftriaxone Sodium (Ceftriaxone Sodium 1 Gm Vial) 1 gm IVPUSH Q24H [facility] Last Admin: 12/13/24 09:25 Dose: 1 gm Cyclobenzaprine HCl (Cyclobenzaprine Hcl 5 Mg Tablet) 5 mg PO BEDTIME [facility] Last Admin: 12/12/24 20:17 Dose: 5 mg Docusate Sodium (Docusate Sodium 100 Mg Capsule) 100 mg PO BID [facility] Last Admin: 12/13/24 09:25 Dose: 100 mg Metronidazole (Flagyl) 500 mg in 100 mls @ 100 mls/hr IV Q8H [facility] Last Infusion: 12/13/24 10:39 Dose: Infused Levothyroxine Sodium (Levothyroxine Sodium 50 Mcg Tablet) 50 mcg PO DAILY@629 [facility] Last Admin: 12/13/24 05:46 Dose: 50 mcg Lisinopril (Lisinopril 10 Mg Tablet) 10 mg PO DAILY [facility]; Protocol Last Admin: 12/13/24 09:25 Dose: 10 mg Loratadine (Loratadine 10 Mg Tablet) 10 mg PO DAILY [facility] Last Admin: 12/13/24 09:25 Dose: 10 mg Melatonin (Melatonin 3 Mg Tablet) 6 mg PO BEDTIME PRN PRN Reason: Insomnia Last Admin: 12/12/24 20:17 Dose: 6 mg Mirtazapine (Mirtazapine 7.5 Mg Tablet) 7.5 mg PO BEDTIME [facility] Last Admin: 12/12/24 20:17 Dose: 7.5 mg Morphine Sulfate (Morphine Sulfate 2 Mg/Ml Cartridge) 2 mg IVPUSH Q4H PRN; Protocol PRN Reason: Pain, Severe (Pain Scale 7-10) Omeprazole (Omeprazole 20 Mg Capsule.Dr) 20 mg PO DAILY@629 [facility] Last Admin: 12/13/24 05:46 Dose: 20 mg Ondansetron HCl (Ondansetron Hcl 4 Mg/2 Ml Vial) 4 mg IVPUSH Q8H PRN PRN Reason: Nausea and Vomiting Polyethylene Glycol (Polyethylene Glycol 3350 17 Gm Powd.Pack) 17 gm PO DAILY [facility] Last Admin: 12/13/24 09:26 Dose: Not Given Senna (Sennosides 8.6 Mg Tablet) 8.6 mg PO BEDTIME [facility] Last Admin: 12/12/24 20:17 Dose: 8.6 mg Sodium Chloride (0.9 % Sodium Chloride Flush 3 Ml Syringe) 3 ml IVFLUSH QSHIFT [facility] Last Admin: 12/13/24 09:25 Dose: 3 ml Tolterodine Tartrate (Tolterodine Tartrate La 2 Mg Cap.Er.24h) 2 mg PO DAILY [facility] Last Admin: 12/13/24 09:25 Dose: 2 mg Triamcinolone Acetonide (Triamcinolone Acet 0.1 % Cream 15 Gm Tube) 1 appl TOPICAL BID [facility] Last Admin: 12/13/24 09:31 Dose: Not Given Vitamin D (Cholecalciferol (Vitamin D3) 25 Mcg Tablet) 50 mcg PO DAILY [facility] Last Admin: 12/13/24 09:25 Dose: 50 mcg Home Medications ?Medication ?Instructions ?Recorded ?Confirmed ?Last Taken ?Type aspirin 81 mg tablet,delayed 81 mg PO DAILY 03/23/20 12/10/24 12/09/24 History release loratadine 10 mg tablet 10 mg PO DAILY 03/23/20 12/10/24 12/09/24 History omeprazole 20 mg capsule,delayed 20 mg PO DAILY@0600 03/23/20 12/10/24 12/09/24 History release cholecalciferol (vitamin D3) 50 50 mcg PO DAILY 09/22/20 12/10/24 12/09/24 History mcg (2,000 unit) capsule levothyroxine 50 mcg tablet 50 mcg PO DAILY@0630 11/05/23 12/10/24 12/09/24 History betamethasone valerate 0.1 % 1 appl topical BID 12/10/24 12/10/24 12/09/24 History topical cream cyclobenzaprine 5 mg tablet 5 mg PO BEDTIME 12/10/24 12/10/24 12/09/24 History docusate sodium 100 mg capsule 100 mg PO Q12H 12/10/24 12/10/24 12/09/24 History ibuprofen 600 mg tablet 600 mg PO TID PRN Pain 12/10/24 12/10/24 12/09/24 History lisinopril 10 mg tablet 10 mg PO QAM 12/10/24 12/10/24 12/09/24 History mirtazapine 7.5 mg tablet 7.5 mg PO BEDTIME 12/10/24 12/10/24 12/09/24 History omega-3 acid ethyl esters 1 gram 1 cap PO BID 12/10/24 12/10/24 12/09/24 History capsule (Lovaza) rosuvastatin 40 mg tablet 40 mg PO QAM 12/10/24 12/10/24 12/09/24 History Exam Height,Weight and Vital Signs: Height 5 ft 8 in Weight 78 kg Last Vital Signs Temp 97.9 F 12/13/24 06:54 Pulse 58 12/13/24 06:54 Resp 17 12/13/24 06:54 BP 154/94 H 12/13/24 09:25 Pulse Ox 95 12/13/24 06:54 O2 Del Method Room Air 12/13/24 06:54 Pertinent Lab Results Pertinent Lab Results: Laboratory Tests 12/10/24 12/10/24 12/11/24 05:11 08:26 05:58 WBC 10.4 8.6 RBC 4.10 L 3.53 L Hgb 12.7 L 11.3 L Hct 37.3 L 32.6 L MCV 91.0 92.4 MCH 31.0 32.0 MCHC 34.0 34.7 RDW 12.0 11.9 Plt Count 307 268 MPV 9.4 9.9 Immature Gran % (Auto) 0.2 Neut % (Auto) 65.5 Lymph % (Auto) 24.8 [place] % (Auto) 8.1 Eos % (Auto) 1.0 Baso % (Auto) 0.4 Lymph # (Auto) 2.6 [place] # (Auto) 0.8 Eos # (Auto) 0.1 Baso # (Auto) 0.0 Abs Immat Gran (auto) 0.02 Absolute Neuts (auto) 6.8 Absolute Nucleated RBC 0.000 0.000 Nucleated RBC % (auto) 0.0 0.0 PT 13.5 H INR 1.2 H Sodium 142 143 Potassium 3.7 3.7 Chloride 106 110 H Carbon Dioxide 24 25 Anion Gap 16 12 BUN 21 H 19 H Creatinine 1.32 0.97 Estim Creat Clear Calc 49.6 67.5 Estimated GFR 53 > 60 Random Glucose 102 94 Calcium 9.5 8.7 D Magnesium 2.1 Total Bilirubin 3.5 H 1.2 H Direct Bilirubin 2.2 H 0.7 H AST 309 H 110 H ALT 343 H 198 H Alkaline Phosphatase 257 H 200 H Total Protein 7.7 6.5 Albumin 4.5 3.8 Lipase 264 H 43 Acetaminophen < 3 Ethyl Alcohol < 10 Hepatitis A IgM Ab Nonreactive Hep Bs Antigen Negative Hep Bs Antibody NONREACTIVE Hep B Core Total Ab Nonreactive Hepatitis C Ab (EIA) Nonreactive 12/12/24 06:36 WBC 10.9 H RBC 3.54 L Hgb 10.9 L Hct 31.8 L MCV 89.8 MCH 30.8 MCHC 34.3 RDW 11.5 Plt Count 240 MPV 9.6 Immature Gran % (Auto) Neut % (Auto) Lymph % (Auto) [place] % (Auto) Eos % (Auto) Baso % (Auto) Lymph # (Auto) [place] # (Auto) Eos # (Auto) Baso # (Auto) Abs Immat Gran (auto) Absolute Neuts (auto) Absolute Nucleated RBC 0.000 Nucleated RBC % (auto) 0.0 PT INR Sodium Potassium Chloride Carbon Dioxide Anion Gap BUN Creatinine Estim Creat Clear Calc Estimated GFR Random Glucose Calcium Magnesium Total Bilirubin 0.8 Direct Bilirubin 0.5 AST 65 H ALT 145 H Alkaline Phosphatase 185 H Total Protein 6.4 L Albumin 3.7 Lipase Acetaminophen Ethyl Alcohol Hepatitis A IgM Ab Hep Bs Antigen Hep Bs Antibody Hep B Core Total Ab Hepatitis C Ab (EIA) Airway Mallampati Class: I TM Dist: >3cm Neck ROM: Full Heart: RRR Lungs: CTA Assessment and Plan Assessment Anesthesia Assessment: Anesthesia Plan Discussed and Chart Reviewed Final Anesthetic Review Family History of Problems with Anesthesia: No History of Problems with Anesthesia: No NPO: Yes ASA Class: III Final Preanesthetic Review: No Changes in Pt Med Stat, Meds/Allgs Chart Reviewed, Consent Obtained/Reviewed and Anes Risks/Benef Reviewed Patient Risk: Intermediate Procedure Risk: Intermediate Anesthetic Plan Anesthetic Plan: GA Disposition: Standard PACU
[2024-12-13 16:45] LABS: Hematocrit 30.7 % (42.0-52.0); Hemoglobin 10.0 g/dl (14.0-18.0); Imm Gran Abs Auto 0.38 X10*3/uL (0.00-0.03); Imm Gran Pct Auto 1.4 % (0.0-0.4); Lymphocytes Absolute Auto 2.5 X10*3/uL (1.2-4.9); MANUAL DIFF FLAG SCAN; Mean Corpuscular HGB Conc 32.6 g/dl (31.0-36.0); Mean Corpuscular Hemoglobin 30.7 pg (27.0-33.0); Mean Corpuscular Volume 94.2 fL (80.0-98.0); NRBC Abs Auto 0.050 X10*3/uL (0.0-0.012); NRBC Pct Auto 0.2 /100WBC (0.0-0.2); PLT CLUMP 1; Red Blood Count 3.26 X10*6/uL (4.60-5.80); SCAN SMEAR FLAG 1
[2024-12-13 16:50] LABS: White Blood Count 26.8 X10*3/uL (4.8-10.8)
--- NOTE | 2024-12-13 21:30 | P.OP_ITS ---
Operative Note Operative Note Date of Service: 12/13/24 Narrative: Preop diagnosis--choledocholithiasis and cholelithiasis and acute cholecystitis Postop diagnosis-acute cholecystitis and cholelithiasis Procedure--laparoscopic converted to open procedure and subtotal cholecystectomy fenestrated Surgeon-Lowell Block Hand-Koko Patient is a 69-year-old male who was admitted with abdominal pain and findings consistent with elevated LFTs and choledocholithiasis. He underwent ERCP 2 days ago and several stones were cleared from his common bile duct. As a result he comes in now for laparoscopic cholecystectomy Findings-- there were multiple adhesions of the colon and omental tissue and stomach stuck to the edge of the liver unable to really remark in evaluate the gallbladder. Eventually laparoscopically were able to find the superior aspect of the gallbladder and then trying to bluntly dissect the omental fat and colonic in stomach tissue from the surface of the gallbladder the ran into bleeding off the liver and just the omental tissue and not well identified plane of the stomach to the edge of the liver. As a result it was decided to convert to an open procedure. In converting to an open procedure the gallbladder was noted to be very inflamed shrunken thickened and there was spillage of multiple small stones. The gallbladder was very much intrahepatic and we are trying to dissected out we ran into moderate bleeding from the liver base and eventually ran into a bleeding vessel that needed to be suture ligated in order to get control. At this point we were fpc down the gallbladder and there was determined that because there was still thickened tissue going down and was very difficult to determine the cystic duct ending from the common bile duct that would be best and safest to do a subtotal fenestrated cholecystectomy. Procedure-- Patient was brought to the operative room under Anesthesia guidance was intubated. He had compression stockings placed before induction and had been receiving preoperative antibiotics. An infraumbilical incision was created after numbing up the area with a 0.25% Marcaine with epinephrine dissection was carried down to the anterior abdominal wall fascia which was grasped with Cole's and transected. 0 Vicryl pursestring suture placed in the Alcazar trocar introduced. Pneumoperitoneum established to 15 mmHg pressure. 5 mm port and 2 was placed in the epigastric area and 2 5 mm ports were placed in the right upper quadrant with local. The structure which was initially thought to be the gallbladder was examined then gently grasped but this turned out to be the colon as it was stuck right up on the liver edge. With gentle blunt dissection the colon was dropped a little bit but this mesentery was very bloody oozing and with trying to create a plane some little liver lacerations were created which caused some ongoing oozing. Eventually we are able to take down some of the adhesions here bluntly but getting to a point where the tissue was very thickened and indurated and hole was made in the gallbladder and there was leakage of initially clear fluid and then yellowish bile and multiple stones. Despite trying to grasp the gallbladder and retracted superiorly this was very difficult as the tissue was very indurated and firm. Decision was made to convert to an open procedure. The port sites in the right upper quadrant epigastric area were all connected with scalpel and cautery and the peritoneal cavity was entered. Here it was still difficult to identify the true path of the gallbladder although the edge and thickened tissue in spilled stones were identified. Using the cautery the very thickened wall was noted to be very intrahepatic with the gallbladder and then trying to carve it out there was some moderate bleeding that was controlled on and off using Surgicel as well as packing the area. In carrying this out we created more holes in the gallbladder and there was spillage of more stones. Eventually after some ongoing oozing and cauterizing the base as well as pressure and Surgicel dot so a point where it was determined that after dissecting top to midway down and then laterally in the little bit more medially and mobilizing the stomach off the liver edge and trying to see where the triangle of Calot area was all that was felt was very indurated thickened tissue. It was decided to carry out a subtotal cholecystectomy at this point and coming across the posterior aspect of the gallbladder on the fossa we then ran into some moderate bleeding that was packed and controlled. Dr. Sutherland was called and he came into assist. Now with better exposure and an extra set of hands we were able to identify to areas right on the liver base that was bleeding and 2 sutures of 3 0 silk were used to make figure of 8 bites around the bleeding vessels and get control both proximally and distally. A 2nd area was identified along the liver base and this was ligated. This could have been some branches off the cystic artery but she really was not any of the significant large branches of the hepatic artery or any portal vein structures. The liver parenchyma continue to look good and well vascularized. At this point now getting control with more Surgicel and hem ostatic snow here the gallbladder was transected using the LigaSure leaving about a quarter of it behind. The passage leading to the cystic duct was probed and all stones removed. There was no black flow of any bile. Moderate suctioned and irrigation was carried out and loose stones were removed throughout the abdominal cavity. A 10 NAT drain was placed and secured and lay on the liver bed and across the opening of the gallbladder. I did not attempt to try to close the cystic duct channel. At this point there was no evidence of any bile leaking out and hemostasis was generally good. The posterior sheath of the right upper quadrant incision was closed with 0 PDS loop and then the anterior sheath was closed with another running 0 PDS loop. [place] were used to approximate the skin edges. At the end of the case all sponge instrument needle counts were correct estimated blood loss was about a 1000 cc. The patient was relatively hemodynamically good for most of the case although there was some episodes especially when we had some bleeding where he became a little more hypotensive with a systolic in the 70s and had some decreased cardiac output while doing compression in the right upper quadrant. A Peng catheter was placed at the end of the case which showed 500 cc of nice clear urine. IV fluids were about 3-1/2 L of crystalloid. Patient was typed and screened but no blood given during the operation. Plan is to carry out labs in PACU and then see what his levels are. Patient returned relatively stable to the recovery room
[2024-12-13 21:54] LABS: Hematocrit 30.8 % (42.0-52.0); Hemoglobin 10.2 g/dl (14.0-18.0)
[2024-12-14] MEDS: metroNIDAZOLE/NS 500 MG/100 ML PIGGYBACK 100 MG IV ×3 (01:34→18:22)
[2024-12-14 03:52] VITALS: BP 128/60; PULSE 92; RESP 18; TEMP 36.4; O2SAT 98
[2024-12-14 06:49] VITALS: BP 107/69; PULSE 93; RESP 16; TEMP 36.9; O2SAT 96
[2024-12-14 07:05] LABS: Hematocrit 27.3 % (42.0-52.0); Hemoglobin 9.1 g/dl (14.0-18.0); Imm Gran Abs Auto 0.08 X10*3/uL (0.00-0.03); Imm Gran Pct Auto 0.5 % (0.0-0.4); Lymphocytes Absolute Auto 3.0 X10*3/uL (1.2-4.9); MANUAL DIFF FLAG SCAN; Mean Corpuscular HGB Conc 33.3 g/dl (31.0-36.0); Mean Corpuscular Hemoglobin 31.2 pg (27.0-33.0); Mean Corpuscular Volume 93.5 fL (80.0-98.0); NRBC Abs Auto 0.000 X10*3/uL (0.0-0.012); NRBC Pct Auto 0.0 /100WBC (0.0-0.2); Platelet Count 270 X10*3/uL (160-400); Red Blood Count 2.92 X10*6/uL (4.60-5.80); SCAN SMEAR FLAG 1; White Blood Count 17.7 X10*3/uL (4.8-10.8)
[2024-12-14 07:37] LABS: Alanine Aminotransferase 149 U/L (0-40); Albumin Level 3.5 g/dL (3.5-5.0); Alkaline Phosphatase 150 U/L (39-117); Anion Gap 11 (12-20); Aspartate Amino Transferase 117 U/L (5-37); Blood Urea Nitrogen 14 mg/dL (9-16); Calcium 8.1 mg/dL (8.4-10.2); Carbon Dioxide 27 mmol/L (22-29); Chloride 107 mmol/L (96-108); Creatinine Clr Calc Pharmacy 66.2; Estimated Glomerular Filt Rate > 60; Potassium 4.2 mmol/L (3.3-5.1); Sodium 141 mmol/L (135-145); Total Protein 5.8 g/dL (6.5-8.0)
[2024-12-14] MEDS: Tolterodine Tartrate LA 2 MG CAP.ER.24H PO (08:24)
--- NOTE | 2024-12-14 08:24 | P.PNIM_ITS ---
Subjective Subjective Date of Service: 12/14/24 Interval History: seen and examined this morning follow up for cholecystitis, choledocolithiasis no nausea or vomiting s/p CCY Review of Systems Review of Systems: Yes all other systems are reviewed and are negative Constitutional Constitutional: Denies chills and Denies fever(s) Cardiovascular Cardiovascular: Denies chest pain, Denies palpitations and Denies dyspnea Respiratory Respiratory: Denies cough and Denies dyspnea Endocrine Endocrine: Denies palpitations Physical Exam 2 Exam: Exam: Appearing in no acute distress lung sounds are clear to auscultation heart regular rate rhythm, clear S1, S2 positive bowel sounds, abdomen is soft, nontender neuro patient is alert x3, no focal deficits Vital Signs: Vital Signs: Last Vital Signs Temp 98.4 F 12/14/24 06:49 Pulse 93 12/14/24 06:49 Resp 16 12/14/24 06:49 BP 107/69 12/14/24 06:49 Pulse Ox 96 12/14/24 06:49 O2 Del Method Nasal Cannula 12/14/24 06:49 O2 Flow Rate 2 12/14/24 03:52 BMI result Body Mass Index 26.1 Objective Data Active Medications Acetaminophen (Acetaminophen 325 Mg Tablet) 650 mg PO Q6H PRN PRN Reason: Pain, Mild 1-3,fever,headache Last Admin: 12/13/24 19:50 Dose: 650 mg Documented By: CINDI Bisacodyl (Bisacodyl 10 Mg Supp.Rect) 10 mg [place] BEDTIME PRN PRN Reason: Constipation Calcium Carbonate (Calcium Carbonate 750 Mg Tab.Chew) 750 mg PO Q4H PRN PRN Reason: Heartburn Ceftriaxone Sodium (Ceftriaxone Sodium 1 Gm Vial) 1 gm IVPUSH Q24H [facility] Last Admin: 12/13/24 09:25 Dose: 1 gm Documented By: MARY Cyclobenzaprine HCl (Cyclobenzaprine Hcl 5 Mg Tablet) 5 mg PO BEDTIME [facility] Last Admin: 12/13/24 19:51 Dose: 5 mg Documented By: CINDI Docusate Sodium (Docusate Sodium 100 Mg Capsule) 100 mg PO BID [facility] Last Admin: 12/13/24 20:04 Dose: 100 mg Documented By: CINDI Metronidazole (Flagyl) 500 mg in 100 mls @ 100 mls/hr IV Q8H [facility] Last Infusion: 12/14/24 02:50 Dose: Infused Documented By: CINDI Levothyroxine Sodium (Levothyroxine Sodium 50 Mcg Tablet) 50 mcg PO DAILY@629 [facility] Last Admin: 12/14/24 05:33 Dose: 50 mcg Documented By: CINDI Lisinopril (Lisinopril 10 Mg Tablet) 10 mg PO DAILY [facility]; Protocol Last Admin: 12/13/24 09:25 Dose: 10 mg Documented By: MARY Loratadine (Loratadine 10 Mg Tablet) 10 mg PO DAILY [facility] Last Admin: 12/13/24 09:25 Dose: 10 mg Documented By: MARY Melatonin (Melatonin 3 Mg Tablet) 6 mg PO BEDTIME PRN PRN Reason: Insomnia Last Admin: 12/12/24 20:17 Dose: 6 mg Documented By: CINDI Mirtazapine (Mirtazapine 7.5 Mg Tablet) 7.5 mg PO BEDTIME [facility] Last Admin: 12/13/24 19:51 Dose: 7.5 mg Documented By: CINDI Morphine Sulfate (Morphine Sulfate 4 Mg/Ml Cartridge) 4 mg IVPUSH Q4H PRN; Protocol PRN Reason: Pain, Severe (Pain Scale 7-10) Last Admin: 12/14/24 02:43 Dose: 4 mg Documented By: CINDI Naloxone HCl (Naloxone Hcl 0.4 Mg/Ml Vial) 0.04 mg IVPUSH Q5M PRN PRN Reason: Excessive sedation or RR < 8 Omeprazole (Omeprazole 20 Mg Capsule.Dr) 20 mg PO DAILY@629 [facility] Last Admin: 12/14/24 05:33 Dose: 20 mg Documented By: CINDI Ondansetron HCl (Ondansetron Hcl 4 Mg/2 Ml Vial) 4 mg IVPUSH Q8H PRN PRN Reason: Nausea and Vomiting Last Admin: 12/14/24 02:43 Dose: 4 mg Documented By: CINDI Polyethylene Glycol (Polyethylene Glycol 3350 17 Gm Powd.Pack) 17 gm PO DAILY [facility] Last Admin: 12/13/24 09:26 Dose: Not Given Documented By: AMRY Non-Admin Reason: NPO Senna (Sennosides 8.6 Mg Tablet) 8.6 mg PO BEDTIME [facility] Last Admin: 12/13/24 19:51 Dose: 8.6 mg Documented By: CINDI Sodium Chloride (0.9 % Sodium Chloride Flush 3 Ml Syringe) 3 ml IVFLUSH QSHIFT [facility] Last Admin: 12/13/24 20:00 Dose: 3 ml Documented By: CINDI Tolterodine Tartrate (Tolterodine Tartrate La 2 Mg Cap.Er.24h) 2 mg PO DAILY [facility] Last Admin: 12/13/24 09:25 Dose: 2 mg Documented By: MARY Triamcinolone Acetonide (Triamcinolone Acet 0.1 % Cream 15 Gm Tube) 1 appl TOPICAL BID [facility] Last Admin: 12/13/24 19:58 Dose: Not Given Documented By: CINDI Non-Admin Reason: Med Not Available Vitamin D (Cholecalciferol (Vitamin D3) 25 Mcg Tablet) 50 mcg PO DAILY [facility] Last Admin: 12/13/24 09:25 Dose: 50 mcg Documented By: MARY Labs 12/14/24 06:39 12/14/24 06:39 Labs: Laboratory Results - last 24 hr 12/13/24 12/13/24 12/14/24 15:05 16:37 06:39 MCV 94.2 93.5 MCH 30.7 31.2 MCHC 32.6 33.3 RDW 12.0 11.9 Plt Count TNP 270 MPV 10.1 9.3 L Immature Gran % (Auto) 1.4 H 0.5 H Neut % (Auto) 85.8 H 73.1 H Lymph % (Auto) 9.3 L 16.9 L [place] % (Auto) 3.1 9.3 Eos % (Auto) 0.1 0.0 Baso % (Auto) 0.3 0.2 Lymph # (Auto) 2.5 3.0 [place] # (Auto) 0.8 1.7 H Eos # (Auto) 0.0 0.0 Baso # (Auto) 0.1 0.0 Abs Immat Gran (auto) 0.38 H 0.08 H Absolute Neuts (auto) 23.0 H 13.0 H Absolute Nucleated RBC 0.050 H 0.000 Nucleated RBC % (auto) 0.2 0.0 Smear Tech's Comments VERIFIED VERIFIED Anion Gap 11 L Estim Creat Clear Calc 66.2 Estimated GFR > 60 Random Glucose 128 H Calcium 8.1 L D Total Bilirubin 0.7 AST 117 H ALT 149 H Alkaline Phosphatase 150 H Total Protein 5.8 L Albumin 3.5 Blood Type A Positive Antibody Screen NEGATIVE Crossmatch See Detail Assessment and Plan (1) Choledocholithiasis with acute cholecystitis: Status: Acute (2) Acute pancreatitis: Status: Acute Plan 69 year old male with history of HTN, HLD, BPH, benign neoplasm of cerebellum who presented with weakness, n/v and constipation found to have elevated LFTS and concern for acute cholecystitis Acute gallstone pancreatitis /cholelithiasis LFTs elevated in obstructive pattern MRCP +for multiple CBD stones GI following continue IV ceftriaxone & flagyl for now LFTs trending down s/p CCY 12/13 constipation moderate colonic stool burden on kub bowel regimen Hypothyroidism Continue Synthroid Hypertension Lisinopril Hyperlipidemia Hold statin due to elevated LFTs GERD continue omeprazole Incidental finding of Right kidney cyst Outpatient renal protocol CT or MRI recommended dvt ppx - mechanical devices code status - full code Quality Stroke Does the patient have a stroke diagnosis?: No VTE Prior VTE?: No VTE Risk Level:: Medical - moderate - high VTE Device Contraindication: N/A - Device Ordered VTE Drug Contraindication: Treatment Not Indicated
[2024-12-14 08:26] VITALS: BP 108/70
[2024-12-14] MEDS: 0.9 % Sodium Chloride Flush 3 ML SYRINGE IVFLUSH ×2 (08:26→21:43)
--- NOTE | 2024-12-14 14:24 | P.PNGS_ITS ---
Subjective Subjective Date of Service: 12/15/24 Interval history: feels sore but otherwise ok, no fevers getting hungry Physical Exam 2 Vital Signs: Vital Signs: Last Vital Signs Temp 98.4 F 12/14/24 06:49 Pulse 93 12/14/24 06:49 Resp 16 12/14/24 06:49 BP 108/70 12/14/24 08:26 Pulse Ox 96 12/14/24 06:49 O2 Del Method Nasal Cannula 12/14/24 06:49 O2 Flow Rate 2 12/14/24 03:52 BMI result Body Mass Index 26.1 Const: General: cooperative and healthy appearing GI: Other: abdomen is soft tender ruq area ólpez drain with serosanguinous fluid Objective Data Active Medications Acetaminophen (Acetaminophen 325 Mg Tablet) 650 mg PO Q6H PRN PRN Reason: Pain, Mild 1-3,fever,headache Last Admin: 12/13/24 19:50 Dose: 650 mg Documented By: CINDI Bisacodyl (Bisacodyl 10 Mg Supp.Rect) 10 mg DC BEDTIME PRN PRN Reason: Constipation Calcium Carbonate (Calcium Carbonate 750 Mg Tab.Chew) 750 mg PO Q4H PRN PRN Reason: Heartburn Ceftriaxone Sodium (Ceftriaxone Sodium 1 Gm Vial) 1 gm IVPUSH Q24H [facility] Last Admin: 12/14/24 11:48 Dose: 1 gm Documented By: MARCIAL Cyclobenzaprine HCl (Cyclobenzaprine Hcl 5 Mg Tablet) 5 mg PO BEDTIME [facility] Last Admin: 12/13/24 19:51 Dose: 5 mg Documented By: CINDI Docusate Sodium (Docusate Sodium 100 Mg Capsule) 100 mg PO BID [facility] Last Admin: 12/14/24 08:23 Dose: 100 mg Documented By: MARCIAL Metronidazole (Flagyl) 500 mg in 100 mls @ 100 mls/hr IV Q8H [facility] Last Admin: 12/14/24 11:48 Dose: 100 mls/hr Documented By: MARCIAL Levothyroxine Sodium (Levothyroxine Sodium 50 Mcg Tablet) 50 mcg PO DAILY@0630 [facility] Last Admin: 12/14/24 05:33 Dose: 50 mcg Documented By: CINDI Lisinopril (Lisinopril 10 Mg Tablet) 10 mg PO DAILY [facility]; Protocol Last Admin: 12/14/24 08:26 Dose: 10 mg Documented By: MARCIAL Loratadine (Loratadine 10 Mg Tablet) 10 mg PO DAILY [facility] Last Admin: 12/14/24 08:23 Dose: 10 mg Documented By: MARCIAL Melatonin (Melatonin 3 Mg Tablet) 6 mg PO BEDTIME PRN PRN Reason: Insomnia Last Admin: 12/12/24 20:17 Dose: 6 mg Documented By: CINDI Mirtazapine (Mirtazapine 7.5 Mg Tablet) 7.5 mg PO BEDTIME [facility] Last Admin: 12/13/24 19:51 Dose: 7.5 mg Documented By: CINDI Morphine Sulfate (Morphine Sulfate 4 Mg/Ml Cartridge) 4 mg IVPUSH Q4H PRN; Protocol PRN Reason: Pain, Severe (Pain Scale 7-10) Last Admin: 12/14/24 14:17 Dose: 4 mg Documented By: MARCIAL Naloxone HCl (Naloxone Hcl 0.4 Mg/Ml Vial) 0.04 mg IVPUSH Q5M PRN PRN Reason: Excessive sedation or RR < 8 Omeprazole (Omeprazole 20 Mg Capsule.Dr) 20 mg PO DAILY@0630 [facility] Last Admin: 12/14/24 05:33 Dose: 20 mg Documented By: CINDI Ondansetron HCl (Ondansetron Hcl 4 Mg/2 Ml Vial) 4 mg IVPUSH Q8H PRN PRN Reason: Nausea and Vomiting Last Admin: 12/14/24 02:43 Dose: 4 mg Documented By: CINDI Polyethylene Glycol (Polyethylene Glycol 3350 17 Gm Powd.Pack) 17 gm PO DAILY [facility] Last Admin: 12/14/24 08:24 Dose: Not Given Documented By: MARCIAL Non-Admin Reason: NPO Senna (Sennosides 8.6 Mg Tablet) 8.6 mg PO BEDTIME [facility] Last Admin: 12/13/24 19:51 Dose: 8.6 mg Documented By: CINDI Sodium Chloride (0.9 % Sodium Chloride Flush 3 Ml Syringe) 3 ml IVFLUSH QSHIFT [facility] Last Admin: 12/14/24 08:26 Dose: 3 ml Documented By: MARCIAL Tolterodine Tartrate (Tolterodine Tartrate La 2 Mg Cap.Er.24h) 2 mg PO DAILY [facility] Last Admin: 12/14/24 08:24 Dose: 2 mg Documented By: MARCIAL Triamcinolone Acetonide (Triamcinolone Acet 0.1 % Cream 15 Gm Tube) 1 appl TOPICAL BID [facility] Last Admin: 12/14/24 11:57 Dose: Not Given Documented By: MARCIAL Non-Admin Reason: Patient Refused Vitamin D (Cholecalciferol (Vitamin D3) 25 Mcg Tablet) 50 mcg PO DAILY [facility] Last Admin: 12/14/24 08:23 Dose: 50 mcg Documented By: MARCIAL Labs 12/14/24 06:39 12/14/24 06:39 Labs: Laboratory Results - last 24 hr 12/13/24 12/13/24 12/14/24 15:05 16:37 06:39 MCV 94.2 93.5 MCH 30.7 31.2 MCHC 32.6 33.3 RDW 12.0 11.9 Plt Count TNP 270 MPV 10.1 9.3 L Immature Gran % (Auto) 1.4 H 0.5 H Neut % (Auto) 85.8 H 73.1 H Lymph % (Auto) 9.3 L 16.9 L [place] % (Auto) 3.1 9.3 Eos % (Auto) 0.1 0.0 Baso % (Auto) 0.3 0.2 Lymph # (Auto) 2.5 3.0 [place] # (Auto) 0.8 1.7 H Eos # (Auto) 0.0 0.0 Baso # (Auto) 0.1 0.0 Abs Immat Gran (auto) 0.38 H 0.08 H Absolute Neuts (auto) 23.0 H 13.0 H Absolute Nucleated RBC 0.050 H 0.000 Nucleated RBC % (auto) 0.2 0.0 Smear Tech's Comments VERIFIED VERIFIED Anion Gap 11 L Estim Creat Clear Calc 66.2 Estimated GFR > 60 Random Glucose 128 H Calcium 8.1 L D Total Bilirubin 0.7 AST 117 H ALT 149 H Alkaline Phosphatase 150 H Total Protein 5.8 L Albumin 3.5 Blood Type A Positive Antibody Screen NEGATIVE Crossmatch See Detail Procedures Date of Service Date of Service: 12/15/24 Progress Note: A&P Assessment and plan (1) Choledocholithiasis with acute cholecystitis: Status: Acute Plan pt POD#1 s/p lap to open to subtotal cholexystectomy fenestrated - moderate blood loss in or but pt hemodynamically doing great and hct at a low of 27 from 30 preop. case discussed with pt and family with saw maker - plan slow po advancement -ileus potential. iv and po pain meds. cont wtih antibiotics Time Spent With Patient Time: Total time managing care of this patient today ____ minutes. Quality Stroke Does the patient have a stroke diagnosis?: No VTE Prior VTE?: No VTE Risk Level:: Medical - moderate - high VTE Device Contraindication: N/A - Device Ordered VTE Drug Contraindication: Treatment Not Indicated
[2024-12-14 14:51] VITALS: BP 100/59; PULSE 109; RESP 18; TEMP 36.8; O2SAT 92
[2024-12-14 19:18] VITALS: BP 92/58; PULSE 107; RESP 15; TEMP 37; O2SAT 91
[2024-12-14] MEDS: Lactated Ringers 1,000 ML 999 ML IV (21:30)
[2024-12-15] VITALS (7 sets, daily range): BP systolic 102–129; BP diastolic 61–76; PULSE 93–103; RESP 16–18; TEMP 36.8–37.7; O2SAT 91–94
[2024-12-15] MEDS: metroNIDAZOLE/NS 500 MG/100 ML PIGGYBACK 100 MG IV ×3 (01:37→17:40)
[2024-12-15 06:46] LABS: MANUAL DIFF FLAG NO
[2024-12-15 06:57] LABS: Hematocrit 21.9 % (42.0-52.0); Hemoglobin 7.5 g/dl (14.0-18.0); Imm Gran Abs Auto 0.07 X10*3/uL (0.00-0.03); Imm Gran Pct Auto 0.4 % (0.0-0.4); Lymphocytes Absolute Auto 2.8 X10*3/uL (1.2-4.9); Mean Corpuscular HGB Conc 34.2 g/dl (31.0-36.0); Mean Corpuscular Hemoglobin 31.6 pg (27.0-33.0); Mean Corpuscular Volume 92.4 fL (80.0-98.0); NRBC Abs Auto 0.000 X10*3/uL (0.0-0.012); NRBC Pct Auto 0.0 /100WBC (0.0-0.2); Platelet Count 241 X10*3/uL (160-400); Red Blood Count 2.37 X10*6/uL (4.60-5.80); White Blood Count 15.6 X10*3/uL (4.8-10.8)
[2024-12-15 07:17] LABS: Alanine Aminotransferase 105 U/L (0-40); Albumin Level 3.1 g/dL (3.5-5.0); Alkaline Phosphatase 112 U/L (39-117); Anion Gap 10 (12-20); Aspartate Amino Transferase 74 U/L (5-37); Blood Urea Nitrogen 15 mg/dL (9-16); Calcium 8.0 mg/dL (8.4-10.2); Carbon Dioxide 28 mmol/L (22-29); Chloride 106 mmol/L (96-108); Creatinine Clr Calc Pharmacy 72.0; Estimated Glomerular Filt Rate > 60; Potassium 3.7 mmol/L (3.3-5.1); Sodium 140 mmol/L (135-145); Total Protein 5.4 g/dL (6.5-8.0)
--- NOTE | 2024-12-15 07:49 | P.PNGS_ITS ---
Subjective Subjective Date of Service: 12/15/24 Interval history: He describes some pain on incision Events reported overnight next says he is tolerating clear liquids Physical Exam 2 Vital Signs: Vital Signs: Last Vital Signs Temp 99.9 F 12/15/24 07:40 Pulse 96 12/15/24 07:40 Resp 18 12/15/24 07:40 BP 108/73 12/15/24 07:40 Pulse Ox 92 12/15/24 07:40 O2 Del Method Room Air 12/15/24 07:40 O2 Flow Rate 2 12/14/24 14:51 BMI result Body Mass Index 26.1 Const: General: comfortable and no acute distress Resp: Effort & Inspection: normal respiratory effort Cardio: Rate: tachycardic GI: Other: NAT drain with dark old thin blood Palpation (GI): Soft to palpation, not firm and no guarding Objective Data Active Medications Acetaminophen (Acetaminophen 325 Mg Tablet) 650 mg PO Q6H PRN PRN Reason: Pain, Mild 1-3,fever,headache Last Admin: 12/13/24 19:50 Dose: 650 mg Documented By: CINDI Bisacodyl (Bisacodyl 10 Mg Supp.Rect) 10 mg ID BEDTIME PRN PRN Reason: Constipation Calcium Carbonate (Calcium Carbonate 750 Mg Tab.Chew) 750 mg PO Q4H PRN PRN Reason: Heartburn Ceftriaxone Sodium (Ceftriaxone Sodium 1 Gm Vial) 1 gm IVPUSH Q24H [facility] Last Admin: 12/14/24 11:48 Dose: 1 gm Documented By: MARCIAL Cyclobenzaprine HCl (Cyclobenzaprine Hcl 5 Mg Tablet) 5 mg PO BEDTIME [facility] Last Admin: 12/14/24 21:39 Dose: 5 mg Documented By: CINDI Docusate Sodium (Docusate Sodium 100 Mg Capsule) 100 mg PO BID [facility] Last Admin: 12/14/24 21:38 Dose: 100 mg Documented By: CINDI Metronidazole (Flagyl) 500 mg in 100 mls @ 100 mls/hr IV Q8H [facility] Last Infusion: 12/15/24 04:06 Dose: Infused Documented By: CINDI Levothyroxine Sodium (Levothyroxine Sodium 50 Mcg Tablet) 50 mcg PO DAILY@0630 [facility] Last Admin: 12/15/24 05:33 Dose: 50 mcg Documented By: CINDI Lisinopril (Lisinopril 10 Mg Tablet) 10 mg PO DAILY [facility]; Protocol Last Admin: 12/14/24 08:26 Dose: 10 mg Documented By: MARCIAL Loratadine (Loratadine 10 Mg Tablet) 10 mg PO DAILY [facility] Last Admin: 12/14/24 08:23 Dose: 10 mg Documented By: MARCIAL Melatonin (Melatonin 3 Mg Tablet) 6 mg PO BEDTIME PRN PRN Reason: Insomnia Last Admin: 12/12/24 20:17 Dose: 6 mg Documented By: CINDI Mirtazapine (Mirtazapine 7.5 Mg Tablet) 7.5 mg PO BEDTIME [facility] Last Admin: 12/14/24 21:38 Dose: 7.5 mg Documented By: CINDI Morphine Sulfate (Morphine Sulfate 4 Mg/Ml Cartridge) 4 mg IVPUSH Q4H PRN; Protocol PRN Reason: Pain, Severe (Pain Scale 7-10) Last Admin: 12/14/24 14:17 Dose: 4 mg Documented By: MARCIAL Naloxone HCl (Naloxone Hcl 0.4 Mg/Ml Vial) 0.04 mg IVPUSH Q5M PRN PRN Reason: Excessive sedation or RR < 8 Omeprazole (Omeprazole 20 Mg Capsule.Dr) 20 mg PO DAILY@0630 [facility] Last Admin: 12/15/24 05:33 Dose: 20 mg Documented By: CINDI Ondansetron HCl (Ondansetron Hcl 4 Mg/2 Ml Vial) 4 mg IVPUSH Q8H PRN PRN Reason: Nausea and Vomiting Last Admin: 12/14/24 02:43 Dose: 4 mg Documented By: CINDI Polyethylene Glycol (Polyethylene Glycol 3350 17 Gm Powd.Pack) 17 gm PO DAILY [facility] Last Admin: 12/14/24 08:24 Dose: Not Given Documented By: MARCIAL Non-Admin Reason: NPO Senna (Sennosides 8.6 Mg Tablet) 8.6 mg PO BEDTIME [facility] Last Admin: 12/14/24 21:39 Dose: 8.6 mg Documented By: CINDI Sodium Chloride (0.9 % Sodium Chloride Flush 3 Ml Syringe) 3 ml IVFLUSH QSHIFT [facility] Last Admin: 12/14/24 21:43 Dose: 3 ml Documented By: CINDI Tolterodine Tartrate (Tolterodine Tartrate La 2 Mg Cap.Er.24h) 2 mg PO DAILY [facility] Last Admin: 12/14/24 08:24 Dose: 2 mg Documented By: MARCIAL Triamcinolone Acetonide (Triamcinolone Acet 0.1 % Cream 15 Gm Tube) 1 appl TOPICAL BID [facility] Last Admin: 12/14/24 21:42 Dose: Not Given Documented By: CINDI Non-Admin Reason: Med Not Available Vitamin D (Cholecalciferol (Vitamin D3) 25 Mcg Tablet) 50 mcg PO DAILY [facility] Last Admin: 12/14/24 08:23 Dose: 50 mcg Documented By: MARCIAL Labs 12/15/24 05:41 12/15/24 05:41 Labs: Laboratory Results - last 24 hr 12/13/24 12/14/24 12/15/24 15:05 21:30 05:41 MCV 92.4 MCH 31.6 MCHC 34.2 RDW 12.1 Plt Count 241 MPV 9.5 Immature Gran % (Auto) 0.4 Neut % (Auto) 71.9 Lymph % (Auto) 18.1 L [place] % (Auto) 8.7 Eos % (Auto) 0.7 Baso % (Auto) 0.2 Lymph # (Auto) 2.8 [place] # (Auto) 1.4 H Eos # (Auto) 0.1 Baso # (Auto) 0.0 Abs Immat Gran (auto) 0.07 H Absolute Neuts (auto) 11.2 H Absolute Nucleated RBC 0.000 Nucleated RBC % (auto) 0.0 Anion Gap 10 L Estim Creat Clear Calc 72.0 Estimated GFR > 60 Random Glucose 105 Lactic Acid 1.9 Calcium 8.0 L Total Bilirubin 0.6 AST 74 H ALT 105 H Alkaline Phosphatase 112 Total Protein 5.4 L Albumin 3.1 L Blood Type A Positive Antibody Screen NEGATIVE Crossmatch See Detail Procedures Date of Service Date of Service: 12/15/24 Progress Note: A&P Assessment and plan (1) Choledocholithiasis with acute cholecystitis: Status: Acute Assessment and Plan: Status post open cholecystectomy LFTs better NAT drain with dark old blood Hemoglobin 7.5 We will repeat H and H later today and consider transfusion if this continues to trend down below 7 Looks comfortable and hemodynamically stable Abdomen is soft and benign Pain management Out of bed , ambulate Advance diet as tolerated Time Spent With Patient Time: Total time managing care of this patient today ____ minutes. Quality Stroke Does the patient have a stroke diagnosis?: No VTE Prior VTE?: No VTE Risk Level:: Medical - moderate - high VTE Device Contraindication: N/A - Device Ordered VTE Drug Contraindication: Treatment Not Indicated
[2024-12-15] MEDS: 0.9 % Sodium Chloride Flush 3 ML SYRINGE IVFLUSH ×3 (08:28→20:03)
[2024-12-15] MEDS: Tolterodine Tartrate LA 2 MG CAP.ER.24H PO (08:28)
--- NOTE | 2024-12-15 08:33 | HO.POSTANES ---
Post Anesthesia Evaluation Post Anesthesia Evaluation Date of Service: 12/15/24 Vital Signs: Vital Signs Temp Pulse Resp BP Pulse Ox O2 Del Method 12/15/24 07:40 99.9 F 96 18 108/73 92 Room Air 12/15/24 03:21 98.6 F 101 H 16 102/61 94 Room Air Anesthesia: General Mental Status: Awake Pain Control: Satisfactory (feeling very sore) Nausea/Vomiting: None Hydration: Adequate Anesthesia-Related Issues: No Anes. Related Issues
--- NOTE | 2024-12-15 08:35 | HO.PM.IMPN ---
Subjective Subjective Date of Service: 12/15/24 Interval History: seen and examined this morning follow up for cholecystitis, choledocolithiasis no nausea or vomiting s/p CCY Review of Systems Review of Systems: Yes all other systems are reviewed and are negative Constitutional Constitutional: Denies chills and Denies fever(s) Cardiovascular Cardiovascular: Denies chest pain, Denies palpitations and Denies dyspnea Respiratory Respiratory: Denies cough and Denies dyspnea Endocrine Endocrine: Denies palpitations Physical Exam Exam: Exam: Appearing in no acute distress lung sounds are clear to auscultation heart regular rate rhythm, clear S1, S2 positive bowel sounds, abdomen is soft, nontender neuro patient is alert x3, no focal deficits Abd surgical incision noted NAT drain Vital Signs: Vital Signs: Last Vital Signs Temp 99.9 F 12/15/24 07:40 Pulse 96 12/15/24 07:40 Resp 18 12/15/24 07:40 BP 108/73 12/15/24 07:40 Pulse Ox 92 12/15/24 07:40 O2 Del Method Room Air 12/15/24 07:40 O2 Flow Rate 2 12/14/24 14:51 BMI result Body Mass Index 26.1 Objective Data Active Medications Acetaminophen (Acetaminophen 325 Mg Tablet) 650 mg PO Q6H PRN PRN Reason: Pain, Mild 1-3,fever,headache Last Admin: 12/13/24 19:50 Dose: 650 mg Documented By: CINDI Bisacodyl (Bisacodyl 10 Mg Supp.Rect) 10 mg DE BEDTIME PRN PRN Reason: Constipation Calcium Carbonate (Calcium Carbonate 750 Mg Tab.Chew) 750 mg PO Q4H PRN PRN Reason: Heartburn Ceftriaxone Sodium (Ceftriaxone Sodium 1 Gm Vial) 1 gm IVPUSH Q24H [facility] Last Admin: 12/14/24 11:48 Dose: 1 gm Documented By: MARCIAL Cyclobenzaprine HCl (Cyclobenzaprine Hcl 5 Mg Tablet) 5 mg PO BEDTIME [facility] Last Admin: 12/14/24 21:39 Dose: 5 mg Documented By: CINDI Docusate Sodium (Docusate Sodium 100 Mg Capsule) 100 mg PO BID [facility] Last Admin: 12/15/24 08:28 Dose: 100 mg Documented By: SARBJIT Metronidazole (Flagyl) 500 mg in 100 mls @ 100 mls/hr IV Q8H [facility] Last Infusion: 12/15/24 04:06 Dose: Infused Documented By: CINDI Levothyroxine Sodium (Levothyroxine Sodium 50 Mcg Tablet) 50 mcg PO DAILY@0630 [facility] Last Admin: 12/15/24 05:33 Dose: 50 mcg Documented By: CINDI Lisinopril (Lisinopril 10 Mg Tablet) 10 mg PO DAILY [facility]; Protocol Last Admin: 12/15/24 08:28 Dose: 10 mg Documented By: SARBJIT Loratadine (Loratadine 10 Mg Tablet) 10 mg PO DAILY [facility] Last Admin: 12/15/24 08:28 Dose: 10 mg Documented By: SARBJIT Melatonin (Melatonin 3 Mg Tablet) 6 mg PO BEDTIME PRN PRN Reason: Insomnia Last Admin: 12/12/24 20:17 Dose: 6 mg Documented By: CINDI Mirtazapine (Mirtazapine 7.5 Mg Tablet) 7.5 mg PO BEDTIME [facility] Last Admin: 12/14/24 21:38 Dose: 7.5 mg Documented By: CINDI Morphine Sulfate (Morphine Sulfate 4 Mg/Ml Cartridge) 4 mg IVPUSH Q4H PRN; Protocol PRN Reason: Pain, Severe (Pain Scale 7-10) Last Admin: 12/15/24 08:26 Dose: 4 mg Documented By: SARBJIT Naloxone HCl (Naloxone Hcl 0.4 Mg/Ml Vial) 0.04 mg IVPUSH Q5M PRN PRN Reason: Excessive sedation or RR < 8 Omeprazole (Omeprazole 20 Mg Capsule.) 20 mg PO DAILY@30 [facility] Last Admin: 12/15/24 05:33 Dose: 20 mg Documented By: CINDI Ondansetron HCl (Ondansetron Hcl 4 Mg/2 Ml Vial) 4 mg IVPUSH Q8H PRN PRN Reason: Nausea and Vomiting Last Admin: 12/14/24 02:43 Dose: 4 mg Documented By: CINDI Polyethylene Glycol (Polyethylene Glycol 3350 17 Gm Powd.Pack) 17 gm PO DAILY [facility] Last Admin: 12/15/24 08:28 Dose: 17 gm Documented By: SARBJIT Senna (Sennosides 8.6 Mg Tablet) 8.6 mg PO BEDTIME [facility] Last Admin: 12/14/24 21:39 Dose: 8.6 mg Documented By: CINDI Sodium Chloride (0.9 % Sodium Chloride Flush 3 Ml Syringe) 3 ml IVFLUSH QSHIFT [facility] Last Admin: 12/15/24 08:28 Dose: 3 ml Documented By: SARBJIT Tolterodine Tartrate (Tolterodine Tartrate La 2 Mg Cap.Er.24h) 2 mg PO DAILY [facility] Last Admin: 12/15/24 08:28 Dose: 2 mg Documented By: SARBJIT Triamcinolone Acetonide (Triamcinolone Acet 0.1 % Cream 15 Gm Tube) 1 appl TOPICAL BID [facility] Last Admin: 12/15/24 08:29 Dose: Not Given Documented By: SARBJIT Non-Admin Reason: Med Not Available Vitamin D (Cholecalciferol (Vitamin D3) 25 Mcg Tablet) 50 mcg PO DAILY [facility] Last Admin: 12/15/24 08:28 Dose: 50 mcg Documented By: SARBJIT Labs 12/15/24 05:41 12/15/24 05:41 Labs: Laboratory Results - last 24 hr 12/13/24 12/14/24 12/15/24 15:05 21:30 05:41 MCV 92.4 MCH 31.6 MCHC 34.2 RDW 12.1 Plt Count 241 MPV 9.5 Immature Gran % (Auto) 0.4 Neut % (Auto) 71.9 Lymph % (Auto) 18.1 L [place] % (Auto) 8.7 Eos % (Auto) 0.7 Baso % (Auto) 0.2 Lymph # (Auto) 2.8 [place] # (Auto) 1.4 H Eos # (Auto) 0.1 Baso # (Auto) 0.0 Abs Immat Gran (auto) 0.07 H Absolute Neuts (auto) 11.2 H Absolute Nucleated RBC 0.000 Nucleated RBC % (auto) 0.0 Anion Gap 10 L Estim Creat Clear Calc 72.0 Estimated GFR > 60 Random Glucose 105 Lactic Acid 1.9 Calcium 8.0 L Total Bilirubin 0.6 AST 74 H ALT 105 H Alkaline Phosphatase 112 Total Protein 5.4 L Albumin 3.1 L Blood Type A Positive Antibody Screen NEGATIVE Crossmatch See Detail Assessment and Plan (1) Choledocholithiasis with acute cholecystitis: Status: Acute (2) Acute pancreatitis: Status: Acute Plan 69 year old male with history of HTN, HLD, BPH, benign neoplasm of cerebellum who presented with weakness, n/v and constipation found to have elevated LFTS and concern for acute cholecystitis Acute blood loss anemia loss of 1 liter of blood during surgery 7.5/21.9 today, down from yesterday PRBC ordered x1 Acute gallstone pancreatitis /cholelithiasis LFTs elevated in obstructive pattern initially but trending down MRCP +for multiple CBD stones GI following continue IV ceftriaxone & flagyl for now s/p complicated open CCY 12/13, NAT drain present and draining constipation moderate colonic stool burden on kub bowel regimen Hypothyroidism Continue Synthroid Hypertension Lisinopril Hyperlipidemia Hold statin due to elevated LFTs GERD continue omeprazole Incidental finding of Right kidney cyst Outpatient renal protocol CT or MRI recommended dvt ppx - mechanical devices code status - full code Quality Stroke Does the patient have a stroke diagnosis?: No VTE Prior VTE?: No VTE Risk Level:: Medical - moderate - high VTE Device Contraindication: N/A - Device Ordered VTE Drug Contraindication: Treatment Not Indicated
--- NOTE | 2024-12-15 15:35 | PM.EVENT ---
Event Note Date of Service: 12/15/24 Event Note: seen on afternoon rounds Looks comfortable Good pain control Tolerating clears NAT drain - dark old blood Hemodynamically stable Follow H&H Okay to start advancing diet as tolerated probably tomorrow Time Spent With Patient Time: Total time managing care of this patient today ____ minutes.
[2024-12-16] MEDS: metroNIDAZOLE/NS 500 MG/100 ML PIGGYBACK 100 MG IV ×3 (01:37→17:18)
[2024-12-16 03:12] VITALS: BP 139/85; PULSE 93; RESP 16; TEMP 37; O2SAT 95
[2024-12-16 06:39] LABS: Hematocrit 23.4 % (42.0-52.0); Hemoglobin 8.0 g/dl (14.0-18.0); Mean Corpuscular HGB Conc 34.2 g/dl (31.0-36.0); Mean Corpuscular Hemoglobin 30.8 pg (27.0-33.0); Mean Corpuscular Volume 90.0 fL (80.0-98.0); NRBC Abs Auto 0.000 X10*3/uL (0.0-0.012); NRBC Pct Auto 0.0 /100WBC (0.0-0.2); Platelet Count 224 X10*3/uL (160-400); Red Blood Count 2.60 X10*6/uL (4.60-5.80); White Blood Count 11.8 X10*3/uL (4.8-10.8)
--- NOTE | 2024-12-16 07:35 | P.PNGS_ITS ---
Subjective Subjective Date of Service: 12/16/24 <Tiffanie Clancy PA-C - Last Filed: 12/16/24 07:39> 12/16/24 <Po Sutherland MD - Last Filed: 12/16/24 08:59> Interval history: Received 1U PRBC yesterday. Feels ok this morning, denies pain. Has been OOB to recliner but has not really ambulated. Tolerated clears yesterday, wants to eat. <Tiffanie Clancy PA-C - Last Filed: 12/16/24 07:39> Physical Exam 2 Vital Signs: Vital Signs: Last Vital Signs Temp 98.6 F 12/16/24 03:12 Pulse 93 12/16/24 03:12 Resp 16 12/16/24 03:12 BP 139/85 12/16/24 03:12 Pulse Ox 95 12/16/24 03:12 O2 Del Method Nasal Cannula 12/16/24 03:12 O2 Flow Rate 2 12/16/24 03:12 BMI result Body Mass Index 26.1 <Tiffanie Clancy PA-C - Last Filed: 12/16/24 07:39> Const: General: comfortable, no acute distress and alert <JUSTIN Eng Last Filed: 12/16/24 07:39> Orientation/consciousness: patient oriented x3 <JUSTIN Eng Last Filed: 12/16/24 07:39> Resp: Effort & Inspection: normal respiratory effort, able to speak in complete sentences and no respiratory distress <Tiffanie Clancy PA-C - Last Filed: 12/16/24 07:39> GI: Other: soft mild distention incisions clean appearing NAT drain nonbilious, more serous appearing this morning <JUSTIN Eng Last Filed: 12/16/24 07:39> Palpation (GI): Tenderness to palpation present (GI) (mild incisional) and no guarding <JUSTIN Eng Last Filed: 12/16/24 07:39> Skin: General skin exam: no rashes or lesions noted and no jaundice < JUSTIN Eng Last Filed: 12/16/24 07:39> Neuro: General: patient oriented x3 and moves all extremities <Tiffanie Clancy PA-C - Last Filed: 12/16/24 07:39> Objective Data Active Medications Acetaminophen (Acetaminophen 325 Mg Tablet) 650 mg PO Q6H PRN PRN Reason: Pain, Mild 1-3,fever,headache Last Admin: 12/13/24 19:50 Dose: 650 mg Documented By: CINDI Bisacodyl (Bisacodyl 10 Mg Supp.Rect) 10 mg [place] BEDTIME PRN PRN Reason: Constipation Calcium Carbonate (Calcium Carbonate 750 Mg Tab.Chew) 750 mg PO Q4H PRN PRN Reason: Heartburn Ceftriaxone Sodium (Ceftriaxone Sodium 1 Gm Vial) 1 gm IVPUSH Q24H [facility] Last Admin: 12/15/24 10:31 Dose: 1 gm Documented By: SARBJIT Cyclobenzaprine HCl (Cyclobenzaprine Hcl 5 Mg Tablet) 5 mg PO BEDTIME [facility] Last Admin: 12/15/24 20:02 Dose: 5 mg Documented By: TORITO Docusate Sodium (Docusate Sodium 100 Mg Capsule) 100 mg PO BID [facility] Last Admin: 12/15/24 20:02 Dose: 100 mg Documented By: TORITO Metronidazole (Flagyl) 500 mg in 100 mls @ 100 mls/hr IV Q8H [facility] Last Infusion: 12/16/24 02:44 Dose: Infused Documented By: TORITO Levothyroxine Sodium (Levothyroxine Sodium 50 Mcg Tablet) 50 mcg PO DAILY@0630 [facility] Last Admin: 12/16/24 05:30 Dose: 50 mcg Documented By: TORITO Lisinopril (Lisinopril 10 Mg Tablet) 10 mg PO DAILY [facility]; Protocol Last Admin: 12/15/24 08:28 Dose: 10 mg Documented By: SARBJIT Loratadine (Loratadine 10 Mg Tablet) 10 mg PO DAILY [facility] Last Admin: 12/15/24 08:28 Dose: 10 mg Documented By: SARBJIT Melatonin (Melatonin 3 Mg Tablet) 6 mg PO BEDTIME PRN PRN Reason: Insomnia Last Admin: 12/12/24 20:17 Dose: 6 mg Documented By: CINDI Mirtazapine (Mirtazapine 7.5 Mg Tablet) 7.5 mg PO BEDTIME [facility] Last Admin: 12/15/24 20:03 Dose: 7.5 mg Documented By: TORITO Morphine Sulfate (Morphine Sulfate 4 Mg/Ml Cartridge) 4 mg IVPUSH Q4H PRN; Protocol PRN Reason: Pain, Severe (Pain Scale 7-10) Last Admin: 12/16/24 03:22 Dose: 4 mg Documented By: TORITO Naloxone HCl (Naloxone Hcl 0.4 Mg/Ml Vial) 0.04 mg IVPUSH Q5M PRN PRN Reason: Excessive sedation or RR < 8 Omeprazole (Omeprazole 20 Mg Capsule.Dr) 20 mg PO DAILY@0630 [facility] Last Admin: 12/16/24 05:30 Dose: 20 mg Documented By: TORITO Ondansetron HCl (Ondansetron Hcl 4 Mg/2 Ml Vial) 4 mg IVPUSH Q8H PRN PRN Reason: Nausea and Vomiting Last Admin: 12/14/24 02:43 Dose: 4 mg Documented By: CINDI Polyethylene Glycol (Polyethylene Glycol 3350 17 Gm Powd.Pack) 17 gm PO DAILY [facility] Last Admin: 12/15/24 08:28 Dose: 17 gm Documented By: SARBJIT Senna (Sennosides 8.6 Mg Tablet) 8.6 mg PO BEDTIME [facility] Last Admin: 12/15/24 20:02 Dose: 8.6 mg Documented By: TORITO Sodium Chloride (0.9 % Sodium Chloride Flush 3 Ml Syringe) 3 ml IVFLUSH QSHIFT [facility] Last Admin: 12/15/24 20:03 Dose: 3 ml Documented By: TORITO Tolterodine Tartrate (Tolterodine Tartrate La 2 Mg Cap.Er.24h) 2 mg PO DAILY [facility] Last Admin: 12/15/24 08:28 Dose: 2 mg Documented By: SARBJIT Triamcinolone Acetonide (Triamcinolone Acet 0.1 % Cream 15 Gm Tube) 1 appl TOPICAL BID [facility] Last Admin: 12/15/24 20:13 Dose: Not Given Documented By: TORITO Non-Admin Reason: Med Not Available Vitamin D (Cholecalciferol (Vitamin D3) 25 Mcg Tablet) 50 mcg PO DAILY [facility] Last Admin: 12/15/24 08:28 Dose: 50 mcg Documented By: SARBJIT <Tiffanie Clancy PA-C - Last Filed: 12/16/24 07:39> Labs CBC & Chem 7: 12/16/24 05:44 12/15/24 05:41 <Tiffanie Clancy PA-C - Last Filed: 12/16/24 07:39> Labs: Laboratory Results - last 24 hr 12/13/24 12/16/24 15:05 05:44 MCV 90.0 MCH 30.8 MCHC 34.2 RDW 13.8 Plt Count 224 MPV 9.5 Absolute Nucleated RBC 0.000 Nucleated RBC % (auto) 0.0 Blood Type A Positive Antibody Screen NEGATIVE Crossmatch See Detail <Tiffanie Clancy PA-C - Last Filed: 12/16/24 07:39> Procedures Date of Service Date of Service: 12/16/24 <Tiffanie Clancy PA-C - Last Filed: 12/16/24 07:39> 12/16/24 <Po Sutherland MD - Last Filed: 12/16/24 08:59> Progress Note: A&P Assessment and plan (1) Choledocholithiasis with acute cholecystitis: Status: Acute <Tiffanie Clancy PA-C - Last Filed: 12/16/24 07:39> Assessment and Plan: Has good pain control Was transfused 1 unit yesterday Looks comfortable Abdomen is soft and benign NAT drain with dark old blood, nonbilious Okay to advance diet as tolerated Doing well overall Plan to DC the NAT drain prior to discharge <Po Sutherland MD - Last Filed: 12/16/24 08:59> (2) S/P cholecystectomy: Status: Acute <Tiffanie Clancy PA-C - Last Filed: 12/16/24 07:39> Assessment and Plan: POD # 3 s/p laparoscopic converted to open procedure and subtotal cholecystectomy fenestrated. Overall doing well post op, H/H trended up appropriately after transfusion yesterday. Abd remains benign with clean incision, appropriate post op tenderness. NAT remains nonbilious, more serous appearing this morning. Will advance to solid diet. Encouraged OOB/ambulation and increasing activity. Will consult PT. Monitor NAT output, will likely remove prior to dc. <Tiffanie Clancy PA-C - Last Filed: 12/16/24 07:39> Time Spent With Patient Time: Total time managing care of this patient today ____ minutes. <Tiffanie Clancy PA-C - Last Filed: 12/16/24 07:39> Quality Stroke Does the patient have a stroke diagnosis?: No <Tiffanie Clancy PA-C - Last Filed: 12/16/24 07:39> VTE Prior VTE?: No <Tiffanie Clancy PA-C - Last Filed: 12/16/24 07:39> VTE Risk Level:: Medical - moderate - high <Tiffanie Clancy PA-C - Last Filed: 12/16/24 07:39> VTE Device Contraindication: N/A - Device Ordered <Tiffanie Clancy PA-C - Last Filed: 12/16/24 07:39> VTE Drug Contraindication: Treatment Not Indicated <Tiffanie Clancy PA-C - Last Filed: 12/16/24 07:39>
[2024-12-16 07:39] VITALS: BP 122/70; PULSE 82; RESP 18; TEMP 36.7; O2SAT 96
[2024-12-16] MEDS: Tolterodine Tartrate LA 2 MG CAP.ER.24H PO (08:21)
[2024-12-16] MEDS: 0.9 % Sodium Chloride Flush 3 ML SYRINGE IVFLUSH ×3 (08:32→20:43)
--- NOTE | 2024-12-16 08:56 | P.PNIM_ITS ---
Subjective Subjective Date of Service: 12/16/24 Interval History: seen and examined this morning follow up for cholecystitis, choledocolithiasis no nausea or vomiting s/p CCY Review of Systems Review of Systems: Yes all other systems are reviewed and are negative Constitutional Constitutional: Denies chills and Denies fever(s) Cardiovascular Cardiovascular: Denies chest pain, Denies palpitations and Denies dyspnea Respiratory Respiratory: Denies cough and Denies dyspnea Endocrine Endocrine: Denies palpitations Physical Exam 2 Vital Signs: Vital Signs: Last Vital Signs Temp 98.0 F 12/16/24 07:39 Pulse 82 12/16/24 07:39 Resp 18 12/16/24 07:39 BP 122/70 12/16/24 07:39 Pulse Ox 96 12/16/24 07:39 O2 Del Method Nasal Cannula 12/16/24 07:39 O2 Flow Rate 2 12/16/24 07:39 BMI result Body Mass Index 26.1 Objective Data Active Medications Acetaminophen (Acetaminophen 325 Mg Tablet) 650 mg PO Q6H PRN PRN Reason: Pain, Mild 1-3,fever,headache Last Admin: 12/13/24 19:50 Dose: 650 mg Documented By: CINDI Bisacodyl (Bisacodyl 10 Mg Supp.Rect) 10 mg [place] BEDTIME PRN PRN Reason: Constipation Calcium Carbonate (Calcium Carbonate 750 Mg Tab.Chew) 750 mg PO Q4H PRN PRN Reason: Heartburn Ceftriaxone Sodium (Ceftriaxone Sodium 1 Gm Vial) 1 gm IVPUSH Q24H [facility] Last Admin: 12/16/24 08:31 Dose: 1 gm Documented By: JONATAN Cyclobenzaprine HCl (Cyclobenzaprine Hcl 5 Mg Tablet) 5 mg PO BEDTIME [facility] Last Admin: 12/15/24 20:02 Dose: 5 mg Documented By: TORITO Docusate Sodium (Docusate Sodium 100 Mg Capsule) 100 mg PO BID [facility] Last Admin: 12/16/24 08:21 Dose: 100 mg Documented By: JONATAN Metronidazole (Flagyl) 500 mg in 100 mls @ 100 mls/hr IV Q8H [facility] Last Admin: 12/16/24 08:30 Dose: 100 mls/hr Documented By: JONATAN Levothyroxine Sodium (Levothyroxine Sodium 50 Mcg Tablet) 50 mcg PO DAILY@0630 [facility] Last Admin: 12/16/24 05:30 Dose: 50 mcg Documented By: TORITO Lisinopril (Lisinopril 10 Mg Tablet) 10 mg PO DAILY [facility]; Protocol Last Admin: 12/16/24 08:21 Dose: 10 mg Documented By: JONATAN Loratadine (Loratadine 10 Mg Tablet) 10 mg PO DAILY [facility] Last Admin: 12/16/24 08:21 Dose: 10 mg Documented By: JONATAN Melatonin (Melatonin 3 Mg Tablet) 6 mg PO BEDTIME PRN PRN Reason: Insomnia Last Admin: 12/12/24 20:17 Dose: 6 mg Documented By: CINDI Mirtazapine (Mirtazapine 7.5 Mg Tablet) 7.5 mg PO BEDTIME [facility] Last Admin: 12/15/24 20:03 Dose: 7.5 mg Documented By: TORITO Morphine Sulfate (Morphine Sulfate 4 Mg/Ml Cartridge) 4 mg IVPUSH Q4H PRN; Protocol PRN Reason: Pain, Severe (Pain Scale 7-10) Last Admin: 12/16/24 03:22 Dose: 4 mg Documented By: TORITO Naloxone HCl (Naloxone Hcl 0.4 Mg/Ml Vial) 0.04 mg IVPUSH Q5M PRN PRN Reason: Excessive sedation or RR < 8 Omeprazole (Omeprazole 20 Mg Capsule.Dr) 20 mg PO DAILY@629 [facility] Last Admin: 12/16/24 05:30 Dose: 20 mg Documented By: TORITO Ondansetron HCl (Ondansetron Hcl 4 Mg/2 Ml Vial) 4 mg IVPUSH Q8H PRN PRN Reason: Nausea and Vomiting Last Admin: 12/14/24 02:43 Dose: 4 mg Documented By: CINDI Polyethylene Glycol (Polyethylene Glycol 3350 17 Gm Powd.Pack) 17 gm PO DAILY [facility] Last Admin: 12/16/24 08:21 Dose: 17 gm Documented By: JONATAN Senna (Sennosides 8.6 Mg Tablet) 8.6 mg PO BEDTIME [facility] Last Admin: 12/15/24 20:02 Dose: 8.6 mg Documented By: TORITO Sodium Chloride (0.9 % Sodium Chloride Flush 3 Ml Syringe) [address] [facility] Last Admin: 12/16/24 08:32 Dose: 3 ml Documented By: JONATAN Tolterodine Tartrate (Tolterodine Tartrate La 2 Mg Cap.Er.24h) 2 mg PO DAILY [facility] Last Admin: 12/16/24 08:21 Dose: 2 mg Documented By: JONATAN Triamcinolone Acetonide (Triamcinolone Acet 0.1 % Cream 15 Gm Tube) 1 appl TOPICAL BID [facility] Last Admin: 12/16/24 08:31 Dose: Not Given Documented By: JONATAN Non-Admin Reason: Med Not Available Vitamin D (Cholecalciferol (Vitamin D3) 25 Mcg Tablet) 50 mcg PO DAILY [facility] Last Admin: 12/16/24 08:21 Dose: 50 mcg Documented By: JONATAN Labs 12/16/24 05:44 12/15/24 05:41 Labs: Laboratory Results - last 24 hr 12/13/24 12/16/24 15:05 05:44 MCV 90.0 MCH 30.8 MCHC 34.2 RDW 13.8 Plt Count 224 MPV 9.5 Absolute Nucleated RBC 0.000 Nucleated RBC % (auto) 0.0 Blood Type A Positive Antibody Screen NEGATIVE Crossmatch See Detail Assessment and Plan (1) Choledocholithiasis with acute cholecystitis: Status: Acute (2) Acute pancreatitis: Status: Acute Plan 69 year old male with history of HTN, HLD, BPH, benign neoplasm of cerebellum who presented with weakness, n/v and constipation found to have elevated LFTS and concern for acute cholecystitis Acute blood loss anemia loss of 1 liter of blood during surgery 7.5/21.9 today, down from yesterday PRBC ordered x1 with increase in H&H Acute gallstone pancreatitis /cholelithiasis LFTs elevated in obstructive pattern initially but trending down MRCP +for multiple CBD stones GI following continue IV ceftriaxone & flagyl for now s/p complicated open CCY 12/13, s/p NAT drain removed today constipation moderate colonic stool burden on kub bowel regimen Hypothyroidism Continue Synthroid Hypertension Lisinopril Hyperlipidemia Hold statin due to elevated LFTs GERD continue omeprazole Incidental finding of Right kidney cyst Outpatient renal protocol CT or MRI recommended dvt ppx - mechanical devices code status - full code Quality Stroke Does the patient have a stroke diagnosis?: No VTE Prior VTE?: No VTE Risk Level:: Medical - moderate - high VTE Device Contraindication: N/A - Device Ordered VTE Drug Contraindication: Treatment Not Indicated
[2024-12-16] MEDS: oxyCODONE HCl Immed Release 5 MG TABLET PO ×2 (11:04→14:47)
--- NOTE | 2024-12-16 11:54 | MHC.CM.PN ---
Patient has agreed to go for STR. Preferences obtained and referrals sent. A bed offer has been received from [facility]. Patient has accepted the bed offer. He will transport via BLS at discharge.
[2024-12-16 15:23] VITALS: BP 118/72; PULSE 89; RESP 18; TEMP 37; O2SAT 2
[2024-12-16 19:35] VITALS: BP 128/81; PULSE 93; RESP 18; TEMP 37.1; O2SAT 92
[2024-12-17] MEDS: metroNIDAZOLE/NS 500 MG/100 ML PIGGYBACK 100 MG IV ×2 (01:45→09:16)
[2024-12-17 03:31] VITALS: BP 137/76; PULSE 83; RESP 18; TEMP 37.3; O2SAT 92
--- NOTE | 2024-12-17 07:37 | PM.PNGS ---
Subjective Subjective Date of Service: 12/17/24 <Tiffanie Clancy PA-C - Last Filed: 12/17/24 07:40> 12/17/24 <Po Sutherland MD - Last Filed: 12/17/24 07:57> Interval history: Tolerating solid diet. Denies nausea, vomiting. Ambulated halls yesterday and this morning. Denies significant pain. <Tiffanie Clancy PA-C - Last Filed: 12/17/24 07:40> Physical Exam Vital Signs: Vital Signs: Last Vital Signs Temp 99.1 F 12/17/24 03:31 Pulse 83 12/17/24 03:31 Resp 18 12/17/24 03:31 BP 137/76 12/17/24 03:31 Pulse Ox 92 12/17/24 03:31 O2 Del Method Room Air 12/17/24 03:31 O2 Flow Rate 2 12/16/24 19:35 BMI result Body Mass Index 26.1 <Tiffanie Clancy PA-C - Last Filed: 12/17/24 07:40> Const: General: comfortable, no acute distress and alert <Tiffanie Clancy PA-C - Last Filed: 12/17/24 07:40> Orientation/consciousness: patient oriented x3 <JUSTIN Eng Last Filed: 12/17/24 07:40> Resp: Effort & Inspection: normal respiratory effort <Tiffanie Clancy PA-C - Last Filed: 12/17/24 07:40> GI: Other: incisions clean NAT drain nonbilious soft, nontender <Tiffanie Clancy PA-C - Last Filed: 12/17/24 07:40> Inspection: No distended <JUSTIN Eng Last Filed: 12/17/24 07:40> Skin: General skin exam: no rashes or lesions noted and no jaundice <JUSTIN Eng Last Filed: 12/17/24 07:40> Neuro: General: patient oriented x3 <JUSTIN Eng Last Filed: 12/17/24 07:40> Objective Data Active Medications Acetaminophen (Acetaminophen 325 Mg Tablet) 650 mg PO Q6H PRN PRN Reason: Pain, Mild 1-3,fever,headache Last Admin: 12/13/24 19:50 Dose: 650 mg Documented By: CINDI Bisacodyl (Bisacodyl 10 Mg Supp.Rect) 10 mg [place] BEDTIME PRN PRN Reason: Constipation Calcium Carbonate (Calcium Carbonate 750 Mg Tab.Chew) 750 mg PO Q4H PRN PRN Reason: Heartburn Ceftriaxone Sodium (Ceftriaxone Sodium 1 Gm Vial) 1 gm IVPUSH Q24H [facility] Last Admin: 12/16/24 08:31 Dose: 1 gm Documented By: JONATAN Cyclobenzaprine HCl (Cyclobenzaprine Hcl 5 Mg Tablet) 5 mg PO BEDTIME [facility] Last Admin: 12/16/24 20:42 Dose: 5 mg Documented By: TORITO Docusate Sodium (Docusate Sodium 100 Mg Capsule) 100 mg PO BID [facility] Last Admin: 12/16/24 20:43 Dose: 100 mg Documented By: TORITO Metronidazole (Flagyl) 500 mg in 100 mls @ 100 mls/hr IV Q8H [facility] Last Infusion: 12/17/24 02:53 Dose: Infused Documented By: TORITO Levothyroxine Sodium (Levothyroxine Sodium 50 Mcg Tablet) 50 mcg PO DAILY@0630 [facility] Last Admin: 12/17/24 05:31 Dose: 50 mcg Documented By: TORITO Lisinopril (Lisinopril 10 Mg Tablet) 10 mg PO DAILY [facility]; Protocol Last Admin: 12/16/24 08:21 Dose: 10 mg Documented By: JONATAN Loratadine (Loratadine 10 Mg Tablet) 10 mg PO DAILY [facility] Last Admin: 12/16/24 08:21 Dose: 10 mg Documented By: JONATAN Melatonin (Melatonin 3 Mg Tablet) 6 mg PO BEDTIME PRN PRN Reason: Insomnia Last Admin: 12/12/24 20:17 Dose: 6 mg Documented By: CINDI Mirtazapine (Mirtazapine 7.5 Mg Tablet) 7.5 mg PO BEDTIME [facility] Last Admin: 12/16/24 20:43 Dose: 7.5 mg Documented By: TORITO Morphine Sulfate (Morphine Sulfate 4 Mg/Ml Cartridge) 4 mg IVPUSH Q4H PRN; Protocol PRN Reason: Pain, Severe (Pain Scale 7-10) Last Admin: 12/16/24 03:22 Dose: 4 mg Documented By: TORITO Naloxone HCl (Naloxone Hcl 0.4 Mg/Ml Vial) 0.04 mg IVPUSH Q5M PRN PRN Reason: Excessive sedation or RR < 8 Omeprazole (Omeprazole 20 Mg Capsule.Dr) 20 mg PO DAILY@0630 [facility] Last Admin: 12/17/24 05:31 Dose: 20 mg Documented By: TORITO Ondansetron HCl (Ondansetron Hcl 4 Mg/2 Ml Vial) 4 mg IVPUSH Q8H PRN PRN Reason: Nausea and Vomiting Last Admin: 12/14/24 02:43 Dose: 4 mg Documented By: CINDI Oxycodone HCl (Oxycodone Hcl Immed Release 5 Mg Tablet) 5 mg PO Q4H PRN PRN Reason: Pain, Moderate(Pain Scale 4-6) Last Admin: 12/16/24 14:47 Dose: 5 mg Documented By: ANA Polyethylene Glycol (Polyethylene Glycol 3350 17 Gm Powd.Pack) 17 gm PO DAILY [facility] Last Admin: 12/16/24 08:21 Dose: 17 gm Documented By: JONATAN Senna (Sennosides 8.6 Mg Tablet) 8.6 mg PO BEDTIME [facility] Last Admin: 12/16/24 20:42 Dose: 8.6 mg Documented By: TORITO Sodium Chloride (0.9 % Sodium Chloride Flush 3 Ml Syringe) 3 ml IVFLUSH QSHIFT [facility] Last Admin: 12/16/24 20:43 Dose: 3 ml Documented By: TORITO Tolterodine Tartrate (Tolterodine Tartrate La 2 Mg Cap.Er.24h) 2 mg PO DAILY [facility] Last Admin: 12/16/24 08:21 Dose: 2 mg Documented By: JONATAN Triamcinolone Acetonide (Triamcinolone Acet 0.1 % Cream 15 Gm Tube) 1 appl TOPICAL BID [facility] Last Admin: 12/16/24 20:44 Dose: Not Given Documented By: TORITO Non-Admin Reason: Med Not Available Vitamin D (Cholecalciferol (Vitamin D3) 25 Mcg Tablet) 50 mcg PO DAILY [facility] Last Admin: 12/16/24 08:21 Dose: 50 mcg Documented By: PRISCILLA CarterC - Last Filed: 12/17/24 07:40> Labs CBC & Chem 7: 12/16/24 05:44 12/15/24 05:41 <Tiffanie Clancy PA-C - Last Filed: 12/17/24 07:40> Procedures Date of Service Date of Service: 12/17/24 <Tiffanie Clancy PA-C - Last Filed: 12/17/24 07:40> 12/17/24 <Po Sutherland MD - Last Filed: 12/17/24 07:57> Progress Note: A&P Assessment and plan (1) S/P cholecystectomy: Status: Acute <Tiffanie Clancy PA-C - Last Filed: 12/17/24 07:40> Assessment and Plan: Tolerating diet well Good pain control Says he has been ambulating NAT drain nonbilious, scanty bloody output He appears ready to be discharged from surgical standpoint DC NAT drain prior to discharge Reviewed instructions with the patient Okay to shower Follow up in the office Seen and examined independently <Po Sutherland MD - Last Filed: 12/17/24 07:57> Assessment and Plan: POD #4 s/p laparoscopic converted to open procedure and subtotal cholecystectomy fenestrated. Continues to do well post op. Tolerating solid diet. Abd exam benign with clean incisions, NAT output remains nonbilious. Overall he is stable for dc from surgical standpoint when medically cleared with follow up in the office in 1 week. Will remove NAT drain prior to dc. Patient comfortable with plan. <Tiffanie Clancy PA-C - Last Filed: 12/17/24 07:40> Time Spent With Patient Time: Total time managing care of this patient today ____ minutes. <Tiffanie Clancy PA-C - Last Filed: 12/17/24 07:40> Quality Stroke Does the patient have a stroke diagnosis?: No <Tiffanie Clancy PA-C - Last Filed: 12/17/24 07:40> VTE Prior VTE?: No <JUSTIN Eng Last Filed: 12/17/24 07:40> VTE Risk Level:: Medical - moderate - high <Tiffanie Clancy PA-C - Last Filed: 12/17/24 07:40> VTE Device Contraindication: N/A - Device Ordered <Tiffanie Clancy PA-C - Last Filed: 12/17/24 07:40> VTE Drug Contraindication: Treatment Not Indicated <Tiffanie Clancy PA-C - Last Filed: 12/17/24 07:40>
[2024-12-17 07:41] VITALS: BP 143/78; PULSE 86; RESP 18; TEMP 37; O2SAT 94
[2024-12-17] MEDS: Tolterodine Tartrate LA 2 MG CAP.ER.24H PO (09:11)
[2024-12-17] MEDS: 0.9 % Sodium Chloride Flush 3 ML SYRINGE IVFLUSH (09:11)
--- NOTE | 2024-12-17 11:52 | PM.DS ---
DS: Providers Provider Date of Service: 12/17/24 Date of admission: 12/10/24 15:21 Date of discharge: 12/17/24 Primary care physician: Keiry Sloan NP Consults: 12/10/24 15:21 Consult to General Surgery Routine Consulting Provider: [facility] General Surgeons Reason for consultation: acute cholecystitis Has provider been notified: Yes 12/10/24 15:58 Consult to Gastroenterology Routine Consulting Provider: [facility] Gastroenterology Services Reason for consultation: choledocolithiasis Has provider been notified: Yes DS: Diagnosis Discharge Diagnosis (1) S/P cholecystectomy: Status: Acute (2) Choledocholithiasis with acute cholecystitis: Status: Acute (3) Symptomatic cholelithiasis: Status: Acute (4) Acute blood loss anemia: Status: Acute DS: Summary Hospital Course Hospital Course: From the history and physical by the admitting hospitalist, DAVE Loving, 12/10/24: This is a 69-year-old Uzbek-speaking male with a history of BPH, hypertension, hypothyroidism who presents to the emergency department with 2 day history of abdominal pain, nausea, vomiting. History was obtained with the assistance of a escort vehicle driver. Pain is in the right upper quadrant as well as left lower quadrant. Patient states he was initially seen at the outpatient clinic on Saturday due to his symptoms and was prescribed ibuprofen for the pain. His symptoms persisted which prompted him to come to the emergency room today. LFTs were elevated in obstructive pattern and lipase of 264, abdominal ultrasound showed gallbladder filled with stones with mild gallbladder wall thickening and findings suggestive for acute cholecystitis. MRCP was obtained which showed cholelithiasis, acute cholecystitis as well as choledocholithiasis. Patient also reports constipation over the past few days. He will be admitted for further management. He was admitted to the medical-surgical unit with General Surgery and Gastroenterology consultations. He was given ceftriaxone and metronidazole. Normal ERCP 12/11 but MRCP with multiple CBD stones. He underwent laparoscopic converted to open cholecystectomy 12/13. Due to extensive adhesions and intrahepatic position of the gallbladder, fenestrating subtotal cholecysectomy was done. He was transfused 1 unit of packed red blood cells postoperatively. Diet was advanced and his symptoms resolved. NAT drain was removed. He was discharged to short-term rehabilitation on 1 week of levofloxacin and metronidazole. He should follow up with General Surgery in 1 week. Incidental kidney cyst noted on CT: 1.8 cm complex cystic structure at the lower pole of the right kidney which is incompletely evaluated on this unenhanced examination. Renal protocol CT or MRI is recommended, which could be performed as an outpatient Time Attestation Discharge Coordination Time (in mins): 40 Quality: Safe Use of Opioids Does Pt have an Active Cancer Diagnosis on the Problem List?: No Quality: Stroke Does the patient have a stroke diagnosis?: No Physical Exam Vital Signs: Vital Signs: Last Vital Signs Temp 98.6 F 12/17/24 07:41 Pulse 86 12/17/24 07:41 Resp 18 12/17/24 07:41 BP 143/78 H 12/17/24 07:41 Pulse Ox 94 12/17/24 07:41 O2 Del Method Room Air 12/17/24 07:41 O2 Flow Rate 2 12/16/24 19:35 BMI result Body Mass Index 26.1 Gen: in no acute distress HEENT: sclera anicteric, moist mucus membranes Neck: supple Lungs: clear to auscultation bilaterally Heart: regular rate and rhythm, no murmurs Abd: soft, non-tender, surgical incision clean Ext: no edema Skin: warm/well-perfused Neuro: alert and oriented x3, no focal findings Psych: appropriate affect DS: Data Data Completed and Pending Completed studies during hospitalization [Text1]: Laboratory Results WBC 11.8 X10*3/uL (4.8-10.8) H 12/16/24 05:44 RBC 2.60 X10*6/uL (4.60-5.80) L 12/16/24 05:44 Hgb 8.0 g/dl (14.0-18.0) L 12/16/24 05:44 Hct 23.4 % (42.0-52.0) L 12/16/24 05:44 MCV 90.0 fL (80.0-98.0) 12/16/24 05:44 MCH 30.8 pg (27.0-33.0) 12/16/24 05:44 MCHC 34.2 g/dl (31.0-36.0) 12/16/24 05:44 RDW 13.8 % (11.0-16.0) 12/16/24 05:44 Plt Count 224 X10*3/uL (160-400) 12/16/24 05:44 MPV 9.5 fL (9.4-12.4) 12/16/24 05:44 Immature Gran % (Auto) 0.4 % (0.0-0.4) 12/15/24 05:41 Neut % (Auto) 71.9 % (45-73) 12/15/24 05:41 Lymph % (Auto) 18.1 % (20-40) L 12/15/24 05:41 [place] % (Auto) 8.7 % (2-11) 12/15/24 05:41 Eos % (Auto) 0.7 % (0-4) 12/15/24 05:41 Baso % (Auto) 0.2 % (0-2) 12/15/24 05:41 Lymph # (Auto) 2.8 X10*3/uL (1.2-4.9) 12/15/24 05:41 [place] # (Auto) 1.4 X10*3/uL (0.1-1.2) H 12/15/24 05:41 Eos # (Auto) 0.1 X10*3/uL (0.0-0.4) 12/15/24 05:41 Baso # (Auto) 0.0 X10*3/uL (0.0-0.2) 12/15/24 05:41 Abs Immat Gran (auto) 0.07 X10*3/uL (0.00-0.03) H 12/15/24 05:41 Absolute Neuts (auto) 11.2 x10*3/uL (2.0-8.3) H 12/15/24 05:41 Absolute Nucleated RBC 0.000 X10*3/uL (0.0-0.012) 12/16/24 05:44 Nucleated RBC % (auto) 0.0 /100WBC (0.0-0.2) 12/16/24 05:44 Smear Tech's Comments VERIFIED 12/14/24 06:39 PT 13.5 SEC (10.9-12.4) H 12/11/24 05:58 INR 1.2 (0.9-1.1) H 12/11/24 05:58 Sodium 140 mmol/L (135-145) 12/15/24 05:41 Potassium 3.7 mmol/L (3.3-5.1) 12/15/24 05:41 Chloride 106 mmol/L (96-108) 12/15/24 05:41 Carbon Dioxide 28 mmol/L (22-29) 12/15/24 05:41 Anion Gap 10 (12-20) L 12/15/24 05:41 BUN 15 mg/dL (9-16) 12/15/24 05:41 Creatinine 0.91 mg/dL (0.5-1.4) 12/15/24 05:41 Estim Creat Clear Calc 72.0 12/15/24 05:41 Estimated GFR > 60 12/15/24 05:41 Random Glucose 105 mg/dL (60-115) 12/15/24 05:41 Lactic Acid 1.9 mmol/L (0.5-2.0) 12/14/24 21:30 Calcium 8.0 mg/dL (8.4-10.2) L 12/15/24 05:41 Magnesium 2.1 mg/dL (1.6-2.6) 12/10/24 05:11 Total Bilirubin 0.6 mg/dL (0.0-1.0) 12/15/24 05:41 Direct Bilirubin 0.5 mg/dL (0.0-0.5) 12/12/24 06:36 AST 74 U/L (5-37) H 12/15/24 05:41 ALT 105 U/L (0-40) H 12/15/24 05:41 Alkaline Phosphatase 112 U/L (39-117) 12/15/24 05:41 Total Protein 5.4 g/dL (6.5-8.0) L 12/15/24 05:41 Albumin 3.1 g/dL (3.5-5.0) L 12/15/24 05:41 Lipase 43 U/L (8-78) 12/11/24 05:58 Acetaminophen < 3 mcg/mL (<30) 12/10/24 08:26 Ethyl Alcohol < 10 mg/dL 12/10/24 05:11 Hepatitis A IgM Ab Nonreactive (Nonreactive) 12/10/24 08:26 Hep Bs Antigen Negative (Negative) 12/10/24 08: Hep Bs Antibody NONREACTIVE (Nonreactive) 12/10/24 08:26 Hep B Core Total Ab Nonreactive (Nonreactive) 12/10/24 08:26 Hepatitis C Ab (EIA) Nonreactive (Nonreactive) 12/10/24 08:26 Blood Type A Positive 12/13/24 15:05 Antibody Screen NEGATIVE 12/13/24 15:05 Crossmatch See Detail 12/13/24 15:05 Impressions Abdomen Ultrasound 12/10/24 08:15 IMPRESSION: 1. Gallbladder filled with gallstones, with mild gallbladder wall thickening and positive sonographic Garcia's sign. Findings are suspicious for acute cholecystitis. 2. Mild hepatomegaly with diffusely increased echogenicity suggestive of steatosis. No suspicious focal hepatic lesion. 3. No definite sonographic abnormality of the visualized pancreas. 4. Mildly complex lower pole right renal cyst as detailed, consistent with a proteinaceous or hemorrhagic cyst. Electronically signed by: Elijah Nicole MD 12/10/2024 09:04 AM EDT Cholangiopancreatography MRI 12/10/24 13:50 IMPRESSION: 1. Cholelithiasis. Prior ultrasound demonstrated a positive sonographic Garcia sign, compatible with acute cholecystitis. 2. Choledocholithiasis. 3. 1.8 cm complex cystic structure at the lower pole of the right kidney which is incompletely evaluated on this unenhanced examination. Renal protocol CT or MRI is recommended, which could be performed as an outpatient. Electronically signed by: Kyler Tang MD 12/10/2024 03:34 PM EDT Guidance Fluoroscopy 12/11/24 11:50 IMPRESSION: Fluoroscopy during procedure. Please see procedure report for additional information. Electronically signed by: Kyler Tang MD 12/11/2024 01:10 PM EDT Discharge Plan Discharge Anticipated Discharge Date/Time: 12/17/24 11:43 Patient Disposition: er [facility] Discharge Diagnosis: cholecystitis, cholelithiasis, choledocholithiasis anemia incidental kidney cyst Referrals: Ovidio Sarmiento [place] [Outside] - 1 Week Po Sutherland MD [Physician, General Surgery] - 1 Week Keiry Sloan NP [Primary Care Provider, Internal Medicine] - 1 Week Discharge Medications: New oxycodone 5 mg Tablet 5 mg PO Q4H PRN (Reason: pain, severe) Qty: 18 0RF Rx Instructions: Partial Fill upon patient request. metronidazole 500 mg tablet 500 mg PO Q8H Qty: 21 0RF levofloxacin 750 mg tablet 750 mg PO DAILY Qty: 7 0RF Continued aspirin 81 mg tablet,delayed release (DR/EC) 81 mg PO DAILY omeprazole 20 mg capsule,delayed release(DR/EC) 20 mg PO DAILY@0600 Rx Instructions: before a meal loratadine 10 mg tablet 10 mg PO DAILY lisinopril 10 mg tablet 10 mg PO QAM ibuprofen 600 mg tablet 600 mg PO TID PRN (Reason: Pain) cyclobenzaprine 5 mg tablet 5 mg PO BEDTIME rosuvastatin 40 mg tablet 40 mg PO QAM mirtazapine 7.5 mg tablet 7.5 mg PO BEDTIME omega-3 acid ethyl esters [Lovaza] 1 gram capsule 1 cap PO BID docusate sodium 100 mg capsule 100 mg PO Q12H betamethasone valerate 0.1 % cream 1 appl topical BID Rx Instructions: APPLY 1 GRAM TOPICALLY TO AFFECTED AREA(S) TWICE DAILY IN THE MORNING AND AT BEDTIME NEEDED FOR RASH cholecalciferol (vitamin D3) 50 mcg (2,000 unit) capsule 50 mcg PO DAILY sennosides [Natural Senna Laxative] 8.6 mg tablet 8.6 mg PO BEDTIME Qty: 30 3RF levothyroxine 50 mcg tablet 50 mcg PO DAILY@0630 tolterodine 2 mg capsule,extended release 24hr 2 mg PO DAILY 30 Days Qty: 30 3RF Discharge Orders: Discharge Order (Routine); Ordered 12/17/24 Ordered By: Carmela Roach Activity on Discharge: No heavy lifting Stand Alone Forms: Patient Portal Discharge page Print Language: Uzbek Activity Restrictions/Additional Instructions: If the incision area is tender, you may apply an ice pack for short intervals (No more than 20 minutes on, followed by at least 20 minutes off). Do not apply heat. Do not use creams, lotions, or topical antibiotics. These can cause infection or allergic reaction. Ok to shower. You have gary closing your incision and these will be removed approximately 10-14 days after surgery. NO HEAVY LIFTING (>10lbs) or strenuous activity. Follow up in office in 1 week. ([phone]) Your old drain site will continue to have some drainage for the next couple of days while the site remains open. Keep covered with dry sponge until drainage stops. Call Your Doctor If: -Your temperature exceeds 101.5? F -You experience excessive pain or swelling -You have an unexpected reaction to medication -You have excessive bleeding -You experience continued vomiting/nausea -Your incision begins to separate -Your incision shows signs of infection such as increased redness, swelling, excessive pain, drainage (light blood or clear fluid is normal) or heat Care Plan Goals: cure of infection Health Concerns: cholecystitis, cholelithiasis, choledocholithiasis anemia incidental kidney cyst Plan of Treatment: levofloxacin 750 mg once daily PLUS metronidazole 500 mg 3x a day for 7 days total follow up with [facility] General Surgery in 1 week acetaminophen for mild-moderate pain, oxycodone for severe pain Please follow up with your primary care doctor within 1 week of discharge from rehabilitation. Return to the hospital if you experience recurrent or worsening symptoms. For incidental kidney cyst noted on CT: 1.8 cm complex cystic structure at the lower pole of the right kidney which is incompletely evaluated on this unenhanced examination. Renal protocol CT or MRI is recommended, which could be performed as an outpatient. Assessment: See Discharge Summary.
--- NOTE | 2024-12-17 11:58 | MHC.CM.PN ---
IMM 12/17/24 Patient has accepted a bed offer from [facility]. He will discharge today to the [facility]. S transport is booked for 1pm pharmacy picking technician.
[2024-12-17 12:26] VITALS: BP 111/74; PULSE 90; RESP 18; TEMP 36.9; O2SAT 94
== END 2024-12-17 14:06 | disposition skilled nursing facility (03) | DRG 414 ==
LOC: HO.ED 09:25 → HO.EDOVER 15:22 → HO.S3 16:44
PROVIDERS: Internal Medicine; Internal Medicine Gastroenterology; Nurse Practitioner Acute Care; Surgery; Admitting Provider Physician Assistant Medical; Emergency Provider Emergency Medicine; PCP Nurse Practitioner Primary Care; Visit Provider Family Medicine
PROC: 0F798ZZ Dilation of Common Bile Duct, Via Natural or Artificial Opening Endoscopic (ICD-10-PCS; CPT 43260; principal; 2024-12-11 12:00)
PROC: 0FT44ZZ Resection of Gallbladder, Percutaneous Endoscopic Approach (ICD-10-PCS; CPT 47562; principal; 2024-12-13 10:00)
DX: K80.00 Calculus of gallbladder with acute cholecystitis without obstruction (principal); K85.10 Biliary acute pancreatitis without necrosis or infection; D62 Acute posthemorrhagic anemia; E03.9 Hypothyroidism, unspecified; N40.0 Benign prostatic hyperplasia without lower urinary tract symptoms; I10 Essential (primary) hypertension; K59.00 Constipation, unspecified; K21.9 Gastro-esophageal reflux disease without esophagitis; N28.1 Cyst of kidney, acquired; Z79.82 Long term (current) use of aspirin; Z79.890 Hormone replacement therapy; Z79.899 Other long term (current) drug therapy
CPT/HCPCS: 36415; 74018; 74181; 76705; 80048; 80053; 80076; 80143; 80307; 82248; 83605; 83690; 83735; 85014; 85018; 85025; 85027; 85610; 86704; 86706; 86709; 86803; 86850; 86900; 86901; 86920; 86923; 87340; 88304; 97116; 97162; 99285; A4649; C1052; J0330; J0696; J1100; J1171; J1610; J1836; J2003; J2004; J2270; J2371; J2405; J2704; J2795; J3010; J7120; P9016; Q9967

== ENCOUNTER → 2024-12-10 05:24 | Outpatient (BNV) | payer OTHER, SELFPAY | PROVIDERS: Emergency Provider Emergency Medicine; PCP Nurse Practitioner Primary Care; Visit Provider Internal Medicine | DX: R79.89 Other specified abnormal findings of blood chemistry (principal); K80.20 Calculus of gallbladder without cholecystitis without obstruction; K85.90 Acute pancreatitis without necrosis or infection, unspecified | CPT/HCPCS: 99223 ==

== ENCOUNTER → 2024-12-10 05:24 | Outpatient (BNV) | payer OTHER, SELFPAY | PROVIDERS: Emergency Provider Emergency Medicine; PCP Nurse Practitioner Primary Care; Visit Provider Physician Assistant Surgical | DX: K80.42 Calculus of bile duct with acute cholecystitis without obstruction (principal) | CPT/HCPCS: 99024; 99222; 99232; 99499 ==

== ENCOUNTER → 2024-12-10 15:21 | Outpatient (BNV) | payer OTHER, SELFPAY | PROVIDERS: Admitting Provider Physician Assistant Medical; Emergency Provider Emergency Medicine; PCP Nurse Practitioner Primary Care; Visit Provider Physician Assistant Medical | DX: Z90.49 Acquired absence of other specified parts of digestive tract (principal); K80.42 Calculus of bile duct with acute cholecystitis without obstruction; K80.20 Calculus of gallbladder without cholecystitis without obstruction; D62 Acute posthemorrhagic anemia | CPT/HCPCS: 99223; 99232; 99233; 99239 ==

== ENCOUNTER 2025-01-05 10:16 | Outpatient (AMB) | payer OTHER, SELFPAY ==
--- NOTE | 2025-01-05 10:18 | MHC.OFFVIS ---
Vital Signs 01/05/25 10:28 Weight 187 lb BP 142/84 H Blood Pressure Location Lt brachial Position Sitting Pulse 84 Intake Visit Reasons: s/p gallbladder surgery Intake Note: Patient here s/p laparoscopic converted to open procedure and subtotal cholecystectomy fenestrated. Patient c/o: on and off discomfort. Reports incisions healing well. Denies bleeding. Surgery (RS): 12-13-2024 Solar Photovoltaic Installer Required: Yes Solar Photovoltaic Installer Services: Solar Photovoltaic Installer Present Information Interpreted: clinical only (Yasmin HOROWITZ) Accompanied by: Self / Same As Patient Allergies Penicillins (PENICILLINS) Allergy (Intermediate, Verified 01/05/25 10:27) RASH HPI HPI s/p gallbladder surgery: Details: In-house gallery or museum guide Radhika used for this evaluation. Doing okay. Has had some occasional right upper quadrant pain but overall is comfortable. Appetite is at baseline. He has been dealing with some constipation. Has not had a bowel movement 3 days, this is unusual for him. He has been using stool softener that we prescribed at discharge than that has not helped very much. He has been adequately hydrated. He denies any heavy lifting. Denies concerns with the incision sites COUNT INCLUDES THE [facility] Medical History (Updated 12/25/24 @ 00:00 by May Terry) Tubular adenoma Gout Other obstructive and reflux uropathy Benign prostatic hyperplasia with lower urinary tract symptoms Rosacea GERD (gastroesophageal reflux disease) Benign neoplasm of cerebellum Sinusitis HTN (hypertension) Surgical History (Updated 12/30/24 @ 09:29 by LOR Salazar) Hx of cholecystectomy (12/13/24) Hx of colonoscopy History of esophagogastroduodenoscopy (EGD) History of surgery History of brain surgery Social History Household Members: None Housing: Other Housing Other:: rents room - possible recent loss of housing Do you presently have visiting nurse or other home services: No Alcohol intake: never Patient Tobacco Use Status: Never used Tobacco Second Hand Smoke Exposure: No service: No Current occupational status: retired 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[employer] Current occupational exposures/hazards: No Physical Exam Vital Signs: Last Vital Signs Pulse 84 01/05/25 10:28 BP 142/84 H 01/05/25 10:28 Const General: comfortable and no acute distress Orientation/consciousness: patient oriented x3 Resp Effort & Inspection: normal respiratory effort and able to speak in complete sentences GI Other: Right upper quadrant incision site gary in place. No surrounding erythema nontender, no discharge noted. Moderate amount of dry skin surrounding gary Umbilical incision clean dry intact, gary in place, no erythema no discharge. Nontender Inspection: No distended Palpation (GI): Soft to palpation, nontender and no guarding Neuro General: patient oriented x3 Assessment & Plan Assessment & Plan (1) S/P cholecystectomy: Code(s): Z90.49 - Acquired absence of other specified parts of digestive tract Category: Medical Plan 69-year-old male s/p laparoscopic converted to open subtotal fenestrated cholecystectomy on 12/13/2024 returning to the office for routine follow up. He is overall doing okay. Has some intermittent right upper quadrant pain, I reassured him that this is expected postoperatively and should improve with time. His appetite is at baseline, however he has been struggling with constipation. Has not had a bowel movement 3 days which is unlike him. He has been using Colace as needed but this has not been helping. I will send him for MiraLax to take alongside this. He is to take 1 dose daily until he produces a bowel movement, after that he can continue to use this as needed for constipation in the future. I did also recommend increasing hydration and fiber. On exam the abdomen is soft and benign. Incisions appear clean dry and intact, no concern for infection at this time. I did remove his gary today in the office for which he tolerated well, the incision site remains well approximated and intact. We will continue with activity restrictions no heavy lifting greater than 15-20 lb until 01/24/2025. He understands this. He will follow-up in about 2 weeks Medications: New polyethylene glycol 3350 (Miralax) Mix 1 dose in 6-8 oz of water daily until you have a bowel movement, after you have produced a bowel movement you may take this as needed for constipation 17 grams PO DAILY 119 grams 0RF Constipation Coding Level of Care Code Global (29523) Diagnoses S/P cholecystectomy Z90.49
[2025-01-05 10:28] VITALS: BP 142/84; PULSE 84
--- OUTSIDE RECORDS SUMMARY | 2025-01-05 12:27 | XMS_ITS | Encounter Summary ---
Author Organization [employer] Address [address] [facility] [address] [place] [address] Care Team Providers Care Sales Driver Name Role Phone Keiry Sloan HUBER Primary Care Provider [phone] Reason for Visit * Reason Onset Date Comments rs no show appt 10/30/2024 Encounter Details Date Type Department Care Team ([facility] st Contact Info) Description 10/30/2024 Telephone [facility] [address] [place], [place] [phone] JosiSilvestre danielsio [address] [place] [address] rs no show appt Social History Tobacco [...] documented in this encounter Plan of Treatment Not on file documented as of this encounter Visit Diagnoses Not on filedocumented in this encounter Additional Health Concerns Assessment Noted Time PHQ-9 Depression Total Score: 3 07/09/19 25 9:30 AM EDT documented as of this encounter Care Teams Sales Driver Relationship Specialty Start Date End Date Keiry Sloan ANP [address] [place] [id number] PCP - General Family Medicine 12/05/21 documented as of this encounter
--- OUTSIDE RECORDS SUMMARY | 2025-01-05 12:27 | XMS_ITS | Encounter Summary ---
Author Organization [employer] Address [address] [facility] [address] [place] [address] Care Team Providers Care School Psychological Examiner Name Role Phone Keiry Sloan Primary Care Provider [phone] Reason for Visit * Reason Comments Med Refill Encounter Details Date Type Department Care Team (Late st Contact Info) Description 10/14/2024 Refill [facility] MEDICINE [address] [place] [address] Keiry Sloan ANP [address] [place] [address] Insomnia, unspecified type Social History Tobacco Use [...] documented as of this encounter Care Teams School Psychological Examiner Relationship Specialty Start Date End Date Keiry Sloan ANP [address] [place] [id number] PCP - General Family Medicine 12/05/21 documented as of this encounter
--- OUTSIDE RECORDS SUMMARY | 2025-01-05 12:27 | XMS_ITS | Encounter Summary ---
Author Organization [employer] Address [address] [facility] [address] [place] [address] Care Team Providers Care Price Lister Name Role Phone Keiry Sloan Primary Care Provider [phone] Reason for Visit * Reason Comments Med Refill Encounter Details Date Type Department Care Team (Late st Contact Info) Description 09/03/[address] [facility] MEDICINE [address] [place], [place] [phone] Keiry Sloan ANP [address] [place] [address] Psychophysiological insomnia; Generalized pruritus Social History Tobacco [...] documented as of this encounter Care Teams Price Lister Relationship Specialty Start Date End Date Keiry Sloan ANP [address] [place] [id number] PCP - General Family Medicine 12/05/21 documented as of this encounter
--- OUTSIDE RECORDS SUMMARY | 2025-01-05 12:27 | XMS_ITS | Encounter Summary ---
Author Organization [employer] Address [address] [facility] [address] [place] [address] Care Team Providers Care Hob Grinder Name Role Phone Keiry Sloan HUBER Primary Care Provider [phone] Reason for Visit * Reason Onset Date Comments rs no show appt 07/20/2024 Encounter Details Date Type Department Care Team ([facility] st Contact Info) Description 07/20/2024 Telephone [facility] [address] [place], [place] [phone] JosiSilvestre danielsio [address] [place] [address] rs no show appt Social History Tobacco [...] encounter Miscellaneous Notes * Telephone Encounter - Sonla Jin - 07/20/2024 10:11 AM EDT Patient [...] documented as of this encounter Care Teams Hob Grinder Relationship Specialty Start Date End Date Keiry Sloan ANP [address] [place] [id number] PCP - General Family Medicine 12/05/21 documented as of this encounter
--- OUTSIDE RECORDS SUMMARY | 2025-01-05 12:27 | XMS_ITS | Encounter Summary ---
Author Organization [employer] Address [address] [facility] 7[address] [place] [address] Care Team Providers Care House Registry Rn Name Role Phone Keiry Sloan Primary Care Provider [phone] Reason for Visit * Reason Comments Med Refill Encounter Details Date Type Department Care Team (Late st Contact Info) Description 06/02/2024 Refill [facility] MEDICINE [address] [place] [address] Keiry Sloan ANP [address] [place] [address] Gastroesophageal reflux disease without esophagitis Social History [...] documented as of this encounter Care Teams House Registry Rn Relationship Specialty Start Date End Date Keiry Sloan ANP [address] [place] [phone] PCP - General Family Medicine 12/05/21 documented as of this encounter
--- OUTSIDE RECORDS SUMMARY | 2025-01-05 12:27 | XMS_ITS | Encounter Summary ---
Author Organization [employer] [facility] Address [address] [facility] [address]t h Floor [place] [id number] Care Team Providers Care Claims Technician Name Role Phone Keiry Sloan Primary Care Provider [phone] Encounter Details Date Type Department Care Team (Latest Contact Info) Description 05/20/2018 [facility] Dental, Provider, DDS Social History Tobacco [...] on filedocumented in this encounter Care Teams Claims Technician Relationship Specialty Start Date End Date Keiry Sloan ANP [address] [place] [address] PCP - General Family Medicine 12/05/21 documented as of this encounter
--- OUTSIDE RECORDS SUMMARY | 2025-01-05 12:27 | XMS_ITS | Encounter Summary ---
Author Organization [employer] [facility] Address [address] [facility] 7t h Floor [place] [phone] Care Team Providers Care Care Information Associate Name Role Phone Keiry Sloan Primary Care Provider [phone] Encounter Details Date Type Department Care Team (Latest Contact Info) Description 11/24/2021 Abstract [facility] CON[facility] Dental, Provider, DDS Social [...] on filedocumented in this encounter Care Teams Care Information Associate Relationship Specialty Start Date End Date Keiry Sloan ANP [address] [place] [address] PCP - General Family Medicine 12/05/21 documented as of this encounter
--- OUTSIDE RECORDS SUMMARY | 2025-01-05 12:27 | XMS_ITS | Clinical Summary ---
Author Organization [employer] Address [address] [facility] [address] [place] [address] Care Team Providers Care General Foreman Name Role Phone Cheryl Diehl HUBER Primary Care Provider [phone] Allergies Active Allergy Reactions Criticality Noted Date Comments Atorvastatin Angioedema 11/06/2017 Penicillins 10/09/2011 Other reaction(s): Itching Trazodone 09/26/2020 Medications * This document contains information received from the source organization and may not represent a complete record from that organization. [facility] Devices (Pulse Oximeter For Finger) [place] 03/25/20 20 Active Bisacodyl EC 5 MG [...] HOURS 180 capsule 1 03/16/20 24 Active omeprazole (PriLOSEC) [address] [...] and at bedtime for rash. 45 g 09/26/19 25 Active levothyroxine (Synthroid) 50 MCG tabletIndications :Hypothyroidism, unspecified type Take 1 tablet (50 mcg) by mouth before breakfast. 90 tablet 3 09/26/19 25 026 Active omega-3 acid ethyl esters (Lovaza) 1 g capsuleIndication s:Hypertriglyceri demia,Elevated triglycerides with high cholesterol Take 1 capsule (1 g) by mouth 2 times daily. 180 capsule 3 10/01/19 25 Active D3 Super Strength 50 MCG (2000 UT) capsule TAKE 1 CAPSULE BY MOUTH EVERY DAY IN THE MORNING 90 capsule 11/26/19 25 Active omeprazole OTC (PriLOSEC OTC) 20 MG EC tablet Take 1 tablet (20 mg) by mouth before breakfast. Do not crush, chew, or split. 30 tablet 11 12/08/19 25 026 Active ibuprofen 600 MG tablet Take 1 tablet (600 mg) by mouth 3 times daily. 90 tablet 12/08/19 25 025 Active Aspirin Low Dose 81 MG EC tabletIndications :Dyslipidemia TAKE 1 TABLET BY MOUTH EVERY DAY IN THE MORNING 90 tablet 1 12/16/19 25 Active mirtazapine (Remeron) 7.5 MG tablet TAKE 1 TABLET BY MOUTH AT BEDTIME 30 tablet 1 12/29/19 25 Active Aspirin Low Dose 81 MG EC tabletIndications :Dyslipidemia TAKE 1 TABLET BY MOUTH EVERY DAY IN THE MORNING 90 tablet 1 04/13/20 24 025 Discontinued mirtazapine (Remeron) 7.5 MG tablet Take 1 tablet (7.5 mg) by mouth at bedtime. 30 tablet 1 10/31/19 25 025 Discontinued cyclobenzaprine (Flexeril) 5 MG tabletIndications :Acute bilateral low back pain without sciatica Take 1 tablet (5 mg) by mouth at bedtime for 10 days. 10 tablet 12/08/19 25 025 Active Problems Problem Noted Date Diagnosed Date [...] will benefit from a follow up with [facility] in one month. Option of OP therapy [...] current situations PLAN: 1. Follow up with [facility]: Recommended for follow up 2. Patient goal is continue using resources in the community to aid in current matters 3. Behavioral Recommendations a. Patient will attend follow-up with [facility] in one month. b. Patient will contact [facility] sooner, if needed Low back pain without [...] Encounters Date Type Department Care Team Description 12/28/2024 Telephone [facility] [address] [place] [address] Cheryl Diehl, ANP chart prep 12/27/2024 Refill [facility] [address] [place] [address] Courtney Batres NP 12/16/2024 Results Follow-Up [facility] [address] [place] [address] Cheryl Diehl, ANP MR MRCP 12/13/2024 Refill [facility] [address] [place] [address] Cheryl Diehl ANP Dyslipidemia 12/10/2024 Orders Only GENERIC EXTERNAL DATA DEPARTMENT Provider, Generic External Data 12/07/2024 9:20 AM EDT Office Visit [facility] [address] [place] [address] Maria Luisa Polk MD Viral gastroenteritis (Primary Dx); Acute bilateral low back pain without sciatica 12/07/2024 Travel 11/25/2024 Refill [facility] [address] [place] [address] Cheryl Diehl ANP 10/30/2024 Telephone [facility] [address] [facility] [place] [address] Tremaine Prater rs no show appt 10/30/2024 Refill [facility] [address] [place] [address] Cheryl Diehl ANP 10/21/2024 Telephone [facility] [address] [place] [address] Cheryl Diehl ANP December10/14/2024 Refill [facility] [address] [place] [address] hCeryl Diehl ANP Insomnia, unspecified type from Last 3 Months Immunizations Immunization Administration [...] 12/07/2024 9:18 AM EDT Plan of Treatment Health Maintenance Due Date Last Done Comments CT Colonography 1955 FIT DNA/Cologuard 1955 FIT 1955 FOBT 1955 Sigmoidoscopy 1955 COVID-19 Vaccine ( season) 2024 04/11/2022, 06/30/2020, 06/02/2020 Influenza Vaccine (#1) 2024 [...] Mouth 07/03/2027 07/01/2024 Lipid Panel 09/25/2029 09/25/2024, 06/04/2023, 03/07/2022, Additional history exists DTaP/Tdap/Td Vaccines (3 - Td or Tdap) 10/02/2033 10/03/2023, 09/03/2013, 01/02/2010 Zoster Vaccines Completed 12/15/2019, 05/17, 11/10/2016 Pneumococcal Vaccine: 50+ Years Completed 10/03/2023, 10/07/2018 RSV Patients and Patients Aged 60 years or older Completed 12/23/2023 Hepatitis C Screening Completed 12/10/2024, 022 HIB Vaccines Aged Out No longer eligi [...] Procedure Name Priority Date/Time Associated Diagnosis Comments FL GUIDANCE IN OR Routine 12/11/2024 11: 50 AM EDT MR MRCP Routine 12/10/2024 1:50 PM EDT HEPATITIS PANEL, GENERAL Routine 12/10/2024 8:26 AM EDT ACETAMINOPHEN LEVEL Routine 12/10/2024 8 :26 AM EDT US ABDOMEN LIMITED Routine 12/10/2024 8: 15 AM EDT XR KUB AND UPRIGHT 2 VIEWS Routine 12/10/2024 6:35 AM EDT LIPASE Routine 12/10/2024 5:11 AM EDT COMPREHENSIVE METABOLIC PANEL Routine 12/10/2024 5:11 AM EDT CBC WITH AUTO DIFFERENTIAL Routine 12/10/2024 5:11 AM EDT POCT INFLUENZA B (ID NOW RAPID MOLECULAR) Routine 12/07/2024 11:29 AM EDT Viral gastroenteritis POCT INFLUENZA A (ID NOW RAPID MOLECULAR) Routine 12/07/2024 11:29 AM EDT Viral gastroenteritis POCT RAPID COVID ANTIGEN Routine 12/07/2024 11:29 AM EDT Viral gastroenteritis LIPID PANEL, STANDARD Routine 09/25/2024 9:43 AM EDT Hypertriglyceridemia PROPHYLAXIS - ADULT Routine 07/01/2024 8 :00 AM EDT INTRAORAL - COMPLETE SERIES OF RADIOGRAPHIC IMAGES Routine 07/01/2024 8:00 AM EDT PERIODIC ORAL EVALUATION - ESTABLISHED PATIENT Routine 07/01/2024 8:00 AM EDT HM COLONOSCOPY Routine 10/23/2021 from Last 3 Months or Most Recently Relevant to Health Maintenance Results * FL Guidance in OR (12/11/2024 11:50 AM EDT) Anatomical Region Laterality Modality X-Ray Angiograph y 12/11/2024 11:5 0 AM EDT Narrative 12/11/2024 1:13 PM EDT [place] [address] Fluoroscopy Report Signed Patient: Mateo De La Rosa MR#: [id number] 38 : 1955 Acct:[id number] Age/Sex: 69 / M ADM Date: 12/10/24 Loc: HO.S3 347-[address]: Sera ACOSTA Ordering Physician: Michele Cotto MD Date of Service: 12/11/24 Procedure(s): FL guidance in OR Accession Number(s): [id number] cc: Michele Cotto MD; CHERYL DIEHL NP EXAMINATION: FL GUIDANCE ONLY HISTORY: ERCP COMPARISON: Correlation is made with an MRCP dated 12/02/2024. TECHNIQUE: Fluoroscopy time: 4.2 minutes. Cumulative Dose: 100 mGy. DAP: 27.2 mGym2 Images: 6. FINDINGS: Multiple fluoroscopic spot films were obtained during ERCP. The common bile duct is not dilated. The initial images demonstrate suboptimal opacification of the common bile duct. No definite calculi are seen. Remaining images show a balloon sweep of the common bile duct with the final image demonstrating free flow of contrast into the duodenum. FL/FL guidance in OR IMPRESSION: Fluoroscopy during procedure. Please see procedure report for additional information. Electronically signed by: Kyler Tang MD 12/11/2024 01:10 PM EDT RP Dictated By: Kyler Tang MD Signed By: <Electronically signed by Kyler Tang MD in OV> 12/11/24 1310 DD/ 1150 TD/TT: 12/11/24 1230 Trolley Collector: Procedure Note Donotuseinterpreter, Image - 12/11/2024 [place] [address] Fluoroscopy Report Signed Patient: Chago De La Rosa#: [id number] 38 : 1955cct:[id number] Age/Sex: 69 / MADM Date: 12/10/24 Loc: HO.S3 347-[address]: Sera ACOSTA Ordering Physician: Michele Cotto MD Date of Service: 12/11/24 Procedure(s): FL guidance in OR Accession Number(s): [id number] cc: Michele Cotto MD; CHERYL DIEHL NP EXAMINATION: FL GUIDANCE ONLY HISTORY: ERCP COMPARISON: Correlation is made with an MRCP dated 12/02/2024. TECHNIQUE: Fluoroscopy time: 4.2 minutes. Cumulative Dose: 100 mGy. DAP: 27.2 mGym2 Images: 6. FINDINGS: Multiple fluoroscopic spot films were obtained during ERCP. The common bile duct is not dilated. The initial images demonstrate suboptimal opacification of the common bile duct. No definite calculi are seen. Remaining images show a balloon sweep of the common bile duct with the final image demonstrating free flow of contrast into the duodenum. FL/FL guidance in OR IMPRESSION: Fluoroscopy during procedure. Please see procedure report for additional information. Electronically signed by: Kyler Tang MD 12/11/2024 01:10 PM EDT Dictated By: Kyler Tang MD Signed By: <Electronically signed by Kyler Tang MD in OV> 12/11/24 1310 DD/ 1150 TD/TT: 12/11/24 1230 Trolley Collector: us [facility] External Provider IMG IR PROCEDURES Edited Result - Final * MR MRCP (12/10/2024 1:50 PM EDT) Anatomical Region Laterality Modality Lower Extremities Left Magnetic Reson ance 12/10/2024 1:50 PM EDT Narrative 12/10/2024 3:36 PM EDT [place] [address] Magnetic Resonance Report Signed Patient: Mateo De La Rosa MR#: [id number] 38 : 1955 Acct:[id number] Age/Sex: 69 / M ADM Date: 12/10/24 Loc: [place] [address]: Sera ACOSTA Ordering Physician: Ewelina Payan MD Date of Service: 12/10/24 Procedure(s): MR MRCP Accession Number(s): [id number] cc: Ewelina Payan MD; CHERYL DIEHL NP EXAMINATION: MRCP HISTORY: Cholecystitis versus choledocholithiasis COMPARISON: Correlation is made with an abdominal ultrasound performed earlier in the day. TECHNIQUE: Axial gradient echo in and out of phase T1, axial T2 and fat suppressed T2, and coronal haste T2 with fat saturation images were obtained through the abdomen. 3D MRCP Reconstructed images and thick slab imaging of the biliary tree were obtained. FINDINGS: The examination is limited by patient motion. There is no significant loss of signal intensity within the liver on opposed phase imaging to suggest steatosis. There is no significant intrahepatic biliary ductal dilatation. Numerous calculi are noted in the gallbladder. Common bile duct is slightly prominent measuring up to 7 mm in diameter. Multiple filling defects are seen in the distal common bile duct consistent with calculi. There are likely at least 4 calculi present. The pancreas is normal in contour. The pancreatic duct is normal in caliber. The adrenals and left kidney are unremarkable. There is a 1.8 cm complex cystic structure at the lower pole of the right kidney which is both T1 and T2 hyperintense. No retroperitoneal lymphadenopathy or ascites is identified in the upper abdomen. The visualized bowel loops are unremarkable. MR/MR MRCP IMPRESSION: 1. Cholelithiasis. Prior ultrasound demonstrated a positive sonographic Garcia sign, compatible with acute cholecystitis. 2. Choledocholithiasis. 3. 1.8 cm complex cystic structure at the lower pole of the right kidney which is incompletely evaluated on this unenhanced examination. Renal protocol CT or MRI is recommended, which could be performed as an outpatient. Electronically signed by: Kyler Tang MD 12/10/2024 03:34 PM EDT Dictated By: Kyler Tang MD Signed By: <Electronically signed by Kyler Tang MD in OV> 12/10/24 1534 DD/ 1350 TD/TT: 12/10/24 1512 Trolley Collector: Procedure Note Donotuseinterpreter, Image - 12/10/2024 [place] [address] Magnetic Resonance Report Signed Patient: Chago De La Rosa#: [id number] 38 : 1955cct:[id number] Age/Sex: 69 / MADM Date: 12/10/24 Loc: [place] [address]: Sera ACOSTA Ordering Physician: Ewelina Payan MD Date of Service: 12/10/24 Procedure(s): MR MRCP Accession Number(s): [id number] cc: Ewelina Payan MD; CHERYL DIEHL NP EXAMINATION: MRCP HISTORY: Cholecystitis versus choledocholithiasis COMPARISON: Correlation is made with an abdominal ultrasound performed earlier in the day. TECHNIQUE: Axial gradient echo in and out of phase T1, axial T2 and fat suppressed T2, and coronal haste T2 with fat saturation images were obtained through the abdomen. 3D MRCP Reconstructed images and thick slab imaging of the biliary tree were obtained. FINDINGS: The examination is limited by patient motion. There is no significant loss of signal intensity within the liver on opposed phase imaging to suggest steatosis. There is no significant intrahepatic biliary ductal dilatation. Numerous calculi are noted in the gallbladder. Common bile duct is slightly prominent measuring up to 7 mm in diameter. Multiple filling defects are seen in the distal common bile duct consistent with calculi. There are likely at least 4 calculi present. The pancreas is normal in contour. The pancreatic duct is normal in caliber. The adrenals and left kidney are unremarkable. There is a 1.8 cm complex cystic structure at the lower pole of the right kidney which is both T1 and T2 hyperintense. No retroperitoneal lymphadenopathy or ascites is identified in the upper abdomen. The visualized bowel loops are unremarkable. MR/MR MRCP IMPRESSION: 1. Cholelithiasis. Prior ultrasound demonstrated a positive sonographic Garcia sign, compatible with acute cholecystitis. 2. Choledocholithiasis. 3. 1.8 cm complex cystic structure at the lower pole of the right kidney which is incompletely evaluated on this unenhanced examination. Renal protocol CT or MRI is recommended, which could be performed as an outpatient. Electronically signed by: Kyler Tang MD 12/10/2024 03:34 PM EDT Dictated By: Kyelr Tang MD Signed By: <Electronically signed by Kyler Tang MD in OV> 12/10/24 1534 DD/ 1350 TD/TT: 12/10/24 1512 Trolley Collector: [facility] External Provider IMG MRI PROCEDURES Final Result * Hepatitis Panel, General (12/10/2024 8:26 AM EDT) Hepatitis A IgM Nonreactive Nonreactive [facility] Comment:IgM antibodies to FORD V not detected; does not exclude earlyacute or recovered HAV infection. ~Hepatitis B Surface Antibody NONREACTIVE Nonreactive [facility] Comment:Nonreactive: < 8.00 mIU/mL Hepatitis B Core Antibody Nonreactive Nonreactive [facility] Hepatitis C Antibody Nonreactive Nonreactive [facility] Comment:Antibodies to HCV no t detected; does not exclude early acuteHCV infection. Hepatitis B Surface Ag Negative Negative [facility] 12/10/2024 8:26 AM EDT 12/10/2024 8:28 AM EDT us Generic External Data Provider LAB BLOOD ORDERAB LES Final Result Performing Organization Address [facility] Co de Phone Number [facility] [address] [place] [phone] * Acetaminophen level (12/10/2024 8:26 AM EDT) Acetaminophen LAB <3 <30 mcg/mL [facility] 12/10/2024 8:26 AM EDT 12/10/2024 8:28 AM EDT us Generic External Data Provider LAB BLOOD ORDERAB LES Final Result Performing Organization Address [facility] de Phone Number [facility] [address] [place] [phone] * US Abdomen Limited (12/10/2024 8:15 AM EDT) Anatomical Region Laterality Modality Abdomen Ultrasound 12/10/2024 8:15 AM EDT Narrative 12/10/2024 9:07 AM EDT [address] [address] Ultrasound Report Signed Patient: Mateo De La Rosa MR#: [id number] 38 : 1955 Acct:[id number] Age/Sex: 69 / M ADM Date: 12/10/24 Loc: .ED Attending Dr: Ordering Physician: Ewelina Payan MD Date of Service: 12/10/24 Procedure(s): US abdomen limited Accession Number(s): [id number] cc: Ewelina Payan MD; CHERYL DIEHL NP EXAMINATION: US ABDOMEN LIMITED CLINICAL INFORMATION: Transaminitis with elevated lipase.. COMPARISON: None available. TECHNIQUE: Real-time imaging of the right upper quadrant abdominal viscera. FINDINGS: PANCREAS: Visualized portions are unremarkable. LIVER: The liver is mildly enlarged. The right hepatic lobe measures 17.1 cm in length. The liver contour is normal. Diffusely increased parenchymal echogenicity suggestive of steatosis. No suspicious focal hepatic lesion. There is no intrahepatic biliary duct dilatation seen. GALLBLADDER: Gallbladder is filled with gallstones. There is mild wall thickening up to 4 mm. No gross pericholecystic fluid collection present. There was a positive sonographic Garcia sign. COMMON BILE DUCT: Normal in caliber measuring 0.7 cm in diameter. RIGHT KIDNEY: No hydronephrosis. No renal calculi. The kidney measures 11.6 cm in maximum dimension. There is a mildly complex cyst lower pole cyst measuring 1.9 x 1.5 x 2.4 cm, with layering internal specular debris suggestive of proteinaceous or hemorrhagic fluid. No definite solid component or vascular flow on color Doppler imaging. Findings consistent with a Bosniak 2 type cyst. FREE FLUID: None. US/US abdomen limited IMPRESSION: 1. Gallbladder filled with gallstones, with mild gallbladder wall thickening and positive sonographic Garcia's sign. Findings are suspicious for acute cholecystitis. 2. Mild hepatomegaly with diffusely increased echogenicity suggestive of steatosis. No suspicious focal hepatic lesion. 3. No definite sonographic abnormality of the visualized pancreas. 4. Mildly complex lower pole right renal cyst as detailed, consistent with a proteinaceous or hemorrhagic cyst. Electronically signed by: Elijah Nicole MD 12/10/2024 09:04 AM EDT Dictated By: Elijah Nicole MD Signed By: <Electronically signed by Elijah Nicole MD in OV> 12/10/24903 DD/ 4 TD/TT: 12/10/24829 Trolley Collector: Procedure Note Donotuseinterpreter, Image - 12/10/[address] [address] Ultrasound Report Signed Patient: Chago De La Rosa#: [id number] 38 : 3Acct:[id number] Age/Sex: 69 / MADM Date: 12/10/24 Loc: HO.ED Attending Dr: Ordering Physician: Ewelina Payan MD Date of Service: 12/10/24 Procedure(s): US abdomen limited Accession Number(s): [id number] cc: Ewelina Payan MD; CHERYL DIEHL NP EXAMINATION: US ABDOMEN LIMITED CLINICAL INFORMATION: Transaminitis with elevated lipase.. COMPARISON: None available. TECHNIQUE: Real-time imaging of the right upper quadrant abdominal viscera. FINDINGS: PANCREAS: Visualized portions are unremarkable. LIVER: The liver is mildly enlarged. The right hepatic lobe measures 17.1 cm in length. The liver contour is normal. Diffusely increased parenchymal echogenicity suggestive of steatosis. No suspicious focal hepatic lesion. There is no intrahepatic biliary duct dilatation seen. GALLBLADDER: Gallbladder is filled with gallstones. There is mild wall thickening up to 4 mm. No gross pericholecystic fluid collection present. There was a positive sonographic Garcia sign. COMMON BILE DUCT: Normal in caliber measuring 0.7 cm in diameter. RIGHT KIDNEY: No hydronephrosis. No renal calculi. The kidney measures 11.6 cm in maximum dimension. There is a mildly complex cyst lower pole cyst measuring 1.9 x 1.5 x 2.4 cm, with layering internal specular debris suggestive of proteinaceous or hemorrhagic fluid. No definite solid component or vascular flow on color Doppler imaging. Findings consistent with a Bosniak 2 type cyst. FREE FLUID: None. US/US abdomen limited IMPRESSION: 1. Gallbladder filled with gallstones, with mild gallbladder wall thickening and positive sonographic Garcia's sign. Findings are suspicious for acute cholecystitis. 2. Mild hepatomegaly with diffusely increased echogenicity suggestive of steatosis. No suspicious focal hepatic lesion. 3. No definite sonographic abnormality of the visualized pancreas. 4. Mildly complex lower pole right renal cyst as detailed, consistent with a proteinaceous or hemorrhagic cyst. Electronically signed by: Elijah Nicole MD 12/10/2024 09:04 AM EDT Dictated By: Elijah Nicole MD Signed By: <Electronically signed by Elijah Nicole MD in OV> 12/10/24 0904 DD/ 0815 TD/TT: 12/10/24 0830 Trolley Collector: us [facility] External Provider IMG US PROCEDURES Final Result * XR KUB and Upright 2 Views (12/10/2024 6:35 AM EDT) Anatomical Region Laterality Modality Radiographic Carlie ging 12/10/2024 6:35 AM EDT Narrative 12/10/2024 6:41 AM EDT [address] [address] XRay Report Signed Patient: Mateo De La Rosa MR#: [id number] 38 : 1955 Acct:[id number] Age/Sex: 69 / M ADM Date: 12/10/24 Loc: .ED Attending Dr: Ordering Physician: Generic ED Physician Date of Service: 12/10/24 Procedure(s): XR KUB Accession Number(s): [id number] cc: Generic ED Physician; CHERYL DIEHL NP CLINICAL HISTORY: constipation Exam: Supine abdominal radiograph. Comparison: None provided. Findings: Moderate stool throughout the colon. Air-filled loops of nondilated large and small bowel are seen throughout the abdomen and pelvis. No indirect evidence for free air on this supine exam. No concerning bony abnormalities. Impression: Moderate colonic stool without findings of obstruction. This document has been electronically signed by: Destin Atkins MD on 12/10/2024 06:35:13 Dictated By: Destin Atkins MD Signed By: <Electronically signed by Destin Atkins MD in OV> 12/10/24 0641 DD/ 0635 TD/TT: 12/10/24 0635 Trolley Collector: Procedure Note Donotuseinterpreter, Image - 12/10/[address] [address] XRay Report Signed Patient: Luis De La RosaR#: [id number] 38 : 1955cct:[id number] Age/Sex: 69 / MADM Date: 12/10/24 Loc: HO.ED Attending Dr: Ordering Physician: Generic ED Physician Date of Service: 12/10/24 Procedure(s): XR KUB Accession Number(s): [id number] cc: Generic ED Physician; CHERYL DIEHL NP CLINICAL HISTORY: constipation Exam: Supine abdominal radiograph. Comparison: None provided. Findings: Moderate stool throughout the colon. Air-filled loops of nondilated large and small bowel are seen throughout the abdomen and pelvis. No indirect evidence for free air on this supine exam. No concerning bony abnormalities. Impression: Moderate colonic stool without findings of obstruction. This document has been electronically signed by: Destin Atkins MD on 12/10/2024 06:35:13 Dictated By: Destin Atkins MD Signed By: <Electronically signed by Destin Atkins MD in OV> 12/10/24 0641 DD/ TD/TT: 12/10/24634 Trolley Collector: [facility] External Provider IMG XR PROCEDURES Final Result * (ABNORMAL) CBC auto differential (12/10/2024 5:11 AM EDT) White Blood Count 10.4 4.8 - 10.8 X10*3/uL [facility] Red Blood Count 4.10(L) 4.60 - 5.80 X10*6/uL [facility] Hemoglobin 12.7(L) 14.0 - 18.0 g/dl [facility] Hematocrit 37.3(L) 42.0 - 52.0 % [facility] Mean Corpuscular Volume 91.0 80.0 - 98.0 fL [facility] Mean Corpuscular Hemoglobin 31.0 27.0 - 33.0 pg [facility] Mean Corpuscular HGB Conc 34.0 31.0 - 36.0 g/dl [facility] Red Cell Distribution Width 12.0 11.0 - 16.0 % [facility] Platelet Count 307 160 - 400 X10*3/uL [facility] Mean Platelet Volume 9.4 9.4 - 12.4 fL [facility] Neutrophils Percent Auto 65.5 45 - 73 % [facility] Imm Gran Pct Auto 0.2 0.0 - 0.4 % [facility] Lymphocytes Percent Auto 24.8 20 - 40 % [facility] Monocytes Percent Auto 8.1 2 - 11 % [facility] Eosinophils Percent Auto 1.0 0 - 4 % [facility] Basophils Percent Auto 0.4 0 - 2 % [facility] NRBC Pct Auto 0.0 0.0 - 0.2 /100WBC [facility] Neutrophils Absolute Auto 6.8 2.0 - 8.3 x10*3/uL [facility] Imm Gran Abs Auto 0.02 0.00 - 0.03 X10*3/uL [facility] Lymphocytes Absolute Auto 2.6 1.2 - 4.9 X10*3/uL [facility] Monocytes Absolute Auto 0.8 0.1 - 1.2 X10*3/uL [facility] Eosinophils Absolute Auto 0.1 0.0 - 0.4 X10*3/uL [facility] Basophils Absolute Auto 0.0 0.0 - 0.2 X10*3/uL [facility] NRBC Abs Auto 0.000 0.0 - 0.012 X10*3/uL [facility] 12/10/2024 5:11 AM EDT 12/10/2024 5:15 AM EDT us Generic External Data Provider LAB BLOOD ORDERAB LES Final Result [facility] [address] [place] [phone] * (ABNORMAL) Lipase (12/10/2024 5:11 AM EDT) Lipase 264(H) 8 - 78 U/L [facility] 12/10/2024 5:11 AM EDT 12/10/2024 5:15 AM EDT us Generic External Data Provider LAB BLOOD ORDERAB LES Final Result [facility] [address], [place] [phone] * (ABNORMAL) Comprehensive Metabolic Panel (12/10/2024 5:11 AM EDT) Sodium 142 135 - 145 mmol/L [facility] Potassium 3.7 3.3 - 5.1 mmol/L [facility] Chloride 106 96 - 108 mmol/L [facility] Carbon Dioxide 24 22 - 29 mmol/L [facility] Anion Gap 16 12 - 20 [facility] Urea Nitrogen (BUN) 21(H) 9 - 16 mg/dL [facility] Creatinine, Serum 1.32 0.5 - 1.4 mg/dL [facility] Creatinine Clr Calc Pharmacy 49.6 [facility] Comment:eGFR (calculated fro m the MDRD study equation) and eCrCl(calculated from the Cockcroft-Gault equation) are based ondifferent parameters and may not yield comparable results.If eCrCl result is absurd, please check patient'sheight/weight. Estimated Glomerular Filt Rate 53 [facility] Comment:Chronic Kidney Disea se: Estimated GFR < 60 mL/min/1.06z2Ecnzye Kidney Disease: Estimated GFR < 15 mL/min/1.73m2 Glucose 102 60 - 115 mg/dL [facility] Calcium 9.5 8.4 - 10.2 mg/dL [facility] Bilirubin, Total 3.5(H) 0.0 - 1.0 mg/dL [facility] Comment:Slight Icterus. Aspartate Amino Transferase 309(H) 5 - 37 U/L [facility] Alanine Aminotransferase 343(H) 0 - 40 U/L [facility] Total Protein 7.7 6.5 - 8.0 g/dL [facility] Albumin Level 4.5 3.5 - 5.0 g/dL [facility] Alkaline Phosphatase 257(H) 39 - 117 U/L [facility] 12/10/2024 5:11 AM EDT 12/10/2024 5:15 AM EDT us Generic External Data Provider LAB BLOOD ORDERAB LES Final Result Performing Organization Address [facility] Co de Phone Number [facility] [address] [place] [phone] * POCT Rapid Influenza B CARSON ID NOW (12/07/2024 11:29 AM EDT) Influenza B Negative Negative, Indeterminate [facility] QC Media Lot # [id number] [facility] Lot# Expiration Date [facility] Swab 12/07/2024 11:2 9 AM EDT us Maria Luisa Polk MD POINT OF CARE TEST ENTER/EDIT OR DERABLES Final Result Performing Organization Address [facility] Co de Phone Number [facility] [address] [place] [phone] * POCT Rapid Influenza A CARSON ID NOW (12/07/2024 11:29 AM EDT) Influenza A Negative Negative, Indeterminate [facility] QC Media Lot # [id number] [facility] Lot# Expiration Date [facility] Swab 12/07/2024 11:2 9 AM EDT Maria Luisa Polk MD POINT OF CARE TEST ENTER/EDIT OR DERABLES Final Result Performing Organization Address [facility] Co de Phone Number [facility] [address] [place] [phone] * POCT Rapid Covid-19 BinaxNOW (12/07/2024 11:29 AM EDT) Rapid COVID Ag Negative QC Media Lot # [id number] Lot# Expiration Date Swab 12/07/2024 11:2 9 AM EDT Maria Luisa Polk MD POINT OF CARE TEST ENTER/EDIT OR DERABLES Final Result * (ABNORMAL) Lipid Panel, Standard (09/25/2024 9:43 AM EDT) Triglycerides 224(H) <150 mg/dL [facility] Comment:Desirable Triglyceri de: less than 150 mg/dLBorderline High Triglyceride 150-199 mg/dLHigh Triglyceride: 200-499 mg/dLVery High Triglyceride: greater than or equal to 5OO mg/dL Cholesterol 138 <200 mg/dL [facility] Comment:Desirable Cholestero l: less than 200 mg/dLBorderline High Cholesterol: 200-239 mg/dLHigh Cholesterol: greater than 239 mg/dL LDL Cholesterol Calculated 62 <100 mg/dL [facility] Comment:Desirable LDL: less than 100 mg/dLNear Optimal/Above Optimal LDL: 110- 129 mg/dLBorderline High LDL: 130-159 mg/dLHigh LDL: 160-189 mg/dLVery High LDL: greater than or equal to 190 mg/dL HDL Cholesterol 32(L) >40 mg/dL [facility] Comment:Desirable HDL: great er than 40 mg/dL Note: This HDL assay may give artificially low results in patients with liver disease. Blood Venous blood specimen / Unknown 09/25/2024 9:43 AM EDT 09/25/2024 11:01 AM EDT Cheryl Diehl [facility] BLOOD ORDERABLES Final Resul t [facility] [address], [place] [phone] * Hm Colonoscopy (10/23/2021) Colonoscopy Normal Normal Geremias Mosqueda MD HEALTH MAINTENANCE Final Result from Last 3 Months or Most Recently Relevant to Health Maintenance Insurance [facility] [employer] OPTIONS (HMO D-SNP) [facility] Care Teams General Foreman Relationship Specialty Start Date End Date Cheryl Deihl ANP [address] [place] [phone] PCP - General Family Medicine 12/05/21
--- OUTSIDE RECORDS SUMMARY | 2025-01-05 12:27 | XMS_ITS | Encounter Summary ---
Author Organization [employer] Address [address] [facility] [address] [place] [address] Care Team Providers Care Vocational Auto Body Instructor Name Role Phone Keiry Sloan Primary Care Provider [phone] Encounter Details Date Type Department Care Team (Late st Contact Info) Description 11/08/2023 Orders Only [facility] [address] [place] [address] Keiry Sloan ANP [address] [place] [address] Social History Tobacco Use Types Packs/Day Years [...] documented as of this encounter Care Teams Vocational Auto Body Instructor Relationship Specialty Start Date End Date Keiry Sloan ANP [address] [place] [phone] PCP - General Family Medicine 12/05/21 documented as of this encounter
== END 2025-01-05 10:40 | disposition home or self-care (01) ==
LOC: HO.HGS 10:16
PROVIDERS: PCP Nurse Practitioner Primary Care
DX: Z90.49 Acquired absence of other specified parts of digestive tract (principal)
CPT/HCPCS: 99024

== ENCOUNTER → 2025-01-05 10:16 | Outpatient (BNVA) | payer OTHER, SELFPAY | PROVIDERS: PCP Nurse Practitioner Primary Care | DX: Z48.815 Encounter for surgical aftercare following surgery on the digestive system (principal); Z98.890 Other specified postprocedural states; Z90.49 Acquired absence of other specified parts of digestive tract | CPT/HCPCS: 99212 ==

== ENCOUNTER 2025-01-19 09:59 | Outpatient (AMB) | payer OTHER, SELFPAY ==
--- NOTE | 2025-01-19 10:05 | A.OFFVIS_ITS ---
Vital Signs 01/19/25 10:12 Weight 190 lb BP 137/88 Blood Pressure Location Rt brachial Position Sitting Pulse 98 Intake Visit Reasons: 2wk s/p gallbladder surgery Intake Note: Patient here for 2wk follow up. S/p lap cholecystectomy. GE (MARINA): 01-05-2025 Patient c/o: on and off mild sharp pains at incision area. Denies oozing, bleeding, nausea. Surgery (RS): 12-13-2024 Quality Process Lead Required: Yes Information Interpreted: clinical only ([facility] motor vehicle parts interpreter ) Accompanied by: Self / Same As Patient Allergies Penicillins (PENICILLINS) Allergy (Intermediate, Verified 01/19/25 10:11) RASH HPI HPI 2wk s/p gallbladder surgery: Details: In-house motor vehicle parts interpreter used for this evaluation. Patient reports he is doing well. Denies significant abdominal pain. Does endorse some occasional mild tenderness near the incision site, he states this is improving overall. He denies any nausea or vomiting. His appetite has returned to baseline. He is still struggling with some constipation. Bowel movements every 3 days. He states he did not take the MiraLax prescribed at the last appointment because this is not worked for him in the past. He wants to know when he is allowed to resume activity [facility] Medical History Tubular adenoma Gout Other obstructive and reflux uropathy Benign prostatic hyperplasia with lower urinary tract symptoms Rosacea GERD (gastroesophageal reflux disease) Benign neoplasm of cerebellum Sinusitis HTN (hypertension) Surgical History Hx of cholecystectomy (12/13/24) Hx of colonoscopy History of esophagogastroduodenoscopy (EGD) History of surgery History of brain surgery Social History Household Members: None Housing: Other Housing Other:: rents room - possible recent loss of housing Do you presently have visiting nurse or other home services: No Alcohol intake: never Patient Tobacco Use Status: Never used Tobacco Second Hand Smoke Exposure: No service: No Current occupational status: retired Current occupation: worked in [employer] in [place] Current occupational exposures/hazards: No Physical Exam Vital Signs: Last Vital Signs Pulse 98 01/19/25 10:12 BP 137/88 01/19/25 10:12 Const General: comfortable and no acute distress Orientation/consciousness: patient oriented x3 GI Other: Right upper quadrant incision site intact, no surrounding erythema, no discharge, nontender. Well healed Additional incision sites well healed Inspection: No distended Palpation (GI): Soft to palpation and nontender Neuro General: patient oriented x3 Assessment & Plan Assessment & Plan (1) S/P cholecystectomy: Code(s): Z90.49 - Acquired absence of other specified parts of digestive tract Category: Surgical Plan 69-year-old male s/p laparoscopic converted to open subtotal fenestrated cholecystectomy on 12/13/2024 returning to the office for routine follow up. He is overall doing well. Has some intermittent right upper quadrant pain, although it is improving, I reassured him that this is expected postoperatively and should improve with time. His appetite is at baseline, however he continues to struggle with constipation. Reports bowel movements every 3 days, I sent him for MiraLax at his last appointment however he denies taking this because it has not helped him in the past. I reinforced the he should try this to help r egulate his bowels. I did also recommend increasing hydration and fiber in his diet. On exam the abdomen is soft and benign. Incisions appear clean dry and intact, no concern for infection at this time. We will continue with activity restrictions no heavy lifting greater than 15-20 lb until 01/24/2025. He understands this. No longer requiring routine follow up. Can follow up as needed with any concerns in the future Coding Level of Care Code Global (55105) Diagnoses S/P cholecystectomy Z90.49
[2025-01-19 10:12] VITALS: BP 137/88; PULSE 98
== END 2025-01-19 10:34 | disposition home or self-care (01) ==
LOC: HO.HGS 10:00
PROVIDERS: PCP Nurse Practitioner Primary Care
DX: Z90.49 Acquired absence of other specified parts of digestive tract (principal)
CPT/HCPCS: 99024

== ENCOUNTER → 2025-01-19 09:59 | Outpatient (BNVA) | payer OTHER, SELFPAY | PROVIDERS: PCP Nurse Practitioner Primary Care | DX: R10.11 Right upper quadrant pain (principal); Z90.49 Acquired absence of other specified parts of digestive tract; Z98.890 Other specified postprocedural states | CPT/HCPCS: 99212 ==

== ENCOUNTER 2025-03-30 12:52 | Outpatient (REF) | payer OTHER, SELFPAY ==
--- NOTE | ~2025-03-30 | US_ITS ---
EXAMINATION: US RETROPERITONEAL LIMITED (RENAL ONLY) CLINICAL INFORMATION: N40.1. Benign prostatic hyperplasia with lower urinary tract symptoms.. COMPARISON: None available. TECHNIQUE: Real-time ultrasound of the kidneys using grayscale technique. FINDINGS: RIGHT KIDNEY: 11 x 6 x 6 cm (SAG x AP x TRV). Normal echotexture. Renal cortical thickness is normal. No hydronephrosis. No solid or cystic lesion. LEFT KIDNEY: 11 x 6 x 5 cm (SAG x AP x TRV). Normal echotexture. Renal cortical thickness is normal. No hydronephrosis. No solid or cystic lesion. US/US renal BI IMPRESSION: No hydronephrosis or gross nephrolithiasis.. Electronically signed by: Alex Torres MD 03/30/2025 01:40 PM [facility]
--- OUTSIDE RECORDS SUMMARY | 2025-03-30 16:41 | XMS_ITS | Encounter Summary ---
Author Organization [employer] Address [address] [facility] 7[address] [place] [address] Care Team Providers Care Flagsetter Name Role Phone Keiry Sloan Primary Care Provider [phone] Reason for Visit * Reason Comments Med Refill Encounter Details Date Type Department Care Team (Late st Contact Info) Description 06/02/2024 Refill [facility] [address] [place], [place] [phone] Keiry Sloan ANP [address] [place] [address] Gastroesophageal reflux disease without esophagitis Social History [...] Care Team (Late st Contact Info) Description 04/07/2025 9:00 AM EST Medication Management [address] [address] Nanda Rodriguez, PharmD [address] [place] [phone] 05/12/2025 3:00 PM EST Office Visit [address] [address] Keiry Sloan ANP [address] [place] [phone] documented as of this encounter Visit Diagnoses Diagnosis Gastroesophageal reflux disease without esophagitis Esophageal reflux documented in this encounter Additional Health Concerns Assessment Noted Time PHQ-9 Depression Total Score: 0 12/13/19 24 9:56 AM EDT documented as of this encounter Care Teams Flagsetter Relationship Specialty Start Date End Date Keiry Sloan ANP [address] [place] [phone] PCP - General Family Medicine 12/05/21 documented as of this encounter
--- OUTSIDE RECORDS SUMMARY | 2025-03-30 16:42 | XMS_ITS | Encounter Summary ---
Author Organization [facility] Address [address] [place] [address] [address] [place] [address] Care Team Providers Care Base Manager Name Role Phone Keiry Sloan Primary Care Provider [phone] Encounter Details Date Type Department Care Team (Latest Contact Info) Description 11/24/2021 Abstract [facility] Dental, Provider, DDS Social History [...] Description 04/07/2025 9:00 AM EST Medication Management [address] [address] Nanda Rodriguez, PharmD [address] [place] [address] 05/12/2025 3:00 PM EST Office Visit [facility] [address] [place] [phone] Keiry Sloan ANP [address] [place] [address] documented as of this encounter Visit Diagnoses Not on filedocumented in this encounter Care Teams Base Manager Relationship Specialty Start Date End Date Keiry Sloan ANP [address] [place] [phone] PCP - General Family Medicine 12/05/21 documented as of this encounter
--- OUTSIDE RECORDS SUMMARY | 2025-03-30 16:42 | XMS_ITS | Encounter Summary ---
Author Organization [employer] Address [address] [facility] [address] [place] [address] Care Team Providers Care Mapping Editor Name Role Phone Keiry Sloan Primary Care Provider [phone] Reason for Visit * Reason Comments Med Refill Encounter Details Date Type Department Care Team ([facility] st Contact Info) Description 09/03/2024 Refill [facility] [address] [place], [place] [phone] Keiry Sloan ANP [address] [place], [place] [phone] Psychophysiological insomnia; Generalized pruritus Social History Tobacco [...] Description 04/07/2025 9:00 AM EST Medication Management [address] [address] Nanda Rodriguez, PharmD [address] [place] [phone] 05/12/2025 3:00 PM EST Office Visit [address] [address] Keiry Sloan ANP [address] [place] [phone] documented as of this encounter Visit Diagnoses Diagnosis Psychophysiological insomnia Persistent disorder of initiating or maintaining sleep Generalized pruritus Unspecified pruritic disorder documented in this encounter Additional Health Concerns Assessment Noted Time PHQ-9 Depression Total Score: 3 07/09/19 25 9:30 AM EDT documented as of this encounter Care Teams Mapping Editor Relationship Specialty Start Date End Date Keiry Sloan ANP [address] [place] [phone] PCP - General Family Medicine 12/05/21 documented as of this encounter
--- OUTSIDE RECORDS SUMMARY | 2025-03-30 16:42 | XMS_ITS | Clinical Summary ---
Author Organization [employer] Address [address] [facility] 7t [place] [address] Care Team Providers Care Copy Messenger Name Role Phone Cheryl Diehl Primary Care Provider [phone] Allergies Active Allergy Reactions Criticality Noted Date Comments Atorvastatin Angioedema 11/06/2017 Penicillins 10/09/2011 Other reaction(s): Itching Trazodone 09/26/2020 Medications * This document contains information received from the source organization and may not represent a complete record from that organization. [facility]. Devices (Pulse Oximeter For Finger) [facility] 020 Active Bisacodyl EC 5 MG EC tablet 022 Active sennosides (Senokot) 8.6 MG tablet Take 1 tablet by mouth at bedtime. Active psyllium (Metamucil Smooth Texture) 58.6 % powderIndications: Constipation, unspecified constipation type 1 tsp 3 times daily in full glass of liquid, increase as tolerated to 1 tsp 3x/d 660 g 11 023 Active loratadine (Claritin) 10 MG tablet TAKE 1 TABLET BY MOUTH EVERY DAY IN THE MORNING 90 tablet 1 024 Active docusate sodium (Colace) 100 MG capsule TAKE 1 CAPSULE BY MOUTH EVERY TWELVE HOURS 180 capsule 1 024 Active omeprazole (PriLOSEC) [address] capsuleIndications :Gastroesophageal reflux disease without esophagitis TAKE 1 CAPSULE BY MOUTH EVERY DAY BEFORE MEALS 90 capsule 2 025 Active rosuvastatin (Crestor) 40 MG tabletIndications: Dyslipidemia TAKE 1 TABLET BY MOUTH DAILY IN THE MORNING 90 tablet 1 025 Active betamethasone valerate (Valisone) 0.1 % creamIndications:R chetan Apply topically if needed in the morning and at bedtime for rash. 45 g 025 Active levothyroxine (Synthroid) 50 MCG tabletIndications: Hypothyroidism, unspecified type Take 1 tablet (50 mcg) by mouth before breakfast. 90 tablet 3 025 2025 Active omega-3 acid ethyl esters (Lovaza) 1 g capsuleIndications :Hypertriglyceride amalia,Elevated triglycerides with high cholesterol Take 1 capsule (1 g) by mouth 2 times daily. 180 capsule 3 025 2025 Active D3 Super Strength 50 MCG (2000 UT) capsule TAKE 1 CAPSULE BY MOUTH EVERY DAY IN THE MORNING 90 capsule 1 Active mirtazapine (Remeron) 7.5 MG tablet TAKE 1 TABLET BY MOUTH AT BEDTIME 30 tablet 1 Active tolterodine LA 2 MG 24 hr capsule Take 1 capsule by mouth Once per day. Active lisinopril 10 MG tabletIndications: Essential hypertension Take 1 tablet (10 mg) by mouth in the morning. 90 tablet 1 03/15/20 25 11:27 AM EST 025 Active Blood Pressure kitIndications:Ess ential hypertension 1 each 2 times daily. 1 kit 025 2025 Active Emollient (Eucerin Advanced Repair) creamIndications:D ry skin 2g as needed twice daily to dry skin and scars 454 g 2 025 Active acetaminophen (Tylenol) 500 MG tabletIndications: Acute midline low back pain without sciatica Take 1-2 tabs as needed up to TID for pain 90 tablet 1 03/15/20 25 11:26 AM EST 025 Active aspirin (Aspirin Low Dose) 81 MG EC tabletIndications: Dyslipidemia Take 1 tablet (81 mg) by mouth in the morning. 90 tablet 1 025 Active fluticasone (Flonase) 50 MCG/ACT nasal sprayIndications:Lalo bolivar in adult patient,Acute nasopharyngitis Administer 1 spray into each nostril Once per day. Shake gently. Before first use, prime pump. After use, clean tip and replace cap. 16 g 1 03/15/20 25 2:30 PM EST 025 2024 Active tacrolimus (Protopic) 0.1 % ointment 023 2024 Discontinued(M ed list cleanup (will not trigger notification to Pharmacy)) acetaminophen (Tylenol) 500 MG tabletIndications: Acute pain of left knee Take 2 tablets (1,000 mg) by mouth every 6 (six) hours if needed for moderate pain or fever for up to 45 doses. 90 tablet 024 2024 Discontinued(R eorder (will not trigger notification to Pharmacy)) lisinopril 10 MG tabletIndications: Essential hypertension TAKE 1 TABLET BY MOUTH EVERY MORNING 90 tablet 1 025 2024 Discontinued(R eorder (will not trigger notification to Pharmacy)) omeprazole OTC (PriLOSEC OTC) 20 MG EC tablet Take 1 tablet (20 mg) by mouth before breakfast. Do not crush, chew, or split. 30 tablet 11 025 2024 Discontinued(D uplicate order (will not trigger notification to Pharmacy)) Aspirin Low Dose 81 MG EC tabletIndications: Dyslipidemia TAKE 1 TABLET BY MOUTH EVERY DAY IN THE MORNING 90 tablet 1 025 2024 Discontinued(R eorder (will not trigger notification to Pharmacy)) guaiFENesin-dextro methorphan (Robitussin DM) 100-10 MG/5ML syrupIndications:C ough in adult patient,Acute nasopharyngitis Take 10 mL by mouth every 4 (four) hours if needed for cough for up to 10 days. 120 mL 025 2024 Active Problems Problem Noted Date Diagnosed Date [...] benefit from a follow up with [facility] in one month. Option of OP therapy [...] situations PLAN: 1. Follow up with [facility]: Recommended for follow up 2. Patient goal is continue using resources in the community to aid in current matters 3. Behavioral Recommendations a. Patient will attend follow-up with [facility] in one month. b. 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 History of severe acute resp iratory syndrome [...] Encounters Date Type Department Care Team Description 03/30/2025 Orders Only [facility] External Provider, [facility] 03/15/2025 1:00 PM EST Office Visit [facility] [address] [place] [phone] Courtney Batres NP Acute nasopharyngitis (Primary Dx); Cough in adult patient 03/15/2025 Travel 03/04/2025 Patient Outreach [facility] [address] [place] [phone] Cheryl Diehl ANP Care Coordination (CH[facility] outreach for [facility] housing search-referral completed ) 03/03/2025 2:30 PM EST Office Visit [facility] [address] [place] [address] Cheryl Diehl ANP Elevated triglycerides with high cholesterol (Primary Dx); Essential hypertension; Encounter for immunization; Hypothyroidism, unspecified type; Dry skin; Homeless; Acute midline low back pain without sciatica; Dyslipidemia; Hospital discharge follow-up 03/03/2025 Travel 03/02/2025 Telephone [facility] [address] [place] [address] Cheryl Diehl ANP chart prep 02/24/2025 Telephone [facility] [address] [place] [address] Salome Varela PharmD 02/12/2025 Patient Outreach [facility] [address] [place] [address] Cheryl Diehl ANP Transition Of Care (Tcm) (HDF scheduled. ) 02/12/2025 Telephone [facility] [address] [place] [address] Cheryl Diehl ANP from Last 3 Months Immunizations Immunization Administration Dates Next Due Influenza injectable quadriv alent IIV4 with preservative 03/10/2018,12/31/2016 Influenza injectable quadriv alent preservative free 05/27/2023,05/17/2022,01/27/2019,2015 Influenza, High Dose Seasona l, Preservative Free 03/03/2025,01/10/2024 Influenza, IIV3, injectable 01/02/2010 Influenza, Split (incl. [...] the past 12 months, has t he [employer], gas, oil or water company threatened to [...] Sign Reading Time Taken Comments Blood Pressure 124/87 03/15/2025 1:12 PM EST Pulse 91 03/15/2025 1:12 PM EST Temperature 36.7 C (98 F) 03/15/2025 1:12 PM EST Respiratory Rate 18 03/15/2025 1:12 PM EST Oxygen Saturation 98% 03/15/2025 1:12 PM EST Inhaled Oxygen Concentration - - Weight 53.5 kg (118 lb) 03/15/2025 1:12 PM EST Height 172.5 cm (5' 7.9 ) 03/03/2025 2:20 PM EST Body Mass Index 17.99 03/03/2025 2:20 PM EST Plan of Treatment Upcoming Encounters Date Type Department Care Team (Late st Contact Info) Description 04/07/2025 9:00 AM EST Medication Management [facility] [address] [place] [address] Nanda Rodriguez, PharmD [address] [place] [address] 05/12/2025 3:00 PM EST Office Visit [facility] [address] [place] [address] Cheryl Diehl ANP [address] [place] [address] Health Maintenance Due Date Last Done Comments CT Colonography 1955 FIT DNA/Cologuard 1955 FIT 1955 FOBT 1955 Sigmoidoscopy 1955 COVID-19 Vaccine ( season) 2024 04/11/2022, 06/30/2020, 06/02/2020 Dental Oral Exam 01/02/2025 07/01/2024, 04/19/2023 Dental Prophylaxis 01/02/2025 07/01/2024, 0 12/20/2023, 04/19/2023, Additional history exists Dental X-Ray: Bitewings 07/02/2025 07/01/2024, 04/19 Depression Screening 07/08/2025 07/08/2024, 07/09/19 Alcohol/Substance Use Screening 09/25/2025 09/25/2024 SDOH Screening 09/25/2025 09/25/2024 Tobacco Screening 03/16/2026 03/16/2025 Colonoscopy 10/23/2026 10/23/2021 Colorectal Cancer Screening 10/23/2026 Dental X-Ray: Full Mouth 07/03/2027 07/01/2024 Lipid Panel 09/25/2029 09/25/2024, 09/14, 03/07/2022, Additional history exists DTaP/Tdap/Td Vaccines (3 - Td or Tdap) 10/02/2033 10/03/2023, 09/03/2013, 01/02/2010 Zoster Vaccines Completed 12/15/2019, 05/17, 11/10/2016 Pneumococcal Vaccine: 50+ Years Completed 10/03/2023, 10/07/2018 RSV Patients and Patients Aged 60 years or older Completed 12/23/2023 Hepatitis C Screening Completed 12/10/2024, 06/01/2 022 Influenza Vaccine Completed 03/03/2025, , 05/27/2023, Additional history exists HIB Vaccines Aged Out No longer eligi [...] Procedure Name Priority Date/Time Associated Diagnosis Comments US RENAL COMPLETE Routine 03/30/2025 1:1 3 PM EST POCT INFLUENZA A (ID NOW RAPID MOLECULAR) Routine 03/15/2025 1:23 PM EST Cough in adult patient POCT RAPID COVID ANTIGEN Routine 03/15/2025 1:22 PM EST Cough in adult patient POCT INFLUENZA B (ID NOW RAPID MOLECULAR) Routine 03/15/2025 1:22 PM EST Cough in adult patient HEPATITIS PANEL, GENERAL Routine 12/10/2024 8:26 AM EDT LIPID PANEL, STANDARD Routine 09/25/2024 9:43 AM EDT Hypertriglyceridemi a PROPHYLAXIS - ADULT Routine 07/01/2024 8 :00 AM EDT INTRAORAL - COMPLETE SERIES OF RADIOGRAPHIC IMAGES Routine 07/01/2024 8:00 AM EDT PERIODIC ORAL EVALUATION - ESTABLISHED PATIENT Routine 07/01/2024 8:00 AM EDT HM COLONOSCOPY Routine 10/23/2021 from Last 3 Months or Most Recently Relevant to Health Maintenance Results * US Renal Complete (03/30/2025 1:13 PM EST) Anatomical Region Laterality Modality Kidney Ultrasound 03/30/2025 1:13 PM EST Narrative 03/30/2025 1:43 PM EST [address] [address] Ultrasound Report Signed Patient: Mateo De La Rosa MR#: [id number] 38 : 1955 Acct:[id number] Age/Sex: 70 / M ADM Date: 03/30/25 Loc: HO.US Attending Dr: Serena PEGUERO Ordering Physician: Serena Ho Date of Service: 03/30/25 Procedure(s): US renal BI Accession Number(s): [id number] cc: Serena Ho; CHERYL DIEHL NP Reason for Exam: N40.1 - Benign prostatic hyperplasia with lower urinary tract symptoms EXAMINATION: US RETROPERITONEAL LIMITED (RENAL ONLY) CLINICAL INFORMATION: N40.1. Benign prostatic hyperplasia with lower urinary tract symptoms.. COMPARISON: None available. TECHNIQUE: Real-time ultrasound of the kidneys using grayscale technique. FINDINGS: RIGHT KIDNEY: 11 x 6 x 6 cm (SAG x AP x TRV). Normal echotexture. Renal cortical thickness is normal. No hydronephrosis. No solid or cystic lesion. LEFT KIDNEY: 11 x 6 x 5 cm (SAG x AP x TRV). Normal echotexture. Renal cortical thickness is normal. No hydronephrosis. No solid or cystic lesion. US/US renal BI IMPRESSION: No hydronephrosis or gross nephrolithiasis.. Electronically signed by: Alex Torres MD 03/30/2025 01:40 PM EST Dictated By: Alex Marcus MD Signed By: <Electronically signed by Alex Maxwell MD in OV> 03/30/25 1340 DD/ 1313 TD/TT: 03/30/25 1317 [employer] Architect: Procedure Note Donotuseinterpreter, Image - 03/30/[address] [address] Ultrasound Report Signed Patient: Chago De La Rosa#: [id number] [birth year] : 1955cct:[id number] Age/Sex: 70 / MADM Date: 03/30/25 Loc: HO.US Attending Dr: Serena PEGUERO Ordering Physician: Serena Ho Date of Service: 03/30/25 Procedure(s): US renal BI Accession Number(s): [id number] cc: Serena Ho; CHERYL DIEHL NP Reason for Exam: N40.1 - Benign prostatic hyperplasia with lower urinarytract symptoms EXAMINATION: US RETROPERITONEAL LIMITED (RENAL ONLY) CLINICAL INFORMATION: N40.1. Benign prostatic hyperplasia with lower urinary tract symptoms.. COMPARISON: None available. TECHNIQUE: Real-time ultrasound of the kidneys using grayscale technique. FINDINGS: RIGHT KIDNEY: 11 x 6 x 6 cm (SAG x AP x TRV). Normal echotexture. Renal cortical thickness is normal. No hydronephrosis. No solid or cystic lesion. LEFT KIDNEY: 11 x 6 x 5 cm (SAG x AP x TRV). Normal echotexture. Renal cortical thickness is normal. No hydronephrosis. No solid or cystic lesion. US/US renal BI IMPRESSION: No hydronephrosis or gross nephrolithiasis.. Electronically signed by: Alex Torres MD 03/30/2025 01:40 PM EST Dictated By: Alex Marcus MD Signed By: <Electronically signed by Alex Maxwell MDin OV> 03/30/25 1340 DD/ 1313 TD/TT: 03/30/25 1317 [employer] Architect: us [facility] External Provider IMG US PROCEDURES Edited Result - Final * Influenza A (ID NOW Rapid Molecular) (03/15/2025 1:23 PM EST) Influenza A Negative Negative, Indeterminate [facility] Swab 03/15/2025 1:23 PM EST us Courtney Batres COST RECORDER POINT OF CARE TEST ENTER/EDIT O RDERABLES Final Result [facility] [address] [place] [phone] * Influenza B (ID NOW Rapid Molecular) (03/15/2025 1:22 PM EST) Influenza B Negative Negative, Indeterminate [facility] Swab 03/15/2025 1:22 PM EST us Courtney Batres COST RECORDER POINT OF CARE TEST ENTER/EDIT O RDERABLES Final Result Performing Organization Address [facility]/ZIP Co de Phone Number [facility] [address] [place] [phone] * POCT Rapid COVID Ag (03/15/2025 1:22 PM EST) Rapid COVID Ag Negative Swab 03/15/2025 1:22 PM EST us Courtney Batres COST RECORDER POINT OF CARE TEST ENTER/EDIT O RDERABLES Final Result * Hepatitis Panel, General (12/10/2024 8:26 AM EDT) Hepatitis A IgM Nonreactive Nonreactive [facility] Comment:IgM antibodies to FORD V not detected; does not exclude earlyacute or recovered HAV infection. ~Hepatitis B Surface Antibody NONREACTIVE Nonreactive [facility] Comment:Nonreactive: < 8.00 mIU/mL Hepatitis B Core Antibody Nonreactive Nonreactive [facility] Hepatitis C Antibody Nonreactive Nonreactive [facility] Comment:Antibodies to HCV no t detected; does not exclude early acuteHCV infection. Hepatitis B Surface Ag Negative Negative [facility] 12/10/2024 8:26 AM EDT 12/10/2024 8:28 AM EDT Generic External Data Provider LAB BLOOD ORDERAB LES Final Result Performing Organization Address City/[facility]/ZIP Co de Phone Number [facility] [address] [place] [phone] * (ABNORMAL) Lipid Panel, Standard (09/25/2024 9:43 AM EDT) Triglycerides 224(H) <150 mg/dL [facility] Comment:Desirable Triglyceri de: less than 150 mg/dLBorderline High Triglyceride 150-199 mg/dLHigh Triglyceride: 200-499 mg/dLVery High Triglyceride: greater than or equal to 5OO mg/dL Cholesterol 138 <200 mg/dL [facility] Comment:Desirable Cholestero l: less than 200 mg/dLBorderline High Cholesterol: 200-239 mg/dLHigh Cholesterol: greater than 239 mg/dL LDL Cholesterol Calculated 62 <100 mg/dL [facility] Comment:Desirable LDL: less than 100 mg/dLNear Optimal/Above Optimal LDL: 110- 129 mg/dLBorderline High LDL: 130-159 mg/dLHigh LDL: 160-189 mg/dLVery High LDL: greater than or equal to 190 mg/dL HDL Cholesterol 32(L) >40 mg/dL [facility] Comment:Desirable HDL: great er than 40 mg/dL Note: This HDL assay may give artificially low results in patients with liver disease. Blood Venous blood specimen / Unknown 09/25/2024 9:43 AM EDT 09/25/2024 11:01 AM EDT us [facility] LAB BLOOD ORDERABLES Final Resul t [facility] [address] [place] [phone] * Hm Colonoscopy (10/23/2021) Colonoscopy Normal Normal Historical Provider MD HEALTH MAINTENANCE Final Result from Last 3 Months or Most Recently Relevant to Health Maintenance Insurance [facility] OPTIONS (HMO D-SNP) [facility] Care Teams Copy Messenger Relationship Specialty Start Date End Date Cheryl Diehl ANP [address] [place] [phone] PCP - General Family Medicine 12/05/21
--- OUTSIDE RECORDS SUMMARY | 2025-03-30 16:42 | XMS_ITS | Encounter Summary ---
Author Organization [employer] Address [address] [facility] 7t [place] [address] Care Team Providers Care Tester Waste Disposal Leakage Name Role Phone Keiry Sloan Primary Care Provider [phone] Encounter Details Date Type Department Care Team (Late st Contact Info) Description 11/08/2023 Orders Only [facility] [address] [place], [place] [phone] Keiry Sloan ANP [address] [place] [address] Social History Tobacco Use Types Packs/Day Years [...] Description 04/07/2025 9:00 AM EST Medication Management [facility] [address] [place] [phone] Nanda Rodriguez PharmD [address] [place] [phone] 05/12/2025 3:00 PM EST Office Visit [address] [address] Keiry Sloan ANP [address] [place] [phone] documented as of this encounter Visit Diagnoses Not on filedocumented in this encounter Additional Health Concerns Assessment Noted Time PHQ-9 Depression Total Score: 6 05/17/19 23 9:47 AM EST documented as of this encounter Care Teams Tester Waste Disposal Leakage Relationship Specialty Start Date End Date Keiry Sloan ANP [address] [place] [phone] PCP - General Family Medicine 12/05/21 documented as of this encounter
--- OUTSIDE RECORDS SUMMARY | 2025-03-30 16:42 | XMS_ITS | Encounter Summary ---
Author Organization [employer] Address [address] [facility] [address] [place] [address] Care Team Providers Care Director Of Officiating Name Role Phone Keiry Sloan HUBER Primary Care Provider [phone] Reason for Visit * Reason Onset Date Comments rs no show appt 10/30/2024 Encounter Details Date Type Department Care Team ([facility] st Contact Info) Description 10/30/2024 Telephone [facility] [address] [place], [place] [phone] JosiChelsea dnaielsricio [address] [place] [address] rs no show appt Social History Tobacco [...] Miscellaneous Notes * Telephone Encounter - Sonal Davin - 10/30/2024 9:00 AM EDT Patient had [...] Description 04/07/2025 9:00 AM EST Medication Management [facility] [address] [place] [phone] Nanda Rodriguez, PharmD [address] [place] [phone] 05/12/2025 3:00 PM EST Office Visit [facility] [address] [place] [address] Keiry Sloan ANP [address] [place] [address] documented as of this encounter Visit Diagnoses Not on filedocumented in this encounter Additional Health Concerns Assessment Noted Time PHQ-9 Depression Total Score: 3 07/09/19 9:30 AM EDT documented as of this encounter Care Teams Director Of Officiating Relationship Specialty Start Date End Date Keiry Sloan ANP [address] [place] [phone] PCP - General Family Medicine 12/05/21 documented as of this encounter
--- OUTSIDE RECORDS SUMMARY | 2025-03-30 16:42 | XMS_ITS | Encounter Summary ---
Author Organization [employer] [facility] Address [address] [place] [address] [address] [place] [address] Care Team Providers Care Mica Spreader Name Role Phone Keiry Sloan Primary Care Provider [phone] Encounter Details Date Type Department Care Team (Latest Contact Info) Description 05/20/2018 Abstract [facility] CONVERSIONS Dental, Provider, DDS Social History [...] Description 04/07/2025 9:00 AM EST Medication Management [address] [address] Nanda Rodriguez, PharmD [address] [place] [phone] 05/12/2025 3:00 PM EST Office Visit [facility] [address] [place] [phone] Keiry Sloan ANP [address] [place] [address] documented as of this encounter Visit Diagnoses Not on filedocumented in this encounter Care Teams Mica Spreader Relationship Specialty Start Date End Date Keiry Sloan ANP [address] [place] [phone] PCP - General Family Medicine 12/05/21 documented as of this encounter
--- OUTSIDE RECORDS SUMMARY | 2025-03-30 16:42 | XMS_ITS | Encounter Summary ---
Author Organization [employer] Address [address] [facility] 7t [place] [address] Care Team Providers Care Pediatric Associate Name Role Phone Keiry Sloan Primary Care Provider [phone] Reason for Visit * Reason Comments Med Refill Encounter Details Date Type Department Care Team (Late st Contact Info) Description 10/14/2024 Refill [facility] [address] [place], [place] [phone] Keiry Sloan ANP [address] [place] [address] Insomnia, unspecified type Social History Tobacco Use [...] Description 04/07/2025 9:00 AM EST Medication Management [address] [address] Nanda Rodriguez PharmD [address] [place] [phone] 05/12/2025 3:00 PM EST Office Visit [address] [address] Keiry Sloan ANP [address] [place] [address] documented as of this encounter Visit Diagnoses Diagnosis Insomnia, unspecified type documented in this encounter Additional Health Concerns Assessment Noted Time PHQ-9 Depression Total Score: 3 07/09/19 25 9:30 AM EDT documented as of this encounter Care Teams Pediatric Associate Relationship Specialty Start Date End Date Keiry Sloan ANP [address] [place] [phone] PCP - General Family Medicine 12/05/21 documented as of this encounter
--- OUTSIDE RECORDS SUMMARY | 2025-03-30 16:42 | XMS_ITS | Encounter Summary ---
Author Organization [employer] Address [address] [facility] 7[address] [place] [address] Care Team Providers Care Primary Education Professor Name Role Phone Keiry Sloan HUBER Primary Care Provider [phone] Reason for Visit * Reason Onset Date Comments rs no show appt 07/20/2024 Encounter Details Date Type Department Care Team ([facility] st Contact Info) Description 07/20/2024 Telephone [facility] [address] [place], [place] [phone] JosiChelsea danielsricio [address] [place] [address] rs no show appt Social History Tobacco [...] Description 04/07/2025 9:00 AM EST Medication Management [facility] [address] [place] [phone] Nanda Rodriguez, PharmD [address] [place] [address] 05/12/2025 3:00 PM EST Office Visit [facility] [address] [place] [phone] Keiry Sloan ANP [address] [place] [phone] documented as of this encounter Visit Diagnoses Not on filedocumented in this encounter Additional Health Concerns Assessment Noted Time PHQ-9 Depression Total Score: 3 07/09/19 25 9:30 AM EDT documented as of this encounter Care Teams Primary Education Professor Relationship Specialty Start Date End Date Keiry Sloan ANP [address] [place] [phone] PCP - General Family Medicine 12/05/21 documented as of this encounter
--- OUTSIDE RECORDS SUMMARY | 2025-03-30 16:42 | XMS_ITS | Encounter Summary ---
Author Organization [employer] Address [address] [facility] [address] [place] [address] Care Team Providers Care Completions Engineer Name Role Phone Cheryl Diehl HUBER Primary Care Provider [phone] Encounter Details Date Type Department Care Team (Late st Contact Info) Description 03/30/2025 Orders Only [facility] External Provider, [facility] Social History Tobacco Use Types Packs/Day Years [...] Description 04/07/2025 9:00 AM EST Medication Management [facility] [address] [place] [phone] Nanda Rodriguez, PharmD [address] [place] [address] [phone] 05/12/2025 3:00 PM EST Office Visit [facility] [address] [place] [phone] Cheryl Diehl ANP [address] [place] [address] [phone] documented as of this encounter Procedures Procedure Name Priority Date/Time Associated Diagnosis Comments US RENAL COMPLETE Routine 03/30/2025 1:1 3 PM EST documented in this encounter Results * US Renal Complete (03/30/2025 1:13 PM EST) Anatomical Region Laterality Modality Kidney Ultrasound 03/30/2025 1:13 PM EST Narrative 03/30/2025 1:43 PM EST [address] [address] Ultrasound Report Signed Patient: Mateo De La Rosa MR#: [id number] [birth year] : 1955 Acct:[id number] Age/Sex: 70 / M ADM Date: 03/30/25 Loc: HO. Attending Dr: Serena PEGUERO Ordering Physician: Serena Ho Date of Service: 03/30/25 Procedure(s): US renal BI Accession Number(s): [id number] cc: Serena Ho; CHERYL DIEHL NP Reason [...] 03/30/25 1340 DD/ 1313 TD/TT: 03/30/25 1317 Qc Manager: Procedure Note Donotuseinterpreter, Image - 03/30/2025 [place] [address] Ultrasound Report Signed Patient: Chago De La Rosa#: [id number] 36 : 1955cct:[id number] Age/Sex: 70 / MADM Date: 03/30/25 Loc: .US Attending Dr: Serena PEGUERO Ordering Physician: Serena Ho Date of Service: 03/30/25 Procedure(s): US renal BI Accession Number(s): [id number] cc: Serena Ho; CHERYL DIEHL NP Reason [...] by: Alex Torres MD 03/30/2025 01:40 PM [facility] [place] Dictated By: Alex Marcus MD Signed By: <Electronically signed by Alex Maxwell MDin OV> 03/30/25 1340 DD/ 1313 TD/TT: 03/30/25 1317 Qc Manager: [facility] External Provider IMG US PROCEDURES Edited Result - Final documented in this encounter Visit Diagnoses Not on filedocumented in this encounter Additional Health Concerns Assessment Noted Time PHQ-9 Depression Total Score: 3 07/09/19 25 9:30 AM EDT documented as of this encounter Care Teams Completions Engineer Relationship Specialty Start Date End Date Cheryl Diehl ANP [address] [place] [phone] PCP - General Family Medicine 12/05/21 documented as of this encounter
== END 2025-03-30 12:53 | disposition home or self-care (01) ==
LOC: HO.US 12:52
PROVIDERS: PCP Nurse Practitioner Primary Care; Visit Provider Nurse Practitioner Family
DX: N40.1 Benign prostatic hyperplasia with lower urinary tract symptoms (principal); N13.8 Other obstructive and reflux uropathy; N39.3 Stress incontinence (female) (male)
CPT/HCPCS: 76775

== ENCOUNTER → 2025-03-30 12:53 | Outpatient (BNV) | payer OTHER, SELFPAY | PROVIDERS: PCP Nurse Practitioner Primary Care; Visit Provider Radiology Diagnostic Radiology | DX: N40.1 Benign prostatic hyperplasia with lower urinary tract symptoms (principal) | CPT/HCPCS: 76775 ==